=== PATIENT | female | born 1945 | race Caucasian/White ===

== ENCOUNTER → 2017-03-30 11:15 | Outpatient (CLI) | payer MEDICARE, SELFPAY ==
[2017-03-30 14:49] LABS: Anion Gap 10 (5-15); BUN 26 mg/dL (7-18); BUN/Creat Ratio 23.9 RATIO (10-20); Calcium,Total 9.1 mg/dL (8.5-10.1); Chloride 102 mmol/L (98-107); Cholesterol 205 mg/dL (200); Creatinine, Serum 1.09 mg/dL (0.55-1.02); EST Glomerular Filtration Rate 53 mL/min (>60); Est Glom Filt Rate - Afr Amer 64 mL/min (>60); Glucose 96 mg/dL (74-106); High Density Lipoprotein 52 mg/dL; Potassium 3.9 mmol/L (3.5-5.1); Sodium Level 137 mmol/L (136-145); Thyroid Stim Hormone (TSH) 1.81 uIU/mL (0.358-3.74); Triglycerides 108 mg/dL; Very Low Density Lipoprotein 22 mg/dL (5-40)
== END ==
PROVIDERS: Family Provider Family Medicine; PCP Family Medicine; Visit Provider Family Medicine
DX: I10 Essential (primary) hypertension (principal); F32.9 Major depressive disorder, single episode, unspecified
CPT/HCPCS: 36415; 80048; 80061; 84443

== ENCOUNTER → 2018-07-16 | Outpatient (CLI) | payer MEDICARE, SELFPAY ==
--- NOTE | 2018-07-16 10:16 | BI_ITS ---
MAMMOGRAPHY - BILATERAL SCREENING REASON FOR EXAM: Female, 73 years old. Routine annual screening examination. PERTINENT HISTORY: Non-contributory. TECHNIQUE: Digital bilateral breast tony (3D mammographic acquisition) in the CC and MLO projections. 2-D mediolateral oblique (MLO) and craniocaudad (CC) views of both breasts were obtained. CAD: Full Field Digital Mammography with Computer Added Detection was performed. COMPARISON: Comparison is made with prior study dated May 08, 2013 and November 04, 2011. FINDINGS: Breast Composition: The breasts are almost entirely fatty. There now is evidence of a 2.3 cm x 1.3 cm spiculated nodule in the slightly inferior deep retroareolar region of the left breast. A neoplastic process should be ruled out. Correlation with ultrasound is recommended. No other significant abnormalities are identified. BI/SCREEN MAMM (CAD) W/TONY BILAT IMPRESSION: New 2.3 cm x 1.3 cm spiculated nodule in the slightly inferior deep retroareolar region of the left breast as described. Correlation with ultrasound is recommended. This is a highly suspicious nodule. ASSESSMENT CATEGORY: BIRADS Category 5: Highly Suggestive of Malignancy - Appropriate Action Should Be Taken. A letter regarding these results will be sent to the patient by the facility within 30 days. Approximately 10% of breast cancers are not detected by mammography. A normal mammogram should not delay biopsy of a clinically suspicious abnormality. [id number] Electronically Signed: Carlos Childs, at 10:49 EDT , Service support ,
== END | disposition home or self-care (01) ==
PROVIDERS: Family Provider Family Medicine; PCP Family Medicine; Referring Provider Family Medicine; Visit Provider Family Medicine
DX: Z12.31 Encounter for screening mammogram for malignant neoplasm of breast (principal)
CPT/HCPCS: 77063; 77067

== ENCOUNTER → 2018-07-18 | Outpatient (CLI) | payer MEDICARE, SELFPAY ==
--- NOTE | 2018-07-18 14:42 | US_ITS ---
STUDY: ULTRASOUND BREAST - LEFT REASON FOR EXAM: Female, 73 years old. Abnormal screening mammogram. TECHNIQUE: Axial and longitudinal images of the LEFT breast were performed with a high resolution ultrasound transducer. COMPARISON: Comparison is made with prior mammogram dated July 16, 2018. FINDINGS: LEFT Breast: There is a 1.3 cm x 1.3 cm x 2.1 cm ill-defined hypoechoic nodule at the 7:00 position of the breast at 3 cm from nipple. There is evidence of posterior acoustical shadowing. A biopsy is strongly recommended. US/Breast Limited Unilateral IMPRESSION: 1.3 cm x 1.3 cm x 2.1 cm ill-defined hypoechoic nodule at the 7:00 position of the breast at 3 cm from nipple. A biopsy is recommended. ASSESSMENT CATEGORY: BIRADS Category 5: Highly Suggestive of Malignancy - Appropriate Action Should Be Taken. A letter regarding these results will be sent to the patient by the facility within 30 days. Electronically Signed: Carlos Childs, at 8:56 EDT , Service support ,
== END | disposition home or self-care (01) ==
LOC: OPUS 14:40
PROVIDERS: Family Provider Family Medicine; PCP Family Medicine; Referring Provider Family Medicine; Visit Provider Family Medicine
DX: R92.8 Other abnormal and inconclusive findings on diagnostic imaging of breast (principal)
CPT/HCPCS: 76642

== ENCOUNTER → 2018-07-22 | Outpatient (CLI) | payer MEDICARE, SELFPAY ==
--- NOTE | 2018-07-22 | IMM_PTH ---
PATIENT: CARI APPIAH LOC: [facility] U#:[id number] AGE/SX: 73/F ROOM: RE07/22/[address]: Dr. Barry Hernandez MD : 1945 BED: DIS: 07/22/2018 SPEC #: [id number] RECD: 07/25/18 12:01 STATUS: SANDRA [place] #: [id number] SHO: 07/22/18 00:[address]: Barry Hernandez DEPT: IMMUNOHISTOCHEMISTRY RECD BY: Mena Solis ENTERED: 07/25/18 12:02 SP TYPE: IMMUNO OTHR DR: Dr. Magdy Gibbs MD Tissues: Left breast, NOS Procedures: CALPONIN-1 (add) CK5-6 (add) E-CAD (add) HER2 ADRIÁN (add) KI-67 (add) P53 (add) ID (add) P40 (add) ER (initial) PHYSICIAN & INSTITUTION [address] [address] SPECIMEN INFORMATION: Tissue Source: Left breast tissue Clinical Info: Abnormal left breast ultrasound Specimen Number: [id number] CPT code: 51854, 00339 x5, 80166 x3 METHODOLOGY: Deparaffinized sections of prefer/formalin-fixed tissue or PAP/DQ stained slides are incubated with monoclonal/polyclonal antibodies/oligonucleotide probes. Localization is made via biotin free immunoperoxidase method. Appropriate controls are performed and reacted as expected. Results on target cell population are indicated in the following table: RESULTS: ANTIBODY / CLONE RESULT E-Cad (ECH-6) positive CK5-6 (D5 & 1684) negative Ki-67 (30-9) positive, low P53 (DO-7) negative P40 (BC28) negative Calponin-1 (CI233A) negative MORPHOMETRIC ANALYSIS ER (clone 6F11) >95%, strong ID (clone 16/1E2) >95%, strong Her-2Neu (clone CB11) 0-1+ The prognostic test for HER2 is performed on formalin-fixed paraffin embedded tissue. A 3+ (positive) staining pattern is defined as intense, homogeneous, complete, circumferential membranous staining in >10% of contiguous tumor cells. A similar weak (2+) staining pattern is interpreted as equivocal. TORREY follow-up testing is recommended for all equivocal cases. Positivity/negativity for ER/ID is reported if > or < 1% of the tumor cells are immuno- reactive, respectively. The ASCO/CAP criteria is used for scoring. Reference: Journal of Clinical Oncology, 2013; 31:3700-9926 & 2010; 16:1543-6364. Duration of fixation: 53 Hrs; Sample Adequate: Yes. These assays have not been validated on decalcified tissues. Results should be interpreted with caution given the likelihood of false negativity on decalcified specimens. These tests were developed and their performance characteristics determined by [facility]. They may not have been cleared or approved by the U.S. Food and Drug Administration. The FDA has determined that such clearance or approval is not necessary. INTERPRETATION: Left breast, core biopsy: Invasive ductal carcinoma, nuclear grade 1-2. Positive for estrogen receptors (favorable prognostic indicator). Positive for progesterone receptors (favorable prognostic indicator). Negative for overexpression of GBG4wbo. SJ:victoria 07/26/18
--- NOTE | 2018-07-22 | BRBX_PTH ---
PATIENT: CARI APPIAH LOC: [facility] U#:[id number] AGE/SX: 73/F ROOM: RE07/22/[address]: Dr. Barry Hernandez MD : 1945 BED: DIS: 07/22/2018 SPEC #: [id number] RECD: 07/22/18 13:49 STATUS: SANDRA TEJAS #: [id number] SHO: 07/22/18 00:[address]: Barry Hernandez DEPT: SURGICAL PATHOLOGY RECD BY: Chaim Navarro ENTERED: 07/22/18 14:45 SP TYPE: BREAST BX OTHR DR: Dr. Magdy Gibbs MD Tissues: Left breast, NOS Procedures: Surgery Specimen Level IV HEADER OPERATION: Left breast core biopsy PRE-OP DIAGNOSIS: Abnormal left breast ultrasound TISSUE SUBMITTED: Left breast tissue FIXATION TIME: 53 hours MICROSCOPIC DIAGNOSIS Left breast tissue, core biopsy: Invasive ductal carcinoma, nuclear grade 1-2 (1 cm in greatest length). See comment. BENEDICT:victoria 07/25/18 COMMENT Immunohistochemistry ([id number]) supports the above diagnosis. ER/LA/Czk1aim studies are being performed on sections of tumor and the results from this study will be reported separately ([id number]). Case has been reviewed in consultation with Dr. Roberts who concurs with the above diagnosis. IDC:AM MICROSCOPIC DESCRIPTION Slides are reviewed. GROSS DESCRIPTION Received in fixative is one container labeled with the patient's name and designated left breast tissue. The specimen consists of multiple elongated fragments of padilla-yellow fibroadipose tissue that in aggregate measure 1.5 x 0.3 x 0.1 cm. The entire specimen is submitted in one cassette. / BENEDICT:victoria 07/22/18 TC:0 CPT: 75222
[2018-07-22 12:57] VITALS: BMI 41.5
== END | disposition home or self-care (01) ==
PROVIDERS: Family Provider Family Medicine; PCP Family Medicine; Referring Provider Surgery; Visit Provider Surgery
DX: R92.8 Other abnormal and inconclusive findings on diagnostic imaging of breast (principal)
CPT/HCPCS: 88305; 88341; 88342

== ENCOUNTER → 2018-08-16 12:16 | Outpatient (CLI) | payer MEDICARE, SELFPAY ==
[2018-08-10 16:22] VITALS: BMI 41.5
[2018-08-16 13:01] LABS: CREATININE FINGERSTICK 1.8 mg/dL (0.55-1.02)
== END ==
PROVIDERS: Family Provider Family Medicine; PCP Family Medicine; Referring Provider Surgery; Visit Provider Surgery
DX: C50.919 Malignant neoplasm of unspecified site of unspecified female breast (principal)

== ENCOUNTER 2018-08-19 08:13 | Day surgery (SDC) | payer MEDICARE, SELFPAY ==
[2018-07-22 12:57] VITALS: BMI 41.5
--- NOTE | 2018-08-10 06:55 | HP_ITS ---
Intake Vital Signs 08/10/18 Body Mass Index (BMI) 41.5 Intake Visit Reasons: Lt Breast Bx 07/22 Chief Complaint: discuss surgery Application Developer Required: No Is patient in pain?: No Allergies No Known Allergies Allergy (Verified 08/10/18 16:22) Medications bupropion HCl XL 300 mg 24 hr tablet, extended release 300 mg PO QAM 07/22/18 [History Confirmed 08/10/18] fluoxetine 20 mg capsule 20 mg PO DAILY 07/22/18 [History Confirmed 08/10/18] lisinopril 20 mg-hydrochlorothiazide 12.5 mg tablet 1 tab PO DAILY 07/22/18 [History Confirmed 08/10/18] meloxicam 15 mg tablet 15 mg PO DAILY 07/22/18 [History Confirmed 08/10/18] Is last menstrual period known: No Post menopausal: Yes Patient : No PFSH Medical History (Updated 08/10/18 @ 18:49 by Barry Hernandez MD) Abnormal mammogram of left breast (Acute) Obesity (Chronic) Benign essential hypertension (Chronic) Arthritis (Acute) Breast cancer (Acute) Depression (Acute) Surgical History H/O tubal ligation (Acute) H/O: hysterectomy (Acute) S/P laparoscopic cholecystectomy (Acute) Social History (Updated 08/10/18 @ 18:55 by Barry Hernandez MD) Smoking Status: Never smoker alcohol intake: never HPI HPI HPI: CARI APPIAH, is a 73 F who presents to the office today for HPI HPI Surgical H&P: Yes HPI: CARI APPIAH, is a 73 F who presents to the office today for surgical follow-up of a ultrasound-guided needle core biopsy lower inner left breast mass. My previous notes reflect the following. MR#:[id number]:[id number] Name: CARI APPIAH [facility] #:[id number] : 1945 Provider:Barry Hernandez MD Age/Sex: 73/F Location:[facility] Status:Signed Intake Vital Signs 07/22/18 Height 5 ft 5 in 07/22/18 Weight: 250 lb 07/22/18 Body Mass Index (BMI) 41.5 07/22/18 Blood Pressure 125/81 H 07/22/18 Blood Pressure Location Rt brachial 07/22/18 Blood Pressure Position Sitting 07/22/18 Respiratory Rate 18 07/22/18 Pulse Rate 76 Intake Visit Reasons: Birads 5 L Breast US 07/18 Mammo 07/16 Application Developer Required: No Is patient in pain?: No Allergies No Known Allergies Allergy (Unverified 07/22/18 12:57) Medications bupropion HCl XL 300 mg 24 hr tablet, extended release 300 mg PO QAM 07/22/18 [History Confirmed 07/22/18] doxycycline hyclate 100 mg capsule 100 mg PO BID 07/22/18 [History Confirmed 07/22/18] fluoxetine 20 mg capsule 20 mg PO DAILY 07/22/18 [History Confirmed 07/22/18] lisinopril 20 mg-hydrochlorothiazide 12.5 mg tablet 1 tab PO DAILY 07/22/18 [History Confirmed 07/22/18] meloxicam 15 mg tablet 15 mg PO DAILY 07/22/18 [History Confirmed 07/22/18] PFSH Medical History Obesity (Chronic) Benign essential hypertension (Chronic) Arthritis (Acute) Depression (Acute) Surgical History H/O tubal ligation (Acute) H/O: hysterectomy (Acute) S/P laparoscopic cholecystectomy (Acute) Social History Smoking Status: Never smoker alcohol intake: never HPI HPI HPI: CARI APPIAH, is a 73 F who presents to the office today for surgical consultation regarding an abnormal left mammogram. The patient was referred by her primary care physician Dr. Magdy Gibbs and a written copy of my surgical consult recommendations will return to him. 73-year-old female. A0. Not quite sure when marked menarche was approximately age of 13. Her first child was born when she was 19. No history of previous breast biopsies. She has had a previous hysterectomy for benign disease. She believes that she was on estrogen replacement therapy for 2 to 3 years. Family history is negative for breast cancer. The patient detected enlargement of her left breast as compared to her right. No tenderness. No palpable mass. At the [facility] on July 16, 2018 she had bilateral mammography. The breast tissue was noted to be mostly fatty. The images were compared to previous images of May 08, 2013. There is felt to be a new 2.3 x 1.3 cm spiculated nodule slightly inferior deep retroareolar left breast BI-RADS 5. An ultrasound was performed. This demonstrated a 1.3 x 1.3 x 2.1 similar ill- defined hypoechoic nodule 7 o'clock position left breast breast 3 cm. The patient denies any recent illnesses. She states that she did have a heart catheterization perhaps 6 or 7 years ago. She states that that did not require any intervention. HPI HPI HPI: CARI APPIAH, is a 73 F who presents to the office today for ROS General General: No weight change, appetite, fatigue, colon cancer, breast cancer or weakness HEENT HEENT: No difficulty swallowing, eye injury, eye surgery, swollen glands or hoarseness Endo Endocrine: No thyroid disease, diabetes mellitus, thyroid cancer, Hair loss, heat intolerance or cold intolerance Skin Skin: No rash or changing moles Breast Breast: Yes left breast lump, abnormal mammogram and abnormal US; no right breast lump, nipple discharge, breast pain or breast enlargement Musc Musculoskeletal: No back problems, arthritis, rheumatoid arthritis, gout or joint pain Cardio Cardiovascular: Yes high blood pressure; no murmur, pacemaker, heart disease, atrial fibrillation, heart attack, heart stent, palpitations, shortness of breat with exertion or chest pain Psych Psychiatric: Yes depression; no anxiety or hearing voices Resp Respiratory: No shortness of breath, No sleep apnea, No cough, No COPD, No asthma, No emphysema, No wheezing Gastro Gastrointestinal: No abdominal pain, No nausea or vomiting, No diarrhea, No constipation, No blood in stool, No acid reflux, No hemorrhoids, No ulcers, No gallbladder problem, No black,tarry stools Chapin Hematologic: No blood thinners, No blood disorders, No bleeding, No anemia, No blood clots Neuro Neurologic: No system reviewed and no additional complaints, except as docu, No as per HPI, No abnormal walking, No abnormal hearing, No abnormal movements, No abnormal speech, No behavioral changes, No burning sensations, No confusion, No seizure-like activity, No unsteadiness, No dizziness, No localized weakness, No frequent falls, No headache(s), No lack of coordination, No loss of vision, No memory loss, No numbness, No other visual disturbances, No radiating pain, No restless legs, No sensory deficit, No fainting, No tingling, No tremor(s), No weakness, No other Exam Const General: cooperative Nutritional Appearance: obese morbidly obese Orientation: alert, awake, oriented x3 HENMT Head: normal to inspection Eyes General: appearance normal, both eyes and all related structures Neck Neck: normal visual inspection Chest Breast Palpation: No nipple discharge Other: Right breast: No focal mass. No nipple discharge. No axillary or clavicular adenopathy Left breast: Deep slightly retroareolar fibrous nondescript fullness with lower inner left breast skin retraction with elevation. No nipple discharge. No axillary or clavicular adenopathy Resp Effort & Inspection: other (Slightly diminished respiratory excursion secondary to body had but this) Auscultation: clear to auscultation bilaterally Cardio Rate: regular rate Rhythm: regular rhythm Heart Sounds: no murmurs GI Palpation: soft, no hepatosplenomegaly Other: Difficult to palpate internal organs secondary to body habitus. Normal bowel sounds Musc Cervical Spine: normal cervical lordosis Skin Other: Nonpitting minimal lower extremity edema with venous stasis changes Neuro Cognition: normal cognition Extrem General: no calf tenderness bilaterally Psych Affect: normal affect Office Procedures Biopsy Provider Documentation Ultrasound-guided needle core biopsy lower inner left breast Timeout and informed consent was obtained. 73-year-old female was taken to procedure room placed on the table. The left breast was sterilely prepped with Betadine. Ultrasound was performed. This demonstrated a vague irregular suspicious density lower inner left breast 7 o'clock position. Under ultrasound guidance 1% lidocaine mixed 50-50 with 0.5% Marcaine was used as local anesthetic. A total of 8 cc was used. A small stab incision was created. A 14-gauge Monopty needle was advanced to prefire depth. Pre-and post fire films were obtained. The initial 3 attempts at specimen containing was very difficult due to the very dense fibrous nature of this lesion. With the fourth and fifth samplings I felt that I got adequate tissue. The tissue was immediately placed in formalin. A small marking clip was left in position. Pressure was held for hemostasis. Steri-Strip Telfa OpSite dressing applied. She was given activity wound care instructions. Specimen course. Blood loss minimal. Barry Hernandez M.D., F.A.C.S. Alert Dave Yes Biopsy Breast Biopsy: 66022 US Guidance Assessment & Plan Problems 1. Abnormal mammogram of left breast R92.8 Plan I did perform the ultrasound-guided needle core biopsy lower inner left breast for her today. Please refer to the procedure note. In detail I discussed with her my suspicions. I discussed technique, benefit, risk and alternatives of surgical management. The patient has an immediate response that she would not pursue mastectomy. I did discuss with her ultrasound-guided wire localization with wire localized lumpectomy and left axillary nuclear medicine blue dye sentinel lymph node biopsy followed up by radiotherapy. She is aware that this is breast conservation surgery. She has been provided written descriptive information as well. We will can continue to assist in maximizing her care. I have commented upon our local ability with hematology oncology and radiation oncology. I will ask our colleagues to assist in helping review her pathology with her and treatment plans in my absence from the office. We will tentatively have her scheduled for definitive surgery upon my return. I anticipate an additional office appointment just prior to that to cement treatment plans. I very much appreciate the kind opportunity of assisting with her surgical care CC: Dr. Magdy Hernandez M.D., F.A.C.S. Orders Orders: Biopsy Today R92.8 Referrals: Oncology C50.919 Coding Level of Care Code Comprehensive,moderate Diagnoses Abnormal mammogram of left breast R92.8 Additional Codes Biopsy - Breast Biopsy: 54550 US Guidance (01598) 07/22/18 1331<Electronically signed by Barry Hernandez MD> Date Barry Hernandez MD Cosigner Signature:Date (if applicable) CC: Magdy Gibbs MD ~ 1 [facility] [id number] [place], [place] [phone] Page 1of 1The contents of this transmission are privileged, confidential and exempt from disclosureunder applicable law. If you have received this information in error, call . CARI APPIAH MR# [id number]: CARI APPIAH/Sex: 73/[address]:Adilia #: [id number] Unit #: [id number]: LABSPECDOB: 1945Status:REG CLIFacility:WOC Spec# :[id number] Spec Date: 07/22/18Su Dr: David ORTIZ,[place] Type: BRBXOPERATION: Left breast core biopsyPRE-OP DIAGNOSIS: Abnormal left breast ultrasoundTISSUE SUBMITTED: Left breast tissueFIXATION TIME: 53 hours MICROSCOPIC DIAGNOSISLeft breast tissue, core biopsy:Invasive ductal carcinoma, nuclear grade 1-2 (1 cm in greatest length). See comment.BENEDICT:victoria 07/25/18COMMENTImmunohistochemistry ([id number]) supports the above diagnosis.ER/SC/Nmv4asv studies are being performed on sections of tumor and the results from this study will be reported separately ([id number]).Case has been reviewed in consultation with Dr. Roberts who concurs with the above diagnosis.IDC:AMMICROSCOPIC DESCRIPTIONSlides are reviewed.GROSS DESCRIPTIONReceived in fixative is one container labeled with the patient's name and designated left breast tissue. The specimen consists of multiple elongated fragments of padilla-yellow fibroadipose tissue that in aggregate measure 1.5 x 0.3 x 0.1 cm. The entire specimen is submitted in one cassette. / SJ:victoria 07/22/18 TC:0CPT: [address]: Dr. Trae Campuzano MD 07/25/18 1517 1 [facility] OF LABORATORYIMMUNOHISTOCHEMISTRY/ IN SITU HYBRIDIZATION (TORREY) [id number] [facility] [address] Page 1The contents of this transmission are privileged, confidential and exempt from disclosureunder applicable law. If you have received this information in error, call . CARI APPIAH MR# [id number]: CARI APPIAH/Sex: 73/FAttend :Adilia #: [id number] Unit #: [id number]: LABSPECDOB: 1945Status:DEP CLIFacility:WOC Spec# :[id number] Date: 07/22/18[facility] Dr: David ORTIZ,[place] Type: [facility] & [place] [address] SPECIMEN INFORMATION:TissueSource:Left breast tissueClinical Info:Abnormal left breast ultrasoundSpecimen Number:[id number] code:[id number], 23405 x5, 33427 [id number]:Deparaffinized sections of prefer/formalin-fixed tissue or PAP/DQ stained slides are incubated with monoclonal/polyclonal antibodies/oligonucleotide probes. Localization is made via biotin free immunoperoxidase method. Appropriate controls are performed and reacted as expected. Results on target cell population are indicated in the following table:RESULTS:ANTIBODY /CLONE RESULTE-Cad (ECH-6) positiveCK5-6 (D5 & 1684) negativeKi-67 (30-9) positive, lowP53 (DO-7) exbclihhC71 (BC28)negativeCalponin-1 (ZW924S) negativeMORPHOMETRIC ANALYSIS ER (clone 6F11) >95%, strongPR (clone 16/1E2) >95%, strongHer-2Neu (clone CB11) 0-1+ The prognostic test for HER2 is performed on formalin-fixed paraffin embedded tissue. A 3+ (positive) staining pattern is defined as intense, homogeneous, complete, circumferential membranous staining in >10% of contiguous tumor cells. A similar weak (2+) staining pattern is interpreted as equivocal. TORREY follow- up testing is recommended for all equivocal cases. Positivity/negativity for ER/SC is reported if > or < 1% of the tumor cells are immuno-reactive, respectively. The ASCO/CAP criteria is used for scoring. Reference: Journal of Clinical Oncology, 2013; 31:7911-4311 & 2010; 16:4807-1218. Duration of fixation: 53 Hrs; Sample Adequate: Yes.These assays have not been validated on decalcified tissues. Results should be interpreted with caution given the likelihood of false negativity on decalcified specimens. [facility] LABORATORYIMMUNOHISTOCHEMISTRY/ IN SITU HYBRIDIZATION (TORREY) [id number] [place] [phone] Page 2The contents of this transmission are privileged, confidential and exempt from disclosureunder applicable law. If you have received this information in error, call . CARI APPIAH MR# [id number] tests were developed and their performance characteristics determined by [facility]. They may not have been cleared or approved by the U.S. Food and Drug Administration. The FDA has determined that such clearance or approval is not necessary.INTERPRETATION:Left breast, core biopsy:Invasive ductal carcinoma, nuclear grade 1-2.Positive for estrogen receptors (favorable prognostic indicator).Positive for progesterone receptors (favorable prognostic indicator).Negative for overexpression of YNM5wuo.SJ:victoria 07/26/18 Elect ronically Signed by: HAN General General: No weight change, appetite, fatigue, colon cancer, breast cancer or weakness HEENT HEENT: No difficulty swallowing, eye injury, eye surgery, swollen glands or hoarseness Endo Endocrine: No thyroid disease, diabetes mellitus, thyroid cancer, Hair loss, heat intolerance or cold intolerance Skin Skin: No rash or changing moles Breast Breast: Yes left breast lump, abnormal mammogram and abnormal US; no right breast lump, nipple discharge, breast pain or breast enlargement Musc Musculoskeletal: No back problems, arthritis, rheumatoid arthritis, gout or joint pain Cardio Cardiovascular: Yes high blood pressure; no murmur, pacemaker, heart disease, atrial fibrillation, heart attack, heart stent, palpitations, shortness of breat with exertion or chest pain Psych Psychiatric: Yes depression; no anxiety or hearing voices Resp Respiratory: No shortness of breath, No sleep apnea, No cough, No COPD, No asthma, No emphysema, No wheezing Gastro Gastrointestinal: No abdominal pain, No nausea or vomiting, No diarrhea, No constipation, No blood in stool, No acid reflux, No hemorrhoids, No ulcers, No gallbladder problem, No black,tarry stools Chapin Hematologic: No blood thinners, No blood disorders, No bleeding, No anemia, No blood clots Neuro Neurologic: No weakness Exam Chest Breast Palpation: No nipple discharge Cardio Heart Sounds: no murmurs Assessment & Plan Problems 1. Malignant neoplasm of lower-inner quadrant of left breast in female, estrogen receptor positive C50.312; Z17.0 Plan Today was a 20-minute ovkn-hc-sgtm consultative appointment with the patient and family members. Anish ultrasound-guided biopsy site is clean and dry. I discussed the technique, benefit, alternatives of a ultrasound-guided wire localization lower inner left breast with subsequent nuclear tracer and blue dye left axillary sentinel lymph node biopsy with combination of ultrasound-guided wire localization lower inner left breast lumpectomy. I compared and contrasted that with left mastectomy. I believe that she is a good candidate for breast conservation surgery. I recommend that we obtain bilateral breast MRI preoperatively. She is aware of technique, benefit, risks, alternatives. She strongly prefers hers breast conservation technique. She is aware of the potential risk of positive margins. She has had an opting to ask and have questions answered. We will schedule and proceed at her discretion. CC: Dr. Magdy Hernandez M.D., F.A.C.S. Orders Orders: Breast Bilateral W/O and W Today C50.919 Coding Level of Care Code Off vis,est,level 2 Diagnoses Malignant neoplasm of lower-inner quadrant of left breast in female, estrogen receptor positive C50.312; Z17.0 ??Breast location: lower inner quadrant of breast ??Estrogen receptor status: positive ??Patient sex: female ??Laterality: left 08/10/181854 <Electronically signed by Barry mayes MD> Date _ Barry Hernandez MD The MRI was not pursued because the patient has abnormal renal function. After discussion with radiology it was felt that because her breasts are very fibrofatty that the mammographic imaging is sufficient enough itself. We will pursue breast conservation surgery as otherwise anticipated. She has had an opportunity to ask and have questions answered. We will proceed as noted. Barry Hernandez M.D., F.A.C.S.
[2018-08-10 16:22] VITALS: BMI 41.5
--- NOTE | 2018-08-17 15:57 | EKG12_ITS ---
Test Reason : PRE-OP Blood Pressure : / mmHG Vent. Rate : 076 BPM Atrial Rate : 071 BPM P-R Int : 196 ms QRS Dur : 120 ms QT Int : 412 ms P-R-T Axes : 075 -56 069 degrees QTc Int : 463 ms Sinus rhythm with Premature supraventricular complexes Left axis deviation Incomplete left bundle branch block Abnormal ECG Confirmed by IRMA ORTIZ, GLADYS ([id number]), editor house organ ARIANNA CHARLES ([id number]) on 08/22/2018 1:21:01 PM Referred By: Barry Hernandez Confirmed By:GLADYS SOLIS MD
--- NOTE | 2018-08-17 16:20 | RAD_ITS ---
STUDY: X-RAY CHEST REASON FOR EXAM: Female, 73 years old. Preop breast cancer TECHNIQUE: Frontal and lateral views of the chest. COMPARISON: None. FINDINGS: The lungs are clear and expanded. Small calcified granuloma mid left lung. There is no demonstrated pleural abnormality. Normal size heart. Normal mediastinum and nacho. Normal visualized pulmonary arteries. Normal visualized aortic arch and descending thoracic aorta. There are diffuse degenerative changes of the visualized thoracic spine. Normal visualized ribs, clavicles, and shoulders. There is no demonstrated abnormality of the visualized soft tissue structures of the upper abdomen. RAD/Chest PA and Lateral IMPRESSION: No acute chest disease. Electronically Signed: Frederick Anderson MD at 16:47 EDT , Service support ,
[2018-08-17 16:21] LABS: Hematocrit 42.2 % (37-47); Hemoglobin 14.4 g/dl (12.0-15.0); Mean Corp Hgb Conc 34.1 g/gl (32-36); Mean Corpuscular Hgb 29.9 pg (27.0-32.0); Mean Corpuscular Volume 87.6 fL (81-99); Mean Platelet Vol. 9.7 fl (6.2-12.0); Platelet Count 300 K/mm3 (150-450); RBC Distribution Width CV 13.8 % (11.6-14.6); RBC Distribution Width SD 43.8 fl (35.1-43.9); Red Blood Count 4.82 M/mm3 (4.2-5.4); White Blood Count 7.9 K/mm3 (4.4-11.0)
[2018-08-17 16:39] LABS: Scan Indicated on CBC? Y/N NO
[2018-08-17 17:04] LABS: AST(SGOT) 20 U/L (15-37); Alanine Aminotransfer ALT/SGPT 28 U/L (13-56); Albumin, Serum 3.6 g/dL (3.2-5.0); Alkaline Phosphatase 91 U/L (45-117); Anion Gap 10 (5-15); BUN 37 mg/dL (7-18); BUN/Creat Ratio 26.4 RATIO (10-20); Calcium,Total 9.2 mg/dL (8.5-10.1); Chloride 105 mmol/L (98-107); EST Glomerular Filtration Rate 39 mL/min (>60); Est Glom Filt Rate - Afr Amer 47 mL/min (>60); Globulin 3.6 g/dL (2.2-4.2); Glucose 88 mg/dL (74-106); Potassium 4.3 mmol/L (3.5-5.1); Protein, Total 7.2 g/dL (6.4-8.2); Sodium Level 140 mmol/L (136-145)
[2018-08-19] VITALS (7 sets, daily range): BP systolic 120–131; BP diastolic 61–81; PULSE 76–98; RESP 16–18; TEMP 36.2–36.7; O2SAT 92–100; BMI 41.1
--- NOTE | 2018-08-19 | AXNB_PTH ---
PATIENT: CARI APPIAH LOC: [facility] [place] U#:[id number] AGE/SX: 73/F ROOM: RE08/19/[address]: Dr. Barry Hernandez MD : 1945 BED: DIS: 08/19/2018 SPEC #: [id number] RECD: 08/19/18 12:13 STATUS: SANDRA TEJAS #: [id number] SHO: 08/19/18 00:[address]: Barry Hernandez DEPT: SURGICAL PATHOLOGY RECD BY: Mena Solis ENTERED: 08/19/18 13:04 SP TYPE: AX NODE BX OTHR DR: Dr. Magdy Gibbs MD Tissues: A - Axillary lymph node, NOS B - Left breast, NOS Procedures: Frozen Section (charge) Frozen Section Add'l ([facility]) Surgery Specimen Level V HEADER OPERATION: Ultrasound-guided wire localization, lumpectomy with sentinel lymph node PRE-OP DIAGNOSIS: Abnormal mammogram left breast TISSUE SUBMITTED: A - Left sentinel lymph node, frozen section, B - Left breast lumpectomy, short suture - superior, long suture - lateral, single suture - anterior FROZEN SECTION DIAGNOSIS A. Left sentinel lymph nodes, biopsy: Six out of six lymph nodes negative for metastatic carcinoma. SJ: 08/19/18 MICROSCOPIC DIAGNOSIS A. Left sentinel lymph nodes, biopsy: Six out of six lymph nodes negative for metastatic carcinoma. B. Left breast, lumpectomy: Invasive ductal carcinoma. See cancer summary below. SJ: 08/23/18 INVASIVE BREAST CANCER SUMMARY: Specimen - partial breast Procedure - excision. See comment. Lymph node sampling - sentinel lymph nodes Specimen integrity - single intact specimen Specimen size - 7.5 x 8 x 4 cm Specimen laterality - left Tumor site - not specified Tumor size - 2.5 x 1.5 x 1.5 cm Tumor focality - single focus of invasive carcinoma. Macroscopic and Microscopic extent of tumor: Skin - not present Nipple - not applicable Skeletal muscle - no skeletal muscle present. Ductal carcinoma in situ (DCIS) - DCIS is present. Extensive intraductal component (EIC) - negative Estimated size (extent) of DCIS - the DCIS comprise about 5% of the total tumor volume. Number of blocks with DCIS - 5 Number of blocks examined - 10 Architectural patterns - solid, and cribriform Nuclear grade - grade 2 (intermediate) Necrosis - not identified.. Lobular carcinoma in situ (LCIS) - not identified Histologic type of invasive carcinoma - invasive ductal carcinoma (no special type) Histologic Grade (Alma grade): Glandular/tubular differentiation - score 3 Nuclear pleomorphism - score 2 Mitotic count - score 1 Overall grade - 2 (score of 6) Margins - Margins uninvolved by invasive carcinoma. The invasive carcinoma is 0.1 cm away from the closest inferior and lateral margins of the specimen. The ductal carcinoma in situ is 1.4 cm away from the closest inferior margin of the specimen. Treatment effect: Response to presurgical (neoadjuvant) therapy - no known presurgical therapy. Lymph-Vascular invasion - not identified Dermal lymph-vascular invasion - not applicable Lymph nodes: Number of sentinel lymph nodes examined - 6 Total number of lymph nodes examined (sentinel and nonsentinel) - 6 Number of lymph nodes with macrometastases, micrometastases and isolated tumor cells - 0 Method of evaluation of sentinel lymph nodes - H & E, multiple levels and IHC ([id number]). Distant metastasis - not applicable Additional pathologic findings - fibrocystic changes Ancillary studies - previously performed on section of tumor ([id number] / [id number]). ER - positive (>95%, strong) MT - positive (>95%, strong) Her2 tony - negative (0-1+) Microcalcifications - not identified Clinical history - Please make reference to previous specimen ([id number]) left breast tissue, core biopsy with diagnosis of invasive ductal carcinoma. PATHOLOGIC STAGE: pT2 pN0 Mx The above summary is in compliance with [employer] (CAP) Cancer Protocols Checklist and [place] Joint Committee on Cancer (AJCC), Staging Manual, 8th Ed. COMMENT B. No wire is noted in the specimen. Case has been reviewed in consultation with Dr. Roberts who concurs with the above diagnosis. IDC:AM MICROSCOPIC DESCRIPTION Slides are reviewed. GROSS DESCRIPTION A - Received fresh for frozen section diagnosis labeled with the patient's name is a specimen designated left sentinel lymph nodes. The specimen consists of multiple fragments of padilla-yellow adipose tissue containing nodules consistent with lymph nodes. Six lymph nodes are identified measuring 1 to 3 cm in greatest dimension. The lymph nodes are submitted in entirety for frozen diagnosis as follows: 1 & 2 - frozen section, one bisected lymph node, 3 - frozen section, one bisected lymph node, 4 & 5 - frozen section, one bisected lymph node, 6 - frozen section, one bisected lymph node, 7 - two lymph nodes, one lymph node inked black. BENEDICT:victoria 08/22/18 B - Received fresh for intraoperative consultation labeled with the patient's name is a specimen designated left breast lumpectomy. The specimen consists of a piece of fibroadipose tissue measuring 7.5 x 8 x 4 cm. No wire is noted in the specimen. The specimen is oriented as follows: short suture - superior, long suture - lateral, single suture - anterior. The specimen is inked as follows: anterior - yellow, posterior - black, superior - blue, inferior - green, medial - red and lateral - orange. Serial sections reveal a padilla, indurated mass measuring 2.5 x 1.5 x 1.5 cm. This mass is close to the inferior margin of the specimen. This information is conveyed to the surgeon intraoperatively. Sections of the rest of the specimen reveal padilla-yellow adipose cut surfaces mixed with padilla-white fibrous areas. Grommet Worker sections are submitted as follows: 1 - perpendicular medial, lateral and superior margins, 2??perpendicular anterior and posterior margins, 3-6 - tumor with closest inferior margin, 79??international sales representative sections adjacent to the tumor, 10 - international sales representative sections away from the tumor. / BENEDICT:victoria 08/22/18 TC:0 CPT: 82016 x2, 65581, 70180 x6, 44017 ADDENDUM ADDENDUM ADDENDUM ADDENDUM ADDENDUM ADDENDUM ADDENDUM ADDENDUM 09/15/2018 11:39 ADDENDUM 09/15/2018 11:39 ADDENDUM 09/15/2018 11:39 ADDENDUM 09/15/2018 11:39 ADDENDUM 09/15/2018 11:39 An order for Oncotype testing was received from Dr. Machado. This necessitated case review, block and slide selection by pathologist at [facility]. Breast Cancer Recurrence Score = 5 Results of the complete Oncotype testing ([employer] report) are viewable in EMR under: Reports - Pathology - Lab Pathology Report, Scanned.
--- NOTE | 2018-08-19 | IMM_PTH ---
PATIENT: CARI APPIAH [place] [facility] [place][id number] AGE/SX: 73/F ROOM: RE08/19/[address]: Dr. Barry Hernandez MD : 1945 BED: DIS: 08/19/2018 SPEC #: [id number] RECD: 08/23/18 16:28 STATUS: SANDRA REQ #: [id number] SHO: 08/19/18 00:[address]: Barry Hernandez DEPT: IMMUNOHISTOCHEMISTRY RECD BY: Mena Solis ENTERED: 08/23/18 16:29 SP TYPE: IMMUNO OTHR DR: Dr. Magdy Gibbs MD Tissues: A - Axillary lymph node, NOS Procedures: CK7 (add) Pankeratin (initial) Pankeratin (add) PHYSICIAN & INSTITUTION [place] [id number] SPECIMEN INFORMATION: Tissue Source: A - Left sentinel lymph node Clinical Info: Abnormal mammogram left breast Specimen Number: [id number] A1- A7 CPT code: 42012, 64997 x13 METHODOLOGY: Deparaffinized sections of prefer/formalin-fixed tissue or PAP/DQ stained slides are incubated with monoclonal/polyclonal antibodies/oligonucleotide probes. Localization is made via biotin free immunoperoxidase method. Appropriate controls are performed and reacted as expected. Results on target cell population are indicated in the following table: RESULTS: ANTIBODY / CLONE RESULT Block A1 AE1-3 (AE1/AE3/PCK26) negative CK7 (OV-TL12/30) negative Block A2 AE1-3 (AE1/AE3/PCK26) negative CK7 (OV-TL12/30) negative Block A3 AE1-3 (AE1/AE3/PCK26) negative CK7 (OV-TL12/30) negative Block A4 AE1-3 (AE1/AE3/PCK26) negative CK7 (OV-TL12/30) negative Block A5 AE1-3 (AE1/AE3/PCK26) negative CK7 (OV-TL12/30) negative Block A6 AE1-3 (AE1/AE3/PCK26) negative CK7 (OV-TL12/30) negative Block A7 AE1-3 (AE1/AE3/PCK26) negative CK7 (OV-TL12/30) negative These tests were developed and their performance characteristics determined by [facility]. They may not have been cleared or approved by the U.S. Food and Drug Administration. The FDA has determined that such clearance or approval is not necessary. INTERPRETATION: A. Left sentinel lymph node, biopsy: Six out of six lymph nodes, negative for metastatic carcinoma. SJ:victoria 08/24/18
--- NOTE | 2018-08-19 08:00 | NM_ITS ---
PROCEDURE: NUCLEAR MEDICINE Injection Wesley Node - LEFT breast(s). REASON FOR EXAM: Female, 73 years old. Left breast cancer. TECHNIQUE: Wesley node localization using radionuclide methods of the LEFT breast(s) was performed following subcutaneous administration of 1.1 mCi of of sulfur colloid Tc-99m. FINDINGS: 1.1 mCi of technetium labeled sulfur colloid injected in the lateral midportion of the left breast. NM/Lymph Node Injection Only IMPRESSION: Subcutaneous injection of 1.1 mCi of technetium labeled sulfur colloid for sentinel node imaging. Electronically Signed: Carlos Childs, at 9:09 EDT , Service support ,
--- NOTE | 2018-08-19 11:28 | PCM.DC.BS ---
Discharge Diet: No Restrictions Discharge Activity: May Not Drive - for 2-3 days or while taking narcotic pain meds. May shower in (days): 1 Lifting Restrictions: 10 pounds for 1 week. Call your doctor if your incision/area has: Continuous Slow Oozing, Sudden Increased Bleeding Call your doctor if you observe: Fever of 101 or Higher Suture Line Care: Avoid Pulling/Pushing, Avoid Pinching/Bending Remove Dressing in (days):: 1 - Remove bulky dressing tomorrow. May leave any opsite dressing for 3-4 days. Keep dressing in place until your follow-up appointment. Additional Dressing/Incision Instructions:: Remove bulky dressing tomorrow. May leave any opsite dressing for 2-3 days. You may then remove the plastic OpSite dressings. Leave the Steri-Strips in place for 1 additional week. Allergies/Adverse Reactions: Allergies No Known Allergies Allergy (Verified 08/12/18 09:23) Medications to take at Discharge bupropion HCl XL 300 mg 24 hr tablet, extended release 300 mg PO QAM 07/22/18 fluoxetine 20 mg capsule 20 mg PO DAILY 07/22/18 lisinopril 20 mg-hydrochlorothiazide 12.5 mg tablet 1 tab PO DAILY 07/22/18 meloxicam 15 mg tablet 15 mg PO DAILY 07/22/18 Hydrocodone Bitart/Apap 5-325 [Harbinger 5MG-325MG] 1 tablet PO Q6H PRN PRN 2 Days #5 tablet 08/19/18 The following prescriptions were given: Hydrocodone Bitart/Apap 5-325 [Harbinger 5MG-325MG] 1 tablet PO Q6H PRN PRN 2 Days #5 tablet PRN Reason: Pain Transmission Status: Sent to [employer] [facility] Primary Care Physician: Magdy Gibbs MD [Primary Care Provider] - Please Follow Up With: Barry Hernandez MD When: [phone] please call to schedule office appointment in 7 to 10 days
[2018-08-19] MEDS: Isosulfan Blue 1% 5 ML Vial (11:37)
--- NOTE | 2018-08-19 12:30 | BI_ITS ---
SURGICAL BREAST SPECIMEN RADIOGRAPH CLINICAL: Document presence of tissue clip marker in biopsy specimen. FINDINGS: Specimen shows presence of tissue clip marker. Electronically Signed: Carlos Childs, at 13:07 EDT , Service support , BI/Breast Biopsy Specimen
--- NOTE | 2018-08-19 12:42 | OP.PCM_ITS ---
Report of Operation Date of Procedure: 08/19/18 Pre-Operative Diagnosis: Invasive ductal carcinoma lower inner left breast periareolar Post-Operative Diagnosis: Same Surgery/Procedure Performed:: Ultrasound-guided wire localization lower inner left breast with left breast lumpectomy and nuclear tracer and blue dye left axillary sentinel lymph node biopsy Description of Surgical Findings:: Timeout and informed consent was obtained. 73-year-old female was taken the operating placement table underwent general anesthesia. The left arm was carefully wrapped with cell phone placed at right angles of the table. The left breast was prepped with alcohol. A oblique incision was made in the left axilla sharp and blunt dissection was used to wrap the identified blue dyed lymphatic tracking. This dissected down to several enlarged lymph nodes. Circumferential dissection was performed. Hemostasis obtained with hemoclips. Palpation failed to reveal any residual disease. The blue dye tracking was superlative. I then used ultrasound to identify the lesion in the lower inner left breast. Using a Kopan's needle and ultrasound guidance I displaced the wire. I made a curvilinear incision lower inner aspect of the left areola. Retrocardiac dissection was performed down through the subtenons tissue and then circumferential dissection from completely around the lump completely excising it. A long suture was placed lateral short suture superior and a single suture anteriorly. Hemostasis team with interrupted 3-0 Vicryl. 4 hemoclips were placed at the boundary of the lumpectomy site. The wound was then approximated with deep ahn tures of interrupted 3-0 Vicryl and then the skin was approximated running septic or 4-0 Monocryl. The axilla was approximated with interrupted 4-0 Vicryl in a running septic or 4-0 Monocryl. Both sites were anesthetized with 0.5% Marcaine and a total of 30 cc was used. Telfa and OpSite dressings were applied. Sponge and instrument and needle counts were reported to surgically correct. Bulky fluff dressings were placed. Frozen section revealed 6 sentinel lymph nodes none with cancer Imaging suggested the mammogram specimen to be completely excised. She was taken to the recovery area in septic condition without apparent complication Barry Hernandez M.D., F.A.C.S. Specimen includes left after sentinel lymph nodes and lower inner left breast mass. Drains none. Blood loss minimal. Type of Anesthesia:: General Anesthesiologist: Tiffanie Her
[2018-08-19] MEDS: Bupivacaine 0.5% PF 10 ML VIAL (12:45)
== END 2018-08-19 16:05 | disposition home or self-care (01) ==
LOC: SDC 08:14 → AC 08:15
PROVIDERS: Family Provider Family Medicine; PCP Family Medicine; Referring Provider Surgery; Visit Provider Surgery
PROC: (CPT 19301; principal; 2018-08-19 10:15)
DX: C50.312 Malignant neoplasm of lower-inner quadrant of left female breast (principal); I10 Essential (primary) hypertension; F32.9 Major depressive disorder, single episode, unspecified; M19.90 Unspecified osteoarthritis, unspecified site; E66.01 Morbid (severe) obesity due to excess calories; Z68.41 Body mass index [BMI] 40.0-44.9, adult; Z79.899 Other long term (current) drug therapy
CPT/HCPCS: 19301; 38500; 36415; 38792; 71046; 76098; 80053; 85027; 88305; 88307; 88331; 88332; 88341; 88342; 93005; A9541; J7120; J2405; Q9968

== ENCOUNTER → 2018-09-05 | Outpatient (CLI) | payer MEDICARE, SELFPAY ==
[2018-09-01 13:37] VITALS: BMI 42.8
--- NOTE | 2018-09-05 16:41 | RAD_ITS ---
STUDY: X-RAY - RIGHT KNEE REASON FOR EXAM: Female, 73 years old. Right knee pain TECHNIQUE: 4 view(s) of the knee. COMPARISON: None. FINDINGS: Normal visualized distal femur. Normal visualized proximal tibia and fibula. Normal proximal tibiofibular articulation. There is mild degenerative arthrosis of the medial femorotibial compartment. There is moderate degenerative arthrosis of the lateral femorotibial compartment with moderate joint space narrowing. Superior and inferior patellar osteophytes. Normal patellofemoral articulation. The soft tissue structures are unremarkable. RAD/Knee 4 or More Views IMPRESSION: Bicompartmental osteoarthritis as described. Electronically Signed: Oniel Kwong MD at 18:31 EDT Tel , Service support ,
== END | disposition home or self-care (01) ==
LOC: MTRAD 16:40
PROVIDERS: Family Provider Family Medicine; PCP Family Medicine; Referring Provider Family Medicine; Visit Provider Family Medicine
DX: M25.561 Pain in right knee (principal)
CPT/HCPCS: 73564

== ENCOUNTER → 2018-09-06 | Outpatient (CLI) | payer MEDICARE, SELFPAY ==
[2018-09-01 13:37] VITALS: BMI 42.8
--- NOTE | 2018-09-06 14:59 | BD_ITS ---
STUDY: DUAL ENERGY X-RAY ABSORPTIOMETRY / DXA REASON FOR EXAM: Female, 73 years old. The patient is postmenopausal. Loss of height. TECHNIQUE: Bone Mineral Density (BMD) measurements of lumbar spine and bilateral hips were obtained. COMPARISON: None. FINDINGS: Lumbar Spine (L1-L4): g/cm2 (1.422) / T-score (2.1) / Z-score (3.9) Findings are suggestive of normal bone density with a low fracture risk. Left Femur Total: g/cm2 (1.328) / T-score (2.5) / Z-score (4.2) Left Femoral Neck: g/cm2 (1.217) / T-score (1.3) / Z-score (3.1) Right Femur Total: g/cm2 (1.345) / T-score (2.7) / Z-score (4.3) Right Femoral Neck: g/cm2 (1.228) / T-score (1.4) / Z-score (3.2) BD/Dexa Bone Density Study IMPRESSION: The patient is considered normal as outlined below according to World Angel Organization (WHO) criteria with a low fracture risk. Reference Information: The T-score is the number of standard deviations above or below the standard which is normal for young adults at their peak bone mineral density. The World Health Organization (WHO) interprets the T-scores as follows: Above -1 Normal bone density Between -1 and -2.5 Osteopenia Equal to / or below -2.5 Osteoporosis As a practical clinical guideline, osteopenia may be graded as follows: Mild -1 through -1.5 Moderate -1.6 through -2.0 Severe -2.1 through -2.4 The Z-score is the number of standard deviations above or below age-matched controls. A Z-score of less than -1.5 would be considered abnormal. References: 1. NIH Osteoporosis and Related Bone Diseases http://www.osteo.org 2. International Society for Clinical Densitometry http://www.iscd.org 3. National Osteoporosis Foundation http://www.nof.org Electronically Signed: Carlos Childs, at 10:10 EDT , Service support ,
== END | disposition home or self-care (01) ==
LOC: OPBD 14:56
PROVIDERS: Family Provider Family Medicine; PCP Family Medicine; Referring Provider Internal Medicine Hematology & Oncology; Visit Provider Internal Medicine Hematology & Oncology
DX: Z78.0 Asymptomatic menopausal state (principal); C50.912 Malignant neoplasm of unspecified site of left female breast
CPT/HCPCS: 77080

== ENCOUNTER 2018-10-04 08:00 | Day surgery (SDC) | payer MEDICARE, SELFPAY ==
[2018-09-19 13:59] VITALS: BMI 42.7
[2018-09-20 13:48] VITALS: BMI 42.8
[2018-09-26 10:00] VITALS: BMI 42.8
--- NOTE | 2018-10-04 06:09 | PCM.HP.BLA ---
Problem List (1) Screening for intestinal cancer Status: Acute History and Physical Date of Admission: 10/04/18 ntake Intake Visit Reasons: 3 wk FU Lumpectomy/discuss screening cscope Chief Complaint: post lumpectomy / declines colonoscopy Mud Mill Tender Required: No Is patient in pain?: No Allergies No Known Allergies Allergy (Verified 09/20/18 13:32) Medications bupropion HCl XL 300 mg 24 hr tablet, extended release 300 mg PO QAM 07/22/18 [History Confirmed 09/20/18] fluoxetine 20 mg capsule 20 mg PO DAILY 07/22/18 [History Confirmed 09/20/18] lisinopril 20 mg-hydrochlorothiazide 12.5 mg tablet 1 tab PO DAILY 07/22/18 [History Confirmed 09/20/18] meloxicam 15 mg tablet 15 mg PO DAILY 07/22/18 [History Confirmed 09/20/18] Is last menstrual period known: No Post menopausal: Yes Patient : No PFSH Medical History Abnormal mammogram of left breast (Acute) Obesity (Chronic) Benign essential hypertension (Chronic) Arthritis (Acute) Breast cancer (Acute) Depression (Acute) Surgical History H/O tubal ligation (Acute) H/O: hysterectomy (Acute) History of lumpectomy of left breast (Acute ~08/2018) S/P laparoscopic cholecystectomy (Acute) Family History Sister Lung cancer Mother Lung cancer Social History (Updated 09/20/18 @ 13:48 by Barry Hernandez MD) Smoking Status: Never smoker alcohol intake: never HPI HPI HPI: ANA MARÍA JO, is a 73 F who presents to the office today for surgical follow-up regarding her left breast cancer. She also presents to discuss potential for screening colonoscopy. Dr. Brown Henderson reflects her history as follows and the patient is preparing for radiation treatment to her left breast Date of Service: 09/19/18 Referring Provider: Dania Machado MD Diagnosis: Ana María Jo is a 73-year-old female diagnosed with pathologic stage IIA (pT2 pN0 (sn) (i-) Mx) grade 2 invasive ductal carcinoma (ER >95%, LA >95%, Her2 0-1+) of the left breast status post lumpectomy and sentinel lymph node biopsy (08/19/2018) and Oncotype DX recurrence score of 5. History of Present Illness: 07/16/2018: Bilateral screening mammography was performed. This demonstrated a new 2.3 x 1.3 cm spiculated nodule in the slightly inferior deep retroareolar region of the left breast. BI-RADS Category 5 07/18/2018: Left breast ultrasound was performed which demonstrated a 1.3 x 1.3 x 2.1 cm ill-defined hypoechoic nodule at the 7 o'clock position of the left breast at 3 cm from the nipple with evidence of posterior acoustical shadowing. BI-RADS Category 5 recommend biopsy 07/22/2018: Left breast tissue core biopsy was performed and demonstrated grade 1-2 invasive ductal carcinoma (ER >95%, LA >95%, Her2 0-1+) 08/19/2018: Patient underwent lumpectomy and sentinel lymph node biopsy. Pathology demonstrated 2.5 x 1.5 x 1.5 grade 2 invasive ductal carcinoma, margins are negative with invasive carcinoma 1 mm away from the closest inferior and lateral margins, there is associated grade 2 DCIS which has negative margins measuring 1.4 cm, lymph vascular invasion not identified, 6 sentinel lymph nodes were retrieved and none contained metastatic carcinoma. 09/01/2018: Patient was evaluated by medical oncology, Oncotype DX score was low at 5, no chemotherapy planned. HPI HPI HPI: ANA MARÍA JO, is a 73 F who presents to the office today for Exam Const General: cooperative, healthy appearing, comfortable, no acute distress Nutritional Appearance: obese Orientation: alert, awake [facility] Head: normal to inspection Chest Other: Left breast: Very nicely healing curvilinear incision lower inner left breast and left axilla. No palpable mass. No signs of infection. Resp Effort & Inspection: normal respiratory effort Auscultation: clear to auscultation bilaterally Cardio Rate: regular rate Rhythm: regular rhythm GI Palpation: soft, no hepatosplenomegaly Auscultation: normal bowel sounds Extrem General: no calf tenderness bilaterally Psych Affect: normal affect Assessment & Plan Problems 1. Primary cancer of left female breast C50.912 2. Screening for intestinal cancer Z12.10 Plan The patient appears to be performing very well status post her left breast cancer treatment. She has ongoing radiation treatment plan. I anticipate her obtaining bilateral mammograms at 1 year and having surgical follow-up. The patient has never had a colonoscopy. We recommend a screening colonoscopy and I have discussed technique, benefit, risk and alternatives. The patient has concerns about the bowel prep and previously was not willing to consider a colonoscopy. We have discussed with her the wide variety of bowel preps that are available to see if we could encourage her to pursue that investigation particularly in light of her history of breast cancer. She will schedule at her discretion. CC: Dr. Magdy Hernandez M.D., F.A.C.S. Coding Level of Care Code Global Post Op Diagnoses Primary cancer of left female breast C50.912 Screening for intestinal cancer Z12.10 09/20/18 1349 <Electronically signed by Barry Hernandez MD> Date Barry Hernandez MD [facility] Signature: Date (if applicable) CC: Magdy Gibbs MD ~ I have re-examined the patient. There are no clinical changes since date of exam.
[2018-10-04 08:32] VITALS: BP 126/76; PULSE 66; RESP 16; TEMP 36.7; O2SAT 96; BMI 43.1
[2018-10-04] MEDS: Lactated Ringers 1,000 ML 100 ML IV (08:45)
--- NOTE | 2018-10-04 09:15 | COLBX_PTH ---
PATIENT: CARI APPIAH LOC: [place] U#:[id number] AGE/SX: 73/F ROOM: RE10/04/[address]: Dr. Barry Hernandez MD : 1945 BED: DIS: 10/04/2018 SPEC #: [id number] RECD: 10/04/18 11:38 STATUS: SANDRA TEJAS #: [id number] SHO: 10/04/18 09:[address]: Barry Hernandez DEPT: SURGICAL PATHOLOGY RECD BY: Chetan Marrufo ENTERED: 10/04/18 12:31 SP TYPE: COLON BX OTHR DR: Dr. Magdy Gibbs MD Tissues: COLON BIOPSY Procedures: Surgery Specimen Level IV HEADER OPERATION: Colonoscopy (MAC) PRE-OP DIAGNOSIS: Screening TISSUE SUBMITTED: Hepatic flexure polyps MICROSCOPIC DIAGNOSIS Hepatic flexure polyps, biopsy: Fragments of tubular adenoma. SJ:victoria 10/05/18 MICROSCOPIC DESCRIPTION Slides are reviewed. GROSS DESCRIPTION Received in fixative is one container labeled with the patient's name and designated hepatic flexure polyp. The specimen consists of multiple irregular fragments of light padilla soft tissue that in aggregate measure 1 x 0.5 x 0.1 cm. The specimen is totally submitted in one cassette. / SJ:victoria 10/04/18 TC:1 CPT: 54399
[2018-10-04 10:05] VITALS: BP 100/42; BP 126/76; PULSE 59; RESP 14; TEMP 36.2; O2SAT 92
--- NOTE | 2018-10-04 10:05 | OP.ENDO_ITS ---
10/04/2018 Magdy Gibbs MD [address] [place] [address] Re : Colonoscopy procedure for Ana María Sandro Dear Dr. Gibbs This procedure was performed on Thursday, October 04, 2018. My impressions and recommendations are as follows: Impressions : - Preparation of the colon was fair. - Non-thrombosed external hemorrhoids, non-thrombosed internal hemorrhoids and internal hemorrhoids that prolapse with straining, but spontaneously regress to the resting position (Grade II) found on digital rectal exam. - One 5 mm polyp at the hepatic flexure, removed with a cold biopsy forceps. Resected and retrieved. - One 7 mm polyp at the hepatic flexure, removed with a cold snare. Resected and retrieved. - Diverticulosis in the sigmoid colon and in the descending colon. Recommendations : - Discharge patient to home. - Resume previous diet. - Continue present medications. - Repeat colonoscopy in 5 years for surveillance. - Telephone my office for pathology results in 1 week. My findings are described in the full procedure note, which is enclosed. If I can be of further assistance, please feel free to contact me at Doctor phone number(s): Work: . Sincerely, Barry Hernandez MD 10/04/2018 10:04:27 AM This report has been signed electronically.
[2018-10-04 10:10] VITALS: BP 105/41; BP 126/76; PULSE 58; RESP 14; O2SAT 95
[2018-10-04 10:15] VITALS: BP 104/40; BP 126/76; PULSE 57; RESP 16; O2SAT 94
[2018-10-04 10:20] VITALS: BP 126/76; BP 143/68; PULSE 61; RESP 16; TEMP 36.7; O2SAT 96
[2018-10-04 10:51] VITALS: BP 126/76
== END 2018-10-04 10:51 | disposition home or self-care (01) ==
LOC: EN 08:00 → AC 08:01
PROVIDERS: Family Provider Family Medicine; PCP Family Medicine; Referring Provider Family Medicine; Visit Provider Surgery
PROC: 0DJD8ZZ Inspection of Lower Intestinal Tract, Via Natural or Artificial Opening Endoscopic (ICD-10-PCS; CPT 45378; principal; 2018-10-04 09:10)
DX: Z12.11 Encounter for screening for malignant neoplasm of colon (principal); D12.3 Benign neoplasm of transverse colon; K64.1 Second degree hemorrhoids; K57.30 Diverticulosis of large intestine without perforation or abscess without bleeding; K21.9 Gastro-esophageal reflux disease without esophagitis; E66.9 Obesity, unspecified; I10 Essential (primary) hypertension; M19.90 Unspecified osteoarthritis, unspecified site; F32.9 Major depressive disorder, single episode, unspecified; C50.912 Malignant neoplasm of unspecified site of left female breast; Z79.899 Other long term (current) drug therapy
CPT/HCPCS: 45380; 88305; J7120

== ENCOUNTER 2018-11-15 12:21 | Emergency (ER) | payer MEDICARE, SELFPAY ==
[2018-09-19 13:59] VITALS: BMI 42.7
[2018-11-15 12:22] VITALS: BP 143/65; PULSE 76; RESP 18; TEMP 36.6; O2SAT 96; BMI 42.9
--- NOTE | 2018-11-15 12:39 | CT_ITS ---
STUDY: CT ABDOMEN AND PELVIS WITHOUT CONTRAST REASON FOR EXAM: Female, 73 years old. Left flank pain. Nausea and vomiting. RADIATION DOSAGE (If Supplied By Facility): CTDIvol = ( 23.58 ) mGy, DLP = ( 1225.23 ) mGycm TECHNIQUE: Transaxial images were obtained from the dome of the diaphragm to the symphysis pubis without oral contrast, and without intravenous contrast. Sagittal and coronal images were reconstructed. Individualized dose optimization techniques were used for this CT. COMPARISON: None. FINDINGS: Mild increased markings at the lung bases suggestive of scarring. Coronary artery calcification. Normal liver. The patient is status post cholecystectomy. Normal spleen. Normal pancreas. Normal bilateral adrenal glands. Normal right kidney. There is evidence of left perinephric stranding. Mild degree of left hydronephrosis and left hydroureter due to a 2.5 mm calculus at the left ureterovesical junction. 1.5 cm cyst in the midportion of the left kidney. There is also evidence of a 2.2 cm cyst in the posterior upper pole of the left kidney. There is a small hiatal hernia. Normal small intestine. There are multiple colonic diverticula consistent with diverticulosis. The appendix is visualized and appears normal. There is diffuse atherosclerotic calcification of the abdominal aorta, without a demonstrated aneurysm. Normal inferior vena cava. There is borderline retroperitoneal lymphadenopathy with enlarged nodes no greater than 10mm in the short axis diameter. Normal urinary bladder. Normal abdominal wall. There are diffuse degenerative changes of the visualized lumbar spine. CT/Abdomen/Pelvis without Cont IMPRESSION: 2.5 mm calculus at left ureterovesical junction causing mild degree of left hydronephrosis and hydroureter. Left perinephric stranding. Left renal cysts. Electronically Signed: Carlos Childs, at 13:51 EDT , Service support ,
[2018-11-15] MEDS: Ondansetron 4 MG/2 ML Vial IV (13:22)
[2018-11-15] MEDS: Ketorolac 30 MG/ML Syringe 15 MG IV (13:24)
[2018-11-15 13:26] LABS: Absolute Neutrophil Count 8.6 X10^3/uL (2.0-7.7); Basophil# 0.06 X10^3/uL; Basophil% 0.6 % (0-1); Eosinophil# 0.03 X10^3/uL; Eosinophils% 0.3 % (0-5); Hemoglobin 13.7 g/dL (12.0-15.0); Lymphocyte % 11.1 % (19-41); Mean Corp Hgb Conc 33.4 g/dL (32-36); Mean Corpuscular Hgb 30.3 pg (27.0-32.0); Mean Corpuscular Volume 90.7 fL (81-99); Mean Platelet Vol. 9.4 fl (6.2-12.0); Monocyte# 0.84 X10^3/uL; Monocyte% 7.8 % (0-10); NRBC Flagged by Analyzer 0 % (0-5); Neutrophil # 8.62 X10^3/uL (2.7-7.7); Neutrophil % 79.7 % (47-70); Platelet Count 262 K/mm3 (150-450); RBC Distribution Width CV 12.5 % (11.6-14.6); RBC Distribution Width SD 41.6 fl (35.1-43.9); Red Blood Count 4.52 M/mm3 (4.2-5.4); White Blood Count 10.8 K/mm3 (4.4-11.0)
[2018-11-15 13:48] LABS: Anion Gap 7 (5-15); BUN 39 mg/dL (7-18); Calcium,Total 9.6 mg/dL (8.5-10.1); Chloride 106 mmol/L (98-107); Creatinine, Serum 1.86 mg/dL (0.55-1.02); EST Glomerular Filtration Rate 28 mL/min (>60); Est Glom Filt Rate - Afr Amer 34 mL/min (>60); Estimated Creatinine Clearance 23.26 ml/min; Glucose 125 mg/dL (74-106); Sodium Level 140 mmol/L (136-145)
[2018-11-15 14:50] LABS: Bacteria 0 SEEN /hpf (None Seen); Mucous, Urine 0 SEEN /hpf (<or=2+)
[2018-11-15 14:51] LABS: Color, Urine Yellow (Yellow); Glucose, Dipstick Normal (Normal); Ketone-Dipstick Negative (Negative); Leukocyte Esterase-Dipstick 100 /ul (Negative); Nitrite-Dipstick Negative (Negative); Occult Blood-Urine 50 /ul (Negative); Protein-Dipstick Negative (Negative); Specific Gravity, Urine 1.015 (1.002-1.030); Urine Bilirubin Dipstick Negative (Negative); Urine Clarity Sl. Cloudy (Clear); Urine Urobilinogen Normal (Normal)
[2018-11-15 14:58] LABS: Red Blood Cells-Urine 0-5 SEEN /hpf (0-5); Squamous Epithelial Cells - UA 0-5 SEEN /hpf (5-10); White Blood Cells 10-25 SEEN /hpf (0-5)
--- NOTE | 2018-11-15 15:09 | ED.DCSUM_ITS ---
History of Present Illness Chief Complaint: Flank Pain Narrative: Patient presenting for evaluation secondary to flank pain and abdominal pain. Patient reports that she had a sudden onset of flank pain and abdominal pain last night at about 10 PM. She states that it is in her left flank and left abdomen is a continuous type pain and does not really seem to have any sort of exacerbating relieving factors. It has been associated with a couple episodes of nonbloody nonbilious emesis. Patient also endorses that she is been having some dysuria recently. No hematuria. She denies any prior similar episodes in the past. No history of kidney stones. Review of systems otherwise negative. Past Medical History - Allergies and Home Meds Allergies/Adverse Reactions: Allergies No Known Allergies Allergy (Verified 11/15/18 12:24) Primary Care Physician: Magdy Gibbs MD [Primary Care Provider] - Past Medical History: - - Cancer Surgical History: Smoking Status: Never smoker Review of Systems All systems negative except as indicated General: Denies: Fever Gastrointestinal: Reports: Abdominal pain, Nausea, Vomiting Genitourinary: Reports: Dysuria Physical Exam Vital Signs/Narrative: Vital Signs Temp Pulse Resp BP Pulse Ox 11/15/18 12:22 98 F 76 18 143/65 H 96 Inital Vital Signs reviewed: Yes General: Well nourished, Well developed, No Acute Distress Head: Normocephalic, Atraumatic Eyes: Perrl, EOMI ENT: Moist mucous membranes, No rhinorrhea Neck: Supple, Nontender Cardiovascular: Regular rate, Regular rhythm, No murmurs Respiratory: No distress, CTA bilaterally, Chest nontender Abdomen: Soft, Nondistended, Normal bowel sounds, Tender - Left lower quadrant without guarding or rebound Back: Nontender, Normal Inspection Extremities: Nontender, No edema Skin: Normal color, No rash Neurological: Alert, Oriented x3, Cranial nerves II-XII grossly intact, Normal Strength, Normal Sensation Psychological: Normal affect, Normal Mood Diagnostic/Tx/Re-eval - Medical Decision Making Patient presented secondary to flank pain. She was given Toradol for treatment of her discomfort. Lab work and imaging were indicative of mild acute kidney injury with elevation of the patient's creatinine of 1.8. Urinalysis shows evidence of leukocytes but no significant erythrocytes. CT abdomen and pelvis shows a 2-1/2 mm distal ureteral stone on the left consistent with the cause of the patient's pain. She had significant improvement on repeat evaluation. Patient's urine will be cultured, should be given a dose of Rocephin in the emergency department. I did contact on-call urology to arrange close follow-up. Patient was given strict return instructions. She will be sent home with a course of Keflex and Allison for treatment of pain. ED Disposition - Plan for ED Patient: [facility]position: [facility] Unit Diagnosis: Urolithiasis Instructions: KIDNEY STONE w/ Colic Prescriptions: Cephalexin [Keflex] 500 mg PO Q6 #40 cap Prescription Printed Hydrocodone Bitart/Apap 5-325 [Allison 5MG-325MG] 1 tab PO Q6H PRN PRN 3 Days #12 tab PRN Reason: Pain Prescription Printed Referrals: Kevin Hung MD [STAFF PHYSICIAN] - 1 Week if not improving
[2018-11-15] MEDS: Ceftriaxone 1 GM/50 ML BAG IV (15:26)
[2018-11-15 15:27] VITALS: BP 125/61; PULSE 77; RESP 18; O2SAT 94
[2018-11-15 15:28] VITALS: BP 125/61; PULSE 77; RESP 18; O2SAT 95
== END 2018-11-15 16:01 | disposition home or self-care (01) ==
PROVIDERS: Emergency Provider Emergency Medicine; Family Provider Family Medicine; PCP Family Medicine
DX: N20.1 Calculus of ureter (principal); N17.9 Acute kidney failure, unspecified
CPT/HCPCS: 74176; 80048; 81001; 85025; 87086; 87088; 96365; 96375; 99285; J7050; A4216; J2405

== ENCOUNTER → 2018-12-02 | Outpatient (CLI) | payer MEDICARE, SELFPAY ==
[2018-09-19 13:59] VITALS: BMI 42.7
[2018-11-15 12:22] VITALS: BMI 42.9
[2018-12-02 14:47] LABS: Anion Gap 4 (5-15); BUN 41 mg/dL (7-18); BUN/Creat Ratio 28.5 RATIO (10-20); Calcium,Total 9.5 mg/dL (8.5-10.1); Chloride 109 mmol/L (98-107); Cholesterol 193 mg/dL (200); Creatinine, Serum 1.44 mg/dL (0.55-1.02); EST Glomerular Filtration Rate 38 mL/min (>60); Est Glom Filt Rate - Afr Amer 46 mL/min (>60); Glucose 91 mg/dL (74-106); High Density Lipoprotein 63 mg/dL; Potassium 4.2 mmol/L (3.5-5.1); Sodium Level 141 mmol/L (136-145); Triglycerides 105 mg/dL; Very Low Density Lipoprotein 21 mg/dL (5-40)
[2018-12-02 16:04] LABS: Absolute Lymphocyte Count 1.75 X10^3/uL (0.83-4.51); Absolute Neutrophil Count 4.8 X10^3/uL (2.0-7.7); Basophil# 0.06 X10^3/uL; Basophil% 0.8 % (0-1); Eosinophil# 0.19 X10^3/uL; Eosinophils% 2.6 % (0-5); Hematocrit 40.7 % (37-47); Hemoglobin 13.4 g/dL (12.0-15.0); Lymphocyte # 1.75 X10^3/ul (4.0); Lymphocyte % 23.8 % (19-41); Mean Corp Hgb Conc 32.9 g/dL (32-36); Mean Corpuscular Hgb 30.4 pg (27.0-32.0); Mean Corpuscular Volume 92.3 fL (81-99); Monocyte# 0.55 X10^3/uL; Monocyte% 7.5 % (0-10); NRBC Flagged by Analyzer 0 % (0-5); Neutrophil # 4.79 X10^3/uL (2.7-7.7); Platelet Count 325 K/mm3 (150-450); RBC Distribution Width CV 12.7 % (11.6-14.6); RBC Distribution Width SD 43.2 fl (35.1-43.9); Red Blood Count 4.41 M/mm3 (4.2-5.4); White Blood Count 7.4 K/mm3 (4.4-11.0)
[2018-12-07 15:30] LABS: Estrogen, Total, Serum 44 pg/mL (.)
== END | disposition home or self-care (01) ==
LOC: MTLAB 12:02
PROVIDERS: Family Provider Family Medicine; PCP Family Medicine; Referring Provider Family Medicine; Visit Provider Family Medicine
DX: Z00.00 Encounter for general adult medical examination without abnormal findings (principal); C50.919 Malignant neoplasm of unspecified site of unspecified female breast; I10 Essential (primary) hypertension
CPT/HCPCS: 36415; 80048; 80061; 82672; 84144; 85025

== ENCOUNTER → 2019-03-03 09:25 | Outpatient (CLI) | payer MEDICARE, SELFPAY ==
[2018-09-19 13:59] VITALS: BMI 42.7
[2019-01-03 11:42] VITALS: BMI 42.7
--- NOTE | 2019-03-03 09:29 | RAD_ITS ---
STUDY: X-RAY - RIGHT SHOULDER REASON FOR EXAM: Female, 73 years old. right shoulder pain for several days after picking up a heavy bag of cat litter TECHNIQUE: 4 view(s) of the shoulder. COMPARISON: None. FINDINGS: Narrowed glenohumeral articulation. Spurring of the acromioclavicular joint. Normal acromion. Normal humeral head and visualized proximal humerus. The soft tissue structures are unremarkable. Normal visualized pulmonary apex. RAD/Shoulder min 2 Views IMPRESSION: Degenerative changes. No evidence for acute fracture or other significant bony pathology Electronically Signed: Manny Sen MD at 22:58 EST , Service support ,
== END ==
LOC: MTRAD 09:27
PROVIDERS: PCP Family Medicine; Referring Provider Family Medicine; Visit Provider Family Medicine
DX: S49.90XA Unspecified injury of shoulder and upper arm, unspecified arm, initial encounter (principal)
CPT/HCPCS: 73030

== ENCOUNTER → 2019-06-05 | Outpatient (CLI) | payer MEDICARE, SELFPAY ==
[2018-09-19 13:59] VITALS: BMI 42.7
[2019-04-04 12:56] VITALS: BMI 41.1
[2019-06-05 15:00] LABS: Anion Gap 4 (5-15); BUN 41 mg/dL (7-18); Calcium,Total 9.9 mg/dL (8.5-10.1); Chloride 107 mmol/L (98-107); Creatinine, Serum 1.64 mg/dL (0.55-1.02); EST Glomerular Filtration Rate 33 mL/min (>60); Est Glom Filt Rate - Afr Amer 39 mL/min (>60); Glucose 81 mg/dL (74-106); Potassium 4.3 mmol/L (3.5-5.1); Sodium Level 140 mmol/L (136-145)
== END | disposition home or self-care (01) ==
LOC: MTLAB 11:29
PROVIDERS: PCP Family Medicine; Referring Provider Family Medicine; Visit Provider Family Medicine
DX: I10 Essential (primary) hypertension (principal)
CPT/HCPCS: 36415; 80048

== ENCOUNTER → 2019-07-18 | Outpatient (CLI) | payer MEDICARE, SELFPAY ==
[2018-09-19 13:59] VITALS: BMI 42.7
[2019-07-04 13:00] VITALS: BMI 40.8
--- NOTE | 2019-07-18 14:29 | BI_ITS ---
MAMMOGRAPHY - BILATERAL SCREENING REASON FOR EXAM: Female, 74 years old. Routine annual screening examination. PERTINENT HISTORY: Personal history of breast cancer. Prior left lumpectomy. TECHNIQUE: Digital bilateral breast tony (3D mammographic acquisition) in the CC and MLO projections. 2-D mediolateral oblique (MLO) and craniocaudad (CC) views of both breasts were obtained. CAD: Full Field Digital Mammography with Computer Added Detection was performed. COMPARISON: Comparison is made with prior examination dated July 16, 2018 and August 19, 2018. FINDINGS: Breast Composition: The breasts are almost entirely fatty. There are no dominant masses or suspicious calcifications. Since prior study, the patient underwent a lumpectomy with resultant postoperative architectural distortion and scarring in the deep retroareolar region of the left breast. No other significant abnormalities are identified. BI/SCREEN MAMM (CAD) W/TONY BILAT IMPRESSION: Status post left lumpectomy with resultant architectural distortion and scarring at the operative site in the deep retroareolar region of the left breast. Yearly follow-up mammogram recommended. (A) ASSESSMENT CATEGORY: BIRADS Category 2: Benign. A letter regarding these results will be sent to the patient by the facility within 30 days. Approximately 10% of breast cancers are not detected by mammography. A normal mammogram should not delay biopsy of a clinically suspicious abnormality. [id number] Electronically Signed: Carlos Childs, at 8:53 EDT , Service support ,
== END | disposition home or self-care (01) ==
LOC: OPBI 14:29
PROVIDERS: PCP Family Medicine; Referring Provider Internal Medicine Hematology & Oncology; Visit Provider Internal Medicine Hematology & Oncology
DX: Z12.31 Encounter for screening mammogram for malignant neoplasm of breast (principal); C50.919 Malignant neoplasm of unspecified site of unspecified female breast
CPT/HCPCS: 77063; 77067

== ENCOUNTER → 2019-12-07 | Outpatient (CLI) | payer MEDICARE, SELFPAY ==
[2018-09-19 13:59] VITALS: BMI 42.7
[2019-10-30 13:31] VITALS: BMI 41.5
[2019-12-07 12:50] LABS: Vitamin D,25 Hydroxy 17.6 ng/mL
== END | disposition home or self-care (01) ==
LOC: MTLAB 10:42
PROVIDERS: PCP Family Medicine; Referring Provider Family Medicine; Visit Provider Family Medicine
DX: E55.9 Vitamin D deficiency, unspecified (principal)
CPT/HCPCS: 36415; 82306

== ENCOUNTER → 2020-06-03 14:24 | Outpatient (CLI) | payer MEDICARE, SELFPAY ==
[2018-09-19 13:59] VITALS: BMI 42.7
[2020-02-20 13:30] VITALS: BMI 40.8
--- NOTE | 2020-06-03 14:27 | RAD_ITS ---
STUDY: X-RAY - LEFT KNEE REASON FOR EXAM: Female, 75 years old. PAIN TECHNIQUE: 4 view(s) of the knee. COMPARISON: None. FINDINGS: Irregularity with sclerosis through the distal femur and proximal tibia, more severe medially. Otherwise normal visualized distal femur, proximal tibia and fibula. There is arthrosis of the proximal tibiofibular articulation. There is no demonstrated fracture. There is severe degenerative arthrosis of the medial femorotibial compartment with severe joint space narrowing. There is moderate degenerative arthrosis of the lateral femorotibial compartment with moderate joint space narrowing. There is moderate degenerative arthrosis of the patellofemoral articulation. Mild joint effusion. The soft tissue structures are unremarkable. RAD/Knee 4 or More Views IMPRESSION: Degenerative disease as described. Mild joint effusion. Electronically Signed: Jane Osuna MD at 0:33 EDT , Service support ,
--- NOTE | 2020-06-03 14:27 | RAD_ITS ---
STUDY: X-RAY - RIGHT KNEE REASON FOR EXAM: Female, 75 years old. PAIN TECHNIQUE: 4 view(s) of the knee. COMPARISON: None. FINDINGS: Osteophytosis with subchondral sclerosis and small cyst within the distal femur and proximal tibia along the subchondral region consistent with degenerative disease. Otherwise normal visualized distal femur. Normal visualized proximal tibia and fibula. There is arthrosis of the proximal tibiofibular articulation. There is no demonstrated fracture. There is moderate to severe degenerative arthrosis of the medial femorotibial compartment with moderate joint space narrowing. There is moderate to severe degenerative arthrosis of the lateral femorotibial compartment with moderate joint space narrowing. There is moderate to severe degenerative arthrosis of the patellofemoral articulation. Mild joint effusion. The soft tissue structures are unremarkable. RAD/Knee 4 or More Views IMPRESSION: Moderate to severe degenerative disease as described. No acute fracture or subluxation. Mild joint effusion. Electronically Signed: Jane Osuna MD at 0:40 EDT , Service support ,
== END ==
LOC: MTRAD 14:25
PROVIDERS: PCP Family Medicine; Referring Provider Family Medicine; Visit Provider Family Medicine
DX: M25.561 Pain in right knee (principal); M25.562 Pain in left knee
CPT/HCPCS: 73564

== ENCOUNTER → 2020-06-07 09:57 | Outpatient (CLI) | payer MEDICARE, SELFPAY ==
[2018-09-19 13:59] VITALS: BMI 42.7
[2020-02-20 13:30] VITALS: BMI 40.8
[2020-06-07 13:14] LABS: Anion Gap 4 (5-15); BUN 33 mg/dL (7-18); Calcium,Total 9.9 mg/dL (8.5-10.1); Chloride 107 mmol/L (98-107); Cholesterol 226 mg/dL (200); Creatinine, Serum 1.65 mg/dL (0.55-1.02); EST Glomerular Filtration Rate 32 mL/min (>60); Est Glom Filt Rate - Afr Amer 39 mL/min (>60); Glucose 110 mg/dL (74-106); High Density Lipoprotein 62 mg/dL; Potassium 4.3 mmol/L (3.5-5.1); Sodium Level 139 mmol/L (136-145); Triglycerides 131 mg/dL; Very Low Density Lipoprotein 26 mg/dL (5-40)
== END ==
PROVIDERS: PCP Family Medicine; Referring Provider Family Medicine; Visit Provider Family Medicine
DX: I10 Essential (primary) hypertension (principal)
CPT/HCPCS: 36415; 80048; 80061

== ENCOUNTER → 2020-07-19 11:03 | Outpatient (CLI) | payer MEDICARE, SELFPAY ==
[2018-09-19 13:59] VITALS: BMI 42.7
[2020-02-20 13:30] VITALS: BMI 40.8
--- NOTE | 2020-07-19 11:08 | BI_ITS ---
MAMMOGRAPHY - BILATERAL SCREENING REASON FOR EXAM: Female, 75 years old. Routine annual screening examination. PERTINENT HISTORY: Personal history of breast cancer. Prior left lumpectomy. TECHNIQUE: Digital bilateral breast tony (3D mammographic acquisition) in the CC and MLO projections. 2-D mediolateral oblique (MLO) and craniocaudad (CC) views of both breasts were obtained. CAD: Full Field Digital Mammography with Computer Added Detection was performed. COMPARISON: Comparison is made with prior study dated 07/18/2019 and 08/19/2018. FINDINGS: Breast Composition: The breasts are almost entirely fatty. There are no dominant masses or suspicious calcifications. The patient is status post lumpectomy in the mid deep portion of the left breast. Postoperative changes are seen although these are less conspicuous at this time. No other significant abnormalities are identified. There has been no significant change since the prior study. BI/SCRN MAMM (CAD)W/TONY BILAT IMPRESSION: Stable bilateral screening mammogram. Yearly follow-up mammogram recommended. (A) ASSESSMENT CATEGORY: BIRADS Category 2: Benign. A letter regarding these results will be sent to the patient by the facility within 30 days. Approximately 10% of breast cancers are not detected by mammography. A normal mammogram should not delay biopsy of a clinically suspicious abnormality. [id number] Electronically Signed: Carlos Childs MD at 12:18 EDT , Service support ,
== END ==
PROVIDERS: PCP Family Medicine; Referring Provider Internal Medicine Hematology & Oncology; Visit Provider Internal Medicine Hematology & Oncology
DX: Z12.31 Encounter for screening mammogram for malignant neoplasm of breast (principal)
CPT/HCPCS: 77063; 77067

== ENCOUNTER → 2020-12-20 13:56 | Outpatient (CLI) | payer MEDICARE, SELFPAY ==
[2018-09-19 13:59] VITALS: BMI 42.7
[2020-12-20 17:53] LABS: Anion Gap 6 (5-15); BUN 40 mg/dL (7-18); BUN/Creat Ratio 24.8 RATIO (10-20); Calcium,Total 9.6 mg/dL (8.5-10.1); Chloride 108 mmol/L (98-107); Cholesterol 193 mg/dL (200); Creatinine, Serum 1.61 mg/dL (0.55-1.02); EST Glomerular Filtration Rate 33 mL/min (>60); Est Glom Filt Rate - Afr Amer 40 mL/min (>60); Glucose 88 mg/dL (74-106); High Density Lipoprotein 60 mg/dL; Potassium 4.3 mmol/L (3.5-5.1); Sodium Level 139 mmol/L (136-145); Triglycerides 93 mg/dL; Very Low Density Lipoprotein 19 mg/dL (5-40)
== END ==
PROVIDERS: PCP Family Medicine; Referring Provider Family Medicine; Visit Provider Family Medicine
DX: I10 Essential (primary) hypertension (principal)
CPT/HCPCS: 36415; 80048; 80061

== ENCOUNTER 2021-06-02 13:59 | Outpatient (CLI) | payer MEDICARE, SELFPAY ==
[2018-09-19 13:59] VITALS: BMI 42.7
[2021-06-02 18:03] LABS: Anion Gap 10 (5-15); BUN 36 mg/dL (7-18); BUN/Creat Ratio 19.8 RATIO (10-20); Calcium,Total 9.9 mg/dL (8.5-10.1); Chloride 104 mmol/L (98-107); Creatinine, Serum 1.82 mg/dL (0.55-1.02); EST Glomerular Filtration Rate 29 mL/min (>60); Est Glom Filt Rate - Afr Amer 35 mL/min (>60); Glucose 89 mg/dL (74-106); Potassium 4.2 mmol/L (3.5-5.1); Sodium Level 139 mmol/L (136-145)
== END 2021-06-02 23:59 | disposition home or self-care (01) ==
PROVIDERS: PCP Family Medicine; Referring Provider Family Medicine; Visit Provider Family Medicine
DX: I10 Essential (primary) hypertension (principal)
CPT/HCPCS: 36415; 80048

== ENCOUNTER → 2021-07-29 | Outpatient (CLI) | payer MEDICARE, SELFPAY ==
[2018-09-19 13:59] VITALS: BMI 42.7
--- NOTE | 2021-07-29 09:39 | BI_ITS ---
MAMMOGRAPHY - BILATERAL DIAGNOSTIC REASON FOR EXAM: Female, 76 years old. Prior left lumpectomy. PERTINENT HISTORY: Personal history of breast cancer. TECHNIQUE: Digital bilateral breast issac (3D mammographic acquisition) in the CC and MLO projections. 2-D mediolateral oblique (MLO) and craniocaudad (CC) views of both breasts were obtained. CAD: Full Field Digital Mammography with Computer Added Detection was performed. COMPARISON: Comparison is made with prior study dated 07/19/2020 and 07/18/2019. FINDINGS: Breast Composition: The breasts are almost entirely fatty. There are no dominant masses or suspicious calcifications. Once again, the patient is status post lumpectomy in the mid deep portion of the left breast. Postoperative changes are seen. These are unchanged. No other significant abnormalities are identified. There has been no significant change since the prior study. BI/DIAG MAMM W/CAD, BILAT IMPRESSION: Stable bilateral diagnostic mammogram. One year follow-up recommended. (A) ASSESSMENT CATEGORY: BIRADS Category 2: Benign. A letter regarding these results will be sent to the patient by the facility within 30 days. Approximately 10% of breast cancers are not detected by mammography. A normal mammogram should not delay biopsy of a clinically suspicious abnormality. Electronically Signed: Carlos Childs MD at 10:46 EDT ,
== END | disposition home or self-care (01) ==
LOC: OPBI 09:36
PROVIDERS: PCP Family Medicine; Referring Provider Family Medicine; Visit Provider Family Medicine
DX: C50.919 Malignant neoplasm of unspecified site of unspecified female breast (principal); R92.8 Other abnormal and inconclusive findings on diagnostic imaging of breast
CPT/HCPCS: 77062; 77066; G0279

== ENCOUNTER → 2022-01-01 | Outpatient (CLI) | payer MEDICARE, SELFPAY ==
[2018-09-19 13:59] VITALS: BMI 42.7
--- NOTE | 2022-01-01 15:14 | BD_ITS ---
STUDY: DUAL ENERGY X-RAY ABSORPTIOMETRY / DXA REASON FOR EXAM: Female, 76 years old. ON AI RX TECHNIQUE: Bone Mineral Density (BMD) measurements of lumbar spine and bilateral hips were obtained. COMPARISON: Comparison is made with prior study dated 09/06/2018. FINDINGS: Lumbar Spine (L1-L4): g/cm2 (1.141) / T-score (1.5) / Z-score (3.8) Findings are suggestive of normal bone density with a low fracture risk. Left Femur Total: g/cm2 (1.147) / T-score (1.7) / Z-score (3.5) Left Femoral Neck: g/cm2 (0.915) / T-score (0.6) / Z-score (2.7) Right Femur Total: g/cm2 (1.160) / T-score (1.8) / Z-score (3.7) Right Femoral Neck: g/cm2 (0.924) / T-score (0.7) / Z-score (2.8) The T-Scores on the most recent prior examination were: Lumbar Spine (L1-L4): There has been worsening of bone density since the previous examination. Left Femur Total: which represents a worsening of 8.4%. Right Femur Total: which represents a worsening of 8.6%. BD/Dexa Bone Density Study IMPRESSION: The patient is considered normal as outlined below according to World Angel Organization (WHO) criteria with a low fracture risk. There has been worsening of bone density since the previous examination. Reference Information: The T-score is the number of standard deviations above or below the standard which is normal for young adults at their peak bone mineral density. The World Health Organization (WHO) interprets the T-scores as follows: Above -1 Normal bone density Between -1 and -2.5 Osteopenia Equal to / or below -2.5 Osteoporosis As a practical clinical guideline, osteopenia may be graded as follows: Mild -1 through -1.5 Moderate -1.6 through -2.0 Severe -2.1 through -2.4 The Z-score is the number of standard deviations above or below age-matched controls. A Z-score of less than -1.5 would be considered abnormal. References: 1. NIH Osteoporosis and Related Bone Diseases www osteo.org 2. International Society for Clinical Densitometry www iscd.org 3. National Osteoporosis Foundation www nof.org Electronically Signed: Carlos Childs MD at 13:24 EST ,
== END | disposition home or self-care (01) ==
PROVIDERS: PCP Family Medicine; Visit Provider Internal Medicine Hematology & Oncology
DX: Z78.0 Asymptomatic menopausal state (principal)
CPT/HCPCS: 77080

== ENCOUNTER → 2022-06-01 | Outpatient (CLI) | payer MEDICARE, SELFPAY ==
[2018-09-19 13:59] VITALS: BMI 42.7
[2022-06-01 16:13] LABS: Anion Gap 5 (5-15); BUN 40 mg/dL (7-18); BUN/Creat Ratio 21.6 RATIO (10-20); Calcium,Total 9.6 mg/dL (8.5-10.1); Chloride 108 mmol/L (98-107); Cholesterol 220 mg/dL (200); Creatinine, Serum 1.85 mg/dL (0.55-1.02); EST Glomerular Filtration Rate 28 mL/min (>60); Est Glom Filt Rate - Afr Amer 34 mL/min (>60); Glucose 90 mg/dL (74-106); High Density Lipoprotein 63 mg/dL; Potassium 4.4 mmol/L (3.5-5.1); Sodium Level 137 mmol/L (136-145); Triglycerides 143 mg/dL; Very Low Density Lipoprotein 29 mg/dL (5-40)
== END | disposition home or self-care (01) ==
LOC: MFPLAB 13:50
PROVIDERS: PCP Family Medicine; Visit Provider Family Medicine
DX: I10 Essential (primary) hypertension (principal)
CPT/HCPCS: 36415; 80048; 80061

== ENCOUNTER → 2022-07-01 | Outpatient (CLI) | payer MEDICARE, SELFPAY ==
[2018-09-19 13:59] VITALS: BMI 42.7
[2022-07-01 18:17] LABS: Absolute Lymphocyte Count 1.43 X10^3/uL (0.83-4.51); Absolute Neutrophil Count 5.3 X10^3/uL (2.0-7.7); Basophil# 0.05 X10^3/uL; Basophil% 0.7 % (0-1); Eosinophil# 0.16 X10^3/uL; Eosinophils% 2.1 % (0-5); Hematocrit 37.2 % (37-47); Lymphocyte # 1.43 X10^3/ul (0.83-4.51); Lymphocyte % 19.2 % (19-41); Mean Corp Hgb Conc 32.3 g/dL (32-36); Mean Corpuscular Hgb 30.7 pg (27.0-32.0); Mean Corpuscular Volume 95.1 fL (81-99); Monocyte# 0.53 X10^3/uL; Monocyte% 7.1 % (0-10); NRBC Flagged by Analyzer 0 % (0-5); Neutrophil # 5.28 X10^3/uL (2.7-7.7); Neutrophil % 70.8 % (47-70); Platelet Count 289 K/mm3 (150-450); RBC Distribution Width CV 13.1 % (11.6-14.6); RBC Distribution Width SD 45.4 fl (35.1-43.9); Red Blood Count 3.91 M/mm3 (4.2-5.4); White Blood Count 7.5 K/mm3 (4.4-11.0)
[2022-07-01 18:54] LABS: ALB/GLOB Ratio 1.1 RATIO (0.9-2.4); AST(SGOT) 26 U/L (15-37); Alanine Aminotransfer ALT/SGPT 26 U/L (13-56); Albumin, Serum 3.4 g/dL (3.2-5.0); Alkaline Phosphatase 82 U/L (45-117); Anion Gap 8 (5-15); BUN 39 mg/dL (7-18); BUN/Creat Ratio 17.1 RATIO (10-20); Calcium,Total 8.9 mg/dL (8.5-10.1); Chloride 110 mmol/L (98-107); Creatinine, Serum 2.28 mg/dL (0.55-1.02); EST Glomerular Filtration Rate 22 mL/min (>60); Est Glom Filt Rate - Afr Amer 27 mL/min (>60); Globulin 3.1 g/dL (2.2-4.2); Glucose 102 mg/dL (74-106); Potassium 4.3 mmol/L (3.5-5.1); Protein, Total 6.5 g/dL (6.4-8.2); Sodium Level 142 mmol/L (136-145)
== END | disposition home or self-care (01) ==
LOC: MFPLAB 15:06
PROVIDERS: PCP Family Medicine; Visit Provider Family Medicine
DX: R19.7 Diarrhea, unspecified (principal)
CPT/HCPCS: 36415; 80053; 85025

== ENCOUNTER → 2022-07-31 | Outpatient (CLI) | payer MEDICARE, SELFPAY ==
[2018-09-19 13:59] VITALS: BMI 42.7
--- NOTE | 2022-07-31 12:04 | BI_ITS ---
MAMMOGRAPHY - BILATERAL SCREENING REASON FOR EXAM: Female, 77 years old. Routine annual screening examination. PERTINENT HISTORY: Personal history of breast cancer. Prior left lumpectomy and chemotherapy. TECHNIQUE: Digital bilateral breast tony (3D mammographic acquisition) in the CC and MLO projections. 2-D mediolateral oblique (MLO) and craniocaudad (CC) views of both breasts were obtained. CAD: Full Field Digital Mammography with Computer Added Detection was performed. COMPARISON: Comparison is made with prior study dated July 29, 2021 and July 19, 2020. FINDINGS: Breast Composition: The breasts are almost entirely fatty. There are no dominant masses or suspicious calcifications. Once again, the patient is status post lumpectomy in the mid deep portion of the left breast. Stable postoperative changes. Vascular clips are seen in the left axilla. No other significant abnormalities are identified. There has been no significant change since the prior study. BI/SCRN MAMM (CAD)W/TONY BILAT IMPRESSION: Stable bilateral screening mammogram. Yearly follow-up mammogram recommended. (A) ASSESSMENT CATEGORY: BIRADS Category 2: Benign. A letter regarding these results will be sent to the patient by the facility within 30 days. Approximately 10% of breast cancers are not detected by mammography. A normal mammogram should not delay biopsy of a clinically suspicious abnormality. [id number] Electronically Signed: Carlos Childs MD at 13:44 EDT ,
== END | disposition home or self-care (01) ==
LOC: OPBI 12:03
PROVIDERS: PCP Family Medicine; Referring Provider Family Medicine; Visit Provider Family Medicine
DX: Z12.31 Encounter for screening mammogram for malignant neoplasm of breast (principal); Z85.3 Personal history of malignant neoplasm of breast
CPT/HCPCS: 77063; 77067

== ENCOUNTER → 2022-12-04 | Outpatient (CLI) | payer MEDICARE, SELFPAY ==
[2018-09-19 13:59] VITALS: BMI 42.7
--- NOTE | 2022-12-04 16:13 | US_ITS ---
STUDY: RENAL ULTRASOUND - COMPLETE REASON FOR EXAM: Female, 77 years old. CHRONIC KIDNEY DISEASE STAGE 4 TECHNIQUE: Ultrasound evaluation of the kidneys was performed with real-time and static chan-scale imaging. COMPARISON: None. FINDINGS: RIGHT KIDNEY: Normal location of the right kidney, which is normal in size. The right kidney measures 9.7 cm. There is a normal cortex of the right kidney. The renal cortex measures 1.4 cm. 1 cm exophytic cyst in the upper pole the right kidney. Another 1 cm cyst in the midsection of right kidney. There are no right renal calculi. There is no right hydronephrosis. DISTAL RIGHT URETER: There is non-visualization of the distal right ureter. There is no demonstrated right ureterovesical junction calculus. There is a visualized right ureteral jet. LEFT KIDNEY: Normal location of the left kidney, which is normal in size. The left kidney measures 10.4 cm. There is a normal cortex of the left kidney. The renal cortex measures 1.2 cm. 2 cm cyst in the upper pole the left kidney. Another 2 cm cyst in the midsection of left kidney. There are no left renal calculi. There is no left hydronephrosis. DISTAL LEFT URETER: There is non-visualization of the distal left ureter. There is no demonstrated left ureterovesical junction calculus. There is a visualized left ureteral jet. BLADDER: The distended urinary bladder has a volume of 134 ml. The empty urinary bladder has a volume of ml. There is a normal wall thickness of the distended urinary bladder. There is no demonstrated mass within the urinary bladder. There are no demonstrated bladder calculi. US/Kidney and Bladder IMPRESSION: Normal ultrasound of the kidneys and urinary bladder. Small bilateral renal cysts. Electronically Signed: Will Talamantes MD at 23:18 EDT ,
== END | disposition home or self-care (01) ==
LOC: US 16:09
PROVIDERS: PCP Family Medicine; Referring Provider Internal Medicine Nephrology; Visit Provider Internal Medicine Nephrology
DX: N18.4 Chronic kidney disease, stage 4 (severe) (principal)
CPT/HCPCS: 76770

== ENCOUNTER → 2022-12-09 | Outpatient (CLI) | payer MEDICARE, SELFPAY ==
[2018-09-19 13:59] VITALS: BMI 42.7
[2022-12-09 13:57] LABS: Albumin, Serum 3.5 g/dL (3.2-5.0); BUN 38 mg/dL (7-18); BUN/Creat Ratio 18.2 RATIO (10-20); Calcium,Total 9.6 mg/dL (8.5-10.1); Chloride 109 mmol/L (98-107); Creatinine, Serum 2.09 mg/dL (0.55-1.02); EST Glomerular Filtration Rate 24 mL/min (>60); Est Glom Filt Rate - Afr Amer 30 mL/min (>60); Glucose 102 mg/dL (74-106); Phosphorus 3.2 mg/dL (2.5-4.9); Potassium 4.2 mmol/L (3.5-5.1); Sodium Level 139 mmol/L (136-145)
== END | disposition home or self-care (01) ==
LOC: LAB 12:30
PROVIDERS: PCP Family Medicine; Referring Provider Internal Medicine Nephrology; Visit Provider Internal Medicine Nephrology
DX: N18.4 Chronic kidney disease, stage 4 (severe) (principal)
CPT/HCPCS: 36415; 80069

== ENCOUNTER → 2022-12-11 | Outpatient (CLI) | payer MEDICARE, SELFPAY ==
[2018-09-19 13:59] VITALS: BMI 42.7
[2022-12-11 12:34] LABS: Bacteria 0 SEEN /hpf (None Seen); Mucous, Urine 0 SEEN /hpf (<or=2+)
[2022-12-11 13:29] LABS: Color, Urine Yellow (Yellow); Glucose, Dipstick Normal (Normal); Ketone-Dipstick 5 mg/dl (Negative); Leukocyte Esterase-Dipstick 500 /ul (Negative); Nitrite-Dipstick Negative (Negative); Occult Blood-Urine 10 /ul (Negative); Protein-Dipstick 15 mg/dl (Negative); Specific Gravity, Urine 1.025 (1.002-1.030); Urine Bilirubin Dipstick Negative (Negative); Urine Clarity Cloudy (Clear); Urine Urobilinogen Normal (Normal)
[2022-12-11 13:34] LABS: Red Blood Cells-Urine 0-5 SEEN /hpf (0-5); Squamous Epithelial Cells - UA 0-5 SEEN /hpf (5-10); White Blood Cells 10-25 SEEN /hpf (0-5)
== END | disposition home or self-care (01) ==
LOC: LAB 12:25
PROVIDERS: PCP Family Medicine; Referring Provider Internal Medicine Nephrology; Visit Provider Internal Medicine Nephrology
DX: N18.4 Chronic kidney disease, stage 4 (severe) (principal)
CPT/HCPCS: 81001

== ENCOUNTER → 2023-01-04 | Outpatient (CLI) | payer MEDICARE, SELFPAY ==
[2018-09-19 13:59] VITALS: BMI 42.7
[2023-01-04 15:33] LABS: Albumin, Serum 3.6 g/dL (3.2-5.0); BUN 28 mg/dL (7-18); BUN/Creat Ratio 14.5 RATIO (10-20); Calcium,Total 9.3 mg/dL (8.5-10.1); Chloride 108 mmol/L (98-107); Creatinine, Serum 1.93 mg/dL (0.55-1.02); EST Glomerular Filtration Rate 27 mL/min (>60); Est Glom Filt Rate - Afr Amer 32 mL/min (>60); Glucose 98 mg/dL (74-106); Phosphorus 3.5 mg/dL (2.5-4.9); Potassium 4.5 mmol/L (3.5-5.1); Sodium Level 141 mmol/L (136-145)
== END | disposition home or self-care (01) ==
LOC: LAB 15:06
PROVIDERS: PCP Family Medicine; Referring Provider Internal Medicine Nephrology; Visit Provider Internal Medicine Nephrology
DX: N18.4 Chronic kidney disease, stage 4 (severe) (principal)
CPT/HCPCS: 36415; 80069

== ENCOUNTER → 2023-08-04 | Outpatient (CLI) | payer MEDICARE, SELFPAY ==
[2018-09-19 13:59] VITALS: BMI 42.7
--- NOTE | 2023-08-04 10:45 | BI_ITS ---
MAMMOGRAPHY - BILATERAL SCREENING REASON FOR EXAM: Female, 78 years old. Routine annual screening examination. PERTINENT HISTORY: Personal history of breast cancer. Prior left lumpectomy. TECHNIQUE: Digital bilateral breast tony (3D mammographic acquisition) in the CC and MLO projections. 2-D mediolateral oblique (MLO) and craniocaudad (CC) views of both breasts were obtained. CAD: Full Field Digital Mammography with Computer Added Detection was performed. COMPARISON: Comparison is made with prior study dated July 31, 2022 and July 29, 2021. FINDINGS: Breast Composition: The breasts are almost entirely fatty. There are no dominant masses or suspicious calcifications. The patient is status post lumpectomy in the deep central aspect of the left breast. No other significant abnormalities are identified. There has been no significant change since the prior study. BI/SCRN MAMM (CAD)W/TONY BILAT IMPRESSION: Stable bilateral screening mammogram. Yearly follow-up mammogram recommended. (A) ASSESSMENT CATEGORY: BIRADS Category 2: Benign. A letter regarding these results will be sent to the patient by the facility within 30 days. Approximately 10% of breast cancers are not detected by mammography. A normal mammogram should not delay biopsy of a clinically suspicious abnormality. [id number] Electronically Signed: Carlos Childs MD at 12:24 EDT ,
== END | disposition home or self-care (01) ==
LOC: OPBI 10:44
PROVIDERS: PCP Family Medicine; Referring Provider Family Medicine; Visit Provider Family Medicine
DX: Z12.31 Encounter for screening mammogram for malignant neoplasm of breast (principal); Z85.3 Personal history of malignant neoplasm of breast
CPT/HCPCS: 77063; 77067

== ENCOUNTER → 2024-06-15 | Outpatient (CLI) | payer MEDICARE, SELFPAY ==
[2018-09-19 13:59] VITALS: BMI 42.7
[2024-06-15 13:25] LABS: ALB/GLOB Ratio 1.4 RATIO (0.9-2.4); AST(SGOT) 19 U/L (<=31); Alanine Aminotransfer ALT/SGPT 10 U/L (<=34); Albumin, Serum 3.9 g/dL (3.4-4.8); Alkaline Phosphatase 80 U/L (35-104); Anion Gap 11 (5-15); BUN 43 mg/dL (4-19); BUN/Creat Ratio 21.8 RATIO (10-20); Calcium,Total 9.4 mg/dL (7.6-11.0); Carbon Dioxide 21.2 mmol/L (21.0-32.0); Chloride 108 mmol/L (98-108); Cholesterol 217 mg/dL (<=200); Creatinine, Serum 1.97 mg/dL (0.70-1.20); EST Glomerular Filtration Rate 25 (>60); Globulin 2.7 g/dL (2.2-4.2); Glucose 90 mg/dL (70-99); High Density Lipoprotein 61 mg/dL; Low Density Lipoprotein Calc. 135 mg/dL; Potassium 4.6 mmol/L (3.3-5.1); Protein, Total 6.7 g/dL (5.9-8.4); Sodium Level 141 mmol/L (133-145); Total Bilirubin 0.29 mg/dL (0.00-1.30); Triglycerides 104 mg/dL; Very Low Density Lipoprotein 21 mg/dL (5-40); cholesterol:hdl ratio screen 3.55
== END | disposition home or self-care (01) ==
PROVIDERS: PCP Family Medicine; Referring Provider Family Medicine; Visit Provider Family Medicine
DX: I10 Essential (primary) hypertension (principal)
CPT/HCPCS: 36415; 80053; 80061

== ENCOUNTER → 2024-07-07 | Outpatient (CLI) | payer MEDICARE, SELFPAY ==
[2018-09-19 13:59] VITALS: BMI 42.7
--- NOTE | 2024-07-07 15:03 | CT_ITS ---
PROCEDURE: EXTREMITY LOWER WITHOUT CONTRA 07/07/2024 REASON FOR EXAM: LT KNEE OA *JUAN LUIS PROTOCOL* TECHNIQUE: Axial CT images of the left knee obtained without intravenous contrast. Coronal and Sagittal reconstruction series were provided. CONTRAST: None One or more dose reduction techniques were used (e.g., Automated exposure control, adjustment of the mA and/or kV according to patient size, use of iterative reconstruction technique). RADIATION DOSE SUMMARY: DLP: 1530.75 mGycm COMPARISON: None FINDINGS: There is severe tricompartment osteoarthritis of the knee with joint space narrowing, subcortical cyst formation, and marginal osteophytes. There is no acute fracture or dislocation. There is a moderate size visible joint effusion. There is a 0.4 cm corticated osteochondral fragment visible in the lateral joint space. Vascular calcifications are noted. There is a 4.2 x 2.0 cm complex Cervantes's cyst. A 3.8 x 3.5 cm subcutaneous fluid collection is noted in the posterior soft tissues at the hip, level of the lower margin of the trochanter. CT/Extremity Lower without Contra IMPRESSION: There is severe tricompartment osteoarthritis of the knee with joint space narr owing, subcortical cyst formation, and marginal osteophytes. There is a moderate size visible joint effusion. There is a 0.4 cm corticated osteochondral fragment visible in the lateral join t space. There is a 4.2 x 2.0 cm complex Cervantes's cyst. A 3.8 x 3.5 cm subcutaneous fluid collection is noted in the posterior soft tis sues at the hip, level of the lower margin of the trochanter. Reading Location: [facility]
== END | disposition home or self-care (01) ==
LOC: CT 15:02
PROVIDERS: PCP Family Medicine; Referring Provider Specialist; Visit Provider Specialist
DX: M17.12 Unilateral primary osteoarthritis, left knee (principal)
CPT/HCPCS: 73700

== ENCOUNTER → 2024-07-24 | Outpatient (CLI) | payer MEDICARE, SELFPAY ==
[2018-09-19 13:59] VITALS: BMI 42.7
[2024-07-24 17:55] LABS: Absolute Lymphocyte Count 1.49 X10^3/uL (0.83-4.51); Basophil# 0.09 X10^3/uL; Basophil% 1.4 % (0-1); Eosinophil# 0.25 X10^3/uL; Hematocrit 36.6 % (37-47); Lymphocyte # 1.49 X10^3/ul (0.83-4.51); Lymphocyte % 23.7 % (19-41); Mean Corp Hgb Conc 32.8 g/dL (32-36); Mean Corpuscular Hgb 30.8 pg (27.0-32.0); Mean Corpuscular Volume 93.8 fL (81-99); Mean Platelet Vol. 10.5 fl (6.2-12.0); Monocyte# 0.48 X10^3/uL; Monocyte% 7.6 % (0-10); NRBC Flagged by Analyzer 0 % (0-5); Neutrophil # 3.98 X10^3/uL (2.7-7.7); Neutrophil % 63.1 % (47-70); Platelet Count 254 K/mm3 (150-450); RBC Distribution Width CV 12.2 % (11.6-14.6); RBC Distribution Width SD 42.1 fl (35.1-43.9); White Blood Count 6.3 K/mm3 (4.4-11.0)
[2024-07-24 18:40] LABS: ALB/GLOB Ratio 1.6 RATIO (0.9-2.4); AST(SGOT) 20 U/L (<=31); Alanine Aminotransfer ALT/SGPT 9 U/L (<=34); Alkaline Phosphatase 72 U/L (35-104); Anion Gap 12 (5-15); BUN 41 mg/dL (4-19); BUN/Creat Ratio 20.9 RATIO (10-20); Calcium,Total 9.6 mg/dL (7.6-11.0); Carbon Dioxide 20.9 mmol/L (21.0-32.0); Chloride 108 mmol/L (98-108); Cholesterol 198 mg/dL (<=200); Creatinine, Serum 1.96 mg/dL (0.70-1.20); EST Glomerular Filtration Rate 26 (>60); Globulin 2.6 g/dL (2.2-4.2); Glucose 86 mg/dL (70-99); High Density Lipoprotein 63 mg/dL; Low Density Lipoprotein Calc. 118 mg/dL; Potassium 4.5 mmol/L (3.3-5.1); Protein, Total 6.6 g/dL (5.9-8.4); Sodium Level 141 mmol/L (133-145); Total Bilirubin 0.46 mg/dL (0.00-1.30); Triglycerides 86 mg/dL; Very Low Density Lipoprotein 17 mg/dL (5-40); cholesterol:hdl ratio screen 3.16
== END | disposition home or self-care (01) ==
LOC: MFPLAB 15:05
PROVIDERS: PCP Family Medicine; Referring Provider Family Medicine; Visit Provider Family Medicine
DX: Z01.818 Encounter for other preprocedural examination (principal)
CPT/HCPCS: 36415; 80053; 80061; 85025

== ENCOUNTER → 2024-08-10 | Outpatient (CLI) | payer MEDICARE, SELFPAY ==
[2018-09-19 13:59] VITALS: BMI 42.7
--- OUTSIDE RECORDS SUMMARY | 2024-08-10 07:09 | XMS RPT_ITS | CCD ---
Author Organization [facility] Care Team Providers Care Hotel Services Supervisor Name Role Phone Dr. Magdy Gibbs Primary Care Provider Dr. Magdy Gibbs Referring Provider Dr. Dania Machado Attending Provider TAWANA ORTIZ, DR MAGDY Obrien Primary Care Physician Tawana ORTIZ, Dr. Curran Primary Care Provider [phone] Tawana ORTIZ, Dr. Curran Attending Provider [phone] Tawana ORTIZ, Dr. Curran Referring Provider Galo ORTIZ, Dr. Hicks Attending Provider [phone] Galo ORTIZ, Dr. Hicks Referring Provider [phone] Magdy Gibbs Primary Care Unavailable Kurt Gallagher Referring Unavailable Kurt Gallagher Attending Unavailable Tawana, Magdy Primary Care Unavailable Kurt Gallagher Referring Unavailable Kurt Gallagher Attending Unavailable Magdy Gibbs Referring Unavailable Tawana, Magdy Attending Unavailable Magdy Gibbs Primary Care Unavailable Magdy Gibbs Referring Unavailable Magdy Gibbs Attending Unavailable Tawana, Magdy Primary Care Unavailable Medications Current Medications Medication Drug Class(es) Dates Sig (Normalized) Sig (Original) 24 hr buPROPion hydrochloride 300 mg extended release oral tablet (13 sources) Aminoketone Start: 11-12-2022 take 1 tablet by mouth every hour, then take 1 tablet by mouth once daily buPROPion 300 mg/24 hours (XL) oral tablet, extended release Dose : 300 mg = 1 tab(s), Oral, qDay, 0 Refill(s) Start Date: 11/12/22 Status: Ordered Start: 07-22-2018 take 1 tablet by vicente th once daily in the morning Bupropion Hcl (Wellbutrin Xl) 300 mg tablet extended release 24 hr Active 300 mg PO EVERY MORNING July 22, 2018 12:00am FLUoxetine 20 mg oral capsule (13 sources) Serotonin Reuptake Inhibitor Start: 07-22-2018 take 1 capsule by mouth once daily Fluoxetine (Prozac) 20 mg capsule Active 20 mg PO DAILY July 22, 2018 12:00am hydroCHLOROthiazide 25 mg / lisinopril 20 mg oral tablet (13 sources) Thiazide Diuretic, Angiotensin Converting Enzyme Inhibitor Start: 11-12-2022 take 1 tablet by mouth once daily Zestoretic 20 mg-25 mg oral tablet Dose = 1 tab(s), Oral, qDay, 0 Refill(s) Start Date: 11/12/22 Status: Ordered Start: 07-22-2018 Lisinopril-Hyd rochlorothiazide 20-12.5 mg tablet Active 1 {tbl} PO DAILY July 22, 2018 12:00am Start: 07-22-2018 take 1 tablet by vicente th once daily Lisinopril-Hydrochlorothiazide Active 1 TABLET PO DAILY July 21, 2018 11:00pm meloxicam 15 mg oral tablet (13 sources) Nonsteroidal Anti-inflammatory Drug Start: 07-22-2018 take 1 tablet by mouth once daily Meloxicam 15 mg tablet Active 15 mg PO DAILY July 22, 2018 12:00am Vitamin D3 25 mcg (1000 intl units) oral capsule (2 sources) Start: 11-12-2022 Vitamin D3 25 mcg (1000 intl units) oral capsule Dose : 25 mcg = 1 cap(s), Oral, qDay, 0 Refill(s) Start Date: 11/12/22 Status: Ordered Completed/Discontinued Medications Medication Drug Class(es) Dates Sig (Normalized) Sig (Original) acetaminophen 325 mg / HYDROcodone bitartrate 5 mg oral tablet (20 sources) Opioid Agonist Start: 11-15-2018 End: 11-23-2018 Hydrocodone-Acetami nophen 1 TABLET tablet Discontinued 1 {tbl} PO EVERY 6 HOURS NEEDED as needed for Pain 01 17November 15, 2018 November 17, 2018 12:00am November 23, 2018 12:08am Start: 11-15-2018 End: 11-23-2018 take 1 tablet by mouth every six hours as needed Hydrocodone-Acetaminophen Discontinued 1 TABLET PO EVERY 6 HOURS NEEDED 12 3 November 15, 2018 November 22, 2018 11:08pm Start: 08-19-2018 End: 08-21-2018 Hydrocodone-Acetaminophen 1 TABLET tablet Discontinued 1 {tbl} PO EVERY 6 HOURS NEEDED as needed for Pain 5 2 August 19, 2018 August 20, 2018 12:00am August 21, 2018 12:09am Start: 08-19-2018 End: 08-21-2018 take 1 tablet by mouth every six hours as needed Hydrocodone-Acetaminophen Discontinued 1 TABLET PO EVERY 6 HOURS NEEDED 5 2 August 19, 2018 August 20, 2018 11:09pm anastrozole 1 mg oral tablet (20 sources) Aromatase Inhibitor Start: 09-26-2018 End: 03-26-2022 take 1 tablet by mouth once daily Anastrozole 1 mg tablet Discontinued 1 mg PO DAILY 90 90 December 30, 2021 2:43pm March 26, 2022 10:08am doxycycline hyclate 100 mg oral capsule (11 sources) Tetracycline-cla ss Drug Start: 07-22-2018 End: 08-10-2018 take 1 capsule by mouth twice daily Doxycycline Hyclate 100 mg capsule Discontinued 100 mg PO TWICE A DAY July 22, 2018 12:00am August 10, 2018 4:22pm Problems Problem Classification Problem Date Documented Da te Episodic/Chronic Administrative/social admission (20 sources) Patient encounter status; Translations: [Counseling, unspecified] Episodic Calculus of urinary tract (11 sources) Urolithiasis ; Translations: [Urinary calculus, unspecified] 11-16-2018 Episodic Cancer of breast (13 sources) Primary malignant neoplasm of female left breast; Translations: [Malignant neoplasm of unspecified site of left female breast] Chronic Essential hypertension (12 sources) Benign essential hypertension; Translations: [Essential (primary) hypertension] Onset: 06-22-2024 07-22-2018 Chronic Osteoarthritis (1 source) Unilateral primary osteoarthritis, left knee; Translations: [Unilateral primary osteoarthritis, left knee] Onset: 07-13-2024 Chronic Other nutritional; endocrine; and metabolic disorders (11 sources) Obesity; Translations: [Obesity, unspecified] 07-22-2018 Chronic Other screening for suspected conditions (not mental disorders or infectious disease) (2 sources) Mammography abnormal; Translations: [Other abnormal and inconclusive findings on diagnostic imaging of breast] Episodic Results Test Name Value Interpretation Reference Range Facility [facility] 08-02-2024 MR/PAT.[facility] Medical Records Department [address] [place] [address] PAT - Anesthesia 08/02/24 1119 MR#: [id number] Acct: [id number] Name: ANA MARÍA JO Rep #: [id number] : 1945 79 From: Constantin Solorzano MD PCP: Dr. 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 When Was Last Pacemaker Check QUESTION #4 FULL TEXT: You/Your Family Experience fever (hyperthermia) with Anesthesia Last Oral Intake Last Oral intake: Last Oral Intake NPO since Meds taken in AM with sips of water? Meds patient instructed to take am of surgery PONV PONV - spring floor service worker: PONV - spring floor service worker Female Yes 07/24/24 12:54 HX of Motion Sickness No 07/24/24 12:54 HX of N/V After Surgery No 07/24/24 12:54 Non-Smoker Yes 07/24/24 12:54 Duration of Surgery greater No 07/24/24 12:54 than 60 minutes Number of Risk Factors 2 07/24/24 12:54 PONV Score Moderate Risk 07/24/24 12:54 Height Weight Height Weight: Anesthesia: Height Weight Height 5 ft 4 in 01/01/22 15:08 Respiratory Assessment Respiratory Assessment - spring floor service worker: Respiratory Tract Infection Hx - spring floor service worker Hx Respiratory Tract Infection No 07/24/24 12:54 STOP Sleep Apnea STOP Sleep Apnea - spring floor service worker: STOP Sleep Apnea - spring floor service worker Hx Hypertension Yes: CONTROLLED WITH MEDS 07/24/24 12:54 Hx Sleep Apnea No 07/24/24 12:54 CPAP No 10/04/18 10:05 BIPAP Do you snore loudly (louder No 07/24/24 12:54 than talking or can be heard Do you often feel tired/ No 07/24/24 12:54 fatigued/ sleepy during daytime? Has anyone observed you stop No 07/24/24 12:54 breathing during sleep? STOP Results Negative 07/24/24 12:54 QUESTION #5 FULL TEXT : Do you snore loudly (louder than talking or can be heard through closed doors)? 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 Specify any problems Hx of Preganancy in last 3 No 07/24/24 12:54 Months Nurse Filling Out Transfusion [email or web address] 07/24/24 12:54 Questions: Date: 07/24/24 07/24/24 12:54 Time: 13:01 07/24/24 12:54 Patient unable to answer at this time (ie. confused, unrespo /Reproducti on History /Reproducti ve History - spring floor service worker: /Reproducti ve Hx- spring floor service worker Hx Now No 07/24/24 12:54 Gestational Age (in weeks): EDC: Hx Hx Para Hx Section SAB No 07/24/24 12:54 PFSH Medical History (Updated 07/24/24 @ 13:16 by Milton Ureña) Colonoscopy planned History of stress test History of Holter monitoring Wears glasses Wears dentures History of pain when walking Screening for intestinal cancer Breast cancer Arthritis Depression Obesity Benign essential hypertension Home Medications ???Medication ???Instructions ???Recorded ???Last Taken ???Type bupropion HCl 300 mg 24 hr tablet, 300 mg PO QAM 07/22/18 Unknown H istory extended release (Wellbutrin XL) fluoxetine 20 mg capsule (Prozac) 20 mg PO DAILY 07/22/18 Unknown H istory lisinopril 20 1 tab PO DAILY 07/22/18 Unknown Hi story mg-hydrochlorothiazi de 12.5 mg tablet meloxicam 15 mg tablet 15 mg PO DAILY 07/22/18 Unknown Hi story anastrozole 1 mg tablet See Rx Instructions .Route 3 Unknown Rx .COMPLEX #90 tabs Allergy/AdvReac Type Severity Reaction Status Date / Time (more content not included)... Normal [facility] MRSA/SAID NASAL SCREENon MRSA+SAID SCRN Reason for Exam: RIGHT TOTAL KNEE SURGERY MRSA MRSA Negative S. AUREUS S. aureus Negative Normal [facility] Comment on above: Performed By: #### L 500.4050, L500.4100 #### [facility] Laboratory [address] [place], [address] 12 Lead EKGon 08-01-2024 12 Lead EKG [facility] Cardiovascular Services [address] [place] [address] 12 Lead EKG 08/01/24 1343 MR#: [id number] Acct: [id number] Name: ANA MARÍA JO Rep #: [id number] : 1945 79 From: Demarcus Mathur MD Attending Dr: Dr. Kurt Gallagher MD Status: PRE [facility] Ordering Dr: Kurt Gallagher MD Date: 08/01/24 Location: [facility] Sex: F C Admitted: Test Reason : PRE OP Blood Pressure : */* mmHG Vent. Rate : 80 BPM Atrial Rate : 80 BPM P-R Int : 232 ms QRS Dur : 134 ms QT Int : 408 ms P-R-T Axes : 69 -34 142 degrees QTcB Int : 470 ms Sinus rhythm with sinus arrhythmia with 1st degree A-V block Left axis deviation Left bundle branch block Abnormal ECG Confirmed by RODNEY ORTIZ, DEMARCUS ([id number]), art editor VIRI DAVIS ([id number]) on 08/02/2024 7:03:15 AM Referred By: Kurt Gallagher Confirmed By: DEMARCUS MATHUR MD 08/02/24 0703 Date Demarcus Mathur MD CC: Dr. Magdy Gibbs MD; Dr. Kurt Gallagher MD Signed Normal [facility] Albumin, Serumon 08-01-2024 Albumin [Mass/Vol] 3.9 g/dL Normal 3.4-4.8 [facility] Comment on above: Performed By: #### L 500.4050, L500.4100 #### [facility] Laboratory [address] [place], [address] CBC W/Diff, Automatedon 07-16 Absolute Lymph 1.62 X10 3/uL Normal 0.83-4.51 [facility] Comment on above: Performed By: #### L 100.0100, L501.5200, L501.1800, L501.9985, M100.651 #### [facility] Laboratory [address] [place], [address] Absolute Neut 4.1 X10 3/uL Normal 2.0-7.7 [facility] Comment on above: Performed By: #### L 100.0100, L501.5200, L501.1800, L501.9985, M100.651 #### [facility] [address] [place], [address] Basophils/100 WBC (Bld) 0.8 % Normal 0-[address] [facility] Comment on above: Performed By: #### L 100.0100, L501.5200, L501.1800, L501.9985, M100.651 #### [facility] [address] [place], [address] Eosinophils/100 WBC (Bld) 3.0 % Normal 0-5 [facility] Comment on above: Performed By: #### L 100.0100, L501.5200, L501.1800, L501.9985, M100.651 #### [facility] [address] [place], [address] Erythrocyte distribution width (RBC) [Ratio] 12.4 % Normal 11.6-14.6 [facility] Comment on above: Performed By: #### L 100.0100, L501.5200, L501.1800, L501.9985, M100.651 #### [facility] [address] [place], [address] Hematocrit (Bld) [Volume fraction] 34.9 % Low 37-47 [facility] Comment on above: Performed By: #### L 100.0100, L501.5200, L501.1800, L501.9985, M100.651 #### [facility] [address] [place], [address] Hemoglobin (Bld) [Mass/Vol] 11.6 g/dL Low 12.0-15.0 [facility] Comment on above: Performed By: #### L 100.0100, L501.5200, L501.1800, L501.9985, M100.651 #### [facility] [address] [place], [address] IG% 0.200 Normal 0.0-0.9 [facility] Comment on above: Result Comment: IG% - Immature Granulocytes (promyelocytes, myelocytes and metamyelocytes) > 1% indicates that a LEFT SHIFT is Present. Performed By: #### L 100.0100, L501.5200, L501.1800, L501.9985, M100.651 #### [facility] [address] [place], [address] Lymphocytes/100 WBC (Bld) 25.3 % Normal 19-41 [facility] Comment on above: Performed By: #### L 100.0100, L501.5200, L501.1800, L501.9985, M100.651 #### [facility] [address] [place], [address] MCH (RBC) [Entitic mass] 31.1 pg Normal 27.0-32.0 [facility] Comment on above: Performed By: #### L 100.0100, L501.5200, L501.1800, L501.9985, M100.651 #### [facility] [address] [place], [address] MCHC (RBC) [Mass/Vol] 33.2 g/dL Normal 32-36 [facility] Comment on above: Performed By: #### L 100.0100, L501.5200, L501.1800, L501.9985, M100.651 #### [facility] [address] [place], [address] MCV (RBC) [Entitic vol] 93.6 fL Normal 81-99 [facility] Comment on above: Performed By: #### L 100.0100, L501.5200, L501.1800, L501.9985, M100.651 #### [facility] [address] [place], [address] Monocytes/100 WBC (Bld) 6.9 % Normal 0-10 [facility] Comment on above: Performed By: #### L 100.0100, L501.5200, L501.1800, L501.9985, M100.651 #### [facility] [address] [place], [address] Neutrophils/100 WBC (Bld) 63.8 % Normal 47-70 [facility] Comment on above: Performed By: #### L 100.0100, L501.5200, L501.1800, L501.9985, M100.651 #### [facility] [address] [place], [address] Nucleated RBC (Bld) [#/Vol] 0 10*3/uL Normal 0-5 [facility] Comment on above: Performed By: #### L 100.0100, L501.5200, L501.1800, L501.9985, M100.651 #### [facility] [address] [place], [address] Platelet mean volume (Bld) [Entitic vol] 10.3 fL Normal 6.2-12.0 [facility] Comment on above: Performed By: #### L 100.0100, L501.5200, L501.1800, L501.9985, M100.651 #### [facility] [address] [place], [address] Platelets (Bld) [#/Vol] 238 10*3/uL Normal 150-450 [facility] Comment on above: Performed By: #### L 100.0100, L501.5200, L501.1800, L501.9985, M100.651 #### [facility] [address] [place], [address] RBC (Bld) [#/Vol] 3.73 10*6/uL Low 4.2-5.4 [facility] Comment on above: Performed By: #### L 100.0100, L501.5200, L501.1800, L501.9985, M100.651 #### [facility] [address] [place], [address] RDW SD 42.6 fl Normal 35.1-43.9 [facility] Comment on above: Performed By: #### L 100.0100, L501.5200, L501.1800, L501.9985, M100.651 #### [facility] [address] [place], [address] WBC (Bld) [#/Vol] 6.4 10*3/uL Normal 4.4-11.0 [facility] Comment on above: Performed By: #### L 100.0100, L501.5200, L501.1800, L501.9985, M100.651 #### [facility] [address] [place], [address] Hemoglobin A1con 08-01-2024 HbA1c (Bld) [Mass fraction] 5.2 % Normal <=5.6 [facility] Comment on above: Result Comment: Norm al < 5.7 % Prediabetic 5.7 - 6.4 % Diabetic >or= 6.5 % Please note range changes. Performed By: #### L 100.0100, L501.5200, L501.1800, L501.9985, M100.651 #### [facility] [address] [place], [address] Magnesiumon 08-01-2024 Magnesium [Mass/Vol] 1.7 mg/dL Normal 1.5-2.2 [facility] Comment on above: Performed By: #### L 500.4050, L500.4100 #### [facility] [address] [place], [address] Absolute lymphocyte countOrd ered By: Magdy Gibbs on 07-24-2024 Lymphocytes Auto (Unsp spec) [#/Vol] 1.49 10*3/uL 0.83-4.51 [facility] Absolute neutrophil countOrd ered By: Magdy Gibbs on 07-24-2024 Neutrophils (Bld) [#/Vol] 4.0 10*3/uL 2.0-7.7 [facility] Anion gap in Serum or Plasma Ordered By: Magdy Gibbs on 07-24-2024 Anion gap [Moles/Vol] 12 mmol/L 5-15 [facility] Automated lymphocyte count a s percentage of total leukocytesOrdered By: Magdy Gibbs on 07-24-2024 Lymphocytes/100 WBC Auto (Unsp spec) 23.7 % 19-41 [facility] BUN/creatinine ratioOrdered By: Magdy Gibbs on 07-24-2024 Urea nitrogen/Creatinine [Mass ratio] 20.9 mg/mg High 10-20 [facility] Basophil percentageOrdered B y: Magdy Gibbs on 07-24-2024 Basophils/100 WBC (Bld) 1.4 % High 0-[address] [facility] Bilirubin, totalOrdered By: Magdy Gibbs on 07-24-2024 Bilirubin [Mass/Vol] 0.46 mg/dL 0.00-1.30 [facility] CBC W/Diff, Automatedon Absolute Lymph 1.49 X10 3/uL Normal 0.83-4.51 [facility] Comment on above: Performed By: #### L 100.0100, L500.4050, L500.4100 #### [facility] Laboratory [address] [place], [address] Absolute Neut 4.0 X10 3/uL Normal 2.0-7.7 [facility] Comment on above: Performed By: #### L 100.0100, L500.4050, L500.4100 #### [facility] [address] [place], [address] Basophils/100 WBC (Bld) 1.4 % High 0-[address] [facility] Comment on above: Performed By: #### L 100.0100, L500.4050, L500.4100 #### [facility] [address] [place], [address] Eosinophils/100 WBC (Bld) 4.0 % Normal 0-5 [facility] Comment on above: Performed By: #### L 100.0100, L500.4050, L500.4100 #### [facility] [address] [place], [address] Erythrocyte distribution width (RBC) [Ratio] 12.2 % Normal 11.6-14.6 [facility] Comment on above: Performed By: #### L 100.0100, L500.4050, L500.4100 #### [facility] [address] [place], [address] Hematocrit (Bld) [Volume fraction] 36.6 % Low 37-47 [facility] Comment on above: Performed By: #### L 100.0100, L500.4050, L500.4100 #### [facility] [address] [place], [address] Hemoglobin (Bld) [Mass/Vol] 12.0 g/dL Normal 12.0-15.0 [facility] Comment on above: Performed By: #### L 100.0100, L500.4050, L500.4100 #### [facility] [address] [place], [address] IG% 0.200 Normal 0.0-0.9 [facility] Comment on above: Result Comment: IG% - Immature Granulocytes (promyelocytes, myelocytes and metamyelocytes) > 1% indicates that a LEFT SHIFT is Present. Performed By: #### L 100.0100, L500.4050, L500.4100 #### [facility] [address] [place], [address] Lymphocytes/100 WBC (Bld) 23.7 % Normal 19-41 [facility] Comment on above: Performed By: #### L 100.0100, L500.4050, L500.4100 #### [facility] [address] [place], [address] MCH (RBC) [Entitic mass] 30.8 pg Normal 27.0-32.0 [facility] Comment on above: Performed By: #### L 100.0100, L500.4050, L500.4100 #### [facility] [address] [place], [address] MCHC (RBC) [Mass/Vol] 32.8 g/dL Normal 32-36 [facility] Comment on above: Performed By: #### L 100.0100, L500.4050, L500.4100 #### [facility] [address] [place], [address] MCV (RBC) [Entitic vol] 93.8 fL Normal 81-[address] [facility] Comment on above: Performed By: #### L 100.0100, L500.4050, L500.4100 #### [facility] [address] [place], [address] Monocytes/100 WBC (Bld) 7.6 % Normal 0-[address] [facility] Comment on above: Performed By: #### L 100.0100, L500.4050, L500.4100 #### [facility] [address] [place], [address] Neutrophils/100 WBC (Bld) 63.1 % Normal 47-70 [facility] Comment on above: Performed By: #### L 100.0100, L500.4050, L500.4100 #### [facility] [address] [place], [address] Nucleated RBC (Bld) [#/Vol] 0 10*3/uL Normal 0-5 [facility] Comment on above: Performed By: #### L 100.0100, L500.4050, L500.4100 #### [facility] [address] [place], [address] Platelet mean volume (Bld) [Entitic vol] 10.5 fL Normal 6.2-12.0 [facility] Comment on above: Performed By: #### L 100.0100, L500.4050, L500.4100 #### [facility] [address] [place], [address] Platelets (Bld) [#/Vol] 254 10*3/uL Normal 150-450 [facility] Comment on above: Performed By: #### L 100.0100, L500.4050, L500.4100 #### [facility] [address] [place], [address] RBC (Bld) [#/Vol] 3.90 10*6/uL Low 4.2-5.4 [facility] Comment on above: Performed By: #### L 100.0100, L500.4050, L500.4100 #### [facility] [address] [place], [address] RDW SD 42.1 fl Normal 35.1-43.9 [facility] Comment on above: Performed By: #### L 100.0100, L500.4050, L500.4100 #### [facility] [address] [place], [address] WBC (Bld) [#/Vol] 6.3 10*3/uL Normal 4.4-11.0 [facility] Comment on above: Performed By: #### L 100.0100, L500.4050, L500.4100 #### [facility] [address] [place], [address] Calculated very low density lipoprotein (VLDL) cholesterol measurementOrdered By: Magdy Gibbs on 07-24-2024 Calculated very low density lipoprotein (VLDL) cholesterol measurement 17 mg/dL 5-40 [facility] Carbon dioxide, total [Moles /volume] in Central venous bloodOrdered By: Magdy Gibbs on 07-24-2024 CO2 [Moles/Vol] 20.9 mmol/L Low 21.0-32.0 [facility] Chloride assayOrdered By: Antonino Gibbs on 07-24-2024 Chloride [Moles/Vol] 108 mmol/L 98-108 [facility] Comprehensive Metabolic Prof ilon 07-24-2024 Albumin [Mass/Vol] 4.0 g/dL Normal 3.4-4.8 [facility] Comment on above: Performed By: #### L 100.0100, L500.4050, L500.4100 #### [facility] [address] [place], [address] Albumin/Globulin [Mass ratio] 1.6 {ratio} Normal 0.9-2.4 [facility] Comment on above: Performed By: #### L 100.0100, L500.4050, L500.4100 #### [facility] [address] [place], [address] ALK PHOS 72 U/L Normal 35-104 [facility] Comment on above: Performed By: #### L 100.0100, L500.4050, L500.4100 #### [facility] [address] [place], [address] ALT [Catalytic activity/Vol] 9 U/L Normal <=34 [facility] Comment on above: Performed By: #### L 100.0100, L500.4050, L500.4100 #### [facility] [address] [place], [address] AST [Catalytic activity/Vol] 20 U/L Normal <=31 [facility] Comment on above: Performed By: #### L 100.0100, L500.4050, L500.4100 #### [facility] [address] [place], [address] Bilirubin [Mass/Vol] 0.46 mg/dL Normal 0.00-1.30 [facility] Comment on above: Performed By: #### L 100.0100, L500.4050, L500.4100 #### [facility] [address] [place], [address] BUN/CRE 20.9 RATIO High 10-20 [facility] Comment on above: Performed By: #### L 100.0100, L500.4050, L500.4100 #### [facility] [address] [place], [address] Calcium [Mass/Vol] 9.6 mg/dL Normal 7.6-11.0 [facility] Comment on above: Performed By: #### L 100.0100, L500.4050, L500.4100 #### [facility] [address] [place], [address] Chloride [Moles/Vol] 108 mmol/L Normal 98-108 [facility] Comment on above: Performed By: #### L 100.0100, L500.4050, L500.4100 #### [facility] [address] [place], [address] CO2 [Moles/Vol] 20.9 mmol/L Low 21.0-32.0 [facility] Comment on above: Performed By: #### L 100.0100, L500.4050, L500.4100 #### [facility] [address] [place], [address] Creatinine [Mass/Vol] 1.96 mg/dL High 0.70-1.20 [facility] Comment on above: Performed By: #### L 100.0100, L500.4050, L500.4100 #### [facility] [address] [place], [address] GAP 12 Normal 5-15 [facility] Comment on above: Performed By: #### L 100.0100, L500.4050, L500.4100 #### [facility] [address] [place], [address] GFR/1.73 sq M.predicted among non-blacks MDRD (S/P/Bld) [Vol rate/Area] 26 mL/min/{1.73_m2} Low >60 [facility] Comment on above: Result Comment: mL/m in/1.73m2 CKD-EPI Creatinine Equation (2020) Performed By: #### L 100.0100, L500.4050, L500.4100 #### [facility] [address] [place], [address] Globulin (S) [Mass/Vol] 2.6 g/dL Normal 2.2-4.2 [facility] Comment on above: Performed By: #### L 100.0100, L500.4050, L500.4100 #### [facility] [address] [place], [address] Glucose [Mass/Vol] 86 mg/dL Normal 70-99 [facility] Comment on above: Performed By: #### L 100.0100, L500.4050, L500.4100 #### [facility] [address] [place], [address] Potassium [Moles/Vol] 4.5 mmol/L Normal 3.3-5.1 [facility] Comment on above: Performed By: #### L 100.0100, L500.4050, L500.4100 #### [facility] [address] [place], [address] Sodium [Moles/Vol] 141 mmol/L Normal 133-145 [facility] Comment on above: Performed By: #### L 100.0100, L500.4050, L500.4100 #### [facility] [address] [place], [address] T PROT 6.6 g/dL Normal 5.9-8.4 [facility] Comment on above: Performed By: #### L 100.0100, L500.4050, L500.4100 #### [facility] [address] [place], [address] Urea nitrogen [Mass/Vol] 41 mg/dL High 4-19 [facility] Comment on above: Performed By: #### L 100.0100, L500.4050, L500.4100 #### [facility] [address] [place], [address] Eosinophil percentageOrdered By: Magdy Gibbs on 07-24-2024 Eosinophils/100 WBC (Bld) 4.0 % 0-5 [facility] Erythrocyte distribution wid th ratioOrdered By: Magdy Gibbs on 07-24-2024 Erythrocyte distribution width (RBC) [Ratio] 12.2 % 11.6-14.6 [facility] Erythrocyte distribution wid th standard deviationOrdered By: Magdy Gibbs on 07-24-2024 Erythrocyte distribution width (RBC) [Ratio] 42.1 fl 35.1-43.9 [facility] Glomerular filtration rate ( GFR) estimation/1.73 sq m using serum, plasma, or whole bOrdered By: Magdy Gibbs on 07-24-2024 GFR/1.73 sq M.predicted among non-blacks MDRD (S/P/Bld) [Vol rate/Area] 26 mL/min/{1.73_m2} Low >60 [facility] Comment on above: mL/min/1.73m2 CKD-EP I Creatinine Equation (2020) Hematocrit Auto (Bld) [Volum e fraction]Ordered By: Magdy Gibbs on 07-24-2024 Hematocrit (Bld) [Volume fraction] 36.6 % Low 37-47 [facility] Hemoglobin measurementOrdere d By: Magdy Gibbs on 07-24-2024 Hemoglobin (Bld) [Mass/Vol] 12.0 g/dL 12.0-15.0 [facility] Immature granulocytes/100 WB C Auto (Bld)Ordered By: Magdy Gibbs on 07-24-2024 Immature granulocytes/100 WBC (Bld) 0.200 % 0.0-0.9 [facility] Comment on above: IG% - Immature Granu locytes (promyelocytes, myelocytes and metamyelocytes) > 1% indicates that a LEFT SHIFT is Present. LDL calc ser/plasOrdered By: Magdy Gibbs on 07-24-2024 Cholesterol in LDL [Mass/Vol] 118 mg/dL [facility] Comment on above: Nmflpbyiuh=189-682 m g/dL & Higher Szoj=400 mg/dL or greater Laboratory - Chemistry and C hemistry - challengeOrdered By: Magdy Gibbs on 07-24-2024 AST [Catalytic activity/Vol] 20 U/L <32 [facility] Lipid Profileon 07-24-2024 CHOL:HDL 3.16 Normal [facility] Comment on above: Performed By: #### L 100.0100, L500.4050, L500.4100 #### [facility] [address] [place], [address] Cholesterol [Mass/Vol] 198 mg/dL Normal <=200 [facility] Comment on above: Result Comment: Chol esterol level, Desirable <200 mg/dL Borderline high cholesterol 200-239 mg/dL High cholesterol >=240 mg/dL Recommendations of the NCEP Adult Treatment Panel for the following risk-cutoff thresholds for the [place] population. Performed By: #### L 100.0100, L500.4050, L500.4100 #### [facility] [address] [place], [address] Cholesterol in HDL [Mass/Vol] 63 mg/dL Normal [facility] Comment on above: Result Comment: Ameena onal Cholesterol Education Program (NCEP) guidelines: <40 mg/dL: Low HDL-cholesterol (major risk factor for CHD) >= 60 mg/dL: High HDL-cholesterol (negative risk factor for CHD) HDL-cholesterol is affected by a number of factors, e.g. smoking, exercise, hormones, sex and age. Performed By: #### L 100.0100, L500.4050, L500.4100 #### [facility] [address] [place], [address] Cholesterol in LDL [Mass/Vol] 118 mg/dL Normal [facility] Comment on above: Result Comment: Bord onkkly=836-633 mg/dL Higher Pckx=866 mg/dL or greater Performed By: #### L 100.0100, L500.4050, L500.4100 #### [facility] [address] [place], [address] Cholesterol in VLDL [Mass/Vol] 17 mg/dL Normal 5-40 [facility] Comment on above: Performed By: #### L 100.0100, L500.4050, L500.4100 #### [facility] [address] [place], [address] Triglyceride [Mass/Vol] 86 mg/dL Normal [facility] Comment on above: Result Comment: The drugs N-Acetylcysteine and Metamizole may falsely depress this assay. Normal range: <150 mg/dL Borderline High: 150-199 mg/dL High: 200-499 mg/dL Very High: >500 mg/dL Performed By: #### L 100.0100, L500.4050, L500.4100 #### [facility] [address] [facility] [place], [place], [id number] MCV (mean corpuscular volume ) determinationOrdered By: Magdy Gibbs on 07-24-2024 MCV (RBC) [Entitic vol] 93.8 fL 81-99 [facility] Mean corpuscular hemoglobin (MCH) determinationOrdered By: Magdy Gibbs on 07-24-2024 MCH (RBC) [Entitic mass] 30.8 pg 27.0-32.0 [facility] Mean corpuscular hemoglobin concentration (MCHC) determinationOrdered By: Magdy Gibbs on 07-24-2024 MCHC (RBC) [Mass/Vol] 32.8 g/dL 32-36 [facility] Mean platelet volume determi nationOrdered By: Magdy Gibbs on 07-24-2024 Platelet mean volume (Bld) [Entitic vol] 10.5 fL 6.2-12.0 [facility] Monocyte percentageOrdered B y: Magdy Gibbs on 07-24-2024 Monocytes/100 WBC (Bld) 7.6 % 0-10 [facility] Neutrophil percentageOrdered By: Magdy Gibbs on 07-24-2024 Neutrophils/100 WBC (Bld) 63.1 % 47-70 [facility] Nucleated red blood cell per centageOrdered By: Magdy Gibbs on 07-24-2024 Nucleated RBC/100 WBC (Bld) [Ratio] 0 % 0-5 [facility] Platelet countOrdered By: Antonino Gibbs on 07-24-2024 Platelets (Bld) [#/Vol] 254 10*3/uL 150-450 [facility] Potassium measurement (mass/ volume)Ordered By: Magdy Gibbs on 07-24-2024 Potassium (Unsp spec) [Mass/Vol] 4.5 mmol/L 3.3-5.1 [facility] RBC Auto (Bld) [#/Vol]Ordere d By: Magdy Gibbs on 07-24-2024 RBC (Bld) [#/Vol] 3.90 10*6/uL Low 4.2-5.4 [facility] Screening total cholesterol/ high density lipoprotein (HDL) cholesterol ratioOrdered By: Magdy Gibbs on 07-24-2024 Cholesterol.total/Choles terol in HDL [Mass ratio] 3.16 {ratio} [facility] Serum creatinine measurement (mass/volume)Ordered By: Magdy Gibbs on 07-24-2024 Creatinine [Mass/Vol] 1.96 mg/dL High 0.70-1.20 [facility] Serum globulin measurementOr dered By: Magdy Gibbs on 07-24-2024 Globulin (S) [Mass/Vol] 2.6 g/dL 2.2-4.2 [facility] Serum glucose measurement (m ass/volume)Ordered By: Magdy Gibbs on 07-24-2024 Glucose [Mass/Vol] 86 mg/dL 70-99 [facility] Serum or plasma alanine leger otransferase (ALT) measurementOrdered By: Magdy Gibbs on 07-24-2024 ALT [Catalytic activity/Vol] 9 U/L <35 [facility] Serum or plasma albumin jean urement (mass/volume)Ordered By: Magdy Gibbs on 07-24-2024 Albumin [Mass/Vol] 4.0 g/dL 3.4-4.8 [facility] Serum or plasma albumin/glob ulin mass ratioOrdered By: Magdy Gibbs on 07-24-2024 Albumin/Globulin [Mass ratio] 1.6 {ratio} 0.9-2.4 [facility] Serum or plasma alkaline louise sphatase measurementOrdered By: Magdy Gibbs on 07-24-2024 ALP [Catalytic activity/Vol] 72 U/L 35-104 [facility] Serum or plasma calcium jean urement (mass/volume)Ordered By: Magdy Gibbs on 07-24-2024 Calcium [Mass/Vol] 9.6 mg/dL 7.6-11.0 [facility] Serum or plasma cholesterol in HDL measurement (mass/volume)Ordered By: Magdy Gibbs on 07-24-2024 Cholesterol in HDL [Mass/Vol] 63 mg/dL >40 [facility] Comment on above: National Cholesterol Education Program (NCEP) guidelines:<40 mg/dL: Low HDL-cholesterol (major risk factor for CHD)>= 60 mg/dL: High HDL-cholesterol (negative risk factor for CHD)HDL-cholesterol is affected by a number of factors, e.g. smoking, exercise, hormones, sex and age. Serum or plasma cholesterol measurement (mass/volume)Ordered By: Magdy Gibbs on 07-24-2024 Cholesterol [Mass/Vol] 198 mg/dL <201 [facility] Comment on above: Cholesterol level, D esirable <200 mg/dLBorderline high cholesterol 200-239 mg/dLHigh cholesterol >=240 mg/dLRecommendations of the NCEP Adult Treatment Panel for the following risk-cutoff thresholds for the [place] population. Serum or plasma urea nitroge n measurement (mass/volume)Ordered By: Magdy Gibbs on 07-24-2024 Urea nitrogen [Mass/Vol] 41 mg/dL High 4-19 [facility] Sodium levelOrdered By: Magdy Gibbs on 07-24-2024 Sodium [Moles/Vol] 141 mmol/L 133-145 [facility] Total proteinOrdered By: Malena Gibbs on 07-24-2024 Protein [Mass/Vol] 6.6 g/dL 5.9-8.4 [facility] Triglycerides measurementOrd ered By: Magdy Gibbs on 07-24-2024 Triglyceride [Mass/Vol] 86 mg/dL <[address] [facility] Comment on above: The drugs N-Acetylcy steine and Metamizole may falsely depress this assay. Normal range: <150 mg/dLBorderline High: 150-199 mg/dLHigh: 200-499 mg/dLVery High: >500 mg/dL White blood cell (WBC) count Ordered By: Magdy Gibbs on 07-24-2024 WBC (Bld) [#/Vol] 6.3 10*3/uL 4.4-11.0 [facility] Extremity Lower without Cont raon 07-07-2024 Extremity Lower without Contra [facility] Services [address] [place], [place] [address] Extremity Lower without Contra MR#: [id number] Acct: [id number] Name: ANA MARÍA JO Rep #: [id number] : 1945 F [id number] From: Conor Nava MD PCP: Dr. Magdy Gibbs MD Status: REG CLI Study: Extremity Lower without Contra Date of Exam: 0 07/07/24 Exam# [id number] Ordering Dr: Kurt Gallagher MD PROCEDURE: EXTREMITY LOWER WITHOUT CONTRA 07/07/2024 REASON FOR EXAM: LT KNEE OA *JUAN LUIS PROTOCOL* TECHNIQUE: Axial CT images of the left knee obtained without intravenous contrast. Coronal and Sagittal reconstruction series were provided. CONTRAST: None One or more dose reduction techniques were used (e.g., Automated exposure control, adjustment of the mA and/or kV according to patient size, use of iterative reconstruction technique). RADIATION DOSE SUMMARY: DLP: 1530.75 mGycm COMPARISON: None FINDINGS: There is severe tricompartment osteoarthritis of the knee with joint space narrowing, subcortical cyst formation, and marginal osteophytes. There is no acute fracture or dislocation. There is a moderate size visible joint effusion. There is a 0.4 cm corticated osteochondral fragment visible in the lateral joint space. Vascular calcifications are noted. There is a 4.2 x 2.0 cm complex Cervantes's cyst. A 3.8 x 3.5 cm subcutaneous fluid collection is noted in the posterior soft tissues at the hip, level of the lower margin of the trochanter. CT/Extremity Lower without Contra IMPRESSION: There is severe tricompartment osteoarthritis of the knee with joint space narrowing, subcortical cyst formation, and marginal osteophytes. There is a moderate size visible joint effusion. There is a 0.4 cm corticated osteochondral fragment visible in the lateral joint space. There is a 4.2 x 2.0 cm complex Cervantes's cyst. A 3.8 x 3.5 cm subcutaneous fluid collection is noted in the posterior soft tissues at the hip, level of the lower margin of the trochanter. Reading Location: [facility] CC: Dr. Magdy Gibbs MD; Dr. Kurt Gallagher MD [employer]: Signed Normal [facility] Anion gap in Serum or Plasma Ordered By: Magdy Gibbs on 06-15-2024 Anion gap [Moles/Vol] 11 mmol/L 5-15 [facility] BUN/creatinine ratioOrdered By: Magdy Gibbs on 06-15-2024 Urea nitrogen/Creatinine [Mass ratio] 21.8 mg/mg High 10-20 [facility] Bilirubin, totalOrdered By: Magdy Gibbs on 06-15-2024 Bilirubin [Mass/Vol] 0.29 mg/dL 0.00-1.30 [facility] Calculated very low density lipoprotein (VLDL) cholesterol measurementOrdered By: Magdy Gibbs on 06-15-2024 Calculated very low density lipoprotein (VLDL) cholesterol measurement 21 mg/dL 5-40 [facility] Carbon dioxide, total [Moles /volume] in Central venous bloodOrdered By: Magdy Gibbs on 06-15-2024 CO2 [Moles/Vol] 21.2 mmol/L 21.0-32.0 [facility] Chloride assayOrdered By: Antonino Gibbs on 06-15-2024 Chloride [Moles/Vol] 108 mmol/L 98-108 [facility] Comprehensive Metabolic Prof ilon 06-15-2024 Albumin [Mass/Vol] 3.9 g/dL Normal 3.4-4.8 [facility] Comment on above: Performed By: #### L 500.4050, L500.4100 #### [facility] [address] [place], [address] Albumin/Globulin [Mass ratio] 1.4 {ratio} Normal 0.9-2.4 [facility] Comment on above: Performed By: #### L 500.4050, L500.4100 #### [facility] [address] [place], [address] ALK PHOS 80 U/L Normal 35-104 [facility] Comment on above: Performed By: #### L 500.4050, L500.4100 #### [facility] [address] [place], [address] ALT [Catalytic activity/Vol] 10 U/L Normal <=34 [facility] Comment on above: Performed By: #### L 500.4050, L500.4100 #### [facility] [address] [place], [address] AST [Catalytic activity/Vol] 19 U/L Normal <=31 [facility] Comment on above: Performed By: #### L 500.4050, L500.4100 #### [facility] [address] [place], [address] Bilirubin [Mass/Vol] 0.29 mg/dL Normal 0.00-1.30 [facility] Comment on above: Performed By: #### L 500.4050, L500.4100 #### [facility] [address] [place], [address] BUN/CRE 21.8 RATIO High 10-20 [facility] Comment on above: Performed By: #### L 500.4050, L500.4100 #### [facility] [address] [place], [address] Calcium [Mass/Vol] 9.4 mg/dL Normal 7.6-11.0 [facility] Comment on above: Performed By: #### L 500.4050, L500.4100 #### [facility] [address] [place], [address] Chloride [Moles/Vol] 108 mmol/L Normal 98-108 [facility] Comment on above: Performed By: #### L 500.4050, L500.4100 #### [facility] [address] [place], [address] CO2 [Moles/Vol] 21.2 mmol/L Normal 21.0-32.0 [facility] Comment on above: Performed By: #### L 500.4050, L500.4100 #### [facility] [address] [place], [address] Creatinine [Mass/Vol] 1.97 mg/dL High 0.70-1.20 [facility] Comment on above: Performed By: #### L 500.4050, L500.4100 #### [facility] [address] [place], [address] GAP 11 Normal 5-15 [facility] Comment on above: Performed By: #### L 500.4050, L500.4100 #### [facility] [address] [place], [address] GFR/1.73 sq M.predicted among non-blacks MDRD (S/P/Bld) [Vol rate/Area] 25 mL/min/{1.73_m2} Low >60 [facility] Comment on above: Result Comment: mL/m in/1.73m2 CKD-EPI Creatinine Equation (2020) Performed By: #### L 500.4050, L500.4100 #### [facility] [address] [place], [address] Globulin (S) [Mass/Vol] 2.7 g/dL Normal 2.2-4.2 [facility] Comment on above: Performed By: #### L 500.4050, L500.4100 #### [facility] [address] [place], [address] Glucose [Mass/Vol] 90 mg/dL Normal 70-99 [facility] Comment on above: Performed By: #### L 500.4050, L500.4100 #### [facility] [address] [place], [address] Potassium [Moles/Vol] 4.6 mmol/L Normal 3.3-5.1 [facility] Comment on above: Performed By: #### L 500.4050, L500.4100 #### [facility] [address] [place], [address] Sodium [Moles/Vol] 141 mmol/L Normal 133-145 [facility] Comment on above: Performed By: #### L 500.4050, L500.4100 #### [facility] [address] [place], [address] T PROT 6.7 g/dL Normal 5.9-8.4 [facility] Comment on above: Performed By: #### L 500.4050, L500.4100 #### [facility] [address] [place], [address] Urea nitrogen [Mass/Vol] 43 mg/dL High 4-19 [facility] Comment on above: Performed By: #### L 500.4050, L500.4100 #### [facility] [address] [place], [address] Glomerular filtration rate ( GFR) estimation/1.73 sq m using serum, plasma, or whole bOrdered By: Magdy Gibbs on 06-15-2024 GFR/1.73 sq M.predicted among non-blacks MDRD (S/P/Bld) [Vol rate/Area] 25 mL/min/{1.73_m2} Low >60 [facility] Comment on above: mL/min/1.73m2 CKD-EP I Creatinine Equation (2020) LDL calc ser/plasOrdered By: Magdy Gibbs on 06-15-2024 Cholesterol in LDL [Mass/Vol] 135 mg/dL [facility] Comment on above: Rgzznxattg=117-308 m g/dL & Higher Deaw=195 mg/dL or greater Laboratory - Chemistry and C hemistry - challengeOrdered By: Magdy Gibbs on 06-15-2024 AST [Catalytic activity/Vol] 19 U/L <32 [facility] Lipid Profileon 06-15-2024 CHOL:HDL 3.55 Normal [facility] Comment on above: Performed By: #### L 500.4050, L500.4100 #### [facility] Laboratory [address] [place], [address] Cholesterol [Mass/Vol] 217 mg/dL High <=200 [facility] Comment on above: Result Comment: Chol esterol level, Desirable <200 mg/dL Borderline high cholesterol 200-239 mg/dL High cholesterol >=240 mg/dL Recommendations of the NCEP Adult Treatment Panel for the following risk-cutoff thresholds for the [place] population. Performed By: #### L 500.4050, L500.4100 #### [facility] [address] [place], [address] Cholesterol in HDL [Mass/Vol] 61 mg/dL Normal [facility] Comment on above: Result Comment: Ameena onal Cholesterol Education Program (NCEP) guidelines: <40 mg/dL: Low HDL-cholesterol (major risk factor for CHD) >= 60 mg/dL: High HDL-cholesterol (negative risk factor for CHD) HDL-cholesterol is affected by a number of factors, e.g. smoking, exercise, hormones, sex and age. Performed By: #### L 500.4050, L500.4100 #### [facility] [address] [place], [address] Cholesterol in LDL [Mass/Vol] 135 mg/dL Normal [facility] Comment on above: Result Comment: Bord qhmzla=005-415 mg/dL Higher Zibi=023 mg/dL or greater Performed By: #### L 500.4050, L500.4100 #### [facility] [address] [place], [address] Cholesterol in VLDL [Mass/Vol] 21 mg/dL Normal 5-40 [facility] Comment on above: Performed By: #### L 500.4050, L500.4100 #### [facility] [address] [place], [address] Triglyceride [Mass/Vol] 104 mg/dL Normal [facility] Comment on above: Result Comment: The drugs N-Acetylcysteine and Metamizole may falsely depress this assay. Normal range: <150 mg/dL Borderline High: 150-199 mg/dL High: 200-499 mg/dL Very High: >500 mg/dL Performed By: #### L 500.4050, L500.4100 #### [facility] [place], [address] Potassium measurement (mass/ volume)Ordered By: Magdy Gibbs on 06-15-2024 Potassium (Unsp spec) [Mass/Vol] 4.6 mmol/L 3.3-5.1 [facility] Screening total cholesterol/ high density lipoprotein (HDL) cholesterol ratioOrdered By: Magdy Gibbs on 06-15-2024 Cholesterol.total/Choles terol in HDL [Mass ratio] 3.55 {ratio} [facility] Serum creatinine measurement (mass/volume)Ordered By: Magdy Gibbs on 06-15-2024 Creatinine [Mass/Vol] 1.97 mg/dL High 0.70-1.20 [facility] Serum globulin measurementOr dered By: Magdy Gibbs on 06-15-2024 Globulin (S) [Mass/Vol] 2.7 g/dL 2.2-4.2 [facility] Serum glucose measurement (m ass/volume)Ordered By: Magdy Gibbs on 06-15-2024 Glucose [Mass/Vol] 90 mg/dL 70-99 [facility] Serum or plasma alanine leger otransferase (ALT) measurementOrdered By: Magdy Gibbs on 06-15-2024 ALT [Catalytic activity/Vol] 10 U/L <35 [facility] Serum or plasma albumin jean urement (mass/volume)Ordered By: Magdy Gibbs on 06-15-2024 Albumin [Mass/Vol] 3.9 g/dL 3.4-4.8 [facility] Serum or plasma albumin/glob ulin mass ratioOrdered By: Magdy Gibbs on 06-15-2024 Albumin/Globulin [Mass ratio] 1.4 {ratio} 0.9-2.4 [facility] Serum or plasma alkaline louise sphatase measurementOrdered By: Magdy Gibbs on 06-15-2024 ALP [Catalytic activity/Vol] 80 U/L 35-104 [facility] Serum or plasma calcium jean urement (mass/volume)Ordered By: Magdy Gibbs on 06-15-2024 Calcium [Mass/Vol] 9.4 mg/dL 7.6-11.0 [facility] Serum or plasma cholesterol in HDL measurement (mass/volume)Ordered By: Magdy Gibbs on 06-15-2024 Cholesterol in HDL [Mass/Vol] 61 mg/dL >40 [facility] Comment on above: National Cholesterol Education Program (NCEP) guidelines:<40 mg/dL: Low HDL-cholesterol (major risk factor for CHD)>= 60 mg/dL: High HDL-cholesterol (negative risk factor for CHD)HDL-cholesterol is affected by a number of factors, e.g. smoking, exercise, hormones, sex and age. Serum or plasma cholesterol measurement (mass/volume)Ordered By: Magdy Gibbs on 06-15-2024 Cholesterol [Mass/Vol] 217 mg/dL High <201 [facility] Comment on above: Cholesterol level, D esirable <200 mg/dLBorderline high cholesterol 200-239 mg/dLHigh cholesterol >=240 mg/dLRecommendations of the NCEP Adult Treatment Panel for the following risk-cutoff thresholds for the [place] population. Serum or plasma urea nitroge n measurement (mass/volume)Ordered By: Magdy Gibbs on 06-15-2024 Urea nitrogen [Mass/Vol] 43 mg/dL High 4-19 [facility] Sodium levelOrdered By: Magdy Gibbs on 06-15-2024 Sodium [Moles/Vol] 141 mmol/L 133-145 [facility] Total proteinOrdered By: Malena Gibbs on 06-15-2024 Protein [Mass/Vol] 6.7 g/dL 5.9-8.4 [facility] Triglycerides measurementOrd ered By: Magdy Gibbs on 06-15-2024 Triglyceride [Mass/Vol] 104 mg/dL <[address] [facility] Comment on above: The drugs N-Acetylcy steine and Metamizole may falsely depress this assay. Normal range: <150 mg/dLBorderline High: 150-199 mg/dLHigh: 200-499 mg/dLVery High: >500 mg/dL ED NOTEon 05-07-2023 ED NOTE HNO ID: [id number] Author: MARIANA PRABHAKAR RN Service: Emergency Medicine Author Type: Registered Nurse Type: ED Notes Filed: 05/08/2023 12:52 Note Text: Patient Call Back Information How are you doing ? better Did we appropriately manage your pain? Yes Did you understand your discharge instructions? Yes Did you get your prescriptions filled? Yes Were you able to make a follow-up appointment with your physician? Yes Were you comfortable during your stay here? Yes Did a member of the ER nursing team round on you during your visit? Yes You will receive a patient satisfaction survey in the mail in the nest 2 weeks, please take the time to fill out the survey as your input from your ER visit is very important to us. Yes Can we do anything else to help you? No [facility] ED NOTE HNO ID: [id number] Author: RENALDO SKINNER RN Service: ? Author Type: Registered Nurse Type: ED Notes Filed: 05/07/2023 17:54 Note Text: Pt given discharge instructions, pt questions answered and pt denies any further questions at time of discharge. Pt ambulates out of dept with a steady gait. [facility] ED NOTE HNO ID: [id number] Author: RENALDO SKINNER RN Service: ? Author Type: Registered Nurse Type: ED Notes Filed: 05/07/2023 17:55 Note Text: Dr branch at bedside speaking with pt regarding results of testing and chichi of care [facility] ED NOTE HNO ID: [id number] Author: RENALDO SKINNER RN Service: ? Author Type: Registered Nurse Type: ED Notes Filed: 05/07/2023 17:15 Note Text: Xray completed at bedside [facility] ED NOTE HNO ID: [id number] Author: RENALDO SKINNER RN Service: ? Author Type: Registered Nurse Type: ED Notes Filed: 05/07/2023 16:34 Note Text: Dr branch at bedside for exam [facility] ED NOTE HNO ID: [id number] Author: RENALDO SKINNER RN Service: ? Author Type: Registered Nurse Type: ED Notes Filed: 05/07/2023 16:26 Note Text: Pt reports pain started in the left side of her neck, pain started in her shoulder 2-3 days ago. No known injury [facility] ED PROV NOTEon 05-07-2023 ED PROV NOTE HNO ID: [id number] Author: VISHAL BRANCH DO Service: Emergency Medicine Author Type: Physician Type: ED Provider Notes Filed: 05/07/2023 17:50 Note Text: ED Provider Note Patient Name: Ana María Jo : 1945 SERVICE DATE: 05/07/23 History Patient presents with: Shoulder Injury Patient presents for concerns of left shoulder pain. Patient states for the last few weeks she has had some pain within her left neck without particular inciting event. This is gone away but over the past 3 days she has had gradual onset and persistent left shoulder pain. No fall or trauma reported. Seems to get worse with movement and she points to her superior and lateral aspect of the left shoulder. Denies any numbness tingling or weakness distal to the site of pain. Has been taking Tylenol, not NSAIDs and has a history of CKD. Nothing else seems to make it better or worse. Has not had any associated chest pain, shortness of breath, nausea vomiting or other systemic complaints. No past medical history on file. No past surgical history on file. No family history on file. Social History Tobacco Use Smoking status: Not on file Smokeless tobacco: Not on file Substance and Sexual Activity Alcohol use: Not on file Drug use: Not on file Sexual activity: Not on file ALLERGIES No Known Allergies Review of Systems Constitutional: Negative for activity change, fatigue and fever. HENT: Negative for congestion, rhinorrhea and sore throat. Eyes: Negative for photophobia, discharge and visual disturbance. Respiratory: Negative for cough, shortness of breath and wheezing. Cardiovascular: Negative for chest pain, palpitations and leg swelling. Gastrointestinal: Negative for abdominal pain, diarrhea, nausea and vomiting. Endocrine: Negative for cold intolerance, heat intolerance and polydipsia. Genitourinary: Negative for difficulty urinating, dysuria and urgency. Musculoskeletal: Positive for arthralgias. Negative for back pain, myalgias and neck pain. Skin: Negative for pallor, rash and wound. Neurological: Negative for syncope, numbness and headaches. Physical Exam Vitals BP Pulse Temp Temp src Resp SpO2 Weight Height -- -- -- -- -- -- -- -- Physical Exam Vitals and nursing note reviewed. Constitutional: General: She is not in acute distress. Appearance: Normal appearance. She is not ill-appearing or toxic-appearing. HENT: Head: Normocephalic and atraumatic. Nose: Nose normal. Eyes: General: No scleral icterus. Extraocular Movements: Extraocular movements intact. Conjunctiva/sclera: Conjunctivae normal. Cardiovascular: Rate and Rhythm: Normal rate and regular rhythm. Pulses: Normal pulses. Heart sounds: Normal heart sounds. No murmur heard. No gallop. Pulmonary: Effort: Pulmonary effort is normal. No respiratory distress. Breath sounds: Normal breath sounds. No wheezing, rhonchi or rales. Abdominal: General: Abdomen is flat. There is no distension. Musculoskeletal: General: Tenderness present. Cervical back: Normal range of motion and neck supple. No rigidity. Right lower leg: No edema. Left lower leg: No edema. Comments: Range of motion slightly limited at the left shoulder secondary to pain. Patient reporting tenderness to palpation over the proximal left lateral and anterior arm over the proximal bicep without deformity or cutaneous changes including rash in this region. 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 Distal sensation intact. No bony deformity over the left shoulder or of the left clavicle or scapula Lymphadenopathy: Cervical: No cervical adenopathy. Skin: General: Skin is warm and dry. Neurological: General: No focal deficit present. Mental Status: She is alert and oriented to person, place, and time. Mental status is at baseline. Sensory: No sensory deficit. Psychiatric: Mood and Affect: Mood normal. Behavior: Behavior normal. Diagnostic Testing ED Labs Ordered and Reviewed - No data to display Procedures ED Course / Clinical Impression Clinical Impressions as of 05/07/23 1749 Acute pain of left shoulder Muscle strain MDM / Disposition / Plan The differential diagnosis associated with the patient's presentation includes: Musculoskeletal strain. Less likely fracture or dislocation given location and no traumatic injury reported. Considering other arthritic changes but the location also seems more likely muscular as it is not specifically within the joint. Low concern for cervical radiculopathy given the reproducible pain. I performed an independent interpretation of the: Select all that apply: XR: My interpretation is no acute fracture or dislocation Additional history obtained from or confirmed by: Child Imaging obtained no acute findings. Pain control offered but declined by patient. Recommended continued Tylenol use at home. Patient states she is tried lidocain (more content not included)... [facility] XR SHLDR >/=3V AP/DAVID AP/OTH R LTon 05-07-2023 XR SHLDR >/=3V AP/DAVID AP/OTHR LT * * *Final Report* * * DATE OF EXAM: May 07 2023 5:25PM LDX 5252 - XR SHLDR >/=3V AP/DAVID AP/OTHR LT / PROCEDURE REASON: Trauma * * * * Physician Interpretation * * * * LEFT SHOULDER RADIOGRAPHS: CLINICAL HISTORY: Trauma TECHNIQUE: 3 views of the left shoulder were obtained. COMPARISON: No available comparisons RESULT: No acute fracture or dislocation. Glenohumeral joint space is maintained. Acromiohumeral interval is normal. Severe osteoarthritis of the acromioclavicular joint. IMPRESSION: No acute osseous abnormality. 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 Transcribe Date/Time: May 07 2023 5:42P Dictated by : KRISTAL JOHNSON MD This examination was interpreted and the report reviewed and electronically signed by: KRISTAL JOHNSON MD on May 07 2023 5:44PM EST [id number] Normal [facility] Basophil percentageOrdered B y: Chiquis Cortes on 01-04-2023 Basophil percentage 3.5 mg/dL 2.5-4.9 [facility] Chloride [Moles/Vol] 108 mmol[facility]L 98-107 [facility] Gl[facility] [Mass/Vol] 98 [facility]dL 74-[facility] Potassium [Moles/Vol] 4.5 mmol/L 3.5-5.1 [facility] Sodium [Moles/Vol] 141 mmol/L 136-145 [facility] Laboratory - Chemistry and C hemistry - challengeOrdered By: Chiquis Cortes on 01-04-2023 CO2 [Moles/Vol] 27.0 mmol/L 21.0-32.0 [facility] Urea nitrogen/Creatinine [Mass ratio] 14.5 mg/mg - [facility] No Panel InformationOrdered By: Chiquis Cortes on 01-04-2023 Estimated GFR (MDRD) Amer 32 mL/min >60 [facility] Comment on above: GFR Calc Estimated GFR (MDRD) Non-Af Amer 27 mL/min >60 [facility] Comment on above: Non- GFR Calc Serum or plasma albumin jean urement (mass/volume)Ordered By: Chiquis Cortes on 01-04-2023 Albumin [Mass/Vol] 3.6 g/dL 3.2-5.0 [facility] Serum or plasma calcium jean urement (mass/volume)Ordered By: Chiquis Cortes on 01-04-2023 Calcium [Mass/Vol] 9.3 mg/dL 8.5-10.1 [facility] Serum or plasma creatinine m easurement (mass/volume)Ordered By: Chiquis Cortes on 01-04-2023 Creatinine [Mass/Vol] 1.93 mg/dL 0.55-1.02 [facility] Comment on above: The validity of the calculated GFR & GFRAA in patients over 70 years has not been determined. Clinical correlation is essential. Serum or plasma urea nitroge n measurement (mass/volume)Ordered By: Chiquis Cortes on 01-04-2023 Urea nitrogen [Mass/Vol] 28 mg/dL 7-18 [facility] Basophil percentageOrdered B y: Chiquis Cortes on 12-11-2022 Basophil percentage 10-25 SEEN /hpf 0-5 [facility] Bilirubin Test strip Ql (U)O rdered By: Chiquis Cortes on 12-11-2022 Bilirubin Ql (U) Negative Negative [facility] Ketones Test strip Ql (U)Ord ered By: Chiquis Cortes on 12-11-2022 Ketones Ql (U) 5 mg/dl Negative [facility] Mucus LM Ql (Urine sed)Order ed By: Chiquis Cortes on 12-11-2022 Mucus Ql (Urine sed) 0 SEEN /hpf [facility] Nitrite Test strip Ql (U)Ord ered By: Chiquis Cortes on 12-11-2022 Nitrite Ql (U) Negative Negative [facility] Protein Test strip Ql (U)Ord ered By: Chiquis Cortes on 12-11-2022 Protein Ql (U) 15 mg/dl Negative [facility] Squamous epithelial cells de tection in urine sediment by light microscopyOrdered By: Chiquis Cortes on 12-11-2022 Epithelial cells.squamous LM Ql (Urine sed) 0-5 SEEN /hpf 5-10 [facility] Urine blood detectionOrdered By: Chiquis Cortes on 12-11-2022 RBC Ql (U) 10 /ul Negative [facility] RBC Ql (U) 0-5 SEEN /hpf 0-5 [facility] Urine clarityOrdered By: Omega Cortes on 12-11-2022 Clarity (U) Cloudy Clear [facility] Urine color determinationOrd ered By: Chiquis Cortes on 12-11-2022 Color (U) Yellow Yellow [facility] Urine glucose detectionOrder ed By: Chiquis Cortes on 12-11-2022 Glucose Ql (U) Normal mg/dl Normal [facility] Urine leukocyte esterase det ection by dipstickOrdered By: Chiquis Cortes on 12-11-2022 Leukocyte esterase Test strip Ql (U) 500 /ul Negative [facility] Urine pHOrdered By: Chela Cortes on 12-11-2022 pH (U) 5.0 [pH] 5.0 - 8.0 [facility] Urine sediment bacteria coun t by microscopy (number/high power field)Ordered By: Chiquis Cortes on 12-11-2022 Bacteria LM.HPF (Urine sed) [#/Area] 0 /[HPF] None Seen [facility] Urine specific gravity measu rementOrdered By: Chiquis Cortes on 12-11-2022 Specific gravity (U) [Rel density] 1.025 1.002-1.030 [facility] Urobilinogen Auto test strip Ql (U)Ordered By: Chiquis Cortes on 12-11-2022 Urobilinogen Ql (U) Normal mg/dl Normal [facility] Basophil percentageOrdered B y: Chiquis Cortes on 12-09-2022 Basophil percentage 3.2 mg/dL 2.5-4.9 [facility] Chloride [Moles/Vol] 109 mmol/L 98-[address] [facility] [facility] Glucose [Mass/Vol] 102 mg/dL 74-106 [facility] Comment on above: Fasting Glucose resu lt from 100 to 125 mg/dL suggests IMPAIRED HOMEOSTASIS per A.D.A. criteria. Potassium [Moles/Vol] 4.2 mmol/L 3.5-5.1 [facility] Sodium [Moles/Vol] 139 mmol/L 136-145 [facility] Laboratory - Chemistry and C hemistry - challengeOrdered By: Chiquis Cortes on 12-09-2022 CO2 [Moles/Vol] 25.0 mmol/L 21.0-32.0 [facility] Urea nitrogen/Creatinine [Mass ratio] 18.2 mg/mg 12-04 [facility] No Panel InformationOrdered By: Chiquis Cortes on 12-09-2022 Estimated GFR (MDRD) Amer 30 mL/min >60 [facility] Comment on above: GFR Calc Estimated GFR (MDRD) Non-Af Amer 24 mL/min >60 [facility] Comment on above: Non- GFR Calc Serum or plasma albumin jean urement (mass/volume)Ordered By: Chiquis Cortes on 12-09-2022 Albumin [Mass/Vol] 3.5 g/dL 3.2-5.0 [facility] Serum or plasma calcium jean urement (mass/volume)Ordered By: Chiquis Cortes on 12-09-2022 Calcium [Mass/Vol] 9.6 mg/dL 8.5-10.1 [facility] Serum or plasma creatinine m easurement (mass/volume)Ordered By: Chiquis Cortes on 12-09-2022 Creatinine [Mass/Vol] 2.09 mg/dL 0.55-1.02 [facility] Comment on above: The validity of the calculated GFR & GFRAA in patients over 70 years has not been determined. Clinical correlation is essential. Serum or plasma urea nitroge n measurement (mass/volume)Ordered By: Chiquis Cortes on 12-09-2022 Urea nitrogen [Mass/Vol] 38 mg/dL 09-01 [facility] LABORATORYOrdered By: Katiana Proctor on 11-12-2022 ABO/Rh Interp Positive Invalid Interpretation Code AO BB SS Antibody Screen Gel Negative [facility] (11/12/22 1:07 PM) Invalid Interpretation Code AO BB SS LABORATORYOrdered By: Pixelated SYSTEM on 11-12-2022 Albumin BCP dye [Mass/Vol] 3.7 G/dL Invalid Interpretation Code 3.4 - 4.8 G/dL AO ADM SS Basophil, Absolute 0.1 103/mcL Invalid Interpretation Code 0.0 - 0.2 10^3/mcL AO Workflow SS Basophils/100 WBC (Bld) 1.3 % Invalid Interpretation Code 0.0 - 2.5 % AO Workflow SS Calcium [Mass/Vol] 9.1 mg/dL Invalid Interpretation Code 8.4 - 10.2 mg/dL AO ADM SS Chloride [Moles/Vol] 105 mmol/L Invalid Interpretation Code 98 - 107 mmol/L AO ADM SS CO2 [Moles/Vol] 24 mmol/L Invalid Interpretation Code 23 - 31 mmol/L AO ADM SS Creatinine [Mass/Vol] 2.56 mg/dL Invalid Interpretation Code 0.55 - 1.02 mg/dL AO ADM SS Electrolyte Balance 11.0 mEq/L Invalid Interpretation Code 4.0 - 15.0 mEq/L AO ADM SS Eosinophil, Absolute 0.2 103/mcL Invalid Interpretation Code 0.0 - 0.4 10^3/mcL AO Workflow SS Eosinophils/100 WBC (Bld) 2.9 % Invalid Interpretation Code 0.0 - 7.0 % AO Workflow SS Erythrocyte distribution width (RBC) [Ratio] 13.2 % Invalid Interpretation Code 11.5 - 14.5 % AO Workflow SS GFR/1.73 sq M.predicted among blacks MDRD (S/P/Bld) [Vol rate/Area] 22 ml/min/1.73sqm Invalid Interpretation Code AO Chemistry S Comment on above: Interpretive Data: GFR Population mean for , Non- Americans Ages 20-29 = 116 mL/min/1.73 sq.m. Ages 30-39 = 107 mL/min/1.73 sq.m. Ages 40-49 = 99 mL/min/1.73 sq.m. Ages 50-59 = 93 mL/min/1.73 sq.m. Ages 60-69 = 85 mL/min/1.73 sq.m. Ages 70+ = 75 mL/min/1.73 sq.m. Chronic Kidney Disease: Less than 60 mL/min/1.73 square meters End Stage Renal Disease: Less than 15 mL/min/1.73 square meters GFR/1.73 sq M.predicted among non-blacks MDRD (S/P/Bld) [Vol rate/Area] 18 ml/min/1.73sqm Invalid Interpretation Code AO Chemistry S Comment on above: Interpretive Data: GFR Population mean for , Non- Americans Ages 20-29 = 116 mL/min/1.73 sq.m. Ages 30-39 = 107 mL/min/1.73 sq.m. Ages 40-49 = 99 mL/min/1.73 sq.m. Ages 50-59 = 93 mL/min/1.73 sq.m. Ages 60-69 = 85 mL/min/1.73 sq.m. Ages 70+ = 75 mL/min/1.73 sq.m. Chronic Kidney Disease: Less than 60 mL/min/1.73 square meters End Stage Renal Disease: Less than 15 mL/min/1.73 square meters Glucose [Mass/Vol] 113 mg/dL Invalid Interpretation Code 83 - 110 mg/dL AO ADM SS Hematocrit (Bld) [Volume fraction] 36.8 % Invalid Interpretation Code 37.0 - 47.0 % AO Workflow SS Hemoglobin (Bld) [Mass/Vol] 12.2 G/dL Invalid Interpretation Code 12.0 - 16.0 G/dL AO Workflow SS Lymphocyte, Absolute 1.4 103/mcL Invalid Interpretation Code 0.8 - 3.9 10^3/mcL AO Workflow SS Lymphocytes/100 WBC (Bld) 22.6 % Invalid Interpretation Code 10.0 - 50.0 % AO Workflow SS MCH (RBC) [Entitic mass] 29.9 pg Invalid Interpretation Code 27.0 - 31.2 pg AO Workflow SS MCHC 33.2 G/dL Invalid Interpretation Code 33.0 - 37.0 G/dL AO Workflow SS MCV (RBC) [Entitic vol] 90.3 fL Invalid Interpretation Code 80.0 - 94.0 fL AO Workflow SS Monocyte, Absolute 0.4 103/mcL Invalid Interpretation Code 0.2 - 1.0 10^3/mcL AO Workflow SS Monocytes/100 WBC (Bld) 6.5 % Invalid Interpretation Code 1.7 - 13.0 % AO Workflow SS Neutrophil, Absolute 4.2 103/mcL Invalid Interpretation Code 2.9 - 6.2 10^3/mcL AO Workflow SS Neutrophils/100 WBC (Bld) 66.7 % Invalid Interpretation Code 37.0 - 80.0 % AO Workflow SS Platelet mean volume (Bld) [Entitic vol] 7.9 fL Invalid Interpretation Code 7.4 - 10.4 fL AO Workflow SS Platelets (Bld) [#/Vol] 287 103/mcL Invalid Interpretation Code 130 - 400 10^3/mcL AO Workflow SS Potassium [Moles/Vol] 4.9 mmol/L Invalid Interpretation Code 3.5 - 5.1 mmol/L AO ADM SS RBC (Bld) [#/Vol] 4.08 106/mcL Invalid Interpretation Code 4.20 - 5.40 10^6/mcL AO Workflow SS Sodium [Moles/Vol] 140 mmol/L Invalid Interpretation Code 136 - 145 mmol/L AO ADM SS Urea nitrogen [Mass/Vol] 55 mg/dL Invalid Interpretation Code 7 - 18 mg/dL AO ADM SS Urea nitrogen/Creatinine [Mass ratio] 21 ratio Invalid Interpretation Code 7 - 27 ratio AO ADM SS WBC (Bld) [#/Vol] 6.4 103/mcL Invalid Interpretation Code 4.6 - 10.8 10^3/mcL AO Workflow SS LABORATORYOrdered By: Alcon Marrufo on 11-12-2022 MRSA DNA ERICK+probe Ql (Unsp spec) Not Detected 1 (11/12/22 1:07 PM) Invalid Interpretation Code Not Detected AH Auto Viro/Sero SS Comment on above: Result Comment: Note s 12161 MRSA PCR Int MRSA DNA not detected by Real-Time Polymerase Chain Reaction (PCR). A negative result may be due to intermittent colonization. Colonization may vary depending on patient treatment, patient status, or exposure to high-risk environments.As with all PCR based in vitro diagnostic tests, extremely low levels of target below the limit of detection of the assay may be detected, but results may not be reproducible. Invalid Interpretation Code AH Auto Viro/Sero SS Absolute lymphocyte countOrd ered By: Dr. Gibbs on 07-01-2022 Lymphocytes Auto (Unsp spec) [#/Vol] 1.43 10*3/uL 0.83-4.51 [facility] Basophil percentageOrdered B y: Dr. Gibbs on 07-01-2022 Basophils/100 WBC (Bld) 0.7 % 0-[address] [facility] Bilirubin [Mass/Vol] 0.60 mg/dL 0.20-1.00 [facility] Comment on above: For patients on eltr ombopag therapy, use of Dimension Ider TBIL is not recommended. Chloride [Moles/Vol] 110 mmol/L 98-107 [facility] Eosinophils/100 WBC (Bld) 2.1 % 0-5 [facility] Glucose [Mass/Vol] 102 mg/dL 74-106 [facility] Comment on above: Fasting Glucose resu lt from 100 to 125 mg/dL suggests IMPAIRED HOMEOSTASIS per A.D.A. criteria. Neutrophils (Bld) [#/Vol] 5.3 10*3/uL 2.0-7.7 [facility] Neutrophils/100 WBC (Bld) 70.8 % 47-70 [facility] Potassium [Moles/Vol] 4.3 mmol/L 3.5-5.1 [facility] Protein [Mass/Vol] 6.5 g/dL 6.4-8.2 [facility] Sodium [Moles/Vol] 142 mmol/L 136-145 [facility] WBC (Bld) [#/Vol] 7.5 10*3/uL 4.4-11.0 [facility] Blood erythrocytes count (nu mber/volume)Ordered By: Dr. Gibbs on 07-01-2022 RBC (Bld) [#/Vol] 3.91 10*6/uL 4.2-5.4 [facility] Blood hemoglobin measurement (mass/volume)Ordered By: Dr. Gibbs on 07-01-2022 Hemoglobin (Bld) [Mass/Vol] 12.0 g/dL 12.0-15.0 [facility] Blood lymphocytes/100 leukoc ytesOrdered By: Dr. Gibbs on 07-01-2022 Lymphocytes/100 WBC (Bld) 19.2 % 19-41 [facility] Blood monocytes/100 leukocyt esOrdered By: Dr. Gibbs on 07-01-2022 Monocytes/100 WBC (Bld) 7.1 % 0-[address] [facility] Blood platelet mean volumeOr dered By: Dr. Gibbs on 07-01-2022 Platelet mean volume (Bld) [Entitic vol] 10.0 fL 6.2-12.0 [facility] Determination of erythrocyte mean corpuscular volume (MCV)Ordered By: Dr. Gibbs on 07-01-2022 MCV (RBC) [Entitic vol] 95.1 fL 81-[address] [facility] Hematocrit Auto (Bld) [Volum e fraction]Ordered By: Dr. Gibbs on 07-01-2022 Hematocrit (Bld) [Volume fraction] 37.2 % 37-47 [facility] Laboratory - Chemistry and C hemistry - challengeOrdered By: Dr. Gibbs on 07-01-2022 ALP [Catalytic activity/Vol] 82 U/L 45-117 [facility] ALT [Catalytic activity/Vol] 26 U/L 13-56 [facility] CO2 [Moles/Vol] 24.0 mmol/L 21.0-32.0 [facility] Globulin (S) [Mass/Vol] 3.1 g/dL 2.2-4.[address] [facility] Urea nitrogen/Creatinine [Mass ratio] 17.1 mg/mg 10-20 [facility] Laboratory - Hematology and Cell countsOrdered By: Dr. Gibbs on 07-01-2022 Erythrocyte distribution width (RBC) [Entitic vol] 45.4 fL 35.1-43.9 [facility] Erythrocyte distribution width (RBC) [Ratio] 13.1 % 11.6-14.6 [facility] Immature granulocytes/100 WBC (Bld) 0.100 % 0.0-0.9 [facility] Comment on above: IG% - Immature Granu locytes (promyelocytes, myelocytes and metamyelocytes) > 1% indicates that a LEFT SHIFT is Present. MCH (RBC) [Entitic mass] 30.7 pg 27.0-32.0 [facility] Nucleated RBC/100 WBC (Bld) [Ratio] 0 % 0-5 [facility] MCHC Auto (RBC) [Mass/Vol]Or dered By: Dr. Gibbs on 07-01-2022 MCHC (RBC) [Mass/Vol] 32.3 g/dL 32-36 [facility] No Panel InformationOrdered By: Dr. Gibbs on 07-01-2022 Estimated GFR (MDRD) Amer 27 mL/min >60 [facility] Comment on above: GFR Calc Estimated GFR (MDRD) Non-Af Amer 22 mL/min >60 [facility] Comment on above: Non- GFR Calc Platelets bldOrdered By: Dr. Gibbs on 07-01-2022 Platelets (Bld) [#/Vol] 289 10*3/uL 150-450 [facility] Serum or plasma albumin jean urement (mass/volume)Ordered By: Dr. Gibbs on 07-01-2022 Albumin [Mass/Vol] 3.4 g/dL 3.2-5.0 [facility] Serum or plasma albumin/glob ulin mass ratioOrdered By: Dr. Gibbs on 07-01-2022 Albumin/Globulin [Mass ratio] 1.1 {ratio} 0.9-2.4 [facility] Serum or plasma calcium jean urement (mass/volume)Ordered By: Dr. Gibbs on 07-01-2022 Calcium [Mass/Vol] 8.9 mg/dL 8.5-10.1 [facility] Serum or plasma creatinine m easurement (mass/volume)Ordered By: Dr. Gibbs on 07-01-2022 Creatinine [Mass/Vol] 2.28 mg/dL 0.55-1.02 [facility] Comment on above: The validity of the calculated GFR & GFRAA in patients over 70 years has not been determined. Clinical correlation is essential. Serum or plasma urea nitroge n measurement (mass/volume)Ordered By: Dr. Gibbs on 07-01-2022 Urea nitrogen [Mass/Vol] 39 mg/dL 7-18 [facility] Thin prep Papanicolaou smear with manual screeningOrdered By: Dr. Gibbs on 07-01-2022 Thin prep Papanicolaou smear with manual screening 26 U/L 15-37 [facility] Thin prep Papanicolaou smear with manual screening 8 5-15 [facility] Basophil percentageOrdered B y: Dr. Gibbs on 06-01-2022 Chloride [Moles/Vol] 108 mmol/L 98-107 [facility] Cholesterol [Mass/Vol] 220 mg/dL <200 [facility] Comment on above: <200 mg/dL Desirable 200-240 mg/dL Borderline >240 mg/dL High Risk Glucose [Mass/Vol] 90 mg/dL 74-106 [facility] Potassium [Moles/Vol] 4.4 mmol/L 3.5-5.1 [facility] Sodium [Moles/Vol] 137 mmol/L 136-145 [facility] Triglyceride [Mass/Vol] 143 mg/dL <[address] [facility] Comment on above: The drugs N-Acetylcy steine and Metamizole may falsely depress this assay.Serum Triglycerides Reference Interval Normal <150 mg/dL Borderline high 150 - 199 mg/dL High 200 - 499 mg/dL Very High > or = 500 mg/dL Laboratory - Chemistry and C hemistry - challengeOrdered By: Dr. Gibbs on 06-01-2022 CO2 [Moles/Vol] 24.0 mmol/L 21.0-32.0 [facility] Urea nitrogen/Creatinine [Mass ratio] 21.6 mg/mg 10-20 [facility] No Panel InformationOrdered By: Dr. Gibbs on 06-01-2022 Estimated GFR (MDRD) Amer 34 mL/min >60 [facility] Comment on above: GFR Calc Estimated GFR (MDRD) Non-Af Amer 28 mL/min >60 [facility] Comment on above: Non- GFR Calc Serum or plasma calcium jean urement (mass/volume)Ordered By: Dr. Gibbs on 06-01-2022 Calcium [Mass/Vol] 9.6 mg/dL 8.5-10.1 [facility] Serum or plasma cholesterol in HDL measurement (mass/volume)Ordered By: Dr. Gibbs on 06-01-2022 Cholesterol in HDL [Mass/Vol] 63 mg/dL >40 [facility] Comment on above: The drugs N-Acetylcy steine and Metamizole may falsely depress this assay. Reference Range HDL <40 mg/dL Low HDL Cholesterol HDL >or= 60 mg/dL High HDL Cholesterol Serum or plasma cholesterol in VLDL measurement (mass/volume)Ordered By: Dr. Gibbs on 06-01-2022 Cholesterol in VLDL [Mass/Vol] 29 mg/dL 5-40 [facility] Serum or plasma creatinine m easurement (mass/volume)Ordered By: Dr. Gibbs on 06-01-2022 Creatinine [Mass/Vol] 1.85 mg/dL 0.55-1.02 [facility] Comment on above: The validity of the calculated GFR & GFRAA in patients over 70 years has not been determined. Clinical correlation is essential. Serum or plasma low density lipoprotein (LDL) cholesterol measurement (mass/volume)Ordered By: Dr. Gibbs on 06-01-2022 Cholesterol in LDL [Mass/Vol] 128 mg/dL 0-130 [facility] Serum or plasma urea nitroge n measurement (mass/volume)Ordered By: Dr. Gibbs on 06-01-2022 Urea nitrogen [Mass/Vol] 40 mg/dL 7-18 [facility] Thin prep Papanicolaou smear with manual screeningOrdered By: Dr. Gibbs on 06-01-2022 Thin prep Papanicolaou smear with manual screening 5 5-15 [facility] Absolute lymphocyte counton 12-25-2021 Lymphocytes Auto (Unsp spec) [#/Vol] 1.45 10*3/uL 0.83-4.51 [facility] Work Phone: Basophil percentageon 2021 Basophils/100 WBC (Bld) 0.7 % 0-[address] [facility] Work Phone: Bilirubin [Mass/Vol] 0.50 mg/dL 0.20-1.00 [facility] Work Phone: Comment on above: For patients on eltr ombopag therapy, use of Dimension Ider TBIL is not recommended. Chloride [Moles/Vol] 107 mmol/L 98-107 [facility] Work Phone: Cholesterol [Mass/Vol] 237 mg/dL <200 [facility] Work Phone: Comment on above: <200 mg/dL Desirable 200-240 mg/dL Borderline >240 mg/dL High Risk Eosinophils/100 WBC (Bld) 1.8 % 0-5 [facility] Work Phone: Glucose [Mass/Vol] 104 mg/dL 74-106 [facility] Work Phone: Comment on above: Fasting Glucose resu lt from 100 to 125 mg/dL suggests IMPAIRED HOMEOSTASIS per A.D.A. criteria. Neutrophils (Bld) [#/Vol] 4.6 10*3/uL 2.0-7.7 [facility] Work Phone: Neutrophils/100 WBC (Bld) 68.4 % 47-70 [facility] Work Phone: [phone] Potassium [Moles/Vol] 4.4 mmol/L 3.5-5.1 [facility] Work Phone: [phone] Protein [Mass/Vol] 7.3 g/dL 6.4-8.2 [facility] Work Phone: [phone] Sodium [Moles/Vol] 140 mmol/L 136-145 [facility] Work Phone: [phone] Triglyceride [Mass/Vol] 85 mg/dL <[address] [facility] Work Phone: [phone] Comment on above: The drugs N-Acetylcy steine and Metamizole may falsely depress this assay.Serum Triglycerides Reference Interval Normal <150 mg/dL Borderline high 150 - 199 mg/dL High 200 - 499 mg/dL Very High > or = 500 mg/dL WBC (Bld) [#/Vol] 6.7 10*3/uL 4.4-11.0 [facility] Work Phone: Blood erythrocytes count (nu mber/volume)on 12-25-2021 RBC (Bld) [#/Vol] 3.97 10*6/uL 4.2-5.4 [facility] Work Phone: Blood hemoglobin measurement (mass/volume)on 12-25-2021 Hemoglobin (Bld) [Mass/Vol] 12.8 g/dL 12.0-15.0 [facility] Work Phone: Blood lymphocytes/100 leukoc yteson 12-25-2021 Lymphocytes/100 WBC (Bld) 21.7 % 19-41 [facility] Work Phone: Blood monocytes/100 leukocyt eson 12-25-2021 Monocytes/100 WBC (Bld) 7.3 % 0-[address] [facility] Work Phone: Blood platelet mean volumeon 12-25-2021 Platelet mean volume (Bld) [Entitic vol] 9.1 fL 6.2-12.0 [facility] Work Phone: [phone] Determination of erythrocyte mean corpuscular volume (MCV)on 12-25-2021 MCV (RBC) [Entitic vol] 91.9 fL 81-[address] [facility] Work Phone: [phone] Hematocrit Auto (Bld) [Volum e fraction]on 12-25-2021 Hematocrit (Bld) [Volume fraction] 36.5 % 37-47 [facility] Work Phone: [phone] Laboratory - Chemistry and C hemistry - challengeon 12-25-2021 ALP [Catalytic activity/Vol] 83 U/L 45-117 [facility] Work Phone: [phone] ALT [Catalytic activity/Vol] 31 U/L 13-56 [facility] Work Phone: [phone] CO2 [Moles/Vol] 22.0 mmol/L 21.0-32.0 [facility] Work Phone: [phone] Globulin (S) [Mass/Vol] 3.6 g/dL 2.2-4.[address] [facility] Work Phone: [phone] Urea nitrogen/Creatinine [Mass ratio] 18.4 mg/mg 10-20 [facility] Work Phone: [phone] Laboratory - Hematology and Cell countson 12-25-2021 Erythrocyte distribution width (RBC) [Entitic vol] 41.9 fL 35.1-43.9 [facility] Work Phone: [phone] Erythrocyte distribution width (RBC) [Ratio] 12.5 % 11.6-14.6 [facility] Work Phone: [phone] Immature granulocytes/100 WBC (Bld) 0.100 % 0.0-0.9 [facility] Work Phone: [phone] Comment on above: IG% - Immature Granu locytes (promyelocytes, myelocytes and metamyelocytes) > 1% indicates that a LEFT SHIFT is Present. MCH (RBC) [Entitic mass] 32.2 pg 27.0-32.0 [facility] Work Phone: Nucleated RBC/100 WBC (Bld) [Ratio] 0 % 0-5 [facility] Work Phone: MCHC Auto (RBC) [Mass/Vol]on 12-25-2021 MCHC (RBC) [Mass/Vol] 35.1 g/dL 32-36 [facility] Work Phone: No Panel Informationon 12-25 Estimated Creatinine Clearance Calc 19.49 ml/min [facility] Work Phone: Estimated GFR (MDRD) Amer 29 mL/min >60 [facility] Work Phone: Comment on above: GFR Calc Estimated GFR (MDRD) Non-Af Amer 24 mL/min >60 [facility] Work Phone: Comment on above: Non- GFR Calc Platelets bldon 12-25-2021 Platelets (Bld) [#/Vol] 244 10*3/uL 150-450 [facility] Work Phone: [phone] Serum or plasma albumin jean urement (mass/volume)on 12-25-2021 Albumin [Mass/Vol] 3.7 g/dL 3.2-5.0 [facility] Work Phone: Serum or plasma albumin/glob ulin mass ratioon 12-25-2021 Albumin/Globulin [Mass ratio] 1.0 {ratio} 0.9-2.4 [facility] Work Phone: [phone] Serum or plasma calcium jean urement (mass/volume)on 12-25-2021 Calcium [Mass/Vol] 9.7 mg/dL 8.5-10.1 [facility] Work Phone: [phone] Serum or plasma cholesterol in HDL measurement (mass/volume)on 12-25-2021 Cholesterol in HDL [Mass/Vol] 69 mg/dL >40 [facility] Work Phone: Comment on above: The drugs N-Acetylcy steine and Metamizole may falsely depress this assay. Reference Range HDL <40 mg/dL Low HDL Cholesterol HDL >or= 60 mg/dL High HDL Cholesterol Serum or plasma cholesterol in VLDL measurement (mass/volume)on 12-25-2021 Cholesterol in VLDL [Mass/Vol] 17 mg/dL 5-40 [facility] Work Phone: Serum or plasma creatinine m easurement (mass/volume)on 12-25-2021 Creatinine [Mass/Vol] 2.12 mg/dL 0.55-1.02 [facility] Work Phone: Comment on above: The validity of the calculated GFR & GFRAA in patients over 70 years has not been determined. Clinical correlation is essential. Serum or plasma low density lipoprotein (LDL) cholesterol measurement (mass/volume)on 12-25-2021 Cholesterol in LDL [Mass/Vol] 151 mg/dL 0-130 [facility] Work Phone: Serum or plasma urea nitroge n measurement (mass/volume)on 12-25-2021 Urea nitrogen [Mass/Vol] 39 mg/dL 7-18 [facility] Work Phone: Thin prep Papanicolaou smear with manual screeningon 12-25-2021 Thin prep Papanicolaou smear with manual screening 22 U/L 15-37 [facility] Work Phone: [phone] Thin prep Papanicolaou smear with manual screening 11 5-15 [facility] Work Phone: Basophil percentageon 2021 Chloride [Moles/Vol] 104 mmol/L 98-107 [facility] Work Phone: Glucose [Mass/Vol] 89 mg/dL 74-106 [facility] Work Phone: [phone] Potassium [Moles/Vol] 4.2 mmol/L 3.5-5.1 [facility] Work Phone: [phone] Sodium [Moles/Vol] 139 mmol/L 136-145 [facility] Work Phone: Laboratory - Chemistry and C hemistry - challengeon 06-02-2021 CO2 [Moles/Vol] 25.0 mmol/L 21.0-32.0 [facility] Work Phone: [phone] Urea nitrogen/Creatinine [Mass ratio] 19.8 mg/mg 10-20 [facility] Work Phone: No Panel Informationon 06-02 Estimated GFR (MDRD) Amer 35 mL/min >60 [facility] Work Phone: Comment on above: GFR Calc Estimated GFR (MDRD) Non-Af Amer 29 mL/min >60 [facility] Work Phone: Comment on above: Non- GFR Calc Serum or plasma calcium jean urement (mass/volume)on 06-02-2021 Calcium [Mass/Vol] 9.9 mg/dL 8.5-10.1 [facility] Work Phone: Serum or plasma creatinine m easurement (mass/volume)on 06-02-2021 Creatinine [Mass/Vol] 1.82 mg/dL 0.55-1.02 [facility] Work Phone: Comment on above: The validity of the calculated GFR & GFRAA in patients over 70 years has not been determined. Clinical correlation is essential. Serum or plasma urea nitroge n measurement (mass/volume)on 06-02-2021 Urea nitrogen [Mass/Vol] 36 mg/dL - [facility] Work Phone: Thin prep Papanicolaou smear with manual screeningon 06-02-2021 Thin prep Papanicolaou smear with manual screening 10 5-15 [facility] Work Phone: Vital Signs Date Time Vital Sign Value Performing Clinician Faci lity 11-12-2022 12:30-0400 Body height 165.[address] KURT GALLAGHER MD [facility] 11-12-2022 12:30-0400 Body weight 109.[address] KURT GALLAGHER MD [facility] 01-01-2022 15:08-0500 Body height 162.[address] Magdy Gibbs Work Phone: [facility] Work Phone: 12-25-2021 13:34-0500 Body mass index (BMI) [Ratio] 38.1 kg/m2 Dr. Magdy Gibbs Work Phone: [facility] Work Phone: 12-25-2021 13:34-0500 Body temperature 98 [degF] Dr. Magdy Gibbs Work Phone: [facility] Work Phone: 12-25-2021 13:34-0500 Body weight 100.[address] Magdy Gibbs Work Phone: [facility] Work Phone: 12-25-2021 13:34-0500 Diastolic blood pressure 80 mm[Hg] Dr. Magdy Gibbs Work Phone: [facility] Work Phone: 12-25-2021 13:34-0500 Heart rate 64 /min Dr. Magdy Gibbs Work Phone: [facility] Work Phone: 12-25-2021 13:34-0500 Respiratory rate 16 /min Dr. Magdy Gibbs Work Phone: [facility] Work Phone: 12-25-2021 13:34-0500 SaO2% (BldA) [Mass fraction] 95 % Dr. Magdy Gibbs Work Phone: [facility] Work Phone: 12-25-2021 13:34-0500 Systolic blood pressure 145 mm[Hg] Dr. Magdy Gibbs Work Phone: [facility] Work Phone: 05-21-2020 13:36-0400 Body temperature 97.5 [degF] Dr. Magdy Gibbs Work Phone: [facility] Work Phone: 05-21-2020 13:36-0400 Body weight 109.[address] Magdy Gibbs Work Phone: [facility] Work Phone: 05-21-2020 13:36-0400 Diastolic blood pressure 75 mm[Hg] Dr. Magdy Gibbs Work Phone: [facility] Work Phone: 05-21-2020 13:36-0400 Heart rate 70 /min Dr. Magdy Gibbs Work Phone: [facility] Work Phone: 05-21-2020 13:36-0400 Respiratory rate 14 /min Dr. Magdy Gibbs Work Phone: [facility] Work Phone: 05-21-2020 13:36-0400 SaO2% (BldA) [Mass fraction] 95 % Dr. Magdy Gibbs Work Phone: [facility] Work Phone: 05-21-2020 13:36-0400 Systolic blood pressure 128 mm[Hg] Dr. Magdy Gibbs Work Phone: [facility] Work Phone: 02-20-2020 13:30-0500 Body mass index (BMI) [Ratio] 40.8 kg/m2 Dr. Magdy Gibbs Work Phone: [facility] Work Phone: Encounters Encounter Date Encounter Type Care Provider Facility Start: 08-01-2024 Encounter for other preprocedural examination Kurt Gallagher [facility] Start: 07-27-2024 Encounter for other preprocedural examination Magdy Gibbs [facility] Start: 07-24-2024 End: 07-24-[address] Magdy Gibbs MD Work Phone: [facility] Work Phone: Start: 07-24-2024 End: 07-24-[address] Magdy Gibbs MD -Laboratory [facility] Start: 07-24-2024 End: 07-24-2024 ambulatory Magdy Gibbs Facility:[facility] Start: 07-07-2024 End: 07-07-[address] Magdy Gibbs MD Work Phone: [facility] Work Phone: Start: 07-07-2024 End: 07-07-[address] Kurt Gallagher MD -[facility] Work Phone: Start: 07-07-2024 End: 07-07-2024 ambulatory Magdy Gibbs Facility:[facility] Start: 06-15-2024 End: 06-15-[address] Magdy Gibbs MD Work Phone: [facility] Work Phone: Start: 06-15-2024 End: 06-15-[address] Magdy Gibbs MD -Laboratory, [facility] Start: 06-15-2024 End: 06-15-2024 ambulatory Magdy Gibbs Facility:[facility] Start: 05-07-2023 Emergency department patient visit Facility:[facility] Start: 01-04-2023 End: 01-04-2023 ambulatory [facility] Work Phone: Start: 01-04-2023 End: 01-04-2023 Patient encounter procedure [facility]-Laboratory Work Phone: Start: 12-11-2022 End: 12-11-2022 ambulatory [facility] Work Phone: Start: 12-11-2022 End: 12-11-2022 Patient encounter procedure [facility]Laboratory Work Phone: Start: 12-09-2022 End: 12-09-2022 Patient encounter procedure [facility]Labor[facility] Work Phone: Start: 12-04-2022 End: 12-04-2022 ambulatory [facility] Work Phone: Start: 12-04-2022 End: 12-04-2022 Patient encounter procedure [facility]-Ultrasound, [facility] Work Phone: Start: 11-12-2022 End: 11-12-[address] KURT GALLAGHER MD [facility] [facility] Start: 11-12-2022 End: 11-12-[address] KURT GALLAGHER MD [facility] Start: 07-31-2022 End: 07-31-2022 ambulatory [facility] Work Phone: Start: 07-31-2022 End: 07-31-2022 Patient encounter procedure [facility] Breast Imaging Start: 07-01-2022 End: 07-01-2022 Patient encounter procedure [facility] Start: 06-01-2022 End: 06-01-2022 ambulatory [facility] Work Phone: Start: 06-01-2022 End: 06-01-2022 Patient encounter procedure [facility] Start: 01-01-2022 End: 01-01-[address] Magdy Gibbs Work Phone: [facility] Work Phone: Start: 01-01-2022 End: 01-01-[address] Magdy Gibbs Work Phone: [facility] Bone Densitometry Start: 12-25-[address] Magdy Gibbs Work Phone: [facility] Start: 12-25-2021 End: 12-25-[address] Magdy Gibbs Work Phone: [facility] Start: 07-29-2021 End: 07-29-2021 Patient encounter procedure [facility] Breast Imaging Start: 06-02-2021 End: 06-02-2021 Patient encounter procedure [facility] Date Procedure Procedure Detail Performing Clinician Start: 07-07-2024 MRI of lower extremity Dr. Magdy Gibbs MD Work Phone: Start: 12-04-2022 US urinary tract Start: 07-31-2022 Screening mammography Start: 01-01-2022 Dual energy X-ray absorptiometry Dr. Magdy Gibbs Work Phone: Start: 07-29-2021 [address] mamm[address] Chole[address] DR KURT SANFORD MD Colonoscopy DR KURT Obrien MD Excision of mass DR KURT GUTIERREZ MD Comment on above: LEFT Hysterectomy DR KURT Obrien MD Ligation of fallopian tube D Camille GALLAGHER MD Plan of Treatment Date Care Activity Detail Author Start: 08-21-2024 ambulatory Ambulatory Facility:[facility] Start: 12-25-2021 Patient referral [facility] Work Phone: Start: 09-19-2018 [facility] Work Phone: Patient referral [facility] Work Phone: Payers Date Payer Category Payer Private Health Insurance [id number] 2024 Self-pay [id number] 2013 Medicare [id number] 2002 Unknown [id number] Unknown [id number] Unknown [id number] Unknown [id number] Unknown [id number] Social History Date Type Detail Facility Start: 02-20-2020 End: 02-20-2020 Tobacco smoking status NHIS Unknown if ever smoked [facility] Start: 05-21-[address] [facility] Start: 1945 Sex Assigned At Female [facility] Start: 11-12-2022 End: 07-24-2024 Tobacco smoking status Never smoked tobacco (finding) [facility] Medical Equipment Procedure Code Equipment Code Equipment Origin al Text Equipment Identifier Dates SUTURE,LIGA CLIP MED LT200 FDA Start: 08-19-2018 SUTURE,LIGA CLIP SM LT-100 FDA Start: 08-19-2018 SUTURE,LIGA CLIP SM LT-100 FDA Start: 08-19-2018 SUTURE,LIGA CLIP SM LT-100 FDA Start: 08-19-2018 SUTURE,LIGA CLIP MED LT200 FDA Start: 08-19-2018 SUTURE,LIGA CLIP SM LT-100 FDA Start: 08-19-2018 SUTURE,LIGA CLIP SM LT-100 FDA Start: 08-19-2018 SUTURE,LIGA CLIP SM LT-100 FDA Start: 08-19-2018 SUTURE,LIGA CLIP MED LT200 FDA Start: 08-19-2018 SUTURE,LIGA CLIP SM LT-100 FDA Start: 08-19-2018 SUTURE,LIGA CLIP SM LT-100 FDA Start: 08-19-2018 SUTURE,LIGA CLIP SM LT-100 FDA Start: 08-19-2018 SUTURE,LIGA CLIP MED LT200 FDA Start: 08-19-2018 SUTURE,LIGA CLIP SM LT-100 FDA Start: 08-19-2018 SUTURE,LIGA CLIP SM LT-100 FDA Start: 08-19-2018 SUTURE,LIGA CLIP SM LT-100 FDA Start: 08-19-2018 SUTURE,LIGA CLIP MED LT200 FDA Start: 08-19-2018 SUTURE,LIGA CLIP SM LT-100 FDA Start: 08-19-2018 SUTURE,LIGA CLIP SM LT-100 FDA Start: 08-19-2018 SUTURE,LIGA CLIP SM LT-100 FDA Start: 08-19-2018 SUTURE,LIGA CLIP MED LT200 FDA Start: 08-19-2018 SUTURE,LIGA CLIP SM LT-100 FDA Start: 08-19-2018 SUTURE,LIGA CLIP SM LT-100 FDA Start: 08-19-2018 SUTURE,LIGA CLIP SM LT-100 FDA Start: 08-19-2018 SUTURE,LIGA CLIP MED LT200 FDA Start: 08-19-2018 SUTURE,LIGA CLIP SM LT-100 FDA Start: 08-19-2018 SUTURE,LIGA CLIP SM LT-100 FDA Start: 08-19-2018 SUTURE,LIGA CLIP SM LT-100 FDA Start: 08-19-2018 SUTURE,LIGA CLIP MED LT200 FDA Start: 08-19-2018 SUTURE,LIGA CLIP SM LT-100 FDA Start: 08-19-2018 SUTURE,LIGA CLIP SM LT-100 FDA Start: 08-19-2018 SUTURE,LIGA CLIP SM LT-100 FDA Start: 08-19-2018 SUTURE,LIGA CLIP MED LT200 FDA Start: 08-19-2018 SUTURE,LIGA CLIP SM LT-100 FDA Start: 08-19-2018 SUTURE,LIGA CLIP SM LT-100 FDA Start: 08-19-2018 SUTURE,LIGA CLIP SM LT-100 FDA Start: 08-19-2018 SUTURE,LIGA CLIP MED LT200 FDA Start: 08-19-2018 SUTURE,LIGA CLIP SM LT-100 FDA Start: 08-19-2018 SUTURE,LIGA CLIP SM LT-100 FDA Start: 08-19-2018 SUTURE,LIGA CLIP SM LT-100 FDA Start: 08-19-2018 SUTURE,LIGA CLIP MED LT200 FDA Start: 08-19-2018 SUTURE,LIGA CLIP SM LT-100 FDA Start: 08-19-2018 SUTURE,LIGA CLIP SM LT-100 FDA Start: 08-19-2018 SUTURE,LIGA CLIP SM LT-100 FDA Start: 08-19-2018 Functional Status Date Assessment Result Facility 11-12-2022 Functional Status Sensory Deficits None A [facility] Radiology Diagnostic study note 07-11-2024 Note Date & Type Note Facility 07-11-2024 Radiology Diagnostic study note [facility] Imaging Services [address] [place] [address] Extremity Lower without Contra MR#: [id number] Acct: [id number] Name: ANA MARÍA JO Rep #: [id number] : 1945 F 79 From: Didier Nava MD PCP: Dr. Magdy Gibbs MD Status: REG C NIRMAL Study:Extremity Lower without Contra Date of Exam: 07/07/24 Exam# [id number] Ordering Dr: Lilliam Gallagher MD PROCEDURE: EXTREMITY LOWER WITHOUT CONTRA 07/07/2024 REASON FOR EXAM: LT KNEE OA *JUAN LUIS PROTOCOL* TECHNIQUE: Axial CT images of the left knee obtained without intravenous contrast. Coronal and Sagittal reconstruction series were provided. CONTRAST: None One or more dose reduction techniques were used (e.g., Automated exposure control, adjustment of the mA and/or kV according to patient size, use of iterative reconstruction technique). RADIATION DOSE SUMMARY: DLP: 1530.75 mGycm COMPARISON: None FINDINGS: There is severe tricompartment osteoarthritis of the knee with joint space narrowing, subcortical cyst formation, and marginal osteophytes. There is no acute fracture or dislocation. There is a moderate size visible joint effusion. There is a 0.4 cm corticated osteochondral fragment visible in the lateral joint space. Vascular calcifications are noted. There is a 4.2 x 2.0 cm complex Cervantes's cyst. A 3.8 x 3.5 cm subcutaneous fluid collection is noted in the posterior soft tissues at the hip, level of the lower margin of the trochanter. CT/Extremity Lower without Contra IMPRESSION: There is severe tricompartment osteoarthritis of the knee with joint space narrowing, subcortical cyst formation, and marginal osteophytes. There is a moderate size visible joint effusion. There is a 0.4 cm corticated osteochondral fragment visible in the lateral jointspace. There is a 4.2 x 2.0 cm complex Cervantes's cyst. A 3.8 x 3.5 cm subcutaneous fluid collection is noted in the posterior soft tissues at the hip, level of the lower margin of the trochanter. Reading Location: [facility] CC: Dr. Magdy Gibbs MD; Dr. Kurt Gallagher MD ~ [employer] Worker: Signed [facility] Clinical Note 11-12-2022 Note Date & Type Note Facility 11-12-2022 Note ORIGINAL EXAMINATION: CT OF THE RIGHT KNEE WITHOUT CONTRAST 11/12/2022 2:01 pm TECHNIQUE: CT of the right knee was performed without the administration of intravenous contrast. Multiplanar reformatted images are provided for review. Automated exposure control, iterative reconstruction, and/or weight based adjustment of the mA/kV was utilized to reduce the radiation dose to as low as reasonably achievable. COMPARISON: None. HISTORY ORDERING SYSTEM PROVIDED HISTORY: Reason for Exam: VALGUS DEFORMITY. FINDINGS: No acute fracture or dislocation. Patchy mild osseous demineralization. No visible aggressive osseous lesions. Severe medial and lateral femorotibial compartment joint space narrowing is noted with subchondral cysts, subchondral sclerosis, and marginal osteophyte formation. There is mild patellofemoral compartment joint space narrowing with marginal osteophytes. Tricompartmental chondrocalcinosis. There is a small volume knee joint effusion. Small volume Cervantes's cyst.. Tendons and ligaments are poorly evaluated on this examination. Moderate gluteus minimus and medial gastrocnemius atrophy. Severe quadriceps atrophy, greatest medially. Mild atherosclerosis. Provided images of the hip and hemipelvis exhibit no acute osseous abnormalities or aggressive osseous lesions. The included intrapelvic contents exhibit no acute abnormalities. Mild colonic diverticulosis without evidence of acute diverticulitis. Provided images of the ankle exhibit no acute osseous abnormalities or aggressive osseous lesions. IMPRESSION: 1. No acute osseous abnormality or aggressive osseous lesion. 2. Fairly advanced tricompartmental degenerative change with chondrocalcinosis. Small volume effusion and small volume Cervantes's cyst. Interpreted by: Maxx Malave DO Preliminary Report By: Maxx Malave DO Electronically signed By Maxx Malave DO Dictated Date: 11/12/2022 2:36:09 PM Prelim Date: 11/12/2022 2:44:10 PM Sign Date: 11/12/2022 2:44:10 PM Ordering Provider: KURT GALLAGHER [facility] Evaluation + Plan note Note Date & Type Note Facility Evaluation + Plan note Future Appointments [facility] Evaluation note Note Date & Type Note Facility Evaluation note No assessment information availa [facility] Work Phone: Evaluation note Note Date & Type Note Facility Evaluation note Diagnosis Onset Date 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 Encounter for education reso [facility] Work Phone: Hospital course Narrative Note Date & Type Note Facility Hospital course Narrative No data available for this section [facility] Hospital Discharge instructions Note Date & Type Note Facility Hospital Discharge instructions No data available for this section [facility] Progress note Note Date & Type Note Facility Progress note No data available for this section [facility] Reason for referral (narrative) Note Date & Type Note Facility Reason for referral (narrative) No reason for referral information available [facility] Work Phone: Family History No Family History Records Found Relationship Condition Age at Onset Recorded Date/T chapis sister Malignant neoplasm of lung Unknown mother Malignant neoplasm of lung Unknown Advance Directives No Advanced Directives Records Found Advance Directive Response Recorded Date/ Time Living Will No November 15 12:47pm Power of Printer Machine No November 15 12:47pm Advance Directive Response Recorded Date/ Time Living Will No November 15 11:47am Power of Printer Machine No November 15 11:47am Chief Complaint and Reason for Visit Chief Complaint ABN MAMM Chief Complaint LOST TO F/U - LABS ONC/HEM Asymptomatic menopausal state Reason for Visit Primary cancer of le ft female breast Primary cancer of left female breast Encounter for education Chief Complaint SCREENING Chief Complaint CKD 3B RENAL & URINE 12/07/22 Chief Complaint CKD 3B RENAL & URINE 12/07/22 RENAL TO BE DONE 12/28/22 Chief Complaint Admit Date LT KNEE OA *JUAN LUIS PROTOCOL* July 07 3:00pm Summary Purpose Additional Source Comments Goals (unrecognized section and content) Goals may be documented in a n alternate sectionGoals may be documented in an alternate sectionGoals may be documented in an alternate sectionGoals may be documented in an alternate sectionGoals may be documented in an alternate section No data available for this section No data available for this sectionGoals may be documented in an alternate sectionGoals may be documented in an alternate sectionGoals may be documented in an alternate sectionGoals may be documented in an alternate sectionGoals may be documented in an alternate sectionGoals may be documented in an alternate section Care Teams (unrecognized sec tion and content) Team Status: Active Member Role Status Dates Dr. Magdy Gibbs MD Family Provider Active Dr. Magdy Gibbs MD Primary Care Provider Active Team Status: Inactive Member Role Status Dates Dr. Magdy Gibbs MD Primary Care Provider, Attending Provider Active Team Status: Inactive Member Role Status Dates Dr. Magdy Gibbs MD Primary Care Provi chapin, Attending Provider, Referring Provider Active Team Status: Inactive Member Role Status Dates Dr. Magdy Gibbs MD Primary Care Provider Active Dr. Chiquis Cortes DO Attending Provider, Referring P rovider Active Team Status: Active Member Role Status Dates Dr. Magdy Gibbs MD Primary Care Provider Active Dr. Chiquis Cortes DO Attending Provider, Referring P rovider Active Team Status: Inactive Member Role Status Dates Dr. Magdy Gibbs MD Primary Care Provider Active Start: June 15, 2024 End: June 15, 2024 Dr. Magdy Gibbs MD Attending Provider Active Start: June 15, 2024 End: June 15, 2024 Dr. Magdy Gibbs MD Referring Provider Active Start: June 15, 2024 End: June 15, 2024 Team Status: Active Member Role Status Dates Dr. Magdy Gibbs MD Primary Care Provider Active Team Status: Inactive Member Role Status Dates Dr. Magdy Gibbs MD Primary Care Provider Active Start: July 07, 2024 End: July 07, 2024 Dr. Kurt Gallagher MD Attending Provider Active Start: July 07, 2024 End: July 07, 2024 Dr. Kurt Gallagher MD Referring Provider Active Start: July 07, 2024 End: July 07, 2024 Team Status: Inactive Member Role Status Dates Dr. Magdy Gibbs MD Primary Care Provider Active Start: July 24, 2024 End: July 24, 2024 Dr. Magdy Gibbs MD Attending Provider Active Start: July 24, 2024 End: July 24, 2024 Dr. Magdy Gibbs MD Referring Provider Active Start: July 24, 2024 End: July 24, 2024 INFORMATION SOURCE (unrecogn ized section and content) DATE CREATED AUTHOR 05/09/2023 [facility] DATE CREATED AUTHOR AUTHOR'S ORGANIZ ATION 08/04/2024 [facility] FOR RECORDS PERTAINING TO PATIENTS WHO ARE OR HAVE BEEN ENROLLED IN A CHEMICAL DEPENDENCY/SUBSTANCEABUSE PROGRAM, SOME INFORMATION MAY BE OMITTED. This clinical summary was aggregated from multiple sources. Caution should be exercised in using it in the provision of clinical care. This summary normalizes information from multiple sources, and as a consequence, information in this document may materially change the coding, format and clinical context of patient data. In addition, data may be omitted in some cases. CLINICAL DECISIONS SHOULD BE BASED ON THE PRIMARY CLINICAL RECORDS. [facility] [employer] [facility]. provides no warranty or guarantee of the accuracy or completeness of information in this document.
--- NOTE | 2024-08-10 13:50 | STRESSREP_ITS ---
Stress Test Report Date: 08/10/2024 Procedure: Pharmacologic stress nuclear imaging study Indications: Chest pain Consent: Per the patient Procedure: The patient underwent pharmacologic (Regadenoson 0.4mg ) evaluation with a peak heart rate of 87 beats per minute (61%predicted maximal heart rate) and a peak blood pressure of 130/60 mmHg. The baseline ECG demonstrated sinus rhythm with left bundle branch block. The peak pharmacologic ECG was nondiagnostic secondary to baseline left bundle branch block. Frequent PACs noted. There was no complaint of chest discomfort during pharmacologic infusion or recovery. The patient was injected with 12.4 millicuries of technetium 99m Cardiolite and subsequently rest SPECT Cardiolite nuclear imaging was obtained in the horizontal long, vertical long, and short axis views. The patient underwent pharmacologic (Regadenoson) evaluation. The patient was injected with 36.1 millicuries of technetium 99m Cardiolite and subsequently stress SPECT Cardiolite nuclear imaging was obtained in the horizontal long, vertical long, and short axis views. A gated Cardiolite study at peak stress was obtained. The examination was stopped secondary to completion of protocol. Rest and stress SPECT Cardiolite nuclear imaging status post realignment, normalization, and attenuation correction demonstrate mild fixed apical defect which likely suggests physiological thinning. The gated studies revealed dilated left ventricle. The reported LVEF is 40%. Impression: 1. Pharmacologic (Regadenoson) evaluation 2. Peak pharmacologic ECG with no diagnostic changes. 3. Frequent PACs noted. 5. No ischemia or infarcts noted. 6. The gated Cardiolite study reports an LVEF of 40%. This note was generated with [employer] software. It may contain incorrect words, spelling, and punctuation that were not noted in checking the note before signing.
== END | disposition home or self-care (01) ==
LOC: CVS 07:04
PROVIDERS: PCP Family Medicine
DX: R07.9 Chest pain, unspecified (principal)
CPT/HCPCS: 78452; 93017; A9500; A4216; J2785

== ENCOUNTER → 2024-08-15 | Outpatient (CLI) | payer MEDICARE, SELFPAY ==
[2018-09-19 13:59] VITALS: BMI 42.7
--- NOTE | 2024-08-15 11:28 | RAD_ITS ---
PROCEDURE: CHEST PA AND LATERAL 08/15/2024 REASON FOR EXAM: CHEST PAIN TECHNIQUE: CHEST PA AND LATERAL COMPARISON: 08/17/2018 FINDINGS: Mild pulmonary vascular congestion. No focal consolidation. No pleural effusion or pneumothorax. Moderate cardiomegaly. Aortic arch calcified No acute fractures. RAD/Chest PA and Lateral IMPRESSION: Mild pulmonary vascular congestion. No focal consolidation. Moderate cardiomega ly. Reading Location: [id number]
== END | disposition home or self-care (01) ==
LOC: MTRAD 11:27
PROVIDERS: PCP Family Medicine
DX: R07.9 Chest pain, unspecified (principal)
CPT/HCPCS: 71046

== ENCOUNTER → 2024-09-20 | Outpatient (CLI) | payer MEDICARE, SELFPAY ==
[2018-09-19 13:59] VITALS: BMI 42.7
[2024-09-20 18:25] LABS: Anion Gap 14 (5-15); BUN 27 mg/dL (4-19); BUN/Creat Ratio 15.7 RATIO (10-20); Calcium,Total 9.8 mg/dL (7.6-11.0); Carbon Dioxide 21.3 mmol/L (21.0-32.0); Chloride 106 mmol/L (98-108); Glucose 82 mg/dL (70-99); Potassium 4.4 mmol/L (3.3-5.1)
== END | disposition home or self-care (01) ==
LOC: MFPLAB 11:35
PROVIDERS: PCP Family Medicine; Referring Provider Family Medicine; Visit Provider Family Medicine
DX: N18.9 Chronic kidney disease, unspecified (principal)
CPT/HCPCS: 36415; 80048

== ENCOUNTER 2024-10-02 06:52 | Observation (INO) | payer MEDICARE, SELFPAY ==
[2018-09-19 13:59] VITALS: BMI 42.7
--- NOTE | 2024-08-01 13:37 | EKG12_ITS ---
Test Reason : PRE OP Blood Pressure : */* mmHG Vent. Rate : 80 BPM Atrial Rate : 80 BPM P-R Int : 232 ms QRS Dur : 134 ms QT Int : 408 ms P-R-T Axes : 69 -34 142 degrees QTcB Int : 470 ms Sinus rhythm with sinus arrhythmia with 1st degree A-V block Left axis deviation Left bundle branch block Abnormal ECG Confirmed by RODNEY ORTIZ, NAY ([id number]), social media editor VIRI DAVIS ([id number]) on 08/02/2024 7:03:15 AM Referred By: Kurt Rosenthal Confirmed By: NAY STEVENS MD
[2024-08-01 14:55] LABS: Hematocrit 34.9 % (37-47); Hemoglobin 11.6 g/dL (12.0-15.0); Immature Granulocytes Count 0.010 X10^3/uL (0.0-0.0); Mean Corp Hgb Conc 33.2 g/dL (32-36); Mean Corpuscular Volume 93.6 fL (81-99); Mean Platelet Vol. 10.3 fl (6.2-12.0); NRBC Flagged by Analyzer 0 % (0-5); Platelet Count 238 K/mm3 (150-450); RBC Distribution Width CV 12.4 % (11.6-14.6); RBC Distribution Width SD 42.6 fl (35.1-43.9); Red Blood Count 3.73 M/mm3 (4.2-5.4); White Blood Count 6.4 K/mm3 (4.4-11.0)
[2024-08-01 16:51] LABS: Albumin, Serum 3.9 g/dL (3.4-4.8); Magnesium 1.7 mg/dL (1.5-2.2)
--- NOTE | 2024-08-02 11:19 | PAT.ANE_ITS ---
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 When Was Last Pacemaker Check QUESTION #4 FULL TEXT: You/Your Family Experience fever (hyperthermia) with Anesthesia Last Oral Intake Last Oral intake: Last Oral Intake NPO since Meds taken in AM with sips of water? Meds patient instructed to take am of surgery PONV PONV - director business: PONV - director business Female Yes 07/24/24 12:54 HX of Motion Sickness No 07/24/24 12:54 HX of N/V After Surgery No 07/24/24 12:54 Non-Smoker Yes 07/24/24 12:54 Duration of Surgery greater No 07/24/24 12:54 than 60 minutes Number of Risk Factors 2 07/24/24 12:54 PONV Score Moderate Risk 07/24/24 12:54 Height & Weight Height & Weight: Anesthesia: Height & Weight Height 5 ft 4 in 01/01/22 15:08 Respiratory Assessment Respiratory Assessment - director business: Respiratory Tract Infection Hx - director business Hx Respiratory Tract Infection No 07/24/24 12:54 STOP Sleep Apnea STOP Sleep Apnea - director business: STOP Sleep Apnea - director business Hx Hypertension Yes: CONTROLLED WITH MEDS 07/24/24 12:54 Hx Sleep Apnea No 07/24/24 12:54 CPAP No 10/04/18 10:05 BIPAP Do you snore loudly (louder No 07/24/24 12:54 than talking or can be heard Do you often feel tired/ No 07/24/24 12:54 fatigued/ sleepy during daytime? Has anyone observed you stop No 07/24/24 12:54 breathing during sleep? STOP Results Negative 07/24/24 12:54 QUESTION #5 FULL TEXT : Do you snore loudly (louder than talking or can be heard through closed doors)? 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 Specify any problems Hx of Preganancy in last 3 No 07/24/24 12:54 Months Nurse Filling Out Transfusion [email or web address] 07/24/24 12:54 & Questions: Date: 07/24/24 07/24/24 12:54 Time: 13:01 07/24/24 12:54 Patient unable to answer at this time (ie. confused, unrespo /Reproduction History /Reproductive History - director business: /Reproductive Hx- director business Hx Now No 07/24/24 12:54 Gestational Age (in weeks): EDC: Hx Hx Para Hx Section SAB No 07/24/24 12:54 PFSH Medical History (Updated 07/24/24 @ 13:16 by Milton Ureña) Colonoscopy planned History of stress test History of Holter monitoring Wears glasses Wears dentures History of pain when walking Screening for intestinal cancer Breast cancer Arthritis Depression Obesity Benign essential hypertension Home Medications ?Medication ?Instructions ?Recorded ?Last Taken ?Type bupropion HCl 300 mg 24 hr tablet, 300 mg PO QAM 07/22 Unknown History extended release (Wellbutrin XL) fluoxetine 20 mg capsule (Prozac) 20 mg PO DAILY 07/22 Unknown History lisinopril 20 1 tab PO DAILY 07/22/18 Unkn own History mg-hydrochlorothiazide 12.5 mg tablet meloxicam 15 mg tablet 15 mg PO DAILY 07/22/18 Unkn own History anastrozole 1 mg tablet See Rx Instructions .Route 0 03/26/22 Unknown Rx .COMPLEX #90 tabs Allergy/AdvReac Type Severity Reaction Status Date / Time No Known Allergies Allergy Verified 07/24/24 12:52 Family History Sister Lung cancer Mother Lung cancer Surgical History History of lumpectomy of left breast (~08/2018) H/O tubal ligation S/P laparoscopic cholecystectomy H/O: hysterectomy Social History Smoking Status: Never smoker alcohol intake: never Audit: Pertinent Findings Pertinent Findings EKG Perinent findings: August 01, 2024. Sinus rhythm with sinus arrhythmia with first-degree AV block. Left axis deviation. Left bundle branch block. Left bundle branch block is seen as far back as August 2018. Recommendation Anesthesia Recommendation Anesthesia recommendation: OPTIMIZED for anesthesia
--- NOTE | 2024-09-24 22:11 | HP.PCM_ITS ---
History and Physical History and Physical? Patient Name: Ana María Jo : 1945From:? NEAL STEIN PA-C? DATE OF PRE-OPERATIVE EXAM: 09/22/2024 DATE OF SURGERY:? 10/02/2024 SCHEDULED PROCEDURE:? Robotic-assisted left total knee arthroplasty HISTORY OF PRESENT ILLNESS: Preoperative history and physical exam was performed on September 22, 2024.? This is a 79-year-old female who has been having ongoing pain with her knee.? Patient has had bone on bone osteoarthritis in both knees.? She has been getting progressive worsening symptoms with the left knee worse than the right.? Her pain can reach 9/10 with activities.? Her pain as being constant and aching.? She has increased pain going up and down stairs and walking.? She has had a recent fall with abrasion over the knee which is healed.? Patient's walking ability has been significantly limited to where she can only walk the length of the room without significant pain.? She has very difficult time putting weight on one leg to put on close.? She has difficulty shopping.? She has fallen secondary to her pain in the knees.? She has tried rest, elevation, and corticosteroid injections without relief.? She has tried previous lubrication injections without relief.? She has been through physical therapy without relief.? Due to patient's kidney disease she cannot use nonsteroidal anti-inflammatories.? She has tried Tylenol without relief.? Patient denies past history of surgery on the left knee.? After failing conservative measures and discussing all treatment options with Dr. Kurt Rosenthal, patient would like to proceed with a robotic assisted left total knee arthroplasty.? Patient does have previous history of breast cancer in 2019.? Increased urinary frequency, and anemia.? Patient is following our anemia protocol.? She has had clearance from the primary care provider Dr. Gibbs as well as transporter radiology Dr. Chiquis Cortes.? Patient denies recent chest pain, shortness of breath, fevers chills or recent infections.? Patient denies past history of DVT or pulmonary embolism. REVIEW OF SYSTEMS: Review Of Systems: Constitutional: Denies anorexia, anxiety, change in appetite, fever, difficulty sleeping, weight change. Cardiovasular: Denies chest pain, heart murmur, irregular heartbeat and peripheral vascular disease. Respiratory: Denies asthma, cough, pneumonia, sleep apnea, shortness of breath, tuberculosis and wheezing. Gastrointestinal: Denies constipation, diarrhea, heartburn, nausea, rectal itching, bloody stools and vomiting. Genitourinary: Denies incontinence. Musculoskeletal: Reports gait disturbance, leg swelling, pain, trouble walking and weakness. Skin: Reports tattoo, but denies Raynaud's and history of shingles. Neurological: Denies ambulatory dysfunction, dizziness, numbness/tingling and tremor. Psychiatric: Reports anxiety and depression, but denies insomnia, mental illness and stress. Hematologic/Lymphatic: Reports anemia, but denies bleeding/bruising tendency and past transfusion. Reviewed and updated. PAST MEDICAL HISTORY: Advance Care Plan: No Advance Directives Effective Date: 09/29/2018 Past Medical History: Medical Problems: Arthritis, High Blood Pressure Cancer - (2019) LT breast? anxiety, depression Acute kidney disease - stage 4 per daughter Urinary frequency, anemia Accidents: Other - (08/12/2024) fell injured left knee, left side of ribs, left arm, left wrist, and left hand - fell on cement on driveway? Surgical Hx: Gallbladder - (1987) [facility] Hysterectomy Tubal Ligation - (1971) [facility] Lumpectomy - (08/2018) left breast? Anesthesia Complications: None Assistive Devices: Glasses, Dentures Reviewed and updated. SOCIAL HISTORY: Social History: Marital: .Occupation: Retired.Work Status: Retired.Hand Dominance: Right-Handed. Personal Habits:? Cigarette Use: Never.Smokeless Tobacco: Never Used Smokeless Tobacco.E-Cigarette Use: Never used.Alcohol: Occasionally.Drug Use: Denies Use.Enjoy Exercising: Never Exercises. Reviewed and updated. VITALS: Ht: 64 Wt: 190lb Wt k.184 BMI: 32.6 BP: 118/68 Pulse: 56 Resp: 20 T: 97.9 T: 36.6C Pain Level: 8/10 O2SatR: 98 ALLERGIES: No Known Drug Allergy? MEDICATIONS: Folic Acid 1 mg 1 by mouth every day, Wellbutrin XL 300 mg 1 by mouth every day, Fluoxetine HCL 40 mg daily, Loratadine 10 mg take 1 tablet by mouth daily, Tylenol Extra Strength 500 mg as needed, Oxybutynin Chloride 5 mg 1 po bid, Aspirin 81 81 mg 1 po qdaily, Lisinopril 20 mg 1 by mouth every day PRE-OP EXAM:? General appearance:NORMAL? ? ? Other: Eyes: Conjunctivae and lids: NORMAL? Pupils: ERR Ears, Nose, Mouth, and Throat: NORMAL? Other: Inspection of lips, teeth and gums: NORMAL? ?Other: Neck: Examination of neck: no masses noted. Respiratory: Assessment of respiratory effort: NORMAL? ?Other: ?Auscultation of lungs: clear to auscultation no wheezes, rhonchi or rales. Cardiovascular:? Auscultation of heart: regular rate and rhythm, no murmurs, gallops or rubs. PHYSICAL EXAMINATION: On exam patient ambulates with walker with limping gait.? She has no signs of erythema or infection.? Resolved abrasion left knee.? She has tenderness to palpation along the medial joint line.? She has varus alignment which is correctable on exam.? Range of motion: Lacks 8 full extension to 118 flexion.? Stable to anterior/posterior drawer exam. IMAGING STUDIES: X-rays of the left knee reveal varus alignment with severe medial joint space narrowing, subchondral sclerosis, osteophyte formation consistent with severe stage IV [id number] erosive tricompartmental osteoarthritis.? There is lateral subluxation of the tibia.? Right knee also reveals stage IV [id number] medial compartment erosive osteoarthritis with varus alignment. IMPRESSION: 1.? Severe left knee osteoarthritis with varus deformity 2.? Severe right knee osteoarthritis 3.? Hypertension 4.? Chronic kidney disease 5.? Anxiety/depression 6.? Increased urinary frequency 7.? Anemia 8.? History of breast cancer 9.? Obesity with BMI 32.6 PLAN: Dr. Kurt Rosenthal did discuss and review with the patient all treatment options including surgical versus nonsurgical options.? I will continue plan established by Dr. Kurt Rosenthal.? Patient does wish to proceed with the above-stated procedure.? Potential risks, benefits, and complications of the procedure were discussed in detail including but not limited to , infection, nerve and blood vessel damage, persistent pain, numbness, tingling, paresthesias, blood clot, pulmonary embolism, and requirement for possible further surgery.? The patient expressed full understanding and has no further questions for the doctor.? Patient does agree to proceed with the above-stated procedure and has signed the surgery consent form. POST-OP MEDICATION PLAN: Pain Medications: Postoperative pain regimen will be initiated by Dr. Kurt Rosenthal in the hospital.? Patient is unable to use nonsteroidal anti- inflammatories due to her chronic kidney disease.? She has following our anemia protocol with ferrous sulfate and folic acid.? Patient will bring her walker to the hospital.? She has obtained all clearances. DVT Prophylaxis Plan:? Aspirin 81 mg twice daily for 4 weeks postoperatively.? Denies past history of DVT or pulmonary embolism.? Patient will continue with ROSA gille for 2 weeks postoperatively. This dictation was created using voice recognition software. Phonetic and/or grammatical errors may exist. ___? I have re-examined the patient.? There are no clinical changes since date of exam. ___? See progress notes for changes. ___? Dictated on admission Date: ? ? ?Time: Signature:
[2024-10-02] VITALS (17 sets, daily range): BP systolic 84–153; BP diastolic 39–99; PULSE 54–76; RESP 16–18; TEMP 36.2–36.7; O2SAT 96–100; BMI 32.2
--- OUTSIDE RECORDS SUMMARY | 2024-10-02 05:16 | XMS RPT_ITS | CCD ---
Author Organization [facility] Care Team Providers Care Manager Heavy Equipment Name Role Phone Dr. Magdy Gibbs Primary Care Provider Dr. Magdy Gibbs Referring Provider Dr. Dania Machado Attending Provider TAWANA ORTIZ, DR MAGDY Obrien Primary Care Physician Tawana ORTIZ, Dr. Curran Primary Care Provider Tawana ORTIZ, Dr. Curran Attending Provider Tawana ORTIZ, Dr. Curran Referring Provider Galo ORTIZ, Dr. Hicks Attending Provider Galo ORTIZ, Dr. Hicks Referring Provider Kareen ORTIZ, Dr. Tracy Attending Provider Shankel SNOWBOARDING INSTRUCTOR-C, Terrie Attending Provider Shankel SNOWBOARDING INSTRUCTOR-C, Terrie Referring Provider Shankel SNOWBOARDING INSTRUCTOR-C, Terrie Other Provider Andre ORTIZ, Dr. Foster Attending Provider Magdy Gibbs Attending Unavailable Magdy Gibbs Referring Unavailable Magdy Gibbs Primary Care Unavailable Grady SNOWBOARDING INSTRUCTOR, Terrie Referring Unavailable Magdy Gibbs Primary Care Unavailable Grady SNOWBOARDING INSTRUCTOR, Terrie Attending Unavailable Kurt Gallagher Referring Unavailable Demarcus Mathur Attending Unavailable Magdy Gibbs Primary Care Unavailable Magdy Gibbs Primary Care Unavailable Kristin Powell Attending Unavailable Shankel SNOWBOARDING INSTRUCTOR, Terrie Consulting Unavailable Shankel SNOWBOARDING INSTRUCTOR, Terrie Referring Unavailable Magdy Gibbs Primary Care Unavailable Magdy Gibbs Attending Unavailable Magdy Gibbs Referring Unavailable Kurt Gallagher Referring Unavailable Tawana, Magdy Primary Care Unavailable Kurt Gallagher Attending Unavailable Kurt Gallagher Attending Unavailable Kurt Gallagher Referring Unavailable Tawana, Magdy Primary Care Unavailable Tawana, Magdy Primary Care Unavailable Grady SNOWBOARDING INSTRUCTOR, Terrie Attending Unavailable Grady SNOWBOARDING INSTRUCTOR, Terrie Referring Unavailable Magdy Gibbs Attending Unavailable Tawana, Magdy Referring Unavailable Gibbs, Magdy Primary Care Unavailable Medications Current Medications Medication Drug Class(es) Dates Sig (Normalized) Sig (Original) 24 hr buPROPion hydrochloride 300 mg extended release oral tablet (16 sources) Aminoketone Start: 11-12-2022 take 1 tablet [...] 2018 12:00am FLUoxetine 20 mg oral capsule (16 sources) Serotonin Reuptake Inhibitor Start: 07-22-2018 take 1 capsule by mouth once daily Fluoxetine (Prozac) 20 mg capsule Active 20 mg PO DAILY July 22, 2018 12:00am hydroCHLOROthiazide 25 mg / lisinopril 20 mg oral tablet (16 sources) Thiazide Diuretic, Angiotensin Converting Enzyme Inhibitor [...] TABLET PO DAILY July 21, 2018 11:00pm Vitamin D3 25 mcg (1000 intl units) [...] 6 HOURS NEEDED as needed for Pain 12 3 0 November 15, 2018 November 17, 2018 12:00am November 23, 2018 12:08am Urolithiasis Urinary calculus, unspecified Start: 11-15-2018 End: 11-23-2018 take 1 tablet by mouth every six hours as needed Hydrocodone-Acetaminophen Discontinued 1 TABLET PO EVERY 6 HOURS NEEDED 12 3 November 15, 2018 November 22, 2018 11:08pm Start: 08-19-2018 End: 08-21-2018 Hydrocodone-Acetaminophen 1 TABLET tablet Discontinued 1 {tbl} PO EVERY 6 HOURS NEEDED as needed for Pain 5 2 0 August 19, 2018 August 20, 2018 12:00am August 21, 2018 12:09am Postoperative pain Other acute postprocedural pain Start: 08-19-2018 End: 08-21-2018 take 1 tablet by mouth every six hours as needed Hydrocodone-Acetaminophen Discontinued 1 TABLET PO EVERY 6 HOURS NEEDED 5 2 August 19, 2018 August 20, 2018 11:09pm anastrozole 1 mg oral tablet (20 sources) Aromatase Inhibitor Start: 09-26-2018 End: 03-26-2022 take 1 tablet by mouth once daily Anastrozole 1 mg tablet Discontinued 1 mg PO DAILY 90 90 1 December 30, 2021 2:43pm March 26, 2022 10:08am 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 Malignant neoplasm of unspecified site of left female breast Estrogen receptor positive status [ER+] doxycycline hyclate 100 mg oral capsule (14 sources) Tetracycline-class Drug Start: 07-22-2018 End: 08-10-2018 take 1 capsule by mouth twice daily Doxycycline Hyclate 100 mg capsule Discontinued 100 mg PO TWICE A DAY July 22, 2018 12:00am August 10, 2018 4:22pm meloxicam 15 mg oral tablet (16 sources) Nonsteroidal Anti-inflammatory Drug Start: 07-22-2018 End: 09-18-2024 take 1 tablet by mouth once daily Meloxicam 15 mg tablet Discontinued 15 mg PO DAILY July 22, 2018 12:00am September 18, 2024 10:04am Problems Problem Classification Problem Date Documented Da te Episodic/Chronic Administrative/social admission (20 sources) Patient encounter status; Translations: [Counseling, unspecified] Episodic Calculus of urinary tract (14 sources) Urolithiasis ; Translations: [Urinary calculus, unspecified] 11-16-2018 Episodic Cancer of breast (16 sources) Primary malignant neoplasm of female left breast; Translations: [Malignant neoplasm of unspecified site of left female breast] Chronic Chronic kidney disease (1 source) Chronic kidney disease, unspecified; Translations: [Chronic kidney disease, unspecified] Onset: 09-29-2024 Chronic Essential hypertension (15 sources) Benign essential hypertension; Translations: [Essential (primary) hypertension] Onset: 06-22-2024 07-22-2018 Chronic Nonspecific chest pain (2 sources) Chest pain, unspecified; Translations: [Chest pain, unspecified] Onset: 09-03-2024 Episodic Osteoarthritis (1 source) Unilateral primary osteoarthritis, left knee; Translations: [Unilateral primary osteoarthritis, left knee] Onset: 07-13-2024 Chronic Other nutritional; endocrine; and metabolic disorders (14 sources) Obesity; Translations: [Obesity, unspecified] 07-22-2018 Chronic Other screening for suspected conditions (not mental disorders or infectious disease) (2 sources) Mammography abnormal; Translations: [Other abnormal and inconclusive findings on diagnostic imaging of breast] Episodic Results Test Name Value Interpretation Reference Range Facility Anion gap in Serum or Plasma Ordered By: Magdy Gibbs on 09-20-2024 Anion gap [Moles/Vol] 14 mmol/L 06-29 [facility] BUN/creatinine ratioOrdered By: Magdy Gibbs on 09-20-2024 Urea nitrogen/Creatinine [Mass ratio] 15.7 mg/mg 12-04 [facility] Basic Metabolic Profile (BMP )on 09-20-2024 BUN/CRE 15.7 RATIO Normal 12-04 [facility] Comment on above: Performed By: #### L 500.2500 ####[facility] [address] [place], [address] Calcium [Mass/Vol] 9.8 mg/dL Normal 7.6-11.0 [facility] Comment on above: Performed By: #### L 500.2500 ####[facility] [address] [place], [address] Chloride [Moles/Vol] 106 mmol/L Normal 98-108 [facility] Comment on above: Performed By: #### L 500.2500 ####[facility] [address] [place], [address] CO2 [Moles/Vol] 21.3 mmol/L Normal 21.0-32.0 [facility] Comment on above: Performed By: #### L 500.2500 ####[facility] [address] [place], [address] Creatinine [Mass/Vol] 1.69 mg/dL High 0.70-1.20 [facility] Comment on above: Performed By: #### L 500.2500 ####[facility] [address] [place], [address] GAP 14 Normal 5-15 [facility] Comment on above: Performed By: #### L 500.2500 ####[facility] [address] [place], [address] GFR/1.73 sq M.predicted among non-blacks MDRD (S/P/Bld) [Vol rate/Area] 31 mL/min/{1.73_m2} Low >60 [facility] Comment on above: Result Comment: mL/m in/1.73m2 CKD-EPI Creatinine Equation (2020) Performed By: #### L 500.2500 ####[facility] [address] [place], [address] Glucose [Mass/Vol] 82 mg/dL Normal 70-99 [facility] Comment on above: Performed By: #### L 500.2500 ####[facility] [address] [place], [address] Potassium [Moles/Vol] 4.4 mmol/L Normal 3.3-5.1 [facility] Comment on above: Performed By: #### L 500.2500 ####[facility] [address] [place], [address] Sodium [Moles/Vol] 142 mmol/L Normal 133-145 [facility] Comment on above: Performed By: #### L 500.2500 ####[facility] [address] [place], [address] Urea nitrogen [Mass/Vol] 27 mg/dL High 4-19 [facility] Comment on above: Performed By: #### L 500.2500 ####[facility] [address] [place], [address] Carbon dioxide, total [Moles /volume] in Central venous bloodOrdered By: Magdy Gibbs on 09-20-2024 CO2 [Moles/Vol] 21.3 mmol/L 21.0-32.0 [facility] Chloride assayOrdered By: Antonino Gibbs on 09-20-2024 Chloride [Moles/Vol] 106 mmol/L 98-108 [facility] Glomerular filtration rate ( GFR) estimation/1.73 sq m using serum, plasma, or whole bOrdered By: Magdy Gibbs on 09-20-2024 GFR/1.73 sq M.predicted among non-blacks MDRD (S/P/Bld) [Vol rate/Area] 31 mL/min/{1.73_m2} Low >60 [facility] Comment on above: mL/min/1.73m2 CKD-EP I Creatinine Equation (2020) Potassium measurement (mass/ volume)Ordered By: Magdy Gibbs on 09-20-2024 Potassium (Unsp spec) [Mass/Vol] 4.4 mmol/L 3.3-5.1 [facility] Serum creatinine measurement (mass/volume)Ordered By: Magdy Gibbs on 09-20-2024 Creatinine [Mass/Vol] 1.69 mg/dL High 0.70-1.20 [facility] Serum glucose measurement (m ass/volume)Ordered By: Magdy Gibbs on 09-20-2024 Glucose [Mass/Vol] 82 mg/dL 70-99 [facility] Serum or plasma calcium jean urement (mass/volume)Ordered By: Magdy Gibbs on 09-20-2024 Calcium [Mass/Vol] 9.8 mg/dL 7.6-11.0 [facility] Serum or plasma urea nitroge n measurement (mass/volume)Ordered By: Magdy Gibbs on 09-20-2024 Urea nitrogen [Mass/Vol] 27 mg/dL High 4-19 [facility] Sodium levelOrdered By: Magdy Gibbs on 09-20-2024 Sodium [Moles/Vol] 142 mmol/L 133-145 [facility] Chest PA and Lateralon 08-15 Chest PA and Lateral [facility] Imaging Services [address] [place] [address] [id number] Chest PA and Lateral MR#: [id number] Acct: [id number] Name: ANA MARÍA JO Rep #: [id number] : 1945 F 79 From: Mey Woodard PCP: Dr. Magdy Gibbs MD Status: [facility] CLI Study: Chest PA and Lateral Date of Exam: 08/15/24 Exam# [id number] Ordering Dr: Terrie Rasmussen NP SNOWBOARDING INSTRUCTOR -C PROCEDURE: CHEST PA AND LATERAL 08/15/2024 REASON FOR EXAM: CHEST PAIN TECHNIQUE: CHEST PA AND LATERAL COMPARISON: 08/17/2018 FINDINGS: Mild pulmonary vascular congestion. No focal consolidation. No pleural effusion or pneumothorax. Moderate cardiomegaly. Aortic arch calcified No acute fractures. RAD/Chest PA and Lateral IMPRESSION: Mild pulmonary vascular congestion. No focal consolidation. Moderate cardiomegaly. Reading Location: [id number] CC: Terrie LINDO SNOWBOARDING INSTRUCTOR-C Grady; Dr. Magdy Gibbs MD Decorative Engraver Apprentice: Signed Normal [facility] Cardiovascular stress test r eportOrdered By: Kristin Powell on 08-10-2024 Study report [facility] Cardiovascular Services [address] [place] [address] MR#: [id number] Acct: [id number] Name: ANA MARÍA JO Rep #: [id number] : 1945 79 From: Kristin Powell MD Primary Care: Dr. Magdy Gibbs MD Status : REG CLI Referring Dr: Terrie Rasmussen NP SNOWBOARDING INSTRUCTOR-C Sex: F C Stress Test Report Date: 08/10/2024 Procedure: Pharmacologic stress nuclear imaging study Indications: Chest pain Consent: Per the patient Procedure: The patient underwent pharmacologic (Regadenoson 0.4mg ) evaluation with a peak heart rate of 87 beats per minute (61%predicted maximal heart rate) and a peak blood pressure of 130/60 mmHg. The baseline ECG demonstrated sinus rhythm with left bundle branch block. The peak pharmacologic ECG was nondiagnostic secondary to baseline left bundle branch block. Frequent PACs noted. There was no complaint of chest discomfort during pharmacologic infusion or recovery. The patient was injected with 12.4 millicuries of technetium 99m Cardiolite and subsequently rest SPECT Cardiolite nuclear imaging was obtained in the horizontal long, vertical long, and short axis views. The patient underwent pharmacologic (Regadenoson) evaluation. The patient was injected with 36.1 millicuries of technetium 99m Cardiolite and subsequently stress SPECT Cardiolite nuclear imaging was obtained in the horizontal long, vertical long, and short axis views. A gated Cardiolite study at peak stress was obtained. The examination was stopped secondary to completion of protocol. Rest and stress SPECT Cardiolite nuclear imaging status post realignment, normalization, and attenuation correction demonstrate mild fixed apical defect which likely suggests physiological thinning. The gated studies revealed dilated left ventricle. The reported LVEF is 40%. Impression: 1. Pharmacologic (Regadenoson) evaluation 2. Peak pharmacologic ECG with no diagnostic changes. 3. Frequent PACs noted. 5. No ischemia or infarcts noted. 6. The gated Cardiolite study reports an LVEF of 40%. This note was generated with StrongViewation software. It may contain incorrectwords, spelling, and punctuation that were not noted in checking the note beforesigning. 08/10/24 1352 Date _ Kristin Powell MD CC: Terrie Rasmussen; Dr. Magdy Gibbs MD ~ Date Dictated: 08/10/24 135 Date Transcribed: 08/10/241349 Decorative Engraver Apprentice: FLACA Sepulveda [facility] Work Phone: Stress Reporton 08-10-2024 Stress Report [facility] Cardiovascular Services [address] [place] [address] MR#: [id number] Acct: [id number] Name: ANA MARÍA JO Rep #: [id number] : 1945 79 From: Kristin Powell MD Primary Care: Dr. Magdy Gibbs MD Status: REG CLI Referring Dr: Terrie Rasmussen NP Sex: F C Stress Test Report Date: 08/10/2024 Procedure: Pharmacologic stress nuclear imaging study Indications: Chest pain Consent: Per the patient Procedure: The patient underwent pharmacologic (Regadenoson 0.4mg ) evaluation with a peak heart rate of 87 beats per minute (61%predicted maximal heart rate) and a peak blood pressure of 130/60 mmHg. The baseline ECG demonstrated sinus rhythm with left bundle branch block. The peak pharmacologic ECG was nondiagnostic secondary to baseline left bundle branch block. Frequent PACs noted. There was no complaint of chest discomfort during pharmacologic infusion or recovery. The patient was injected with 12.4 millicuries of technetium 99m Cardiolite and subsequently rest SPECT Cardiolite nuclear imaging was obtained in the horizontal long, vertical long, and short axis views. The patient underwent pharmacologic (Regadenoson) evaluation. The patient was injected with 36.1 millicuries of technetium 99m Cardiolite and subsequently stress SPECT Cardiolite nuclear imaging was obtained in the horizontal long, vertical long, and short axis views. A gated Cardiolite study at peak stress was obtained. The examination was stopped secondary to completion of protocol. Rest and stress SPECT Cardiolite nuclear imaging status post realignment, normalization, and attenuation correction demonstrate mild fixed apical defect which likely suggests physiological thinning. The gated studies revealed dilated left ventricle. The reported LVEF is 40%. Impression: 1. Pharmacologic (Regadenoson) evaluation 2. Peak pharmacologic ECG with no diagnostic changes. 3. Frequent PACs noted. 5. No ischemia or infarcts noted. 6. The gated Cardiolite study reports an LVEF of 40%. This note was generated with ClickMagic dictation software. It may contain incorrect words, spelling, and punctuation that were not noted in checking the note before signing. 08/10/24 1352 Date Kristin Powell MD CC: Terrie Rasmussen; Dr. Magdy Gibbs MD Date Dictated: 08/10/24 135 Date Transcribed: 08/10/241349 Decorative Engraver Apprentice: AR Signed [facility] MR/PAT.DAVIDSONon 08-02-2024 MR/PAT.[facility] Medical Records Department [address] [place] [address] PAT - Anesthesia 08/02/24 1119 MR#: [id number] Acct: [id number] Name: ANA MARÍA JO Rep #: [id number] : 1945 79 From: Constantin Solorzano MD PCP: Dr. Magdy Gibbs MD Status:PRE [facility] Y Race: C Location: [facility] Pre-Assessment Diagnosis/Proposed Procedure Planned Operative Procedure(s): ROBOTIC ASSISTED LEFT TOTAL ARTHROPLASTY Anesthesia History Anesthesia History - senior producer: Anesthesia History - senior producer Hx Hospitalization No 07/24/24 12:54 Any Problems [...] take am of surgery PONV PONV - senior producer: PONV - senior producer Female Yes 07/24/24 12:54 HX of Motion [...] 01/01/22 15:08 Respiratory Assessment Respiratory Assessment - senior producer: Respiratory Tract Infection Hx - senior producer Hx Respiratory Tract Infection No 07/24/24 12:54 STOP Sleep Apnea STOP Sleep Apnea - senior producer: STOP Sleep Apnea - senior producer Hx Hypertension Yes: CONTROLLED WITH MEDS 07/24/24 [...] Tobacco Use History Tobacco Use History - senior producer: Tobacco Use History - senior producer Tobacco Use Smoking Status Never smoker 07/24/24 12:54 Hx Tobacco Use No 07/24/24 12:54 Years Smoking Packs Smoked per Day Smoking Cessation Date was within the last 15 years Hx Smoking Cessation Date Hx Smoking Cessation Counseling Hematologic Medial History Hematologic Hx - senior producer: 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 Normal [facility] MRSA/SAID NASAL SCREENon MRSA+SAID SCRN Reason for Exam: RIGHT TOTAL KNEE SURGERY MRSA MRSA Negative S. AUREUS S. aureus Negative Normal [facility] Comment on above: Performed By: #### L 100.0100, L501.5200, L501.1800, L501.9985, M100.651 #### [facility] Laboratory [address] [place], [place], [id number] 12 Lead EKGon 08-01-2024 12 Lead EKG [facility] Cardiovascular Services [address] [place] [address] 12 Lead EKG 08/01/24 1343 MR#: [id number] Acct: [id number] Name: ANA MARÍA JO Rep #: [id number] : 1945 79 From: Demarcus Mathur MD Attending Dr: Dr. Kurt Gallagher MD Status: PRE HIC Ordering Dr: Kurt Gallagher MD Date: 08/01/24 Location: [facility] Sex: F C Admitted: Test Reason : [...] bundle branch block Abnormal ECG Confirmed by DEMARCUS MATHUR MD ([id number]), manuscript editor VIRI DAVIS ([id number]) on 08/02/2024 7:03:15 AM Referred By: Kurt Gallagher Confirmed By: DEMARCUS MATHUR MD 08/02/24 07 Date Demarcus Mathur MD CC: Dr. Magdy Gibbs MD; Dr. Kurt Gallagher MD Signed Normal [facility] Albumin, Serumon 08-01-2024 Albumin [Mass/Vol] 3.9 g/dL Normal 3.4-4.8 [facility] Comment on above: Performed By: #### L 100.0100, L501.5200, L501.1800, L501.9985, M100.651 #### [facility] Laboratory [address] [place], [address] CBC W/Diff, Automatedon 07-16 Absolute Lymph 1.62 X10 3/uL Normal 0.83-4.51 [facility] Comment on above: Performed By: #### L 100.0100, L501.5200, L501.1800, L501.9985, M100.651 #### [facility] Laboratory [address] [place], [address] Absolute Neut 4.1 X10 3/uL Normal 2.0-7.7 [facility] Comment on above: Performed By: #### L 100.0100, L501.5200, L501.1800, L501.9985, M100.651 #### [facility] Laboratory [address] [place], [address] Basophils/100 WBC (Bld) 0.8 % Normal 0-[address] [facility] Comment on above: Performed By: #### L 100.0100, L501.5200, L501.1800, L501.9985, M100.651 #### [facility] Laboratory [address] [place], [address] Eosinophils/100 WBC (Bld) 3.0 % Normal 0-5 [facility] Comment on above: Performed By: #### L 100.0100, L501.5200, L501.1800, L501.9985, M100.651 #### [facility] Laboratory [address] [place], [address] Erythrocyte distribution width (RBC) [Ratio] 12.4 % Normal 11.6-14.6 [facility] Comment on above: Performed By: #### L 100.0100, L501.5200, L501.1800, L501.9985, M100.651 #### [facility] Laboratory [address] [place], [address] Hematocrit (Bld) [Volume fraction] 34.9 % Low 37-47 [facility] Comment on above: Performed By: #### L 100.0100, L501.5200, L501.1800, L501.9985, M100.651 #### [facility] [address] [place], [address] Hemoglobin (Bld) [Mass/Vol] 11.6 g/dL Low 12.0-15.0 [facility] Comment on above: Performed By: #### L 100.0100, L501.5200, L501.1800, L501.9985, M100.651 #### [facility] Laboratory [address] [place], [address] IG% 0.200 Normal 0.0-0.9 [facility] Comment on above: Result Comment: IG% - Immature Granulocytes (promyelocytes, myelocytes and metamyelocytes) > 1% indicates that a LEFT SHIFT is Present. Performed By: #### L 100.0100, L501.5200, L501.1800, L501.9985, M100.651 #### [facility] Laboratory [address] [place], [address] Lymphocytes/100 WBC (Bld) 25.3 % Normal 19-41 [facility] Comment on above: Performed By: #### L 100.0100, L501.5200, L501.1800, L501.9985, M100.651 #### [facility] Laboratory [address] [place], [address] MCH (RBC) [Entitic mass] 31.1 pg Normal 27.0-32.0 [facility] Comment on above: Performed By: #### L 100.0100, L501.5200, L501.1800, L501.9985, M100.651 #### [facility] Laboratory [address] [place], [address] MCHC (RBC) [Mass/Vol] 33.2 g/dL Normal 32-36 [facility] Comment on above: Performed By: #### L 100.0100, L501.5200, L501.1800, L501.9985, M100.651 #### [facility] Laboratory [address] [place], [address] MCV (RBC) [Entitic vol] 93.6 fL Normal 81-[address] [facility] Comment on above: Performed By: #### L 100.0100, L501.5200, L501.1800, L501.9985, M100.651 #### [facility] Laboratory [address] [place], [address] Monocytes/100 WBC (Bld) 6.9 % Normal 0-[address] [facility] Comment on above: Performed By: #### L 100.0100, L501.5200, L501.1800, L501.9985, M100.651 #### [facility] Laboratory [address] [place], [address] Neutrophils/100 WBC (Bld) 63.8 % Normal 47-70 [facility] Comment on above: Performed By: #### L 100.0100, L501.5200, L501.1800, L501.9985, M100.651 #### [facility] Laboratory [address] [place], [address] Nucleated RBC (Bld) [#/Vol] 0 10*3/uL Normal 0-5 [facility] Comment on above: Performed By: #### L 100.0100, L501.5200, L501.1800, L501.9985, M100.651 #### [facility] Laboratory [address] [place], [address] Platelet mean volume (Bld) [Entitic vol] 10.3 fL Normal 6.2-12.0 [facility] Comment on above: Performed By: #### L 100.0100, L501.5200, L501.1800, L501.9985, M100.651 #### [facility] Laboratory [address] [place], [address] Platelets (Bld) [#/Vol] 238 10*3/uL Normal 150-450 [facility] Comment on above: Performed By: #### L 100.0100, L501.5200, L501.1800, L501.9985, M100.651 #### [facility] [address] [place], [address] RBC (Bld) [#/Vol] 3.73 10*6/uL Low 4.2-5.4 [facility] Comment on above: Performed By: #### L 100.0100, L501.5200, L501.1800, L501.9985, M100.651 #### [facility] [address] [place], [address] RDW SD 42.6 fl Normal 35.1-43.9 [facility] Comment on above: Performed By: #### L 100.0100, L501.5200, L501.1800, L501.9985, M100.651 #### [facility] [address] [place], [address] WBC (Bld) [#/Vol] 6.4 10*3/uL Normal 4.4-11.0 [facility] Comment on above: Performed By: #### L 100.0100, L501.5200, L501.1800, L501.9985, M100.651 #### [facility] [address] [place], [address] Hemoglobin A1con 08-01-2024 HbA1c (Bld) [Mass fraction] 5.2 % Normal <=5.6 [facility] Comment on above: Result Comment: Norm al < 5.7 % Prediabetic 5.7 - 6.4 % Diabetic >or= 6.5 % Please note range changes. Performed By: #### L 100.0100, L501.5200, L501.1800, L501.9985, M100.651 #### [facility] [address] [place], [address] Magnesiumon 08-01-2024 Magnesium [Mass/Vol] 1.7 mg/dL Normal 1.5-2.2 [facility] Comment on above: Performed By: #### L 100.0100, L501.5200, L501.1800, L501.9985, M100.651 #### [facility] [address] [place], [address] Absolute lymphocyte countOrd ered By: Magdy Gibbs on 07-24-2024 Lymphocytes Auto (Unsp spec) [#/Vol] 1.49 10*3/uL 0.83-4.51 [facility] Absolute neutrophil countOrd ered By: Magdy Gibbs on 07-24-2024 Neutrophils (Bld) [#/Vol] 4.0 10*3/uL 2.0-7.7 [facility] Anion gap in Serum or Plasma Ordered By: Magdy Gibbs on 07-24-2024 Anion gap [Moles/Vol] 12 mmol/L 5-15 [facility] Automated lymphocyte count a s percentage of total leukocytesOrdered By: Magdy Gibbs on 07-24-2024 Lymphocytes/100 WBC Auto (Unsp spec) 23.7 % 19-41 [facility] BUN/creatinine ratioOrdered By: Magdy Gibbs on 07-24-2024 Urea nitrogen/Creatinine [Mass ratio] 20.9 mg/mg High 10-20 [facility] Basophil percentageOrdered B y: Magdy Gibbs on 07-24-2024 Basophils/100 WBC (Bld) 1.4 % High 0-[address] [facility] Bilirubin, totalOrdered By: Magdy Gibbs on 07-24-2024 Bilirubin [Mass/Vol] 0.46 mg/dL 0.00-1.30 [facility] CBC W/Diff, Automatedon 06-0 Absolute Lymph 1.49 X10 3/uL Normal 0.83-4.51 [facility] Comment on above: Performed By: #### L 100.0100, L500.4050, L500.4100 ####[facility] [address] [place], [address] Absolute Neut 4.0 X10 3/uL Normal 2.0-7.7 [facility] Comment on above: Performed By: #### L 100.0100, L500.4050, L500.4100 ####[facility] [address] [place], [address] Basophils/100 WBC (Bld) 1.4 % High 0-[address] [facility] Comment on above: Performed By: #### L 100.0100, L500.4050, L500.4100 ####[facility] [address] [place], [address] Eosinophils/100 WBC (Bld) 4.0 % Normal 0-5 [facility] Comment on above: Performed By: #### L 100.0100, L500.4050, L500.4100 ####[facility] [address] [place], [address] Erythrocyte distribution width (RBC) [Ratio] 12.2 % Normal 11.6-14.6 [facility] Comment on above: Performed By: #### L 100.0100, L500.4050, L500.4100 ####[facility] [address] [place], [address] Hematocrit (Bld) [Volume fraction] 36.6 % Low 37-47 [facility] Comment on above: Performed By: #### L 100.0100, L500.4050, L500.4100 ####[facility] [address] [place], [address] Hemoglobin (Bld) [Mass/Vol] 12.0 g/dL Normal 12.0-15.0 [facility] Comment on above: Performed By: #### L 100.0100, L500.4050, L500.4100 ####[facility] [address] [place], [address] IG% 0.200 Normal 0.0-0.9 [facility] Comment on above: Result Comment: IG% - Immature Granulocytes (promyelocytes, myelocytes and metamyelocytes) > 1% indicates that a LEFT SHIFT is Present. Performed By: #### L 100.0100, L500.4050, L500.4100 ####[facility] [address] [place], [address] Lymphocytes/100 WBC (Bld) 23.7 % Normal 19-41 [facility] Comment on above: Performed By: #### L 100.0100, L500.4050, L500.4100 ####[facility] [address] [place], [address] MCH (RBC) [Entitic mass] 30.8 pg Normal 27.0-32.0 [facility] Comment on above: Performed By: #### L 100.0100, L500.4050, L500.4100 ####[facility] [address] [place], [address] MCHC (RBC) [Mass/Vol] 32.8 g/dL Normal 32-36 [facility] Comment on above: Performed By: #### L 100.0100, L500.4050, L500.4100 ####[facility] [address] [place], [address] MCV (RBC) [Entitic vol] 93.8 fL Normal 81-99 [facility] Comment on above: Performed By: #### L 100.0100, L500.4050, L500.4100 ####[facility] [address] [place], [address] Monocytes/100 WBC (Bld) 7.6 % Normal 0-[address] [facility] Comment on above: Performed By: #### L 100.0100, L500.4050, L500.4100 ####[facility] [address] [place], [address] Neutrophils/100 WBC (Bld) 63.1 % Normal 47-70 [facility] Comment on above: Performed By: #### L 100.0100, L500.4050, L500.4100 ####[facility] [address] [place], [address] Nucleated RBC (Bld) [#/Vol] 0 10*3/uL Normal 0-5 [facility] Comment on above: Performed By: #### L 100.0100, L500.4050, L500.4100 ####[facility] [address] [place], [address] Platelet mean volume (Bld) [Entitic vol] 10.5 fL Normal 6.2-12.0 [facility] Comment on above: Performed By: #### L 100.0100, L500.4050, L500.4100 ####[facility] [address] [place], [address] Platelets (Bld) [#/Vol] 254 10*3/uL Normal 150-450 [facility] Comment on above: Performed By: #### L 100.0100, L500.4050, L500.4100 ####[facility] [address] [place], [address] RBC (Bld) [#/Vol] 3.90 10*6/uL Low 4.2-5.4 [facility] Comment on above: Performed By: #### L 100.0100, L500.4050, L500.4100 ####[facility] [address] [place], [address] RDW SD 42.1 fl Normal 35.1-43.9 [facility] Comment on above: Performed By: #### L 100.0100, L500.4050, L500.4100 ####[facility] [address] [place], [address] WBC (Bld) [#/Vol] 6.3 10*3/uL Normal 4.4-11.0 [facility] Comment on above: Performed By: #### L 100.0100, L500.4050, L500.4100 ####[facility] [address] [place], [address] Calculated very low density lipoprotein (VLDL) cholesterol measurementOrdered By: Magdy Gibbs on 07-24-2024 Calculated very low density lipoprotein (VLDL) cholesterol measurement 17 mg/dL 5-40 [facility] Carbon dioxide, total [Moles /volume] in Central venous bloodOrdered By: Magdy Gibbs on 07-24-2024 CO2 [Moles/Vol] 20.9 mmol/L Low 21.0-32.0 [facility] Chloride assayOrdered By: Antonino Gibbs on 07-24-2024 Chloride [Moles/Vol] 108 mmol/L 98-108 [facility] Comprehensive Metabolic Prof ilon 07-24-2024 Albumin [Mass/Vol] 4.0 g/dL Normal 3.4-4.8 [facility] Comment on above: Performed By: #### L 100.0100, L500.4050, L500.4100 ####[facility] [address] [place], [address] Albumin/Globulin [Mass ratio] 1.6 {ratio} Normal 0.9-2.4 [facility] Comment on above: Performed By: #### L 100.0100, L500.4050, L500.4100 ####[facility] [address] [place], [address] ALK PHOS 72 U/L Normal 35-104 [facility] Comment on above: Performed By: #### L 100.0100, L500.4050, L500.4100 ####[facility] [address] [place], [address] ALT [Catalytic activity/Vol] 9 U/L Normal <=34 [facility] Comment on above: Performed By: #### L 100.0100, L500.4050, L500.4100 ####[facility] [address] [place], [address] AST [Catalytic activity/Vol] 20 U/L Normal <=31 [facility] Comment on above: Performed By: #### L 100.0100, L500.4050, L500.4100 ####[facility] [address] [place], [address] Bilirubin [Mass/Vol] 0.46 mg/dL Normal 0.00-1.30 [facility] Comment on above: Performed By: #### L 100.0100, L500.4050, L500.4100 ####[facility] [address] [place], [address] BUN/CRE 20.9 RATIO High 10-20 [facility] Comment on above: Performed By: #### L 100.0100, L500.4050, L500.4100 ####[facility] [address] [place], [address] Calcium [Mass/Vol] 9.6 mg/dL Normal 7.6-11.0 [facility] Comment on above: Performed By: #### L 100.0100, L500.4050, L500.4100 ####[facility] [address] [place], [address] Chloride [Moles/Vol] 108 mmol/L Normal 98-108 [facility] Comment on above: Performed By: #### L 100.0100, L500.4050, L500.4100 ####[facility] [address] [place], [address] CO2 [Moles/Vol] 20.9 mmol/L Low 21.0-32.0 [facility] Comment on above: Performed By: #### L 100.0100, L500.4050, L500.4100 ####[facility] [address] [place], [address] Creatinine [Mass/Vol] 1.96 mg/dL High 0.70-1.20 [facility] Comment on above: Performed By: #### L 100.0100, L500.4050, L500.4100 ####[facility] [address] [place], [address] GAP 12 Normal 5-15 [facility] Comment on above: Performed By: #### L 100.0100, L500.4050, L500.4100 ####[facility] [address] [place], [address] GFR/1.73 sq M.predicted among non-blacks MDRD (S/P/Bld) [Vol rate/Area] 26 mL/min/{1.73_m2} Low >60 [facility] Comment on above: Result Comment: mL/m in/1.73m2 CKD-EPI Creatinine Equation (2020) Performed By: #### L 100.0100, L500.4050, L500.4100 ####[facility] [address] [place], [address] Globulin (S) [Mass/Vol] 2.6 g/dL Normal 2.2-4.2 [facility] Comment on above: Performed By: #### L 100.0100, L500.4050, L500.4100 ####[facility] [address] [place], [address] Glucose [Mass/Vol] 86 mg/dL Normal 70-99 [facility] Comment on above: Performed By: #### L 100.0100, L500.4050, L500.4100 ####[facility] [address] [place], [address] Potassium [Moles/Vol] 4.5 mmol/L Normal 3.3-5.1 [facility] Comment on above: Performed By: #### L 100.0100, L500.4050, L500.4100 ####[facility] [address] [place], [address] Sodium [Moles/Vol] 141 mmol/L Normal 133-145 [facility] Comment on above: Performed By: #### L 100.0100, L500.4050, L500.4100 ####[facility] [address] [place], [address] T PROT 6.6 g/dL Normal 5.9-8.4 [facility] Comment on above: Performed By: #### L 100.0100, L500.4050, L500.4100 ####[facility] [address] [place], [address] Urea nitrogen [Mass/Vol] 41 mg/dL High 4-19 [facility] Comment on above: Performed By: #### L 100.0100, L500.4050, L500.4100 ####[facility] [address] [place], [address] Eosinophil percentageOrdered By: Magdy Gibbs on 07-24-2024 Eosinophils/100 WBC (Bld) 4.0 % 0-5 [facility] Erythrocyte distribution wid th ratioOrdered By: Magdy Gibbs on 07-24-2024 Erythrocyte distribution width (RBC) [Ratio] 12.2 % 11.6-14.6 [facility] Erythrocyte distribution wid th standard deviationOrdered By: Magdy Gibbs on 07-24-2024 Erythrocyte distribution width (RBC) [Ratio] 42.1 fl 35.1-43.9 [facility] Glomerular filtration rate ( GFR) estimation/1.73 sq m using serum, plasma, or whole bOrdered By: Magdy Gibbs on 07-24-2024 GFR/1.73 sq M.predicted among non-blacks MDRD (S/P/Bld) [Vol rate/Area] 26 mL/min/{1.73_m2} Low >60 [facility] Comment on above: mL/min/1.73m2 CKD-EP I Creatinine Equation (2020) Hematocrit Auto (Bld) [Volum e fraction]Ordered By: Magdy Gibbs on 07-24-2024 Hematocrit (Bld) [Volume fraction] 36.6 % Low 37-47 [facility] Hemoglobin measurementOrdere d By: Magdy Gibbs on 07-24-2024 Hemoglobin (Bld) [Mass/Vol] 12.0 g/dL 12.0-15.0 [facility] Immature granulocytes/100 WB C Auto (Bld)Ordered By: Magdy Gibbs on 07-24-2024 Immature granulocytes/100 WBC (Bld) 0.200 % 0.0-0.9 [facility] Comment on above: IG% - Immature Granu locytes (promyelocytes, myelocytes and metamyelocytes) > 1% indicates that a LEFT SHIFT is Present. LDL calc ser/plasOrdered By: Magdy Gibbs on 07-24-2024 Cholesterol in LDL [Mass/Vol] 118 mg/dL [facility] Comment on above: Tnrfabufbz=720-485 m g/dL & Higher Hlld=552 mg/dL or greater Laboratory - Chemistry and C hemistry - challengeOrdered By: Magdy Gibbs on 07-24-2024 AST [Catalytic activity/Vol] 20 U/L <32 [facility] Lipid Profileon 07-24-2024 CHOL:HDL 3.16 Normal [facility] Comment on above: Performed By: #### L 100.0100, L500.4050, L500.4100 ####[facility] [address] [place], [address] Cholesterol [Mass/Vol] 198 mg/dL Normal <=200 [facility] Comment on above: Result Comment: Chol esterol level, Desirable <200 mg/dL Borderline high cholesterol 200-239 mg/dL High cholesterol >=240 mg/dL Recommendations of the NCEP Adult Treatment Panel for the following risk-cutoff thresholds for the [place] population. Performed By: #### L 100.0100, L500.4050, L500.4100 ####[facility] [address] [place], [address] Cholesterol in HDL [Mass/Vol] 63 mg/dL Normal [facility] Comment on above: Result Comment: Ameena onal Cholesterol Education Program (NCEP) guidelines: <40 mg/dL: Low HDL-cholesterol (major risk factor for CHD) >= 60 mg/dL: High HDL-cholesterol (negative risk factor for CHD) HDL-cholesterol is affected by a number of factors, e.g. smoking, exercise, hormones, sex and age. Performed By: #### L 100.0100, L500.4050, L500.4100 ####[facility] [address] [place], [address] Cholesterol in LDL [Mass/Vol] 118 mg/dL Normal [facility] Comment on above: Result Comment: Bord yvjemz=739-962 mg/dL Higher Xusb=193 mg/dL or greater Performed By: #### L 100.0100, L500.4050, L500.4100 ####[facility] [address] [place], [address] Cholesterol in VLDL [Mass/Vol] 17 mg/dL Normal 5-40 [facility] Comment on above: Performed By: #### L 100.0100, L500.4050, L500.4100 ####[facility] [address] [place], [address] Triglyceride [Mass/Vol] 86 mg/dL Normal [facility] Comment on above: Result Comment: The drugs N-Acetylcysteine and Metamizole may falsely depress this assay. Normal range: <150 mg/dL Borderline High: 150-199 mg/dL High: 200-499 mg/dL Very High: >500 mg/dL Performed By: #### L 100.0100, L500.4050, L500.4100 ####[facility] [address] [place], [address] MCV (mean corpuscular volume ) determinationOrdered By: Magdy Gibbs on 07-24-2024 MCV (RBC) [Entitic vol] 93.8 fL 81-[address] [facility] Mean corpuscular hemoglobin (MCH) determinationOrdered By: Magdy Gibbs on 07-24-2024 MCH (RBC) [Entitic mass] 30.8 pg 27.0-32.0 [facility] Mean corpuscular hemoglobin concentration (MCHC) determinationOrdered By: Magdy Gibbs on 07-24-2024 MCHC (RBC) [Mass/Vol] 32.8 g/dL 32-36 [facility] Mean platelet volume determi nationOrdered By: Magdy Gibbs on 07-24-2024 Platelet mean volume (Bld) [Entitic vol] 10.5 fL 6.2-12.0 [facility] Monocyte percentageOrdered B y: Magdy Gibbs on 07-24-2024 Monocytes/100 WBC (Bld) 7.6 % 0-[address] [facility] Neutrophil percentageOrdered By: Magdy Gibbs on 07-24-2024 Neutrophils/100 WBC (Bld) 63.1 % 47-70 [facility] Nucleated red blood cell per centageOrdered By: Magdy Gibbs on 07-24-2024 Nucleated RBC/100 WBC (Bld) [Ratio] 0 % 0-5 [facility] Platelet countOrdered By: Antonino Gibbs on 07-24-2024 Platelets (Bld) [#/Vol] 254 10*3/uL 150-450 [facility] Potassium measurement (mass/ volume)Ordered By: Magdy Gibbs on 07-24-2024 Potassium (Unsp spec) [Mass/Vol] 4.5 mmol/L 3.3-5.1 [facility] RBC Auto (Bld) [#/Vol]Ordere d By: Magdy Gibbs on 07-24-2024 RBC (Bld) [#/Vol] 3.90 10*6/uL Low 4.2-5.4 [facility] Screening total cholesterol/ high density lipoprotein (HDL) cholesterol ratioOrdered By: Magdy Gibbs on 07-24-2024 Cholesterol.total/Choles terol in HDL [Mass ratio] 3.16 {ratio} [facility] Serum creatinine measurement (mass/volume)Ordered By: Magdy Gibbs on 07-24-2024 Creatinine [Mass/Vol] 1.96 mg/dL High 0.70-1.20 [facility] Serum globulin measurementOr dered By: Magdy Gibbs on 07-24-2024 Globulin (S) [Mass/Vol] 2.6 g/dL 2.2-4.[address] [facility] Serum glucose measurement (m ass/volume)Ordered By: Magdy Gibbs on 07-24-2024 Glucose [Mass/Vol] 86 mg/dL 70-99 [facility] Serum or plasma alanine leger otransferase (ALT) measurementOrdered By: Magdy Gibbs on 07-24-2024 ALT [Catalytic activity/Vol] 9 U/L <35 [facility] Serum or plasma albumin jean urement (mass/volume)Ordered By: Magdy Gibbs on 07-24-2024 Albumin [Mass/Vol] 4.0 g/dL 3.4-4.8 [facility] Serum or plasma albumin/glob ulin mass ratioOrdered By: Magdy Gibbs on 07-24-2024 Albumin/Globulin [Mass ratio] 1.6 {ratio} 0.9-2.4 [facility] Serum or plasma alkaline louise sphatase measurementOrdered By: Magdy Gibbs on 07-24-2024 ALP [Catalytic activity/Vol] 72 U/L 35-104 [facility] Serum or plasma calcium jean urement (mass/volume)Ordered By: Magdy Gibbs on 07-24-2024 Calcium [Mass/Vol] 9.6 mg/dL 7.6-11.0 [facility] Serum or plasma cholesterol in HDL measurement (mass/volume)Ordered By: Magdy Gibbs on 07-24-2024 Cholesterol in HDL [Mass/Vol] 63 mg/dL >40 [facility] Comment on above: National Cholesterol Education Program (NCEP) guidelines:<40 mg/dL: Low HDL-cholesterol (major risk factor for CHD)>= 60 mg/dL: High HDL-cholesterol (negative risk factor for CHD)HDL-cholesterol is affected by a number of factors, e.g. smoking, exercise, hormones, sex and age. Serum or plasma cholesterol measurement (mass/volume)Ordered By: Magdy Gibbs on 07-24-2024 Cholesterol [Mass/Vol] 198 mg/dL <201 [facility] Comment on above: Cholesterol level, D esirable <200 mg/dLBorderline high cholesterol 200-239 mg/dLHigh cholesterol >=240 mg/dLRecommendations of the NCEP Adult Treatment Panel for the following risk-cutoff thresholds for the [place] population. Serum or plasma urea nitroge n measurement (mass/volume)Ordered By: Magdy Gibbs on 07-24-2024 Urea nitrogen [Mass/Vol] 41 mg/dL High 4-19 [facility] Sodium levelOrdered By: Magdy Gibbs on 07-24-2024 Sodium [Moles/Vol] 141 mmol/L 133-145 [facility] Total proteinOrdered By: Malena Gibbs on 07-24-2024 Protein [Mass/Vol] 6.6 g/dL 5.9-8.4 [facility] Triglycerides measurementOrd ered By: Magdy Gibbs on 07-24-2024 Triglyceride [Mass/Vol] 86 mg/dL <[address] [facility] Comment on above: The drugs N-Acetylcy steine and Metamizole may falsely depress this assay. Normal range: <150 mg/dLBorderline High: 150-199 mg/dLHigh: 200-499 mg/dLVery High: >500 mg/dL White blood cell (WBC) count Ordered By: Magdy Gibbs on 07-24-2024 WBC (Bld) [#/Vol] 6.3 10*3/uL 4.4-11.0 [facility] Extremity Lower without Cont raon 07-07-2024 Extremity Lower without Contra [facility] [address], [place] [id number] Extremity Lower without Contra MR#: [id number] Acct: [id number] Name: ANA MARÍA JO Rep #: [id number] : 1945 F [id number] From: Conor Nava MD PCP: Dr. Magdy Gibbs MD Status: REG CLI Study: Extremity Lower without Contra Date of Exam: 0 07/07/24 Exam# [id number] Ordering Dr: Kurt Gallagher MD PROCEDURE: EXTREMITY [...] Magdy Gibbs MD; Dr. 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: Signed Normal [facility] Anion gap in Serum or Plasma Ordered By: Magdy Gibbs on 06-15-2024 Anion gap [Moles/Vol] 11 mmol/L 5-15 [facility] BUN/creatinine ratioOrdered By: Magdy Gibbs on 06-15-2024 Urea nitrogen/Creatinine [Mass ratio] 21.8 mg/mg High 10-20 [facility] Bilirubin, totalOrdered By: Magdy Gibbs on 06-15-2024 Bilirubin [Mass/Vol] 0.29 mg/dL 0.00-1.30 [facility] Calculated very low density lipoprotein (VLDL) cholesterol measurementOrdered By: Magdy Gibbs on 06-15-2024 Calculated very low density lipoprotein (VLDL) cholesterol measurement 21 mg/dL 5-40 [facility] Carbon dioxide, total [Moles /volume] in Central venous bloodOrdered By: Magdy Gibbs on 06-15-2024 CO2 [Moles/Vol] 21.2 mmol/L 21.0-32.0 [facility] Chloride assayOrdered By: Antonino Gibbs on 06-15-2024 Chloride [Moles/Vol] 108 mmol/L 98-108 [facility] Comprehensive Metabolic Prof ilon 06-15-2024 Albumin [Mass/Vol] 3.9 g/dL Normal 3.4-4.8 [facility] Comment on above: Performed By: #### L 500.4050, L500.4100 ####[facility] [address] [place], [address] Albumin/Globulin [Mass ratio] 1.4 {ratio} Normal 0.9-2.4 [facility] Comment on above: Performed By: #### L 500.4050, L500.4100 ####[facility] [address] [place], [address] ALK PHOS 80 U/L Normal 35-104 [facility] Comment on above: Performed By: #### L 500.4050, L500.4100 ####[facility] [address] [place], [address] ALT [Catalytic activity/Vol] 10 U/L Normal <=34 [facility] Comment on above: Performed By: #### L 500.4050, L500.4100 ####[facility] [address] [place], [address] AST [Catalytic activity/Vol] 19 U/L Normal <=31 [facility] Comment on above: Performed By: #### L 500.4050, L500.4100 ####[facility] [address] [place], [address] Bilirubin [Mass/Vol] 0.29 mg/dL Normal 0.00-1.30 [facility] Comment on above: Performed By: #### L 500.4050, L500.4100 ####[facility] [address] [place], [address] BUN/CRE 21.8 RATIO High 10-20 [facility] Comment on above: Performed By: #### L 500.4050, L500.4100 ####[facility] [address] [place], [address] Calcium [Mass/Vol] 9.4 mg/dL Normal 7.6-11.0 [facility] Comment on above: Performed By: #### L 500.4050, L500.4100 ####[facility] [address] [place], [address] Chloride [Moles/Vol] 108 mmol/L Normal 98-108 [facility] Comment on above: Performed By: #### L 500.4050, L500.4100 ####[facility] [address] [place], [address] CO2 [Moles/Vol] 21.2 mmol/L Normal 21.0-32.0 [facility] Comment on above: Performed By: #### L 500.4050, L500.4100 ####[facility] [address] [place], [address] Creatinine [Mass/Vol] 1.97 mg/dL High 0.70-1.20 [facility] Comment on above: Performed By: #### L 500.4050, L500.4100 ####[facility] [address] [place], [address] GAP 11 Normal 5-15 [facility] Comment on above: Performed By: #### L 500.4050, L500.4100 ####[facility] [address] [place], [address] GFR/1.73 sq M.predicted among non-blacks MDRD (S/P/Bld) [Vol rate/Area] 25 mL/min/{1.73_m2} Low >60 [facility] Comment on above: Result Comment: mL/m in/1.73m2 CKD-EPI Creatinine Equation (2020) Performed By: #### L 500.4050, L500.4100 ####[facility] [address] [place], [address] Globulin (S) [Mass/Vol] 2.7 g/dL Normal 2.2-4.2 [facility] Comment on above: Performed By: #### L 500.4050, L500.4100 ####[facility] [address] [place], [address] Glucose [Mass/Vol] 90 mg/dL Normal 70-99 [facility] Comment on above: Performed By: #### L 500.4050, L500.4100 ####[facility] [address] [place], [address] Potassium [Moles/Vol] 4.6 mmol/L Normal 3.3-5.1 [facility] Comment on above: Performed By: #### L 500.4050, L500.4100 ####[facility] [address] [place], [address] Sodium [Moles/Vol] 141 mmol/L Normal 133-145 [facility] Comment on above: Performed By: #### L 500.4050, L500.4100 ####[facility] [address] [place], [address] T PROT 6.7 g/dL Normal 5.9-8.4 [facility] Comment on above: Performed By: #### L 500.4050, L500.4100 ####[facility] [address] [place], [address] Urea nitrogen [Mass/Vol] 43 mg/dL High 4-19 [facility] Comment on above: Performed By: #### L 500.4050, L500.4100 ####[facility] [address] [place], [address] Glomerular filtration rate ( GFR) estimation/1.73 sq m using serum, plasma, or whole bOrdered By: Magdy Gibbs on 06-15-2024 GFR/1.73 sq M.predicted among non-blacks MDRD (S/P/Bld) [Vol rate/Area] 25 mL/min/{1.73_m2} Low >60 [facility] Comment on above: mL/min/1.73m2 CKD-EP I Creatinine Equation (2020) LDL calc ser/plasOrdered By: Magdy Gibbs on 06-15-2024 Cholesterol in LDL [Mass/Vol] 135 mg/dL [facility] Comment on above: Gbimjkpyxc=642-514 m g/dL & Higher Ethk=044 mg/dL or greater Laboratory - Chemistry and C hemistry - challengeOrdered By: Magdy Gibbs on 06-15-2024 AST [Catalytic activity/Vol] 19 U/L <32 [facility] Lipid Profileon 06-15-2024 CHOL:HDL 3.55 Normal [facility] Comment on above: Performed By: #### L 500.4050, L500.4100 ####[facility] [address] [place], [address] Cholesterol [Mass/Vol] 217 mg/dL High <=200 [facility] Comment on above: Result Comment: Chol esterol level, Desirable <200 mg/dL Borderline high cholesterol 200-239 mg/dL High cholesterol >=240 mg/dL Recommendations of the NCEP Adult Treatment Panel for the following risk-cutoff thresholds for the [place] population. Performed By: #### L 500.4050, L500.4100 ####[facility] [address] [place], [address] Cholesterol in HDL [Mass/Vol] 61 mg/dL Normal [facility] Comment on above: Result Comment: Ameena onal Cholesterol Education Program (NCEP) guidelines: <40 mg/dL: Low HDL-cholesterol (major risk factor for CHD) >= 60 mg/dL: High HDL-cholesterol (negative risk factor for CHD) HDL-cholesterol is affected by a number of factors, e.g. smoking, exercise, hormones, sex and age. Performed By: #### L 500.4050, L500.4100 ####[facility] [address] [place], [address] Cholesterol in LDL [Mass/Vol] 135 mg/dL Normal [facility] Comment on above: Result Comment: Bord gceoak=324-168 mg/dL Higher Gvzc=695 mg/dL or greater Performed By: #### L 500.4050, L500.4100 ####[facility] [address] [place], [address] Cholesterol in VLDL [Mass/Vol] 21 mg/dL Normal 5-40 [facility] Comment on above: Performed By: #### L 500.4050, L500.4100 ####[facility] [address] [place], [address] Triglyceride [Mass/Vol] 104 mg/dL Normal [facility] Comment on above: Result Comment: The drugs N-Acetylcysteine and Metamizole may falsely depress this assay. Normal range: <150 mg/dL Borderline High: 150-199 mg/dL High: 200-499 mg/dL Very High: >500 mg/dL Performed By: #### L 500.4050, L500.4100 ####[facility] [address] [place], [address] Potassium measurement (mass/ volume)Ordered By: Magdy Gibbs on 06-15-2024 Potassium (Unsp spec) [Mass/Vol] 4.6 mmol/L 3.3-5.1 [facility] Screening total cholesterol/ high density lipoprotein (HDL) cholesterol ratioOrdered By: Magdy Gbibs on 06-15-2024 Cholesterol.total/Choles terol in HDL [Mass ratio] 3.55 {ratio} [facility] Serum creatinine measurement (mass/volume)Ordered By: Magdy Gibbs on 06-15-2024 Creatinine [Mass/Vol] 1.97 mg/dL High 0.70-1.20 [facility] Serum globulin measurementOr dered By: aMgdy Gibbs on 06-15-2024 Globulin (S) [Mass/Vol] 2.7 g/dL 2.2-4.[address] [facility] Serum glucose measurement (m ass/volume)Ordered By: Magdy Gibbs on 06-15-2024 Glucose [Mass/Vol] 90 mg/dL 70-99 [facility] Serum or plasma alanine leger otransferase (ALT) measurementOrdered By: Magdy Gibbs on 06-15-2024 ALT [Catalytic activity/Vol] 10 U/L <35 [facility] Serum or plasma albumin jean urement (mass/volume)Ordered By: Magdy Gibbs on 06-15-2024 Albumin [Mass/Vol] 3.9 g/dL 3.4-4.8 [facility] Serum or plasma albumin/glob ulin mass ratioOrdered By: Magdy Gibbs on 06-15-2024 Albumin/Globulin [Mass ratio] 1.4 {ratio} 0.9-2.4 [facility] Serum or plasma alkaline louise sphatase measurementOrdered By: Magdy Gibbs on 06-15-2024 ALP [Catalytic activity/Vol] 80 U/L 35-104 [facility] Serum or plasma calcium jean urement (mass/volume)Ordered By: Magdy Gibbs on 06-15-2024 Calcium [Mass/Vol] 9.4 mg/dL 7.6-11.0 [facility] Serum or plasma cholesterol in HDL measurement (mass/volume)Ordered By: Magdy Gibbs on 06-15-2024 Cholesterol in HDL [Mass/Vol] 61 mg/dL >40 [facility] Comment on above: National Cholesterol Education Program (NCEP) guidelines:<40 mg/dL: Low HDL-cholesterol (major risk factor for CHD)>= 60 mg/dL: High HDL-cholesterol (negative risk factor for CHD)HDL-cholesterol is affected by a number of factors, e.g. smoking, exercise, hormones, sex and age. Serum or plasma cholesterol measurement (mass/volume)Ordered By: Magdy Gibbs on 06-15-2024 Cholesterol [Mass/Vol] 217 mg/dL High <201 [facility] Comment on above: Cholesterol level, D esirable <200 mg/dLBorderline high cholesterol 200-239 mg/dLHigh cholesterol >=240 mg/dLRecommendations of the NCEP Adult Treatment Panel for the following risk-cutoff thresholds for the [place] population. Serum or plasma urea nitroge n measurement (mass/volume)Ordered By: Magdy Gibbs on 06-15-2024 Urea nitrogen [Mass/Vol] 43 mg/dL High 4-19 [facility] Sodium levelOrdered By: Magdy Gibbs on 06-15-2024 Sodium [Moles/Vol] 141 mmol/L 133-145 [facility] Total proteinOrdered By: Malena Gibbs on 06-15-2024 Protein [Mass/Vol] 6.7 g/dL 5.9-8.4 [facility] Triglycerides measurementOrd ered By: Magdy Gibbs on 06-15-2024 Triglyceride [Mass/Vol] 104 mg/dL <[address] [facility] Comment on above: The drugs N-Acetylcy steine and Metamizole may falsely depress this assay. Normal range: <150 mg/dLBorderline High: 150-199 mg/dLHigh: 200-499 mg/dLVery High: >500 mg/dL ED NOTEon 05-07-2023 ED NOTE HNO ID: [id number] Author: MARIANA PRABHAKAR RN Service: Emergency Medicine [...] do anything else to help you? No Normal [facility] ED NOTE HNO ID: [id number] Author: RENALDO SKINNER RN Service: ? Author Type: Registered Nurse Type: ED Notes Filed: 05/07/2023 17:54 Note Text: Pt given discharge instructions, pt questions answered and pt denies any further questions at time of discharge. Pt ambulates out of dept with a steady gait. Normal [facility] ED NOTE HNO ID: [id number] Author: RENALDO SKINNER RN Service: ? Author Type: Registered Nurse Type: ED Notes Filed: 05/07/2023 17:55 Note Text: Dr branch at bedside speaking with pt regarding results of testing and chichi of care Normal [facility] ED NOTE HNO ID: [id number] Author: RENALDO SKINNER RN Service: ? Author Type: Registered Nurse Type: ED Notes Filed: 05/07/2023 17:15 Note Text: Xray completed at bedside Normal [facility] ED NOTE HNO ID: [id number] Author: RENALDO SKINNER RN Service: ? Author Type: Registered Nurse Type: ED Notes Filed: 05/07/2023 16:34 Note Text: Dr branch at bedside for exam Normal [facility] ED NOTE HNO ID: [id number] Author: RENALDO SKINNER RN Service: ? Author Type: Registered Nurse Type: ED Notes Filed: 05/07/2023 16:26 Note Text: Pt reports pain started in the left side of her neck, pain started in her shoulder 2-3 days ago. No known injury Normal [facility] ED PROV NOTEon 05-07-2023 ED PROV NOTE HNO ID: [id number] Author: VISHAL BRANCH DO Service: Emergency Medicine [...] cutaneous changes including rash in this region. Fashion Coordinator strength 5 out of 5 bilateral and [...] tried lidocain (more content not included)... Normal [facility] XR SHLDR >/=3V AP/DAVID AP/OTH R LTon [...] acromioclavicular joint. IMPRESSION: No acute osseous abnormality. 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 Engraver Apprentice: RA Transcribe Date/Time: May 07 2023 5:42P Dictated by : KRISTAL JOHNSON MD This examination was interpreted and the report reviewed and electronically signed by: KRISTAL JOHNSON MD on May 07 2023 5:44PM EST [id number] Normal [facility] Basophil percentageOrdered B y: Chiquis Cortes on 01-04-2023 Basophil percentage 3.5 mg/dL 2.5-4.9 [facility] Chloride [Moles/Vol] 108 mmol/L 98-107 [facility] Glucose [Mass/Vol] 98 mg/dL 74-106 [facility] Potassium [Moles/Vol] 4.5 mmol/L 3.5-5.1 [facility] Sodium [Moles/Vol] 141 mmol/L 136-145 [facility] Laboratory - Chemistry and C hemistry - challengeOrdered By: Chiquis Cortes on 01-04-2023 CO2 [Moles/Vol] 27.0 mmol/L 21.0-32.0 [facility] Urea nitrogen/Creatinine [Mass ratio] 14.5 mg/mg - [facility] No Panel InformationOrdered By: Chiquis Cortes on 01-04-2023 Estimated GFR (MDRD) Amer 32 mL/min >60 [facility] Comment on above: GFR Calc Estimated GFR (MDRD) Non-Af Amer 27 mL/min >60 [facility] Comment on above: Non- GFR Calc Serum or plasma albumin jean urement (mass/volume)Ordered By: Chiquis Cortes on 01-04-2023 Albumin [Mass/Vol] 3.6 g/dL 3.2-5.0 [facility] Serum or plasma calcium jean urement (mass/volume)Ordered By: Chiquis Cortes on 01-04-2023 Calcium [Mass/Vol] 9.3 mg/dL 8.5-10.1 [facility] Serum or plasma creatinine m easurement (mass/volume)Ordered By: Chiquis Cortes on 01-04-2023 Creatinine [Mass/Vol] 1.93 mg/dL 0.55-1.02 [facility] Comment on above: The validity of the calculated GFR & GFRAA in patients over 70 years has not been determined. Clinical correlation is essential. Serum or plasma urea nitroge n measurement (mass/volume)Ordered By: Chiquis Cortes on 01-04-2023 Urea nitrogen [Mass/Vol] 28 mg/dL 7-18 [facility] Basophil percentageOrdered B y: Chiquis Cortes on 12-11-2022 Basophil percentage 10-25 SEEN /hpf 0-5 [facility] Bilirubin Test strip Ql (U)O rdered By: Chiquis Cortes on 12-11-2022 Bilirubin Ql (U) Negative Negative [facility] Ketones Test strip Ql (U)Ord ered By: Chiquis Cortes on 12-11-2022 Ketones Ql (U) 5 mg/dl Negative [facility] Mucus LM Ql (Urine sed)Order ed By: Chiquis Cortes on 12-11-2022 Mucus Ql (Urine sed) 0 SEEN /hpf [facility] Nitrite Test strip Ql (U)Ord ered By: Chiquis Cortes on 12-11-2022 Nitrite Ql (U) Negative Negative [facility] Protein Test strip Ql (U)Ord ered By: Chiquis Cortes on 12-11-2022 Protein Ql (U) 15 mg/dl Negative [facility] Squamous epithelial cells de tection in urine sediment by light microscopyOrdered By: Chiquis Cortes on 12-11-2022 Epithelial cells.squamous LM Ql (Urine sed) 0-5 SEEN /hpf 5-10 [facility] Urine blood detectionOrdered By: Chiquis Cortes on 12-11-2022 RBC Ql (U) 10 /ul Negative [facility] RBC Ql (U) 0-5 SEEN /hpf 0-5 [facility] Urine clarityOrdered By: Omeag Cortes on 12-11-2022 Clarity (U) Cloudy Clear [facility] Urine color determinationOrd ered By: Chiquis Cortes on 12-11-2022 Color (U) Yellow Yellow [facility] Urine glucose detectionOrder ed By: Chiquis Cortes on 12-11-2022 Glucose Ql (U) Normal mg/dl Normal [facility] Urine leukocyte esterase det ection by dipstickOrdered By: Chiquis Cortes on 12-11-2022 Leukocyte esterase Test strip Ql (U) 500 /ul Negative [facility] Urine pHOrdered By: Chela Cortes on 12-11-2022 pH (U) 5.0 [pH] 5.0 - 8.0 [facility] Urine sediment bacteria coun t by microscopy (number/high power field)Ordered By: Chiquis Cortes on 12-11-2022 Bacteria LM.HPF (Urine sed) [#/Area] 0 /[HPF] None Seen [facility] Urine specific gravity measu rementOrdered By: Chiquis Cortes on 12-11-2022 Specific gravity (U) [Rel density] 1.025 1.002-1.030 [facility] Urobilinogen Auto test strip Ql (U)Ordered By: Chiquis Cortes on 12-11-2022 Urobilinogen Ql (U) Normal mg/dl Normal [facility] Basophil percentageOrdered B y: Chiquis Cortes on 12-09-2022 Basophil percentage 3.2 mg/dL 2.5-4.9 [facility] Chloride [Moles/Vol] 109 mmol/L 98-107 [facility] Glucose [Mass/Vol] 102 mg/dL 74-106 [facility] Comment on above: Fasting Glucose resu lt from 100 to 125 mg/dL suggests IMPAIRED HOMEOSTASIS per A.D.A. criteria. Potassium [Moles/Vol] 4.2 mmol/L 3.5-5.1 [facility] Sodium [Moles/Vol] 139 mmol/L 136-145 [facility] Laboratory - Chemistry and C hemistry - challengeOrdered By: Chiquis Cortes on 12-09-2022 CO2 [Moles/Vol] 25.0 mmol/L 21.0-32.0 [facility] Urea nitrogen/Creatinine [Mass ratio] 18.2 mg/mg 10- [facility] No Panel InformationOrdered By: Chiquis Cortes on 12-09-2022 Estimated GFR (MDRD) Amer 30 mL/min >60 [facility] Comment on above: GFR Calc Estimated GFR (MDRD) Non-Af Amer 24 mL/min >60 [facility] Comment on above: Non- GFR Calc Serum or plasma albumin jean urement (mass/volume)Ordered By: Chiquis Cortes on 12-09-2022 Albumin [Mass/Vol] 3.5 g/dL 3.2-5.0 [facility] Serum or plasma calcium jean urement (mass/volume)Ordered By: Chiquis Cortes on 12-09-2022 Calcium [Mass/Vol] 9.6 mg/dL 8.5-10.1 [facility] Serum or plasma creatinine m easurement (mass/volume)Ordered By: Chiquis Cortes on 12-09-2022 Creatinine [Mass/Vol] 2.09 mg/dL 0.55-1.02 [facility] Comment on above: The validity of the calculated GFR & GFRAA in patients over 70 years has not been determined. Clinical correlation is essential. Serum or plasma urea nitroge n measurement (mass/volume)Ordered By: Chiquis Cortes on 12-09-2022 Urea nitrogen [Mass/Vol] 38 mg/dL 09-01 [facility] LABORATORYOrdered By: Katiana Proctor on 11-12-2022 ABO/Rh Interp Positive Invalid Interpretation Code AO BB SS Antibody Screen Gel Negative [facility]SC (11/12/22 1:07 PM) Invalid Interpretation Code AO BB SS LABORATORYOrdered By: SYSTEM SYSTEM on 11-12-2022 Albumin BCP dye [Mass/Vol] [...] 1:07 PM) Invalid Interpretation Code Not Detected Auto Viro/Sero SS Comment on above: Result Comment: [place] [id number] MRSA PCR Int MRSA DNA not detected [...] may not be reproducible. Invalid Interpretation Code Auto Viro/Sero SS Absolute lymphocyte countOrd ered By: Dr. Gibbs on 07-01-2022 Lymphocytes Auto (Unsp spec) [#/Vol] 1.43 10*3/uL 0.83-4.51 [facility] Basophil percentageOrdered B y: Dr. Gibbs on 07-01-2022 Basophils/100 WBC (Bld) 0.7 % 0-[address] [facility] Bilirubin [Mass/Vol] 0.60 mg/dL 0.20-1.00 [facility] Comment on above: For patients on eltr ombopag therapy, use of Dimension [place] TBIL is not recommended. Chloride [Moles/Vol] 110 mmol/L 98-107 [facility] Eosinophils/100 WBC (Bld) 2.1 % 0-5 [facility] Glucose [Mass/Vol] 102 mg/dL 74-106 [facility] Comment on above: Fasting Glucose resu lt from 100 to 125 mg/dL suggests IMPAIRED HOMEOSTASIS per A.D.A. criteria. Neutrophils (Bld) [#/Vol] 5.3 10*3/uL 2.0-7.7 [facility] Neutrophils/100 WBC (Bld) 70.8 % 47-70 [facility] Potassium [Moles/Vol] 4.3 mmol/L 3.5-5.1 [facility] Protein [Mass/Vol] 6.5 g/dL 6.4-8.2 [facility] Sodium [Moles/Vol] 142 mmol/L 136-145 [facility] WBC (Bld) [#/Vol] 7.5 10*3/uL 4.4-11.0 [facility] Blood erythrocytes count (nu mber/volume)Ordered By: Dr. Gibbs on 07-01-2022 RBC (Bld) [#/Vol] 3.91 10*6/uL 4.2-5.4 [facility] Blood hemoglobin measurement (mass/volume)Ordered By: Dr. Gibbs on 07-01-2022 Hemoglobin (Bld) [Mass/Vol] 12.0 g/dL 12.0-15.0 [facility] Blood lymphocytes/100 leukoc ytesOrdered By: Dr. Gibbs on 07-01-2022 Lymphocytes/100 WBC (Bld) 19.2 % 19-41 [facility] Blood monocytes/100 leukocyt esOrdered By: Dr. Gibbs on 07-01-2022 Monocytes/100 WBC (Bld) 7.1 % 0-[address] [facility] Blood platelet mean volumeOr dered By: Dr. Gibbs on 07-01-2022 Platelet mean volume (Bld) [Entitic vol] 10.0 fL 6.2-12.0 [facility] Determination of erythrocyte mean corpuscular volume (MCV)Ordered By: Dr. Gibbs on 07-01-2022 MCV (RBC) [Entitic vol] 95.1 fL 81-[address] [facility] Hematocrit Auto (Bld) [Volum e fraction]Ordered By: Dr. Gibbs on 07-01-2022 Hematocrit (Bld) [Volume fraction] 37.2 % 37-47 [facility] Laboratory - Chemistry and C hemistry - challengeOrdered By: Dr. Gibbs on 07-01-2022 ALP [Catalytic activity/Vol] 82 U/L 45-117 [facility] ALT [Catalytic activity/Vol] 26 U/L 13-56 [facility] CO2 [Moles/Vol] 24.0 mmol/L 21.0-32.0 [facility] Globulin (S) [Mass/Vol] 3.1 g/dL 2.2-4.[address] [facility] Urea nitrogen/Creatinine [Mass ratio] 17.1 mg/mg 10-20 [facility] Laboratory - Hematology and Cell countsOrdered By: Dr. Gibbs on 07-01-2022 Erythrocyte distribution width (RBC) [Entitic vol] 45.4 fL 35.1-43.9 [facility] Erythrocyte distribution width (RBC) [Ratio] 13.1 % 11.6-14.6 [facility] Immature granulocytes/100 WBC (Bld) 0.100 % 0.0-0.9 [facility] Comment on above: IG% - Immature Granu locytes (promyelocytes, myelocytes and metamyelocytes) > 1% indicates that a LEFT SHIFT is Present. MCH (RBC) [Entitic mass] 30.7 pg 27.0-32.0 [facility] Nucleated RBC/100 WBC (Bld) [Ratio] 0 % 0-5 [facility] MCHC Auto (RBC) [Mass/Vol]Or dered By: Dr. Gibbs on 07-01-2022 MCHC (RBC) [Mass/Vol] 32.3 g/dL 32-36 [facility] No Panel InformationOrdered By: Dr. Gibbs on 07-01-2022 Estimated GFR (MDRD) Amer 27 mL/min >60 [facility] Comment on above: GFR Calc Estimated GFR (MDRD) Non-Af Amer 22 mL/min >60 [facility] Comment on above: Non- GFR Calc Platelets bldOrdered By: Dr. Gibbs on 07-01-2022 Platelets (Bld) [#/Vol] 289 10*3/uL 150-450 [facility] Serum or plasma albumin jean urement (mass/volume)Ordered By: Dr. Gibbs on 07-01-2022 Albumin [Mass/Vol] 3.4 g/dL 3.2-5.0 [facility] Serum or plasma albumin/glob ulin mass ratioOrdered By: Dr. Gibbs on 07-01-2022 Albumin/Globulin [Mass ratio] 1.1 {ratio} 0.9-2.4 [facility] Serum or plasma calcium jean urement (mass/volume)Ordered By: Dr. Gibbs on 07-01-2022 Calcium [Mass/Vol] 8.9 mg/dL 8.5-10.1 [facility] Serum or plasma creatinine m easurement (mass/volume)Ordered By: Dr. Gibbs on 07-01-2022 Creatinine [Mass/Vol] 2.28 mg/dL 0.55-1.02 [facility] Comment on above: The validity of the calculated GFR & GFRAA in patients over 70 years has not been determined. Clinical correlation is essential. Serum or plasma urea nitroge n measurement (mass/volume)Ordered By: Dr. Gibbs on 07-01-2022 Urea nitrogen [Mass/Vol] 39 mg/dL 7-18 [facility] Thin prep Papanicolaou smear with manual screeningOrdered By: Dr. Gibbs on 07-01-2022 Thin prep Papanicolaou smear with manual screening 26 U/L 15-37 [facility] Thin prep Papanicolaou smear with manual screening 8 5-15 [facility] Basophil percentageOrdered B y: Dr. Gibbs on 06-01-2022 Chloride [Moles/Vol] 108 mmol/L 98-107 [facility] Cholesterol [Mass/Vol] 220 mg/dL <200 [facility] Comment on above: <200 mg/dL Desirable 200-240 mg/dL Borderline >240 mg/dL High Risk Glucose [Mass/Vol] 90 mg/dL 74-106 [facility] Potassium [Moles/Vol] 4.4 mmol/L 3.5-5.1 [facility] Sodium [Moles/Vol] 137 mmol/L 136-145 [facility] Triglyceride [Mass/Vol] 143 mg/dL <[address] [facility] Comment on above: The drugs N-Acetylcy steine and Metamizole may falsely depress this assay.Serum Triglycerides Reference Interval Normal <150 mg/dL Borderline high 150 - 199 mg/dL High 200 - 499 mg/dL Very High > or = 500 mg/dL Laboratory - Chemistry and C hemistry - challengeOrdered By: Dr. Gibbs on 06-01-2022 CO2 [Moles/Vol] 24.0 mmol/L 21.0-32.0 [facility] Urea nitrogen/Creatinine [Mass ratio] 21.6 mg/mg 10-20 [facility] No Panel InformationOrdered By: Dr. Gibbs on 06-01-2022 Estimated GFR (MDRD) Amer 34 mL/min >60 [facility] Comment on above: GFR Calc Estimated GFR (MDRD) Non-Af Amer 28 mL/min >60 [facility] Comment on above: Non- GFR Calc Serum or plasma calcium jean urement (mass/volume)Ordered By: Dr. Gibbs on 06-01-2022 Calcium [Mass/Vol] 9.6 mg/dL 8.5-10.1 [facility] Serum or plasma cholesterol in HDL measurement (mass/volume)Ordered By: Dr. Gibbs on 06-01-2022 Cholesterol in HDL [Mass/Vol] 63 mg/dL >40 [facility] Comment on above: The drugs N-Acetylcy steine and Metamizole may falsely depress this assay. Reference Range HDL <40 mg/dL Low HDL Cholesterol HDL >or= 60 mg/dL High HDL Cholesterol Serum or plasma cholesterol in VLDL measurement (mass/volume)Ordered By: Dr. Gibbs on 06-01-2022 Cholesterol in VLDL [Mass/Vol] 29 mg/dL 5-40 [facility] Serum or plasma creatinine m easurement (mass/volume)Ordered By: Dr. Gibbs on 06-01-2022 Creatinine [Mass/Vol] 1.85 mg/dL 0.55-1.02 [facility] Comment on above: The validity of the calculated GFR & GFRAA in patients over 70 years has not been determined. Clinical correlation is essential. Serum or plasma low density lipoprotein (LDL) cholesterol measurement (mass/volume)Ordered By: Dr. Gibbs on 06-01-2022 Cholesterol in LDL [Mass/Vol] 128 mg/dL 0-130 [facility] Serum or plasma urea nitroge n measurement (mass/volume)Ordered By: Dr. Gibbs on 06-01-2022 Urea nitrogen [Mass/Vol] 40 mg/dL 7-18 [facility] Thin prep Papanicolaou smear with manual screeningOrdered By: Dr. Gibbs on 06-01-2022 Thin prep Papanicolaou smear with manual screening 5 5-15 [facility] Absolute lymphocyte counton 12-25-2021 Lymphocytes Auto (Unsp spec) [#/Vol] 1.45 10*3/uL 0.83-4.51 [facility] Work Phone: Basophil percentageon 2021 Basophils/100 WBC (Bld) 0.7 % 0-[address] [facility] Work Phone: Bilirubin [Mass/Vol] 0.50 mg/dL 0.20-1.00 [facility] Work Phone: Comment on above: For patients on eltr ombopag therapy, use of Dimension [place] TBIL is not recommended. Chloride [Moles/Vol] 107 mmol/L 98-107 [facility] Work Phone: Cholesterol [Mass/Vol] 237 mg/dL <200 [facility] Work Phone: Comment on above: <200 mg/dL Desirable 200-240 mg/dL Borderline >240 mg/dL High Risk Eosinophils/100 WBC (Bld) 1.8 % 0-5 [facility] Work Phone: Glucose [Mass/Vol] 104 mg/dL 74-106 [facility] Work Phone: Comment on above: Fasting Glucose resu lt from 100 to 125 mg/dL suggests IMPAIRED HOMEOSTASIS per A.D.A. criteria. Neutrophils (Bld) [#/Vol] 4.6 10*3/uL 2.0-7.7 [facility] Work Phone: Neutrophils/100 WBC (Bld) 68.4 % 47-70 [facility] Work Phone: Potassium [Moles/Vol] 4.4 mmol/L 3.5-5.1 [facility] Work Phone: Protein [Mass/Vol] 7.3 g/dL 6.4-8.2 [facility] Work Phone: Sodium [Moles/Vol] 140 mmol/L 136-145 [facility] Work Phone: Triglyceride [Mass/Vol] 85 mg/dL <[address] [facility] Work Phone: Comment on above: The drugs N-Acetylcy steine and Metamizole may falsely depress this assay.Serum Triglycerides Reference Interval Normal <150 mg/dL Borderline high 150 - 199 mg/dL High 200 - 499 mg/dL Very High > or = 500 mg/dL WBC (Bld) [#/Vol] 6.7 10*3/uL 4.4-11.0 [facility] Work Phone: Blood erythrocytes count (nu mber/volume)on 12-25-2021 RBC (Bld) [#/Vol] 3.97 10*6/uL 4.2-5.4 [facility] Work Phone: [phone] Blood hemoglobin measurement (mass/volume)on 12-25-2021 Hemoglobin (Bld) [Mass/Vol] 12.8 g/dL 12.0-15.0 [facility] Work Phone: [phone] Blood lymphocytes/100 leukoc yteson 12-25-2021 Lymphocytes/100 WBC (Bld) 21.7 % 19-41 [facility] Work Phone: [phone] Blood monocytes/100 leukocyt eson 12-25-2021 Monocytes/100 WBC (Bld) 7.3 % 0-[address] [facility] Work Phone: [phone] Blood platelet mean volumeon 12-25-2021 Platelet mean volume (Bld) [Entitic vol] 9.1 fL 6.2-12.0 [facility] Work Phone: [phone] Determination of erythrocyte mean corpuscular volume (MCV)on 12-25-2021 MCV (RBC) [Entitic vol] 91.9 fL 81-[address] [facility] Work Phone: [phone] Hematocrit Auto (Bld) [Volum e fraction]on 12-25-2021 Hematocrit (Bld) [Volume fraction] 36.5 % 37-47 [facility] Work Phone: [phone] Laboratory - Chemistry and C hemistry - challengeon 12-25-2021 ALP [Catalytic activity/Vol] 83 U/L 45-117 [facility] Work Phone: ALT [Catalytic activity/Vol] 31 U/L 13-56 [facility] Work Phone: [phone] CO2 [Moles/Vol] 22.0 mmol/L 21.0-32.0 [facility] Work Phone: Globulin (S) [Mass/Vol] 3.6 g/dL 2.2-4.[address] [facility] Work Phone: Urea nitrogen/Creatinine [Mass ratio] 18.4 mg/mg 10-20 [facility] Work Phone: [phone] Laboratory - Hematology and Cell countson 12-25-2021 Erythrocyte distribution width (RBC) [Entitic vol] 41.9 fL 35.1-43.9 [facility] Work Phone: [phone] Erythrocyte distribution width (RBC) [Ratio] 12.5 % 11.6-14.6 [facility] Work Phone: [phone] Immature granulocytes/100 WBC (Bld) 0.100 % 0.0-0.9 [facility] Work Phone: [phone] Comment on above: IG% - Immature Granu locytes (promyelocytes, myelocytes and metamyelocytes) > 1% indicates that a LEFT SHIFT is Present. MCH (RBC) [Entitic mass] 32.2 pg 27.0-32.0 [facility] Work Phone: [phone] Nucleated RBC/100 WBC (Bld) [Ratio] 0 % 0-5 [facility] Work Phone: [phone] MCHC Auto (RBC) [Mass/Vol]on 12-25-2021 MCHC (RBC) [Mass/Vol] 35.1 g/dL 32-36 [facility] Work Phone: [phone] Panel Informationon 12-25 Estimated Creatinine Clearance Calc 19.49 ml/min [facility] Work Phone: [phone] Estimated GFR (MDRD) Amer 29 mL/min >60 [facility] Work Phone: [phone] Comment on above: GFR Calc Estimated GFR (MDRD) Non-Af Amer 24 mL/min >60 [facility] Work Phone: [phone] Comment on above: Non- GFR Calc Platelets bldon 12-25-2021 Platelets (Bld) [#/Vol] 244 10*3/uL 150-450 [facility] Work Phone: [phone] Serum or plasma albumin jean urement (mass/volume)on 12-25-2021 Albumin [Mass/Vol] 3.7 g/dL 3.2-5.0 [facility] Work Phone: Serum or plasma albumin/glob ulin mass ratioon 12-25-2021 Albumin/Globulin [Mass ratio] 1.0 {ratio} 0.9-2.4 [facility] Work Phone: Serum or plasma calcium jean urement (mass/volume)on 12-25-2021 Calcium [Mass/Vol] 9.7 mg/dL 8.5-10.1 [facility] Work Phone: Serum or plasma cholesterol in HDL measurement (mass/volume)on 12-25-2021 Cholesterol in HDL [Mass/Vol] 69 mg/dL >40 [facility] Work Phone: Comment on above: The drugs N-Acetylcy steine and Metamizole may falsely depress this assay. Reference Range HDL <40 mg/dL Low HDL Cholesterol HDL >or= 60 mg/dL High HDL Cholesterol Serum or plasma cholesterol in VLDL measurement (mass/volume)on 12-25-2021 Cholesterol in VLDL [Mass/Vol] 17 mg/dL 5-40 [facility] Work Phone: [phone] Serum or plasma creatinine m easurement (mass/volume)on 12-25-2021 Creatinine [Mass/Vol] 2.12 mg/dL 0.55-1.02 [facility] Work Phone: Comment on above: The validity of the calculated GFR & GFRAA in patients over 70 years has not been determined. Clinical correlation is essential. Serum or plasma low density lipoprotein (LDL) cholesterol measurement (mass/volume)on 12-25-2021 Cholesterol in LDL [Mass/Vol] 151 mg/dL 0-130 [facility] Work Phone: Serum or plasma urea nitroge n measurement (mass/volume)on 12-25-2021 Urea nitrogen [Mass/Vol] 39 mg/dL 7-18 [facility] Work Phone: [phone] Thin prep Papanicolaou smear with manual screeningon 12-25-2021 Thin prep Papanicolaou smear with manual screening 22 U/L 15-37 [facility] Work Phone: Thin prep Papanicolaou smear with manual screening 11 5-15 [facility] Work Phone: Basophil percentageon 2021 Chloride [Moles/Vol] 104 mmol/L 98-107 [facility] Work Phone: Glucose [Mass/Vol] 89 mg/dL 74-106 [facility] Work Phone: Potassium [Moles/Vol] 4.2 mmol/L 3.5-5.1 [facility] Work Phone: Sodium [Moles/Vol] 139 mmol/L 136-145 [facility] Work Phone: Laboratory - Chemistry and C hemistry - challengeon 06-02-2021 CO2 [Moles/Vol] 25.0 mmol/L 21.0-32.0 [facility] Work Phone: Urea nitrogen/Creatinine [Mass ratio] 19.8 mg/mg 10-20 [facility] Work Phone: No Panel Informationon 06-02 Estimated GFR (MDRD) Amer 35 mL/min >60 [facility] Work Phone: Comment on above: GFR Calc Estimated GFR (MDRD) Non-Af Amer 29 mL/min >60 [facility] Work Phone: Comment on above: Non- GFR Calc Serum or plasma calcium jean urement (mass/volume)on 06-02-2021 Calcium [Mass/Vol] 9.9 mg/dL 8.5-10.1 [facility] Work Phone: Serum or plasma creatinine m easurement (mass/volume)on 06-02-2021 Creatinine [Mass/Vol] 1.82 mg/dL 0.55-1.02 [facility] Work Phone: Comment on above: The validity of the calculated GFR & GFRAA in patients over 70 years has not been determined. Clinical correlation is essential. Serum or plasma urea nitroge n measurement (mass/volume)on 06-02-2021 Urea nitrogen [Mass/Vol] 36 mg/dL 09-01 [facility] Work Phone: Thin prep Papanicolaou smear with manual screening06-02-2021 Thin prep Papanicolaou smear with manual screening 06-29 [facility] Work Phone: Vital Signs Date Time Vital Sign Value Performing Clinician Faci lity 11-12-2022 12:30-0400 Body height 165.[address] KURT GALLAGHER MD [facility] 11-12-2022 12:30-0400 Body weight 109.[address] KURT GALLAGHER MD [facility] 01-01-2022 15:08-0500 Body height 162.[address] Magdy Gibbs Work Phone: [facility] Work Phone: 12-25-2021 13:34-0500 Body mass index (BMI) [Ratio] 38.1 kg/m2 Dr. Magdy Gibbs Work Phone: [facility] Work Phone: 12-25-2021 13:34-0500 Body temperature 98 [degF] Dr. Magdy Gibbs Work Phone: [facility] Work Phone: 12-25-2021 13:34-0500 Body weight 100.[address] Magdy Gibbs Work Phone: [facility] Work Phone: 12-25-2021 13:34-0500 Diastolic blood pressure 80 mm[Hg] Dr. Magdy Gibbs Work Phone: [facility] Work Phone: 12-25-2021 13:34-0500 Heart rate 64 /min Dr. Magdy Gibbs Work Phone: [facility] Work Phone: 12-25-2021 13:34-0500 Respiratory rate 16 /min Dr. Magdy Gibbs Work Phone: [facility] Work Phone: 12-25-2021 13:34-0500 SaO2% (BldA) [Mass fraction] 95 % Dr. Magdy Gibbs Work Phone: [facility] Work Phone: 12-25-2021 13:34-0500 Systolic blood pressure 145 mm[Hg] Dr. Magdy Gibbs Work Phone: [facility] Work Phone: 05-21-2020 13:36-0400 Body temperature 97.5 [degF] Dr. Magdy Gibbs Work Phone: [facility] Work Phone: 05-21-2020 13:36-0400 Body weight 109.[address] Magdy Gibbs Work Phone: [facility] Work Phone: 05-21-2020 13:36-0400 Diastolic blood pressure 75 mm[Hg] Dr. Magdy Gibbs Work Phone: [facility] Work Phone: 05-21-2020 13:36-0400 Heart rate 70 /min Dr. Magdy Gibbs Work Phone: [facility] Work Phone: 05-21-2020 13:36-0400 Respiratory rate 14 /min Dr. Magdy Gibbs Work Phone: [facility] Work Phone: 05-21-2020 13:36-0400 SaO2% (BldA) [Mass fraction] 95 % Dr. Magdy Gibbs Work Phone: [facility] Work Phone: 05-21-2020 13:36-0400 Systolic blood pressure 128 mm[Hg] Dr. Magdy Gibbs Work Phone: [facility] Work Phone: 02-20-2020 13:30-0500 Body mass index (BMI) [Ratio] 40.8 kg/m2 Dr. Magdy Gibbs Work Phone: [facility] Work Phone: Encounters Encounter Date Encounter Type Care Provider Facility Start: 10-02-2024 ambulatory Kurt Gallagher Facility: [facility] Start: 09-29-2024 Encounter for other preprocedural examination uKrt Galo [facility] Start: 09-20-2024 End: 09-20-[address] Magdy Gibbs MD Work Phone: -Laboratory [facility] Start: 09-20-2024 End: 09-20-[address] Magdy Gibbs MD -[facility] Start: 09-20-2024 End: 09-20-2024 ambulatory Magdy Gibbs Facility:[facility] Start: 08-15-2024 End: 08-15-[address] Magdy Gibbs MD Work Phone: -[facility] Start: 08-15-2024 End: 08-15-2024 Patient encounter procedure Terrie Rasmussen NP-C -[facility] Work Phone: Start: 08-15-2024 End: 08-15-2024 ambulatory Magdy Gibbs Facility:[facility] Start: 08-10-2024 ambulatory Magdy Gibbs Facility:[facility] Start: 08-10-2024 Non-patient / Non-visit [facility]. Kristin rajput [facility] Start: 08-10-2024 End: 08-10-[address] Magdy Gibbs MD Work Phone: -Cardiovascular Services Start: 08-10-2024 End: 08-10-2024 Patient encounter procedure Terrie Rasmussen [employer]-C -Cardiovascular Services Work Phone: Start: 08-10-2024 End: 08-10-2024 ambulatory Terrie Rasmussen NP Facility:[facility] Start: 08-01-2024 End: 08-01-2024 ambulatory Kurt Gallagher Facility:[facility] Start: 08-01-2024 End: 08-01-2024 Non-patient / Non-visit Dr. Demarcus Mathur MD -[facility] Work Phone: Start: 07-27-2024 Encounter for other preprocedural examination Magdy Gibbs [facility] Start: 07-24-2024 End: 07-24-[address] Magdy Gibbs MD Work Phone: [facility] Work Phone: Start: 07-24-2024 End: 07-24-[address] Magdy Gibbs MD -Laboratory [facility] Start: 07-24-2024 End: 07-24-2024 ambulatory Magdy Gibbs Facility:[facility] Start: 07-07-2024 End: 07-07-[address] Magdy Gibbs MD Work Phone: [facility] Work Phone: Start: 07-07-2024 End: 07-07-[address] Kurt Gallagher MD -Cat Scan [facility] Work Phone: Start: 07-07-2024 End: 07-07-2024 ambulatory Kurt Gallagher Facility:[facility] Start: 06-15-2024 End: 06-15-[address] Magdy Gibbs MD Work Phone: [facility] Work Phone: Start: 06-15-2024 End: 06-15-[address] Magdy Gibbs MD -Laboratory, [facility] Start: 06-15-2024 End: 06-15-2024 ambulatory Magdy Gibbs Facility:[facility] Start: 05-07-2023 Emergency department patient visit Facility:[facility] Start: 01-04-2023 End: 01-04-2023 ambulatory [facility] Work Phone: Start: 01-04-2023 End: 01-04-2023 Patient encounter procedure [facility]-Laboratory Work Phone: Start: 12-11-2022 End: 12-11-2022 ambulatory [facility] Work Phone: Start: 12-11-2022 End: 12-11-2022 Patient encounter procedure [facility]-Laboratory Work Phone: Start: 12-09-2022 End: 12-09-2022 Patient encounter procedure [facility]-Laboratory Work Phone: Start: 12-04-2022 End: 12-04-2022 ambulatory [facility] Work Phone: Start: 12-04-2022 End: 12-04-2022 Patient encounter procedure [facility]-Ultrasound, [facility] Work Phone: Start: 11-12-2022 End: 11-12-[address] KURT GALLAGHER MD [facility] Start: 11-12-2022 End: 11-12-[address] KURT GALLAGHER MD [facility] Start: 07-31-2022 End: 07-31-2022 ambulatory [facility] Work Phone: Start: 07-31-2022 End: 07-31-2022 Patient encounter procedure [facility]-Outpatient Breast Imaging Start: 07-01-2022 End: 07-01-2022 Patient encounter procedure [facility] Start: 06-01-2022 End: 06-01-2022 ambulatory [facility] Work Phone: Start: 06-01-2022 End: 06-01-2022 Patient encounter procedure [facility] Start: 01-01-2022 End: 01-01-[address] Magdy Gibbs Work Phone: [facility] Work Phone: Start: 01-01-2022 End: 01-01-[address] Magdy Gibbs Work Phone: [facility]-Outpatient Bone Densitometry Start: 12-25-[address] Magdy Gibbs Work Phone: [facility] Oncology Start: 12-25-2021 End: 12-25-[address] Magdy Gibbs Work Phone: [facility] Start: 07-29-2021 End: 07-29-2021 Patient encounter procedure [facility]-Outpatient Breast Imaging Start: 06-02-2021 End: 06-02-2021 Patient encounter procedure [facility]-Laboratory, [place] Procedures Date Procedure Procedure Detail Performing Clinician Start: 08-15-2024 X-ray of chest, PA a nd lateral views Dr. Magdy Gibbs MD Work Phone: Start: 08-10-2024 Cardiovascular stres s test using pharmacologic stress agent Dr. Magdy Gibbs MD Work Phone: Start: 07-07-2024 MRI of lower extremity Dr. [...] Obrien MD Ligation of fallopian tube D R KURT GALLAGHER MD Plan of Treatment Date Care Activity Detail Author Start: 08-15-2024 X-ray of chest, PA a nd lateral views Chest PA and Lateral [facility] Start: 08-15-2024 XR Chest PA and Lateral [facility] Start: 12-25-2021 Patient referral [facility] Work Phone: Start: 09-19-2018 [facility] Work Phone: Patient referral [facility] Work Phone: Payers Date Payer Category Payer Private Health Insurance [id number] 2024 Self-pay [id number] 2013 Medicare [id number] 2002 Unknown [id number] Unknown [id number] 2.16.8 [id number] Unknown [id number] 2.16.8 [id number] Unknown [id number] 2.16.8 [id number] Unknown [id number] 2.16.8 [id number] Unknown [id number] 2.16.8 [id number] Unknown [id number] 2.16.8 [id number] Unknown [id number] 2.16.8 [id number] Unknown [id number] 2.16.8 [id number] Unknown [id number] 2.16.8 [id number] Social History Date Type Detail Facility Start: 02-20-2020 End: 02-20-2020 Tobacco smoking status NHIS Unknown if ever smoked [facility] Start: 05-21-2020 Non-smoker [facility] Start: 1945 Sex Assigned At Female [facility] Start: 11-12-2022 End: 09-18-2024 Tobacco smoking status Never smoked tobacco (finding) [facility] Medical Equipment Procedure Code Equipment [...] 11-12-2022 Functional Status Sensory Deficits None A [facility] Clinical Notes 11-12-2022 to 09-24-2024 Note Date & Type Note Facility 09-24-2024 [facility] Medical Records Department [address] [place] [address] History Physical Exam 09/24/24 2211 MR#: [id number] Acct: [id number] Name: ANA MARÍA JO Rep #: [id number] : 1945 79 From: Prashant VAZ PA-C PCP: Dr. Magdy Gibbs MD Status:PRE [facility] Location: [facility] History and Physical History and Physical??? Patient Name: Ana María Jo : 1945From:??? PRASHANT STEIN PA-C??? DATE OF PRE-OPERATIVE EXAM: 09/22/2024 DATE OF SURGERY:??? 10/02/2024 SCHEDULED PROCEDURE:??? Robotic-assisted left total knee arthroplasty HISTORY OF PRESENT ILLNESS: Preoperative history and physical exam was performed on September 22, 2024.??? This is a 79-year-old female who has been having ongoing pain with her knee.??? 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 She has been getting progressive worsening symptoms with the left knee worse than the right.??? Her pain can reach 9/10 with activities.??? Her pain as being constant and aching.??? She has increased pain going up and down stairs and walking.??? She has had a recent fall with abrasion over the knee which is healed.??? Patient's walking ability has been significantly limited to where she can only walk the length of the room without significant pain.??? She has very difficult time putting weight on one leg to put on close.??? She has difficulty shopping.??? She has fallen secondary to her pain in the knees.??? She has tried rest, elevation, and corticosteroid injections without relief.??? She has tried previous lubrication injections without relief.??? She has been through physical therapy without relief.??? Due to patient's kidney disease she cannot use nonsteroidal anti- inflammatories.??? She has tried Tylenol without relief.??? Patient denies past history of surgery on the left knee.??? After failing conservative measures and discussing all treatment options with Dr. Kurt Gallagher, patient would like to proceed with a robotic assisted left total knee arthroplasty.??? Patient does have previous history of breast cancer in 2019.??? Increased urinary frequency, and anemia.??? Patient is following our anemia protocol.??? She has had clearance from the primary care provider Dr. Gibbs as well as water project engineer Dr. Chiquis Cortes.??? Patient denies recent chest pain, shortness of breath, fevers chills or recent infections.??? Patient denies past history of DVT or pulmonary embolism. REVIEW OF SYSTEMS: Review Of Systems: Constitutional: Denies anorexia, anxiety, change in appetite, fever, difficulty sleeping, weight change. Cardiovasular: Denies chest pain, heart murmur, irregular heartbeat and peripheral vascular disease. Respiratory: Denies asthma, cough, pneumonia, sleep apnea, shortness of breath, tuberculosis and wheezing. Gastrointestinal: Denies constipation, diarrhea, heartburn, nausea, rectal itching, bloody stools and vomiting. Genitourinary: Denies incontinence. Musculoskeletal: Reports gait disturbance, leg swelling, pain, trouble walking and weakness. Skin: Reports tattoo, but denies Raynaud's and history of shingles. Neurological: Denies ambulatory dysfunction, dizziness, numbness/tingling and tremor. Psychiatric: Reports anxiety and depression, but denies insomnia, mental illness and stress. Hematologic/Lymphatic: Reports anemia, but denies bleeding/bruising tendency and past transfusion. Reviewed and updated. PAST MEDICAL HISTORY: Advance Care Plan: No Advance Directives Effective Date: 09/29/2018 Past Medical History: Medical Problems: Arthritis, High Blood Pressure Cancer - (2019) LT breast??? anxiety, depression Acute kidney disease - stage 4 per daughter Urinary frequency, anemia Accidents: Other - (08/12/2024) fell injured left knee, left side of ribs, left arm, left wrist, and left hand - fell on cement on driveway??? Surgical Hx: Gallbladder - (1987) [facility] Hysterectomy Tubal Ligation - (1971) [facility] Lumpectomy - (08/2018) left breast??? Anesthesia Complications: None Assistive Devices: Glasses, Dentures Reviewed and updated. SOCIAL HISTORY: Social History: Marital: .Occupation: Retired.Work Status: Retired.Hand Dominance: Right-Handed. Personal Habits:??? Cigarette Use: Never.Smokeless Tobacco: Never Used Smokeless Tobacco.E-Cigarette Use: Never used.Alcohol: Occasionally.Drug Use: Denies Use.Enjoy Exercising: Never Exercises. Reviewed and updated. VITALS: Ht: 64 Wt: 190lb Wt k.184 BMI: 32.6 BP: 118/68 Pulse: 56 Resp: 20 T: 97.9 T: 36.6C Pain Level: 8/10 O2SatR: 98 ALLERGIES: No Known Drug Allergy??? MEDICATIONS: Folic Acid 1 mg 1 by mouth every day, Wellbutrin XL 300 mg 1 by mouth every day, Fluoxetine HCL 40 mg daily, Loratadine 10 mg take 1 tablet by mouth daily, Tylenol Extra Strength 500 mg as needed, Oxybutynin Chloride 5 mg 1 po bid, Aspirin 81 81 mg 1 po qdai (more content not included)... [facility] 08-15-2024 Radiology Diagnostic study note [facility] Imaging Services [address], [place] [address] Chest PA and Lateral MR#: [id number] Acct: [id number] Name: ANA MARÍA JO Rep #: [id number] : 1945 F 79 From: Bonnie Wiley MD PCP: Dr. Magdy Gibbs MD Status: MUSA KINNEY Study:Chest PA and Lateral Date of Exam: 08/15/24 Exam# [id number] Ordering Dr: Terrie Rasmussen NP, NP-John PROCEDURE: CHEST PA AND LATERAL 08/15/2024 REASON FOR EXAM: CHEST PAIN TECHNIQUE: CHEST PA AND LATERAL COMPARISON: 08/17/2018 FINDINGS: Mild pulmonary vascular congestion. No focal consolidation. No pleural effusion or pneumothorax. Moderate cardiomegaly. Aortic arch calcified No acute fractures. RAD/Chest PA and Lateral IMPRESSION: Mild pulmonary vascular congestion. No focal consolidation. Moderate cardiomegaly. Reading Location: [id number] CC: Terrie LINDO SNOWBOARDING INSTRUCTOR-C Grady; Dr. Magdy Gibbs MD ~ Decorative Engraver Apprentice: Signed [facility] 07-11-2024 Radiology Diagnostic study note [facility] Imaging Services [address] [place] [address] Extremity Lower without Contra MR#: [id number] Acct: [id number] Name: ANA MARÍA JO Rep #: [id number] : 1945 F 79 From: Didier Nava MD PCP: Dr. Magdy Gibbs MD Status: REG C LI Study:Extremity Lower without Contra Date of Exam: 07/07/24 Exam# [id number] Ordering Dr: Lilliam Gallagher MD PROCEDURE: EXTREMITY [...] Gibbs MD; Dr. 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 Family History No Family History Records Found Relationship Condition Age at Onset Recorded Date/T chapis sister Malignant neoplasm of lung Unknown mother Malignant neoplasm of lung Unknown Advance Directives No Advanced Directives Records Found Advance Directive Response Recorded Date/ Time Living Will No November 15 12:47pm Power of Model Maker Plaster No November 15 12:47pm Advance Directive Response Recorded Date/ Time Living Will No November 15 11:47am Power of Model Maker Plaster No November 15 11:47am Chief Complaint and [...] OA *JUAN LUIS PROTOCOL* July 07 3:00pm Chief Complaint Admit Date LT KNEE OA *JUAN LUIS PROTOCOL* July 07 3:00pm PREOP August 01, 2024 1:43 pm CP August 10, 2024 7:02 am CP August 10, 2024 1:50 pm CHEST PAIN August 15, 2024 11:26 am Summary Purpose Additional Source Comments Goals (unrecognized [...] 2024 End: June 15, 2024 Dr. Magdy iGbbs MD Referring Provider Active Start: June 15, [...] July 24, 2024 End: July 24, 2024 Team Status: Active Member Role/Relationship Status Dates Dr. Magdy Gibbs MD Primary Care Provider Active Team Status: Inactive Member Role/Relationship Status Dates Dr. Magdy Gibbs MD Primary Care Provider Active Start: June 15, 2024 End: June 15, 2024 Dr. Magdy Gibbs MD Attending Provider Active Start: June 15, 2024 End: June 15, 2024 Dr. Magdy Gibbs MD Referring Provider Active Start: June 15, 2024 End: June 15, 2024 Team Status: Inactive Member Role/Relationship Status Dates Dr. Magdy Gibbs MD Primary Care Provider Active Start: July 07, 2024 End: July 07, 2024 Dr. Kurt Gallagher MD Attending Provider Active Start: July 07, 2024 End: July 07, 2024 Dr. Kurt Gallagher MD Referring Provider Active Start: July 07, 2024 End: July 07, 2024 Team Status: Inactive Member Role/Relationship Status Dates Dr. Magdy Gibbs MD Primary Care Provider Active Start: July 24, 2024 End: July 24, 2024 Dr. Magdy Gibbs MD Attending Provider Active Start: July 24, 2024 End: July 24, 2024 Dr. Magdy Gibbs MD Referring Provider Active Start: July 24, 2024 End: July 24, 2024 Team Status: Active Member Role/Relationship Status Dates Dr. Magdy Gibbs MD Primary Care Provider Active Start: August 01, 2024 End: August 01, 2024 Dr. Demarcus Mathur MD Attending Provider Active S tart: August 01, 2024 End: August 01, 2024 Dr. Kurt Gallagher MD Referring Provider Active Start: August 01, 2024 End: August 01, 2024 Team Status: Inactive Member Role/Relationship Status Dates Dr. Magdy Gibbs MD Primary Care Provider Active Start: August 10, 2024 End: August 10, 2024 Terrie Rasmussen SNOWBOARDING INSTRUCTOR, SNOWBOARDING INSTRUCTOR-C Attending Provider Active Start: August 10, 2024 End: August 10, 2024 Terrie Rasmussen SNOWBOARDING INSTRUCTOR, SNOWBOARDING INSTRUCTOR-C Referring Provider Active Start: August 10, 2024 End: August 10, 2024 Team Status: Active Member Role/Relationship Status Dates Dr. Magdy Gibbs MD Primary Care Provider Active Start: August 10, 2024 Terrie Rasmussen SNOWBOARDING INSTRUCTOR, SNOWBOARDING INSTRUCTOR-C Referring Provider Active Start: August 10, 2024 Terriejessica Rasmussen SNOWBOARDING INSTRUCTOR, SNOWBOARDING INSTRUCTOR-C Other Provider Active St art: August 10, 2024 Dr. Kristin Powell MD Attending Provider Active Start: August 10, 2024 Team Status: Active Member Role/Relationship Status Dates Dr. Magdy Gibbs MD Primary Care Provider Active Start: August 15, 2024 Terriejessica Rasmussen SNOWBOARDING INSTRUCTOR, SNOWBOARDING INSTRUCTOR-C Attending Provider Active Start: August 15, 2024 Terriejessica Rasmussen SNOWBOARDING INSTRUCTOR, SNOWBOARDING INSTRUCTOR-C Referring Provider Active Start: August 15, 2024 Team Status: Inactive Member Role/Relationship Status Dates Dr. Magdy Gibbs MD Primary Care Provider Active Start: August 15, 2024 End: August 15, 2024 Terrie Rasmussen SNOWBOARDING INSTRUCTOR, SNOWBOARDING INSTRUCTOR-C Attending Provider Active Start: August 15, 2024 End: August 15, 2024 Terrie Rasmussen SNOWBOARDING INSTRUCTOR, SNOWBOARDING INSTRUCTOR-C Referring Provider Active Start: August 15, 2024 End: August 15, 2024 Team Status: Inactive Member Role/Relationship Status Dates Dr. Magdy Gibbs MD Primary Care Provider Active Start: September 20, 2024 End: September 20, 2024 Dr. Magdy Gibbs MD Attending Provider Active Start: September 20, 2024 End: September 20, 2024 Dr. Magdy Gibbs MD Referring Provider Active Start: September 20, 2024 End: September 20, 2024 INFORMATION SOURCE (unrecogn ized section and content) DATE CREATED AUTHOR 05/09/2023 [facility] DATE CREATED AUTHOR AUTHOR'S ORGANIZ ATION 09/30/2024 [facility] FOR RECORDS PERTAINING TO PATIENTS WHO ARE [...] BE BASED ON THE PRIMARY CLINICAL RECORDS. [employer] provides no warranty or guarantee of the accuracy or completeness of information in this document.
[2024-10-02] MEDS: Lactated Ringers 1,000 ML 15 ML IV (06:18)
[2024-10-02] MEDS: Magnesium 2 GM for ERAS IV (06:21)
--- NOTE | 2024-10-02 06:48 | PRE.ANES_ITS ---
ASA Classification* ASA Classification ASA Classification: 3 Assessment & Plan Anesthesia* Anesthesia Assessment Anesthesia Assessment: Discussed sedation and/or anesthesia options, risks, benefits, and alternatives with patient/parents/legal guardian/POA. Questions invited. The patient/parents/legal guardian/POA seems to understand and agrees to proceed with anesthesia plan. Reviewed the physical assessment, medical history, allergy history and patient home medications list prior to surgery/procedure/anesthetic and documented any changes. Performed airway and anesthesia risk assessments. Anesthesia Type Anesthesia Type: Spinal and Block (Patient is consented for adductor canal block.) History Source History Obtained from:: Patient and Chart Anesthesia Focused Assessment* Temperature: 97.1 F Pulse Rate: 57 Blood Pressure: 124/49 Respiratory Rate: 16 Pulse Ox: 97 Oxygen Delivery Method: Room Air Airway Assessment Mouth opens: >3 cm Mallampati Score: III Teeth Condition: Dentures (Patient has full upper dentures.) and Missing (Patient is missing several teeth on the bottom. The rest are tight.) Neck Range of motion (ROM): Limited ROM (Somewhat Decreased) Labs Anesthesia Preop lab: CBC WBC 6.4 K/mm3 (4.4-11.0) 08/01/24 13:58 08/01/24 RBC 3.73 M/mm3 (4.2-5.4) L 08/01/24 13:58 08/01/24 Hgb 11.6 g/dL (12.0-15.0) L 08/01/24 13:58 5 Hct 34.9 % (37-47) L 08/01/24 13:58 08/01/24 Plt Count 238 K/mm3 (150-450) 08/01/24 13:58 08/01/24 CHEMISTRY Potassium 4.4 mmol/L (3.3-5.1) 09/20/24 11:39 09/20/24 Sodium 142 mmol/L (133-145) 09/20/24 11:39 09/20/24 Magnesium 1.7 mg/dL (1.5-2.2) 08/01/24 13:58 08/01/24 Phosphorus 3.5 mg/dL (2.5-4.9) 01/04/23 15:08 01/04/23 BUN 27 mg/dL (4-19) H 09/20/24 11:39 09/20/24 Creatinine 1.69 mg/dL (0.70-1.20) H 09/20/24 11:39 Glucose 82 mg/dL (70-99) 09/20/24 11:39 09/20/24 TSH 1.81 uIU/mL (0.358-3.74) 03/30/17 11:20 COAG PT 13.4 SECONDS (11.9-14.4) 11/04/12 07:43 3 Pre-Assessment Diagnosis/Proposed Procedure Planned Operative Procedure(s): ROBOTIC ASSISTED LEFT TOTAL ARTHROPLASTY Anesthesia History Anesthesia History - portable track crew chief: Anesthesia History - portable track crew chief Hx Hospitalization No 09/18/24 10:05 Any Problems With Anesthesia No 09/18/24 10:05 Cholinesterase deficiency No 09/18/24 10:05 You/Your Family Experience No 09/18/24 10:05 fever (hyperthermia) with Relationship Recent Exposure to Contagious No 10/02/24 06:03 Disease Does patient have nerve No 09/18/24 10:05 stimulator Patient instructed to have device shut off --Does patient have Pacemaker No 10/02/24 06:07 or ICD? When Was Last Pacemaker Check QUESTION #4 FULL TEXT: You/Your Family Experience fever (hyperthermia) with Anesthesia Last Oral Intake Last Oral intake: Last Oral Intake NPO since 03:30 10/02/24 06:07 Meds taken in AM with sips of Yes 10/02/24 06:07 water? Meds patient instructed to take am of surgery Any additional information?: Yes NPO since: 03:30 (Patient took her meds with water at 3:30 AM.) Meds taken in AM with sips of water?: Yes PONV PONV - portable track crew chief: PONV - portable track crew chief Female Yes 09/18/24 10:05 HX of Motion Sickness No 09/18/24 10:05 HX of N/V After Surgery No 09/18/24 10:05 Non-Smoker Yes 09/18/24 10:05 Duration of Surgery greater No 09/18/24 10:05 than 60 minutes Number of Risk Factors 2 09/18/24 10:05 PONV Score Moderate Risk 09/18/24 10:05 Height & Weight Height & Weight: Anesthesia: Height & Weight Height 5 ft 4 in 10/02/24 06:07 Weight: 85.185 kg 10/02/24 06:07 Body Mass Index (BMI) 32.2 10/02/24 06:07 Respiratory Assessment Respiratory Assessment - portable track crew chief: Respiratory Tract Infection Hx - portable track crew chief Hx Respiratory Tract Infection No 09/18/24 10:05 STOP Sleep Apnea STOP Sleep Apnea - portable track crew chief: STOP Sleep Apnea - portable track crew chief Hx Hypertension Yes: CONTROLLED WITH MEDS 09/18/24 10:05 Hx Sleep Apnea No 09/18/24 10:05 CPAP No 09/18/24 10:05 BIPAP Do you snore loudly (louder No 09/18/24 10:05 than talking or can be heard Do you often feel tired/ No 09/18/24 10:05 fatigued/ sleepy during daytime? Has anyone observed you stop No 09/18/24 10:05 breathing during sleep? STOP Results Negative 09/18/24 10:05 QUESTION #5 FULL TEXT : Do you snore loudly (louder than talking or can be heard through closed doors)? Tobacco Use History Tobacco Use History - portable track crew chief: Tobacco Use History - portable track crew chief Tobacco Use Smoking Status Never smoker 09/18/24 10:05 Hx Tobacco Use No 09/18/24 10:05 Years Smoking Packs Smoked per Day Smoking Cessation Date was within the last 15 years Hx Smoking Cessation Date Hx Smoking Cessation Counseling Hematologic Medial History Hematologic Hx - portable track crew chief: Hematologic Medical Hx - nitriles lab technician Hx of Blood Transfusion No 09/18/24 10:05 Hx of Transfusion in last 3 No 09/18/24 10:05 Months Date of Last Transfusion (if within last 3 months) Ever experience any problems No 09/18/24 10:05 with transfusion(s)? Specify any problems Hx of Preganancy in last 3 No 09/18/24 10:05 Months Nurse Filling Out Transfusion [email or web address] 09/18/24 10:05 & Questions: Date: 09/18/24 09/18/24 10:05 Time: 10:05 09/18/24 10:05 Patient unable to answer at this time (ie. confused, unrespo /Reproduction History /Reproductive History - portable track crew chief: /Reproductive Hx- portable track crew chief Hx Now No 09/18/24 10:05 Gestational Age (in weeks): EDC: Hx Hx Para Hx Section SAB No 09/18/24 10:05 Active Medications Active Medications: Current Medications Generic Name Dose Route Start Last Admin Trade Name Radha PRN Reason Stop Dose Admin Acetaminophen 1,000 mg 10/02/24 09:00 10/02/24 06:19 Acetaminophen 500 Mg Tablet PO 10/02/24 09:01 1,000 mg PREOP ONE Administration Sodium Chloride 78.9 ml/ 0 ml 10/02/24 09:00 Ropivacaine 200 mg/ IV 10/02/24 09:01 Epinephrine HCl 0.6 mg/ INTRAOP ONE Morphine Sulfate 5 mg Gabapentin 600 mg 10/02/24 09:00 10/02/24 06:19 Gabapentin 600 Mg Tablet PO 10/02/24 09:01 600 mg PREOP ONE Administration Cefazolin Sodium 2 gm/ Sodium 110 mls @ 150 mls/hr 10/02/24 09:00 10/02/24 06:36 Chloride IV 10/02/24 09:43 Not Given INTRAOP ONE Tranexamic Acid 1,000 mg/ 110 mls @ 660 mls/hr 10/02/24 09:00 10/02/24 06:36 Sodium Chloride IV 10/02/24 09:09 Not Given INTRAOP ONE Tranexamic Acid 1,000 mg/ 110 mls @ 660 mls/hr 10/02/24 10:00 10/02/24 06:36 Sodium Chloride IV 10/02/24 10:09 Not Given INTRAOP ONE Lactated Ringer's 1,000 mls @ 999 mls/hr 10/02/24 10:00 IV 10/02/24 11:00 .Q1H1M TYRONE Lactated Ringer's 1,000 mls @ 125 mls/hr 10/02/24 11:00 IV 10/02/24 18:59 .Q8H TYRONE Magnesium Sulfate 2 gm/ 104 mls @ 208 mls/hr 10/02/24 09:00 10/02/24 06:21 Dextrose IV 10/02/24 09:29 208 mls/hr PREOP ONE Administration Lactated Ringer's 1,000 mls @ 15 mls/hr 10/02/24 05:45 10/02/24 06:18 IV 15 mls/hr .Q48H TYRONE Administration Insulin Human Lispro 1 - 6 unit 10/02/24 09:00 Insulin Lispro 100 Unit/Ml Insuln.Pen SC 10/02/24 15:00 Q4H PRN PRN BG>/= 180, SEE PROTOCOL Protocol PFSH Medical History Colonoscopy planned History of stress test History of Holter monitoring Wears glasses Wears dentures History of pain when walking Screening for intestinal cancer Breast cancer Arthritis Depression Obesity Benign essential hypertension Home Medications ?Medication ?Instructions ?Recorded ?Last Taken ?Type bupropion HCl 300 mg 24 hr tablet, 300 mg PO QAM 07/2210/02/24 03:15 History extended release (Wellbutrin XL) fluoxetine 20 mg capsule (Prozac) 20 mg PO DAILY 07/2210/02/24 03:15 History anastrozole 1 mg tablet See Rx Instructions .Route 0 03/26/22 10/01/24 08:00 Rx .COMPLEX #90 tabs cholecalciferol (vitamin D3) 25 25 mcg PO DAILY 10/02/24 03:15 History mcg (1,000 unit) capsule (Vitamin D3) folic acid 1 mg tablet 1 mg PO DAILY 10/02/2410/02 03:15 History lisinopril 20 mg tablet 20 mg PO DAILY 10/02/2409/15 08:00 History Allergy/AdvReac Type Severity Reaction Status Date / Time No Known Allergies Allergy Verified 10/02/24 06:00 Family History Sister Lung cancer Mother Lung cancer Surgical History History of lumpectomy of left breast (~08/2018) H/O tubal ligation S/P laparoscopic cholecystectomy H/O: hysterectomy Social History Smoking Status: Never smoker alcohol intake: never Review of Systems (Anesthesia) ROS Narrative System reviewed and no additional complaints, except as documented.
[2024-10-02] MEDS: Midazolam 2 MG/2 ML Syringe 1 MG IV (07:25)
[2024-10-02] MEDS: Cefazolin 1 GM/5 ML Vial 2 GM IV (07:25)
[2024-10-02] MEDS: Lidocaine 1% (5 ml sdv) 5 ML Vial 8 ML IV (07:43)
[2024-10-02] MEDS: TRANEXAMIC ACID 1,000 MG/10 ML ML 2000 MG IV (08:42)
[2024-10-02] MEDS: Joint Pain Solution (NO KETOROLAC) IV (08:44)
--- NOTE | 2024-10-02 08:47 | PCM.OPRPT ---
Operative Report (Standard) Operative Information Date of Procedure: 10/02/24 Pre-Operative Diagnosis: Left knee primary osteoarthritis Post-Operative Diagnosis: Left knee primary osteoarthritis Surgery/Procedure Performed: Left knee minimally invasive robotic assisted total arthroplasty office analyst: Yes Hoisting Machine Operator: Sara Gatica Tasks completed by physical laboratory assistant: Other (See body of operative report) Additional assistant family teacher?: No Type of Anesthesia: Spinal RN Documented Start/Stop Times: Operation Date: 10/02/24 07:30 Case Time Into Pre-Op 10/02/24 05:35 Anesthesia Start 10/02/24 07:26 Into Room 10/02/24 07:26 Out of Pre-Op 10/02/24 07:26 Procedure Start 10/02/24 07:56 Procedure End 10/02/24 09:49 Anesthesia End 10/02/24 09:55 Out of Room 10/02/24 09:55 Into Recovery 10/02/24 09:57 Procedure Start Time: 07:56 Procedure Stop Time: 09:49 Select all DRAINS/GRAFTS/IMPLANTS that apply: Prosthetic device Prosthetic device details: See body of operative report Special Medications: 2 g Ancef, 1 g TXA at incision, 1 g TXA closure, 10 mg Decadron, joint cocktail (5 mg Duramorph, 30 mL of 0.5% Ropivicaine, 1000 units of epinephrine, 30 mg of Toradol) Estimated Blood Loss: 100 mL Fluids Replaced: 800 mm crystalloid Specimen collected: Yes Description of specimen(s) removed: Bony cuts Description of surgery: Implants used: 1. Zan size 3 triathlon cruciate retaining distal femoral press-fit component 2. Zan size 4 press-fit tritanium tibial baseplate 3. Zan X3 11 mm CS polyethylene 4. Zan X3 35 mm asymmetric patella Brief history operative indications: 79-year-old female with history of left knee osteoarthritis with radiographic findings with loss of joint space, osteophyte formation and subchondral sclerosis. Failed conservative measures as mentioned in the H&P. Discussion of total knee arthroplasty as well as risk and benefits were discussed the patient including but not limited to blood loss, DVTs, PEs, neurovascular damage, general risk of anesthesia including loss of life, and stiffness or instability were discussed with patient. Patient demonstrated understanding and was able to sign informed consent. Procedure: On the date of procedure patient's left lower extremity was marked in the preoperative area. The patient was then taken back to the operating room where the patient was placed on the table in the supine position. All bony prominences were identified a well-padded. Anesthesia assumed control of the C-spine and airway and remained controlled throughout the remainder of the procedure. A tourniquet was placed on the left upper thigh and the leg was prepped in a sterile fashion. The surgeon then scrubbed at this time .Upon reentering the room left lower extremity was draped in a standard orthopedic fashion. A timeout was then called and everyone agreed upon the side, the site, the procedure to be performed, patient's identity and antibiotics given. Esmarch bandage was used to exsanguinate the extremity and the tourniquet was placed up to 250 mmHg with the knee in flexion. A midline skin incision was made and sharp dissection was taken down through skin subcutaneous tissue and fat. The standard medial parapatellar incision was made and the patella was subluxed laterally. An Appropriate deep MCL release was done and the fat pad was resected. Our attention was then directed to the patella. The patella was everted and a flat resection was made. The knee was then flexed up in 2 femoral pins were placed inside the incision and 2 tibial pins were placed outside the incision in the medial tibia bicortically. Once this was completed the 2 checkpoints in the femur and tibia were placed. Knee was then flexed up and the bony landmarks were registered. Once this was completed knee was taken through range of motion and manually stressed allowing us to a plan for an appropriate tibial cut. The robotic arm was brought into the field sterilely and checkpoint and saw were registered. Based on the patient's deformity the tibial cut was made in 2 degrees of varus. At this time the tensioner was then placed in the joint and ligament tension was checked at 90 degrees and full extension. Based on the patient's ligamentous tension appropriate adjustments were made to the operative plan and ligament releases were done. Once we were happy with our operative plan with balanced flexion and extension gaps our attention was directed to the femur. The robot was brought into the field sterilely and registered. Posterior condylar cuts, anterior chamfer cuts and anterior cuts were appropriately made for a size 3 femur. When these were completed the saws were switched out in the distal femoral and posterior chamfer cuts were made. Protecting the soft tissue throughout this time. A size 4 tibial base plate was selected. the knee was flexed to 90 degrees and the soft tissues and posterior osteophytes were removed from the joint. 40 cc of the periarticular injection was injected into the posterior medial corner of the joint. The appropriate trials were then placed on the femur and tibia. A trial polyethylene was trialed to ensure proper balancing and stability of the knee. The appropriate tibial internal rotation was then marked with a bovie. Our attention was then directed to the patella. The lug holes were drilled and the patella trial was placed. Patellar tracking was checked and deemed appropriate. Once we were happy lug holes were drilled for the femur and trial components were removed. The tibia was subluxed and pinned into place and the keel was punched and drilled appropriately. Final components were verified and opened. The wound was copiously irrigated with normal saline. When the cement was ready the components were impacted into place starting with the tibia then the femur, finally the patella was compressed into place. The trial poly component was placed and the knee was placed in full extension. Once the the implants were secured, the tracking, alignment and balance were verified and a size 11 mm CS polyethylene component was placed. Once the final components were placed a 3-minute dilute Betadine lavage was performed followed by an Irrisept lavage was performed and the wound was copiously irrigated with normal saline solution and the periarticular injection was given. The wound was closed in a layer yi fashion using #1 vicryl interrupted sutures for the arthrotomy, 2-0 interrupted Vicryl suture for the subcuticular layer and latoya for final skin closure. A sterile compressive dressing was then placed. The patient was then awakened from anesthesia, [facility] and transferred to the PACU for recovery. Post op plan DVT ppx: ASA 81mg BID, thigh high compression stockings Follow up: in office in 2 weeks for wound check PT: to start POD #0 at hospital, outpatient PT should be arranged. My physician assistant family teacher was a vital part of this case, they was important because there was not another skilled set of hands available to their training and aptitude needed for safe and appropriate completion of this case. They were important in appropriate retraction during the case, and protection of soft tissues during bony cuts. In particular the experience and skill of this assistant family teacher made for safe retraction and exposure during implantation of medical implants without damage to vital soft tissues or structures. His intimate knowledge of the case and my steps aided in safe and expedient completion of the procedure as well as appropriate position of the leg during the case. He was also vital in assisting with closure under my direct supervision. Due to the complexity of this case robotic arm was used to assist in the surgery to improve accuracy and clinical outcomes. Surgical Findings: Stage IV osteoarthritis. Stable knee with good patella tracking Complications Complications: No Admit VTE Documentation VTE Present on Admission: No VTE Mechan Device Prophylaxis: SCD's and Thigh High ROSA Hose VTE Pharm Prophylaxis ordered?: Yes
--- NOTE | 2024-10-02 10:40 | RAD_ITS ---
PROCEDURE: KNEE 1 OR 2 VIEWS 10/02/2024 REASON FOR EXAM: TKA, left. TECHNIQUE: Two-view postoperative left knee COMPARISON: Preoperative left knee of 06/03/2020. RAD/Knee 1 or 2 Views IMPRESSION: The patient's postoperative left total knee arthroplasty, with overlying skin s taples seen. No complication is identified. Satisfactory alignment is seen. No fracture site is evident. Reading Location: [facility]
--- NOTE | 2024-10-02 10:56 | PCM.POST.ANE ---
Anesthesia: Postop Eval I Current Vital Signs Temperature: 98 F Pulse Rate: 75 Blood Pressure: 131/64 Respiratory Rate: 16 Pulse Ox: 99 Assessment Airway patent: Yes Spontaneous unlabored respirations: Yes nausea: No Vomiting: No Anesthesia Complication: No Fluid Hydration Crystalloid volume administer (ml): 1,500 Total IV fluid infused: 1,500 Progress Note Anesthesia document: Postop Eval 1 completed: Yes
[2024-10-02] MEDS: LR 1,000 ML - BOLUS POSTOP 999 ML IV (11:32)
[2024-10-02] MEDS: Senna/Docusate Sodium 1 Tablet 2 TABLET PO ×2 (12:26→22:58)
[2024-10-02] MEDS: LR 1,000 ML - 125 ML/HR (POST BOLUS) POST OP IV (12:26)
--- NOTE | 2024-10-02 13:44 | PCM.PROGNOTE ---
Subjective Subjective Patient is a 79 y/o female with a PMH as outlined who was admitted to the service of orthopedic surgery on 10/02/2024 for left total knee arthroplasty. Hospitalist service was consulted for medical management. Patient was noted to be hypotensive in the PACU with blood pressure going to as low as 84/55. She was hydrated with IV fluids. At time of my review she denied any chest pain, shortness of breath, dizziness or lightheadedness, palpitations, nausea or vomiting or any other symptoms. She does have high blood pressure and says she took her oral lisinopril this morning. She was a bit drowsy and hard of hearing though she was responsive to voice. Review of systems otherwise negative. Her blood pressure had come up to 121/59 at time of review after she was given a bolus of NS 1L in the ED. Objective Data Objective Data Vital Signs: Vital Signs Temp Pulse Resp BP Pulse Ox O2 Del Method O2 Flow Rate 97.6 F L 62 16 121/59 H 100 Nasal Cannula 4 10/02/24 13:42 10/02/24 13:42 10/02/24 13:42 10/02/24 13:42 10/02/24 13:42 10/02/24 13:42 10/02/24 13:42 FiO2 28 10/02/24 10:15 Oxygen Flow Rate (L/min) 4 Oxygen Delivery Method Nasal Cannula Weight: 187 lb 12.8 oz Body Mass Index (BMI) 32.2 Intake & Output: Intake and Output for Last 24 Hours 09/30/24 10/01/24 10/02/24 23:59 23:59 23:59 Intake Total 3036.4 / 3036.4 Output Total 200 / 200 Balance 2836.4 / 2836.4 Lab / Micro Data 08/01/24 13:58 Labs: Laboratory Results - last 24 hr 10/02/24 05:59: POC Glucose 92 Micro: Microbiology 08/01/24 13:58 Nasal Secretion Nasal Screen MRSA/MSSA - Final Radiography Diagnostic Testing: Radiology Impression Knee X-Ray 10/02/24 10:40 IMPRESSION: The patient's postoperative left total knee arthroplasty, with overlying skin latoya seen. No complication is identified. Satisfactory alignment is seen. No fracture site is evident. Reading Location: [place] [address] Physical Exam Const Constitutional Narrative: is responsive and able to respond and answer questions. Orientation / Consciousness: lethargic HEENT normocephalic, head/scalp atraumatic, moist oral mucous membranes and oropharynx normal Eyes PERRL and EOMs intact bilaterally Neck supple and no JVD Lymph Lymphatic: no lymphedema noted Resp normal respiratory effort, normal air movement and clear to auscultation bilaterally Cardio regular rate, regular rhythm, S1 normal heart sound, S2 normal heart sound and no murmurs GI normal to inspection, nondistended, normoactive bowel sounds, soft to palpation and non-tender Extremity normal capillary refill, no clubbing, cyanosis or edema and no calf tenderness Extremity Narrative: left knee wrapped in dressing. Skin General Skin Exam: no breakdown Neuro CN's II-XII intact bilaterally Motor Exam: general weakness Psych Psych Narrative: lethargic, flat affect Mood & Affect: flat affect Assessment & Plan Assessment/Plan (1) Hypotension: PLAN: Plan #Post op hypotension Patient is s/p left total knee replacement. She is hypertensive and took her lisinopril this morning. After surgery blood pressure dropped to as low as 84/45. She had been at around 130/64 prior to surgery. This is likely due to the effects of the blood pressure medication compounded by anesthesia effect. She did respond to IV fluids and blood pressure, up to 121/59 at time of my review. Continue hydration with IV fluid normal saline at 125 cc/h for 2 bags. Hold lisinopril. PT OT on board. Monitor blood pressure. For precautions. #Left knee osteoarthritis s/p left knee minimally invasive robotic assisted total arthroplasty She had the surgery done on 10/02/2024. Today's postop day 0. Management as per primary service orthopedics. # Hypertension: BP meds STARLA lisinopril on hold due to hypotension. IV hydralazine as needed #History of breast cancer: On anastrozole. #Depression and anxiety: On bupropion and fluoxetine DVT prophylaxis: As per primary service orthopedics. Charges/Coding Visit Charges Inpatient E&M: 34023 Subs Hosp L2
--- NOTE | 2024-10-02 13:47 | POSTOPAN2_ITS ---
Anesthesia Postop Eval I Sum Postop Eval Completion status Anesthesia document: Postop Eval 1 completed: Yes Anesthesia Postop Eval I Summary Anesthesia Postop Eval I Summary: Anesthesia Postop Eval I: Assessment Summary Airway patent Yes 10/02/24 10:56 LAYER OFF.[email or web address] Spontaneous unlabored Yes 10/02/24 10:56 LAYER OFF.[email or web address] respirations Mental status nausea No 10/02/24 10:56 LAYER OFF.TNES Vomiting No 10/02/24 10:56 LAYER OFF.TNES Anesthesia Postop Eval I: Fluid Summary Crystalloid volume administer 1,500 10/02/24 10:56 LAYER OFF.TNES (ml) Colloids volume administered ( ml) Blood Product volume administered (ml) Total IV fluid infused 1,500 10/02/24 10:56 LAYER OFF.TNES Anesthesia Postop Eval I: Summary Notes Anesthesia Complication No 10/02/24 10:56 LAYER OFF.TNES Anesthesia Complication Comment: Post-operative progress note Anesthesia: Postop Eval II Evaluation Mental status: Awake and Calm Pain Level: 1 nausea: No Vomiting: No Complications Anesthesia Complication: No
--- NOTE | 2024-10-02 13:47 | PCM.POSTANE2 ---
Anesthesia Postop Eval I Sum Postop Eval Completion status Anesthesia document: Postop Eval 1 completed: Yes Anesthesia Postop Eval I Summary Anesthesia Postop Eval I Summary: Anesthesia Postop Eval I: Assessment Summary Airway patent Yes 10/02/24 10:56 COOPERATIVE EXTENSION AGENT.[email or web address] Spontaneous unlabored Yes 10/02/24 10:56 COOPERATIVE EXTENSION AGENT.TNES respirations Mental status nausea No 10/02/24 10:56 COOPERATIVE EXTENSION AGENT.TNES Vomiting No 10/02/24 10:56 COOPERATIVE EXTENSION AGENT.TNES Anesthesia Postop Eval I: Fluid Summary Crystalloid volume administer 1,500 10/02/24 10:56 COOPERATIVE EXTENSION AGENT.TNES (ml) Colloids volume administered ( ml) Blood Product volume administered (ml) Total IV fluid infused 1,500 10/02/24 10:56 COOPERATIVE EXTENSION AGENT.TNES Anesthesia Postop Eval I: Summary Notes Anesthesia Complication No 10/02/24 10:56 COOPERATIVE EXTENSION AGENT.TNES Anesthesia Complication Comment: Post-operative progress note Anesthesia: Postop Eval II Evaluation Mental status: Awake and Calm Pain Level: 1 nausea: No Vomiting: No Complications Anesthesia Complication: No
[2024-10-02] MEDS: Cefazolin 1 GM/50 ML BAG IV (15:59)
[2024-10-02] MEDS: Ensure Surgery 237 ML LIQUID PO (17:11)
[2024-10-03] MEDS: Cefazolin 1 GM/50 ML BAG IV (00:01)
[2024-10-03 00:04] VITALS: BP 140/69; PULSE 66; RESP 16; TEMP 36.6; O2SAT 96
[2024-10-03] MEDS: 0.9% Saline Lock 10 ML Syringe IV (00:04)
[2024-10-03 04:16] VITALS: BP 142/78; PULSE 72; RESP 16; TEMP 36.8; O2SAT 96
[2024-10-03 07:03] LABS: Hematocrit 31.0 % (37-47); Hemoglobin 10.3 g/dL (12.0-15.0); Mean Corp Hgb Conc 33.2 g/dL (32-36); Mean Corpuscular Volume 92.8 fL (81-99); Mean Platelet Vol. 9.8 fl (6.2-12.0); Platelet Count 203 K/mm3 (150-450); RBC Distribution Width CV 12.9 % (11.6-14.6); RBC Distribution Width SD 43.8 fl (35.1-43.9); Red Blood Count 3.34 M/mm3 (4.2-5.4); White Blood Count 7.4 K/mm3 (4.4-11.0)
[2024-10-03 07:36] LABS: Anion Gap 10 (5-15); BUN 32 mg/dL (4-19); BUN/Creat Ratio 18.2 RATIO (10-20); Calcium,Total 9.2 mg/dL (7.6-11.0); Carbon Dioxide 22.9 mmol/L (21.0-32.0); Chloride 105 mmol/L (98-108); Estimated Creatinine Clearance 27.69 ml/min (50-250); Glucose 109 mg/dL (70-99); Potassium 4.4 mmol/L (3.3-5.1)
[2024-10-03 08:00] VITALS: BP 142/61; PULSE 52; RESP 16; TEMP 36.7; O2SAT 95
[2024-10-03] MEDS: Senna/Docusate Sodium 1 Tablet 2 TABLET PO (08:16)
--- NOTE | 2024-10-03 11:46 | CASEMGMT ---
KYARA GARCIA Assessment and RICHARDS Form Met with patient to review RICHARDS form. RICHARDS form and its content were verbally explained and patient?s questions were answered to the best of my ability. Patient voiced understanding and signed RICHARDS form. Patient provided a copy of signed RICHARDS form and original placed in patient?s chart. Patient had no further questions or concerns. Face to Face with patient for initial transition planning/care coordination assessment. KYARA GARCIA introduced self and role at [facility], pt voices understanding. Pt is A&Ox4 and is resting comfortably in bed and is calm. Care providers, pharmacy, and demographics verified. Admitting dx: TKR ALEXXSue Strata: 2 PCP: Magdy Gibbs Specialists: Galo (Ortho) Preferred Pharmacy: [facility] Insurance: [employer] Prescription Benefit: Yes LNOK: Bianca (Daughter), Deanna (Daughter), Ronnie (Friend) Living Arrangements: Pt lives with her friend, Ronnie, in a trailer with 4 steps to enter with handrails ADLs/IADLs: Pt states that she is indep at baseline. Pt states that Ronnie is able to help the pt at home. See PT notes. Transportation: Self, daughters. Denies concerns DME: WC, Rollator, FWW, Cane, shower chair, grab bars HHC/SNF: Denies hx of Pt?s goal: Home Plan: Home with OP therapy. Pt states that she is already established with OP PT in [place] on Wednesday. Pt states that her daughters will be able to drive her. Pt states that she feels safe returning home with her friend and daughters at the time of DC. Pt states that she feels safe with this plan and denies any further questions or concerns. Report given to ANGELO SPARROW CM. Harris Zuniga RN, CM
--- NOTE | 2024-10-03 11:54 | PN_ITS ---
Subjective Subjective Patient seen and examined with her nurse by her bedside. She felt much better and had no active complaints. Her BP is much better. Review of systems is otherwise negative. Objective Data Objective Data Vital Signs: Vital Signs Temp Pulse Resp BP Pulse Ox O2 Del Method O2 Flow Rate 98.2 F 72 16 142/78 H 96 Room Air 2 10/03/24 04:16 10/03/24 04:16 10/03/24 04:16 10/03/24 04:16 10/03/24 04:16 10/03/24 04:16 10/02/24 15:53 FiO2 28 10/02/24 10:15 Oxygen Flow Rate (L/min) 2 Oxygen Delivery Method Room Air Weight: 187 lb 12.8 oz Body Mass Index (BMI) 32.2 Intake & Output: Intake and Output for Last 24 Hours 10/01/24 10/02/24 10/03/24 23:59 23:59 23:59 Intake Total 4536.4 / 4536.4 50 / 50 Output Total 200 / 200 Balance 4336.4 / 4336.4 50 / 50 Lab / Micro Data 10/03/24 06:26 10/03/24 06:26 Labs: Laboratory Results - last 24 hr 10/03/24 06:26: WBC 7.4, RBC 3.34 L, Hgb 10.3 L, Hct 31.0 L, MCV 92.8, MCH 30.8, MCHC 33.2, RDW Std Deviation 43.8, RDW Coeff of Catracho 12.9, Plt Count 203, MPV 9.8, Sodium 138, Potassium 4.4, Chloride 105, Carbon Dioxide 22.9, Anion Gap 10, BUN 32 H, Creatinine 1.74 H, Estim Creat Clear Calc 27.69 L, Est GFR (MDRD) Non- Af 29 L, BUN/Creatinine Ratio 18.2, Glucose 109 H, Calcium 9.2 Micro: Microbiology 08/01/24 13:58 Nasal Secretion Nasal Screen MRSA/MSSA - Final Physical Exam Const Constitutional Narrative: is responsive and able to respond and answer questions. Orientation / Consciousness: lethargic HEENT normocephalic, head/scalp atraumatic, moist oral mucous membranes and oropharynx normal Eyes PERRL and EOMs intact bilaterally Neck supple and no JVD Lymph Lymphatic: no lymphedema noted Resp normal respiratory effort, normal air movement and clear to auscultation bilaterally Cardio regular rate, regular rhythm, S1 normal heart sound, S2 normal heart sound and no murmurs GI normal to inspection, nondistended, normoactive bowel sounds, soft to palpation and non-tender Extremity normal capillary refill, no clubbing, cyanosis or edema and no calf tenderness Extremity Narrative: left knee wrapped in dressing. Skin General Skin Exam: no breakdown Neuro CN's II-XII intact bilaterally Motor Exam: general weakness Psych thought process normal, cooperative and affect normal Mood & Affect: flat affect Assessment & Plan Assessment/Plan (1) Hypotension: PLAN: Plan #Post op hypotension * Patient is s/p left total knee replacement. She is hypertensive and took her lisinopril on the morning of surgery After surgery blood pressure dropped to as low as 84/45. She had been at around 130/64 prior to surgery. * This is likely due to the effects of the blood pressure medication compounded by anesthesia effect. She did respond to IV fluids. * BP now up to 142/61 this morning. * Will resume home dose of lisinopril 20mg daily. * PT OT on board. Monitor blood pressure. Fall precautions. #Left knee osteoarthritis s/p left knee minimally invasive robotic assisted total arthroplasty * She had the surgery done on 10/02/2024. Today's postop day 0. * Management as per primary service orthopedics. # Hypertension: Lisinopril resumed. IV hydralazine as needed #History of breast cancer: On anastrozole. #Depression and anxiety: On bupropion and fluoxetine DVT prophylaxis: As per primary service orthopedics. Charges/Coding Visit Charges Inpatient E&M: 71675 Subs Hosp L2
[2024-10-03 13:22] VITALS: BP 121/54; PULSE 62; RESP 16; TEMP 36.6; O2SAT 96
--- NOTE | 2024-10-03 17:13 | PN.ORTHO_ITS ---
Subjective Subjective Patient appears comfortable in bedside chair upon examination. Patient states that her pain is controlled. Patient states that she feels very comfortable with going home. Patient states that she has help at home and also has family coming to help in visit. Patient denies any nausea or vomiting. Patient denies any new numbness or tingling. Patient denies any fevers, chills, signs of infection. Patient denies any shortness of breath, chest pain, calf pain. Patient denies any adverse events overnight. Objective Data Objective Data Vital Signs: Vital Signs Temp Pulse Resp BP Pulse Ox O2 Del Method O2 Flow Rate 97.9 F 62 16 121/54 H 96 Room Air 2 10/03/24 13:22 10/03/24 13:22 10/03/24 13:22 10/03/24 13:22 10/03/24 13:22 10/03/24 13:22 10/02/24 15:53 FiO2 28 10/02/24 10:15 Oxygen Flow Rate (L/min) 2 Oxygen Delivery Method Room Air Weight: 85.185 kg Body Mass Index (BMI) 32.2 Intake & Output: Intake and Output for Last 24 Hours 10/01/24 10/02/24 10/03/24 23:59 23:59 23:59 Intake Total 4536.4 / 4536.4 50 / 50 Output Total 200 / 200 Balance 4336.4 / 4336.4 50 / 50 Lab / Micro Data 10/03/24 06:26 10/03/24 06:26 Labs: Laboratory Results - last 24 hr 10/03/24 06:26: WBC 7.4, RBC 3.34 L, Hgb 10.3 L, Hct 31.0 L, MCV 92.8, MCH 30.8, MCHC 33.2, RDW Std Deviation 43.8, RDW Coeff of Catracho 12.9, Plt Count 203, MPV 9.8, Sodium 138, Potassium 4.4, Chloride 105, Carbon Dioxide 22.9, Anion Gap 10, BUN 32 H, Creatinine 1.74 H, Estim Creat Clear Calc 27.69 L, Est GFR (MDRD) Non- Af 29 L, BUN/Creatinine Ratio 18.2, Glucose 109 H, Calcium 9.2 Micro: Microbiology 08/01/24 13:58 Nasal Secretion Nasal Screen MRSA/MSSA - Final Physical Exam Narrative Vital stable and afebrile ROSA hose in place bilaterally SCDs in place bilaterally Dressing is clean, dry, intact. Sensation intact to light touch. Neurovascularly intact overall. Dorsiflexion and plantarflexion are performed actively without pain or restriction. Negative Homans bilaterally. Const alert, oriented x3 and no apparent distress Assessment & Plan Assessment/Plan (1) Status post total left knee replacement: PLAN: Status post left knee robotic assisted total arthroplasty postop day 1. 1. DVT prophylaxis: Patient will be on aspirin 81 mg twice daily for 4 weeks postoperatively. Patient will be on ROSA hose for 2 weeks postoperatively. Patient was educated she can take her ROSA hose off for showering and at bedtime. 2. Pain medications: Patient will be on Tylenol 1000 mg every 8 hours, as well as oxycodone as needed for pain control. Patient is not to take anti- inflammatory medications due to chronic kidney disease. 3. Constipation: Patient was educated to take senna as instructed until her first bowel movement to decrease risk of impaction following surgery. Patient was instructed if if she has not had a bowel movement in 3 days to contact our office for reevaluation. 4. Patient did have postoperative hypotension which has since resolved. 5. H&H: 10.3/31.0. Patient is already following anemia protocol and taking ferrous sulfate and folic acid. Will have patient continue as well as get labs in 7 to 10 days and follow-up with primary care provider for chronic anemia. 6. Physical therapy: Patient is weightbearing as tolerated with walker. Patient does have outpatient physical therapy established. 7. Incentive spirometry: Patient was encouraged to use the incentive spirometer every hour that she is awake for the first week to exercise along decrease risk of postoperative lung infection. 8. Dressings: Patient was educated that she can get dressing wet on postoperative day 1. Patient was educated she can remove dressing on postoperative day 5. 9. Patient is to follow-up per postoperative instructions. 10. Medicine is involved at this point. Appreciate recommendations from medicine team. 12. Disposition: We will plan for discharge today as long as pain maintains adequately controlled, patient works with and is cleared by physical therapy, and is okay per medicine doctors recommendations. Patient does have outpatient physical therapy established. Patient states that she does have help at home. Patient states that she also has a family who is coming to help. Patient states that she feels very comfortable with going home. Patient states that she does have aspirin at home, Tylenol at home, ferrous sulfate and folic acid, senna. Patient states that she does not need Zofran at this time. Patient was deemed medically stable by medicine team. Medications will be sent to patient's pharmacy of choice. Patient will have an outpatient lab form to receive labs in 7 to 10 days. Patient does have a follow-up visit with our office in 2 weeks. Patient was encouraged to call with any questions, concerns, new problems.
--- NOTE | 2024-10-03 17:19 | DCINST_ITS ---
Discharge Instructions DC O2, CPAP, BIPAP needs Home O2 Discharge instructions: No Dressing / Incision Discharge Activity: Use Walker (Weightbearing as tolerated with walker.) Weight Bearing Status: Weight bearing as tolerated (With walker.) Keep extremity elevated above heart level: Left Leg (Postoperative left total knee arthroplasty.) Dressing / Incision Call your doctor if your incision/area has: Continuous Slow Oozing, Sudden Increased Bleeding, Increased Pain/ Swelling, Increased Redness, Foul Smelling Discharge and Swelling at the incision site Call your doctor if you observe: Fever of 101 or Higher, Coldness, Increased Pain, Numbness or Tingling, Change in Color, Inability to urinate, Inability to have a bowel movement, Shortness of breath, Dizziness, Fainting spells, Swelling in the ankles, Chest pain, Prolonged hiccupping, Increased palpitations (irregular heartbeat), Calf discomfort and Uncontrolled pain Remove Dressing in: 5 days (Patient was educated she can remove dressing on postoperative day 5. Patient was educated she can leave incision open to air as long as clean, dry, intact. Use gentle soap and water and shower.) Cleanse incision/area with: Soap & Water Additional Dressing/Incision Instructions:: No soaking or submerging until 6 weeks postoperatively. No lotions, salves, oil for 6 weeks postoperatively. Patient will continue following anemia protocol taking ferrous sulfate and folic acid. Patient will have outpatient lab form to follow-up with primary care provider in 7 to 10 days for reevaluation of CBC and to manage chronic anemia. OARRS report was reviewed today. Follow Up Care Test Results: Test results from this visit will be discussed in further detail at your follow- up appointment, if applicable. Discharge Plan Admission Admit Date/Time: 10/02/24 06:52 Attending Provider: Kurt Rosenthal Primary Care Provider: Magdy Gibbs Consulting Providers: June Dolan Discharge Orders/Prescriptions Prescriptions: New acetaminophen 500 mg Tablet 1,000 mg PO Q8H Qty: 0 0RF Rx Instructions: Take Tylenol 1000 mg every 8 hours postoperatively. famotidine 20 mg Tablet 20 mg PO DAILY 30 Days Qty: 30 0RF aspirin 81 mg Tablet,Chewable 81 mg PO BID Qty: 0 0RF Rx Instructions: Take 81 mg aspirin twice daily for 4 weeks postoperatively. sennosides-docusate sodium [Stimulant Laxative Plus] 8.6-50 mg Tablet 2 tab PO BID 3 Days Qty: 12 0RF oxycodone 5 mg Tablet 5 - 10 mg PO Q4H PRN PRN (Reason: As needed for pain.) 7 Days Qty: 42 0RF Continued fluoxetine [Prozac] 20 mg capsule 20 mg PO DAILY bupropion HCl [Wellbutrin XL] 300 mg tablet extended release 24 hr 300 mg PO QAM cholecalciferol (vitamin D3) [Vitamin D3] 25 mcg (1,000 unit) capsule 25 mcg PO DAILY folic acid 1 mg tablet 1 mg PO DAILY lisinopril 20 mg tablet 20 mg PO DAILY anastrozole 1 mg tablet See Rx Instructions .ROUTE .COMPLEX Qty: 90 1RF Dose Instruction: TAKE 1 TABLET BY MOUTH DAILY FOR 90 DAYS Rx Instructions: TAKE 1 TABLET BY MOUTH DAILY FOR 90 DAYS Other Ambulatory Orders: 12 Lead EKG (Routine) Timeframe: 20240727 Location: None Selected Ordered By: Dr. Kurt Rosenthal CBC W/Diff, Automated (Routine) Timeframe: 1 Week Facility: [facility] - Location: Laboratory Ordered By: Sara Gatica Referrals / Follow Up: Magdy Gibbs MD [Primary Care Provider] - Disposition Disposition (needs filled in before D/C Order can be placed): Home, Self Care
[2024-10-03 17:59] VITALS: BP 136/70; PULSE 102; RESP 16; TEMP 36.4; O2SAT 97
== END 2024-10-03 18:00 | disposition home or self-care (01) ==
LOC: SDC 10:11 → MS3 10:11
PROVIDERS: Admitting Provider Specialist; PCP Family Medicine; Referring Provider Specialist; Visit Provider Specialist
PROC: 0SRD0JZ Replacement of Left Knee Joint with Synthetic Substitute, Open Approach (ICD-10-PCS; CPT 27447; principal; 2024-10-02 07:00)
DX: M17.0 Bilateral primary osteoarthritis of knee (principal); N18.4 Chronic kidney disease, stage 4 (severe); R35.0 Frequency of micturition; F41.9 Anxiety disorder, unspecified; D64.9 Anemia, unspecified; I95.81 Postprocedural hypotension; I12.9 Hypertensive chronic kidney disease with stage 1 through stage 4 chronic kidney disease, or unspecified chronic kidney disease; Z79.899 Other long term (current) drug therapy; Y83.8 Other surgical procedures as the cause of abnormal reaction of the patient, or of later complication, without mention of misadventure at the time of the procedure; F32.A Depression, unspecified; Z79.82 Long term (current) use of aspirin; E66.9 Obesity, unspecified; Z68.32 Body mass index [BMI] 32.0-32.9, adult; M21.162 Varus deformity, not elsewhere classified, left knee
CPT/HCPCS: 27447; S2900; 01402; 36415; 73560; 80048; 82040; 82962; 83036; 83735; 85025; 85027; 87081; 93005; 94668; 96361; 96365; 96366; 97116; 97162; 97166; 97530; 97535; 99221; C1776; A4216; G0378; J2405

== ENCOUNTER → 2024-10-31 | Outpatient (CLI) | payer MEDICARE, SELFPAY ==
[2018-09-19 13:59] VITALS: BMI 42.7
[2024-10-31 15:28] LABS: Hematocrit 32.6 % (37-47); Hemoglobin 10.6 g/dL (12.0-15.0); Immature Granulocytes Count 0.020 X10^3/uL (0.0-0.0); Mean Corp Hgb Conc 32.5 g/dL (32-36); Mean Corpuscular Volume 93.9 fL (81-99); Mean Platelet Vol. 10.3 fl (6.2-12.0); NRBC Flagged by Analyzer 0 % (0-5); Platelet Count 234 K/mm3 (150-450); RBC Distribution Width CV 13.5 % (11.6-14.6); RBC Distribution Width SD 46.2 fl (35.1-43.9); Red Blood Count 3.47 M/mm3 (4.2-5.4); White Blood Count 6.2 K/mm3 (4.4-11.0)
[2024-10-31 15:52] LABS: Anion Gap 12 (5-15); BUN 24 mg/dL (4-19); BUN/Creat Ratio 13.5 RATIO (10-20); Calcium,Total 9.5 mg/dL (7.6-11.0); Carbon Dioxide 23.6 mmol/L (21.0-32.0); Chloride 107 mmol/L (98-108); Glucose 99 mg/dL (70-99); Potassium 4.2 mmol/L (3.3-5.1)
== END | disposition home or self-care (01) ==
LOC: MFPLAB 13:43
PROVIDERS: PCP Family Medicine; Visit Provider Family Medicine
DX: D64.9 Anemia, unspecified (principal); N18.9 Chronic kidney disease, unspecified
CPT/HCPCS: 36415; 80048; 85025

== ENCOUNTER → 2024-11-30 | Outpatient (CLI) | payer MEDICARE, SELFPAY ==
[2018-09-19 13:59] VITALS: BMI 42.7
--- NOTE | 2024-11-30 12:03 | CT_ITS ---
PROCEDURE: EXTREMITY LOWER WITHOUT CONTRA 11/30/2024 REASON FOR EXAM: PAIN TECHNIQUE: Procedure Code: CTELWO Modality: CT Procedure: EXTREMITY LOWER WITHOUT CONTRA Coronal and Sagittal reconstruction series were provided of the right knee. CONTRAST: None One or more dose reduction techniques were used (e.g., Automated exposure control, adjustment of the mA and/or kV according to patient size, use of iterative reconstruction technique). RADIATION DOSE SUMMARY: DLP: 1272 mGycm COMPARISON: None FINDINGS: There is severe tricompartment osteoarthritis, with joint space narrowing, subcortical cyst formation, and marginal osteophytes. No acute fracture or dislocation is identified. There are no suspicious lytic or blastic lesions. There are multiple osteochondral fragments in the lateral joint space with the largest measuring 0.6 cm. There is a large joint effusion. There is a 4.2 x 1.5 cm Cervantes's cyst. Vascular calcifications are noted. CT/Extremity Lower without Contra IMPRESSION: There is severe tricompartment osteoarthritis, with joint space narrowing, subc ortical cyst formation, and marginal osteophytes. Reading Location: [facility]
--- NOTE | 2024-11-30 12:03 | CT_ITS ---
PROCEDURE: EXTREMITY LOWER WITHOUT CONTRA 11/30/2024 REASON FOR EXAM: PAIN TECHNIQUE: Procedure Code: CTELWO Modality: CT Procedure: EXTREMITY LOWER WITHOUT CONTRA Coronal and Sagittal reconstruction series were provided of the right knee. CONTRAST: None One or more dose reduction techniques were used (e.g., Automated exposure control, adjustment of the mA and/or kV according to patient size, use of iterative reconstruction technique). RADIATION DOSE SUMMARY: DLP: 1272 mGycm COMPARISON: None FINDINGS: There is severe tricompartment osteoarthritis, with joint space narrowing, subcortical cyst formation, and marginal osteophytes. No acute fracture or dislocation is identified. There are no suspicious lytic or blastic lesions. There are multiple osteochondral fragments in the lateral joint space with the largest measuring 0.6 cm. There is a large joint effusion. There is a 4.2 x 1.5 cm Cervantes's cyst. Vascular calcifications are noted. CT/Extremity Lower without Contra IMPRESSION: There is severe tricompartment osteoarthritis, with joint space narrowing, subc ortical cyst formation, and marginal osteophytes. Reading Location: [facility]
== END | disposition home or self-care (01) ==
LOC: CT 11:59
PROVIDERS: PCP Family Medicine; Referring Provider Specialist; Visit Provider Specialist
DX: M21.061 Valgus deformity, not elsewhere classified, right knee (principal); M25.561 Pain in right knee
CPT/HCPCS: 36415; 73700; 80048; 82040; 83735; 85610; 87081

== ENCOUNTER 2024-12-25 07:04 | Observation (INO) | payer MEDICARE, SELFPAY ==
[2018-09-19 13:59] VITALS: BMI 42.7
--- NOTE | 2024-11-28 18:10 | PAT.ANE_ITS ---
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 When Was Last Pacemaker Check QUESTION #4 FULL TEXT: You/Your Family Experience fever (hyperthermia) with Anesthesia Last Oral Intake Last Oral intake: Last Oral Intake NPO since Meds taken in AM with sips of water? Meds patient instructed to take am of surgery PONV PONV - linux server engineer: PONV - linux server engineer Female Yes 11/28/24 11:26 HX of Motion Sickness No 11/28/24 11:26 HX of N/V After Surgery No 11/28/24 11:26 Non-Smoker Yes 11/28/24 11:26 Duration of Surgery greater Yes 11/28/24 11:26 than 60 minutes Number of Risk Factors 3 11/28/24 11:26 PONV Score Moderate Risk 11/28/24 11:26 Height & Weight Height & Weight: Anesthesia: Height & Weight Height 5 ft 4 in 10/02/24 12:04 Respiratory Assessment Respiratory Assessment - linux server engineer: Respiratory Tract Infection Hx - linux server engineer Hx Respiratory Tract Infection No 11/28/24 11:26 STOP Sleep Apnea STOP Sleep Apnea - linux server engineer: STOP Sleep Apnea - linux server engineer Hx Hypertension Yes: CONTROLLED WITH MEDS 11/28/24 11:26 Hx Sleep Apnea No 11/28/24 11:26 CPAP No 11/28/24 11:26 BIPAP Do you snore loudly (louder No 11/28/24 11:26 than talking or can be heard Do you often feel tired/ No 11/28/24 11:26 fatigued/ sleepy during daytime? Has anyone observed you stop No 11/28/24 11:26 breathing during sleep? STOP Results Negative 11/28/24 11:26 QUESTION #5 FULL TEXT : Do you snore loudly (louder than talking or can be heard through closed doors)? 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 Specify any problems Hx of Preganancy in last 3 No 11/28/24 11:26 Months Nurse Filling Out Transfusion [id number] 11/28/24 11:26 & Questions: Date: 11/28/24 11/28/24 11:26 Time: 11:28 11/28/24 11:26 Patient unable to answer at this time (ie. confused, unrespo /Reproduction History /Reproductive History - linux server engineer: /Reproductive Hx- linux server engineer Hx Now Gestational Age (in weeks): EDC: Hx Hx Para Hx Section SAB No 11/28/24 11:26 PFSH Medical History Anxiety Alcohol use Gastric reflux Non-smoker Colonoscopy planned History of stress test History of Holter monitoring Wears glasses Wears dentures History of pain when walking Screening for intestinal cancer Breast cancer Arthritis Depression Obesity Benign essential hypertension Home Medications Medication Instructions Recorded Last Taken Type bupropion HCl 300 mg 24 hr tablet, 300 mg PO QAM 07/2210/02/24 03:15 History extended release (Wellbutrin XL) fluoxetine 20 mg capsule (Prozac) 20 mg PO BID 9 10/02/24 03:15 History lisinopril 20 mg tablet 20 mg PO DAILY 10/02/2409/15 08:00 History aspirin 81 mg chewable tablet 81 mg PO DAILY 11/28/24 Unknown History calcium 600 mg (as 1 tab PO DAILY 11/28/24 Unkn own History carbonate)-vitamin D3 5 mcg (200 unit) tablet (Calcium 600 + D(3)) docusate sodium 100 mg capsule 100 mg PO DAILY 5 Unknown History (Col-Rite) famotidine 20 mg tablet 20 mg PO DAILY PRN acid refl ux 11/28/24 Unknown History ferrous sulfate 325 mg (65 mg 325 mg PO QODAY 11/28/24 Unknown History iron) tablet (Feosol) loratadine 10 mg tablet (Allergy 10 mg PO DAILY Unknown History Relief (loratadine)) oxybutynin chloride 5 mg tablet 5 mg PO BID 11/28/24 U nknown History Allergy/AdvReac Type Severity Reaction Status Date / Time No Known Allergies Allergy Verified 11/28/24 11:20 Family History Sister Lung cancer Mother Lung cancer Surgical History (Updated 11/28/24 @ 11:32 by Milton Ureña) History of total left knee replacement History of lumpectomy of left breast (~08/2018) H/O tubal ligation S/P laparoscopic cholecystectomy H/O: hysterectomy Social History Smoking Status: Never smoker alcohol intake: never Audit: Pertinent Findings Pertinent Findings EKG Perinent findings: 08/01/2024. Sinus rhythm with sinus arrhythmia with first-degree AV block. LAD. LBBB. Stress test pertinent findings: 08/10/2024. EF of 40%. No ischemia or infarct noted. Recommendation Anesthesia Recommendation Anesthesia recommendation: OPTIMIZED for anesthesia
[2024-11-30 12:19] LABS: Hematocrit 35.0 % (37-47); Hemoglobin 11.8 g/dL (12.0-15.0); Immature Granulocytes Count 0.020 X10^3/uL (0.0-0.0); Mean Corp Hgb Conc 33.7 g/dL (32-36); Mean Corpuscular Volume 91.9 fL (81-99); Mean Platelet Vol. 9.8 fl (6.2-12.0); NRBC Flagged by Analyzer 0 % (0-5); Platelet Count 256 K/mm3 (150-450); RBC Distribution Width CV 13.3 % (11.6-14.6); RBC Distribution Width SD 44.8 fl (35.1-43.9); Red Blood Count 3.81 M/mm3 (4.2-5.4); White Blood Count 6.7 K/mm3 (4.4-11.0)
[2024-11-30 12:28] LABS: Prothrombin Time (Protime)PT. 13.7 SECONDS (11.7-14.9)
[2024-11-30 12:36] LABS: Partial Thromboplast Time 27.2 Seconds (24.1-36.2)
[2024-11-30 13:44] LABS: Anion Gap 11 (5-15); BUN 30 mg/dL (4-19); BUN/Creat Ratio 15.8 RATIO (10-20); Calcium,Total 9.5 mg/dL (7.6-11.0); Carbon Dioxide 24.5 mmol/L (21.0-32.0); Chloride 106 mmol/L (98-108); Glucose 97 mg/dL (70-99); Potassium 4.2 mmol/L (3.3-5.1)
[2024-11-30 13:46] LABS: Albumin, Serum 4.1 g/dL (3.4-4.8); Magnesium 1.8 mg/dL (1.5-2.2)
--- NOTE | 2024-12-24 16:53 | HP.PCM_ITS ---
History and Physical History and Physical Patient Name: Ana María MooneyB: 1945 From: DATE OF PRE-OPERATIVE EXAM: 12/15/2024 DATE OF SURGERY: 12/25/2024 SCHEDULED PROCEDURE: Robotic assisted right total knee arthroplasty HISTORY OF PRESENT ILLNESS: Patient is a 79-year-old female presenting for preoperative visit for right total knee arthroplasty. Patient states she has had right knee pain for 3 years. Patient states that her pain is constant. Patient states that stairs, driving, sitting, walking or any movements make her pain worse. Patient states that sitting, resting, elevating the leg helps alleviate her pain. Patient states that she is no longer able to shop without difficulty due to her knee. Patient states that she has tried rest, ice, heat, elevation, corticosteroid injection, compression, physical therapy, home exercises, oral medications without help. Patient states she has not tried chiropractor or gel injections. Patient has tried Tylenol as her oral medication. Patient denies any previous surgeries on the affected joint. Patient does have to walk with a cane and a walker. REVIEW OF SYSTEMS: Review Of Systems: Constitutional: Denies anorexia, anxiety, change in appetite, fever, difficulty sleeping, weight change. Cardiovasular: Denies chest pain, heart murmur, irregular heartbeat and peripheral vascular disease. Respiratory: Denies asthma, cough, pneumonia, sleep apnea, shortness of breath, tuberculosis and wheezing. Gastrointestinal: Denies constipation, diarrhea, heartburn, nausea, rectal itchi ng, bloody stools and vomiting. Genitourinary: . (F Genital Sx) Denies incontinence. Musculoskeletal: Reports gait disturbance, leg swelling, pain, trouble walking and weakness. Skin: Reports tattoo, but denies Raynaud's and history of shingles. Neurological: Denies ambulatory dysfunction, dizziness, numbness/tingling and tremor. Psychiatric: Reports anxiety and depression, but denies insomnia, mental illness and stress. Hematologic/Lymphatic: Reports anemia, but denies bleeding/bruising tendency and past transfusion. Reviewed, no changes. PAST MEDICAL HISTORY: Advance Care Plan: No Advance Directives Effective Date: 09/29/2018 Past Medical History: Medical Problems: Arthritis, High Blood Pressure Cancer - (2019) LT breast anxiety, depression Acute kidney disease - stage 4 per daughter Urinary frequency, anemia Accidents: Other - (08/12/2024) fell injured left knee, left side of ribs, left arm, left wrist, and left hand - fell on cement on driveway Surgical Hx: Gallbladder - (1987) [facility] Hysterectomy Tubal Ligation - (1971) [facility] Lumpectomy - (08/2018) left breast Knee Replacement LT - (10/02/2024) SAW @ [facility] Anesthesia Complications: None Assistive Devices: Glasses, Dentures Reviewed, no changes. SOCIAL HISTORY: Social History: Marital: .Occupation: Retired.Work Status: Retired.Hand Dominance: Right- Handed. Personal Habits: Cigarette Use: Never.Smokeless Tobacco: Never Used Smokeless Tobacco.E-Cigarette Use: Never used.Alcohol: Occasionally.Drug Use: Denies Use.Enjoy Exercising: Never Exercises. Reviewed, no changes. VITALS: Ht: 64" Wt: 180lb Wt k.648 BMI: 30.9 BP: 142/64 Pulse: 64 Resp: 15 T: 97.5 T: 36.4C Pain Level: 4/10 O2SatR: 94 ALLERGIES: No Known Drug Allergy MEDICATIONS: Folic Acid 1 mg 1 by mouth every day, Wellbutrin XL 300 mg 1 by mouth every day, Fluoxetine HCL 40 mg daily, Loratadine 10 mg take 1 tablet by mouth daily, Tylenol Extra Strength 500 mg as needed, Oxybutynin Chloride 5 mg 1 po bid, Aspirin 81 81 mg 1 po qdaily, Lisinopril 20 mg 1 by mouth every day PRE-OP EXAM: General appearance:NORMAL Other: Eyes: Conjunctivae and lids: NORMAL Pupils: ERR Ears, Nose, Mouth, and Throat: NORMAL Other: Inspection of lips, teeth and gums: NORMAL Other: Neck: Examination of neck: no masses noted. Respiratory: Assessment of respiratory effort: NORMAL Other: Auscultation of lungs: clear to auscultation no wheezes, rhonchi or rales. Cardiovascular: Auscultation of heart: regular rate and rhythm, no murmurs, gallops or rubs. Exam of carotid arteries: NORMAL Other: Gastrointestinal: Exam of abdomen: soft, nontender, nondistended bowel sounds present. Lymphatic: Palpation of nodes in neck: NORMAL Other: Palpation of nodes in Axillae: NORMAL Other: Neurological: see below Psychiatric: Orientation to time, place and person: NORMAL Other: Mood and affect: NORMAL Other: PHYSICAL EXAMINATION: - Right Knee: - Effusion: Moderate effusion. - Tenderness: Tenderness over the medial line. - Alignment: Varus alignment. - Medial Collateral Ligament: 1 mm medial collateral laxity. - Lateral Collateral Ligament: 2 mm lateral laxity. - Range of Motion: Flexion 0 to 121 degrees. IMAGING STUDIES: 4 views of the right knee with sunrise, lateral, and bilateral standing AP and tunnel views reviewed reveal valgus alignment and lateral joint space narrowing, subchondral sclerosis and osteophyte formation consistent with severe stage IV [id number] erosive tricompartmental osteoarthritis. Lateral subluxation of the tibia IMPRESSION: Hypertension History of breast cancer Anxiety Depression Stage IV kidney disease Anemia Urinary frequency Primary osteoarthritis right knee Valgus deformity right knee Effusion right knee Obesity PLAN: The surgeon did discuss and review all treatment options with the patient including surgical versus nonsurgical. At this time the patient does wish to proceed with the above-stated procedure. Potential risks benefits and complications of the procedure were discussed and reviewed with the patient including but not limited to , infection, nerve and blood vessel damage, persistent pain, numbness, tingling, paresthesias, blood clot, pulmonary embolism, in the requirement for possible further surgery. Patient expressed full understanding. Has no further questions for the doctor. Does agree to proceed with the above-stated procedure, and has signed the appropriate surgery consent form. DVT prophylaxis: Patient will be on aspirin 81 mg twice daily for 4 weeks pos toperatively. Patient will be wearing ROSA hose for 2 weeks postoperatively. Pain medications: Patient will be on Tylenol 1000 mg every 8 hours, oxycodone as needed for pain control. Due to patient's chronic kidney disease we will avoid anti-inflammatory medications in this patient. Patient will be on famotidine for 30 days postoperatively. Patient was educated in the use of senna for postoperative constipation. ___ I have re-examined the patient. There are no clinical changes since date of exam. ___ See progress notes for changes. ___ Dictated on admission Date: Time: Signature:
[2024-12-25] VITALS (13 sets, daily range): BP systolic 98–140; BP diastolic 56–88; PULSE 60–103; RESP 12–18; TEMP 36.2–36.7; O2SAT 93–100; BMI 31.4
[2024-12-25] MEDS: Magnesium 2 GM for ERAS IV (08:36)
[2024-12-25] MEDS: LR 1,000 ML - BOLUS PREOP 999 ML IV (08:36)
--- NOTE | 2024-12-25 08:59 | PCM.PRE.AN2 ---
ASA Classification* ASA Classification ASA Classification: 3 (GERD, anemia, HTN. Patient states she was extremely confused in days after surgery -- AVOID VERSED. ) Assessment & Plan Anesthesia* Anesthesia Assessment Anesthesia Assessment: Discussed sedation and/or anesthesia options, risks, benefits, and alternatives with patient/parents/legal guardian/POA. Questions invited. The patient/parents/legal guardian/POA seems to understand and agrees to proceed with anesthesia plan. Reviewed the physical assessment, medical history, allergy history and patient home medications list prior to surgery/procedure/anesthetic and documented any changes. Performed airway and anesthesia risk assessments. Anesthesia Type Anesthesia Type: Spinal and Block (Adductor canal block. Informed consent obtained. Benefits/risks/alternatives explained. Opportunity for questions invited. ) History Source History Obtained from:: Patient and Chart Anesthesia Focused Assessment* Temperature: 98 F Pulse Rate: 60 Blood Pressure: 127/69 Respiratory Rate: 16 Pulse Ox: 99 Oxygen Delivery Method: Room Air Airway Assessment Mouth opens: >3 cm Mallampati Score: III Teeth Condition: Dentures Neck Range of motion (ROM): Full ROM Labs Anesthesia Preop lab: CBC WBC, (4.4-11.0) 6.7 K/mm3 11/30/24, 11:48 RBC, (4.2-5.4) 3.81 M/mm3 L 11/30/24, 11:48 Hgb, (12.0-15.0) 11.8 g/dL L 11/30/24, 11:48 Hct, (37-47) 35.0 % L 11/30/24, 11:48 Plt Count, (150-450) 256 K/mm3 11/30/24, 11:48 CHEMISTRY Potassium, (3.3-5.1) 4.2 mmol/L 11/30/24, 11:48 Sodium, (133-145) 142 mmol/L 11/30/24, 11:48 Magnesium, (1.5-2.2) 1.8 mg/dL 11/30/24, 11:48 Phosphorus, (2.5-4.9) 3.5 mg/dL 01/04/23, 15:08 BUN, (4-19) 30 mg/dL H 11/30/24, 11:48 Creatinine, (0.70-1.20) 1.87 mg/dL H 11/30/24, 11:48 Glucose, (70-99) 97 mg/dL 11/30/24, 11:48 POC Glucose, (74-106) 92 mg/dL 10/02/24, 05:59 TSH, (0.358-3.74) 1.81 uIU/mL 03/30/17, 11:20 COAG PT, (11.7-14.9) 13.7 SECONDS 11/30/24, 11:48 Pre-Assessment Diagnosis/Proposed Procedure Planned Operative Procedure(s): ROBOTIC ASSISTED RIGHT TOTAL KNEE ARTHROPLASTY Anesthesia History Anesthesia History - immigration case manager: Anesthesia History - immigration case manager Hx Hospitalization No 11/28/24 11:26 Any Problems With Anesthesia No 11/28/24 11:26 Cholinesterase deficiency No 11/28/24 11:26 You/Your Family Experience No 11/28/24 11:26 fever (hyperthermia) with Relationship Recent Exposure to Contagious No 12/25/24 08:38 Disease Does patient have nerve No 11/28/24 11:26 stimulator Patient instructed to have device shut off --Does patient have Pacemaker No 12/25/24 08:38 or ICD? When Was Last Pacemaker Check QUESTION #4 FULL TEXT: You/Your Family Experience fever (hyperthermia) with Anesthesia Last Oral Intake Last Oral intake: Last Oral Intake NPO since 07:00 12/25/24 08:38 Meds taken in AM with sips of Yes 12/25/24 08:38 water? Meds patient instructed to see med list 12/25/24 08:38 take am of surgery PONV PONV - immigration case manager: PONV - immigration case manager Female Yes 11/28/24 11:26 HX of Motion Sickness No 11/28/24 11:26 HX of N/V After Surgery No 11/28/24 11:26 Non-Smoker Yes 11/28/24 11:26 Duration of Surgery greater Yes 11/28/24 11:26 than 60 minutes Number of Risk Factors 3 11/28/24 11:26 PONV Score Moderate Risk 11/28/24 11:26 Height & Weight Height & Weight: Anesthesia: Height & Weight Height 5 ft 4 in 12/25/24 08:38 Weight: 83.1 kg 12/25/24 08:38 Body Mass Index (BMI) 31.4 12/25/24 08:38 Respiratory Assessment Respiratory Assessment - immigration case manager: Respiratory Tract Infection Hx - immigration case manager Hx Respiratory Tract Infection No 11/28/24 11:26 STOP Sleep Apnea STOP Sleep Apnea - immigration case manager: STOP Sleep Apnea - immigration case manager Hx Hypertension Yes: CONTROLLED WITH MEDS 11/28/24 11:26 Hx Sleep Apnea No 11/28/24 11:26 CPAP No 11/28/24 11:26 BIPAP Do you snore loudly (louder No 11/28/24 11:26 than talking or can be heard Do you often feel tired/ No 11/28/24 11:26 fatigued/ sleepy during daytime? Has anyone observed you stop No 11/28/24 11:26 breathing during sleep? STOP Results Negative 11/28/24 11:26 QUESTION #5 FULL TEXT : Do you snore loudly (louder than talking or can be heard through closed doors)? Tobacco Use History Tobacco Use History - immigration case manager: Tobacco Use History - immigration case manager Tobacco Use Smoking Status Never smoker 11/28/24 11:26 Hx Tobacco Use No 11/28/24 11:26 Years Smoking Packs Smoked per Day Smoking Cessation Date was within the last 15 years Hx Smoking Cessation Date Hx Smoking Cessation Counseling Hematologic Medial History Hematologic Hx - immigration case manager: Hematologic Medical Hx - gauger chief delivery Hx of Blood Transfusion No 11/28/24 11:26 Hx of Transfusion in last 3 No 11/28/24 11:26 Months Date of Last Transfusion (if within last 3 months) Ever experience any problems No 11/28/24 11:26 with transfusion(s)? Specify any problems Hx of Preganancy in last 3 No 11/28/24 11:26 Months Nurse Filling Out Transfusion [email or web address] 11/28/24 11:26 & Questions: Date: 11/28/24 11/28/24 11:26 Time: 11:28 11/28/24 11:26 Patient unable to answer at this time (ie. confused, unrespo /Reproduction History /Reproductive History - immigration case manager: /Reproductive Hx- immigration case manager Hx Now Gestational Age (in weeks): EDC: Hx Hx Para Hx Section SAB No 11/28/24 11:26 Does the father of the baby or his family experience fever w Father of the baby Malignant Hypertension history comment Active Medications Active Medications: Current Medications Generic Name Dose Route Start Last Admin Trade Name Radha PRN Reason Stop Dose Admin Acetaminophen 1,000 mg 12/25/24 10:30 12/25/24 08:37 Acetaminophen 500 Mg Tablet PO 12/25/24 10:31 1,000 mg PREOP ONE Administration Acetaminophen 1,000 mg 12/25/24 07:15 Acetaminophen 500 Mg Tablet PO Q8H TYRONE Aspirin 81 mg 12/25/24 10:00 Aspirin 81 Mg Tab.Chew PO BID TYRONE Sodium Chloride 78.9 ml/ 0 ml 12/25/24 10:30 Ropivacaine 200 mg/ IV 12/25/24 10:31 Epinephrine HCl 0.6 mg/ INTRAOP ONE Morphine Sulfate 5 mg Dexamethasone Sodium Phosphate 10 mg 12/25/24 10:30 Dexamethasone 10 Mg/Ml Vial IV 12/25/24 10:31 INTRAOP ONE Enteral Nutritional Formula 237 ml 12/25/24 08:00 Ensure Surgery 237 Ml Liquid PO TIDCM [facility] Famotidine 20 mg 12/25/24 10:00 Famotidine 20 Mg Tablet PO DAILY [facility] Gabapentin 600 mg 12/25/24 10:30 12/25/24 08:37 Gabapentin 600 Mg Tablet PO 12/25/24 10:31 600 mg PREOP ONE Administration Lactated Ringer's 1,000 mls @ 999 mls/hr 12/25/24 10:30 12/25/24 08:36 IV 12/25/24 11:30 999 mls/hr .Q1H1M TYRONE Administration Cefazolin Sodium 2 gm/ Sodium 110 mls @ 150 mls/hr 12/25/24 10:30 Chloride IV 12/25/24 11:13 INTRAOP ONE Tranexamic Acid 1,000 mg/ 110 mls @ 660 mls/hr 12/25/24 10:30 Sodium Chloride IV 12/25/24 10:39 INTRAOP ONE Tranexamic Acid 1,000 mg/ 110 mls @ 660 mls/hr 12/25/24 10:30 Sodium Chloride IV 12/25/24 10:39 INTRAOP ONE Lactated Ringer's 1,000 mls @ 999 mls/hr 12/25/24 10:30 IV 12/25/24 11:30 .Q1H1M TYRONE Lactated Ringer's 1,000 mls @ 125 mls/hr 12/25/24 10:30 IV 12/25/24 18:29 .Q8H [facility] Magnesium Sulfate 2 gm/ 104 mls @ 208 mls/hr 12/25/24 10:30 12/25/24 08:36 Dextrose IV 12/25/24 10:59 208 mls/hr PREOP ONE Administration Cefazolin Sodium 1 gm in 50 mls @ 100 mls/hr 12/25/24 07:05 IV 12/25/24 15:34 Q8H [facility] Insulin Human Lispro 1 - 6 unit 12/25/24 10:30 Insulin Lispro 100 Unit/Ml Insuln.Pen SC 12/25/24 18:00 Q4H PRN PRN BG>/= 180, SEE PROTOCOL Protocol Morphine Sulfate 2 - 4 mg 12/25/24 07:04 Morphine 2 Mg/Ml Syringe IV Q2H PRN PRN Pain Score 4-10 Ondansetron HCl 4 mg 12/25/24 07:04 Ondansetron 4 Mg/2 Ml Vial IV Q6H PRN PRN NAUSEA/VOMITING Oxycodone HCl 5 - 10 mg 12/25/24 07:04 Oxycodone 5 Mg Tablet PO Q4H PRN PRN Pain Score 4-10 Promethazine HCl 12.5 mg 12/25/24 07:04 Promethazine 25 Mg Tablet PO Q6H PRN PRN NAUSEA/VOMITING Promethazine HCl 12.5 mg 12/25/24 07:04 Promethazine 25 Mg/Ml Syringe IM Q6H PRN PRN NAUSEA/VOMITING Senna/Docusate Sodium 2 tablet 12/25/24 10:00 Senna/Docusate Sodium 1 Tablet PO BID [facility] Medical History Anxiety Alcohol use Gastric reflux Non-smoker Colonoscopy planned History of stress test History of Holter monitoring Wears glasses Wears dentures History of pain when walking Screening for intestinal cancer Breast cancer Arthritis Depression Obesity Benign essential hypertension Home Medications Medication Instructions Recorded Last Taken Type bupropion HCl 300 mg 24 hr tablet, 300 mg PO QAM 07/22/18 12/25/24 07:00 History extended release (Wellbutrin XL) fluoxetine 20 mg capsule (Prozac) 20 mg PO BID 07/22/18 12/25/24 07:00 History lisinopril 20 mg tablet 20 mg PO DAILY 10/02/24 12/24/24 History aspirin 81 mg chewable tablet 81 mg PO DAILY 11/28/24 12/24/24 History calcium 600 mg (as 1 tab PO DAILY 11/28/24 12/24/24 History carbonate)-vitamin D3 5 mcg (200 unit) tablet (Calcium 600 + D(3)) docusate sodium 100 mg capsule 100 mg PO DAILY 11/28/24 12/24/24 History (Col-Rite) famotidine 20 mg tablet 20 mg PO DAILY PRN acid reflux 11/28/24 Unknown History ferrous sulfate 325 mg (65 mg 325 mg PO QODAY 11/28/24 12/24/24 History iron) tablet (Feosol) loratadine 10 mg tablet (Allergy 10 mg PO DAILY 11/28/24 12/24/24 History Relief (loratadine)) oxybutynin chloride 5 mg tablet 5 mg PO BID 11/28/24 12/24/24 History Allergy/AdvReac Type Severity Reaction Status Date / Time No Known Allergies Allergy Verified 12/25/24 08:25 Family History Sister Lung cancer Mother Lung cancer Surgical History (Updated 11/28/24 @ 11:32 by Milton Ureña) History of total left knee replacement History of lumpectomy of left breast (~08/2018) H/O tubal ligation S/P laparoscopic cholecystectomy H/O: hysterectomy Social History Smoking Status: Never smoker alcohol intake: never Review of Systems (Anesthesia) ROS Narrative System reviewed and no additional complaints, except as documented. Physical Exam Const alert, oriented x3 and average body habitus Resp normal respiratory effort, normal air movement and clear to auscultation bilaterally Cardio regular rate, regular rhythm and no murmurs
[2024-12-25] MEDS: Lactated Ringers 1,000 ML 1000 ML IV (09:48)
[2024-12-25] MEDS: Cefazolin 1 GM/5 ML Vial 2 GM IV (09:58)
[2024-12-25] MEDS: TRANEXAMIC ACID 1,000 MG/10 ML ML 2000 MG IV (10:49)
[2024-12-25] MEDS: Joint Pain Solution (NO KETOROLAC) IV (11:10)
--- NOTE | 2024-12-25 11:30 | PCM.OPRPT ---
Operative Report (Standard) Operative Information Date of Procedure: 12/25/24 Pre-Operative Diagnosis: Right knee primary osteoarthritis Post-Operative Diagnosis: Right knee primary osteoarthritis Surgery/Procedure Performed: Right knee minimally invasive robotic assisted total arthroplasty cutter and paster press clippings: Yes [employer] Consultant: Sara Gatica Tasks completed by assistant in nursing: Other (See body of operative report) Additional assistant office manager?: Yes Additional Silk Screen Etcher #2: Stair,Ruiz Tasks completed by assistant office manager #2: Opening and Retracting Additional assistant office manager?: No Type of Anesthesia: Spinal RN Documented Start/Stop Times: Operation Date: 12/25/24 10:00 Case Time Into Pre-Op 12/25/24 07:54 Anesthesia Start 12/25/24 09:48 Into Room 12/25/24 09:48 Procedure Start 12/25/24 10:13 Procedure End 12/25/24 11:40 Anesthesia End 12/25/24 11:44 Out of Room 12/25/24 11:44 Into Recovery 12/25/24 11:45 Out of Recovery 12/25/24 12:40 Procedure Start Time: 10:13 Procedure Stop Time: 11:40 Select all DRAINS/GRAFTS/IMPLANTS that apply: Prosthetic device Prosthetic device details: See body of operative report Special Medications: 2 g Ancef, 1 g TXA at incision, 1 g TXA closure, 10 mg Decadron, joint cocktail (5 mg Duramorph, 30 mL of 0.5% Ropivicaine, 1000 units of epinephrine, 30 mg of Toradol) Estimated Blood Loss: 200 mL Fluids Replaced: 1000 L crystalloid Specimen collected: Yes Description of specimen(s) removed: Bony cuts Description of surgery: Implants used: 1. Cookson size 3 triathlon cruciate retaining distal femoral press-fit component 2. Zan size 4 press-fit tritanium tibial baseplate 3. Zan X3 11 mm CS polyethylene Brief history operative indications: 79-year-old f with history of right knee osteoarthritis with radiographic findings with loss of joint space, osteophyte formation and subchondral sclerosis. Failed conservative measures as mentioned in the H&P. Discussion of total knee arthroplasty as well as risk and benefits were discussed the patient including but not limited to blood loss, DVTs, PEs, neurovascular damage, general risk of anesthesia including loss of life, and stiffness or instability were discussed with patient. Patient demonstrated understanding and was able to sign informed consent. Procedure: On the date of procedure patient's right lower extremity was marked in the preoperative area. The patient was then taken back to the operating room where the patient was placed on the table in the supine position. All bony prominences were identified a well-padded. Anesthesia assumed control of the C-spine and airway and remained controlled throughout the remainder of the procedure. A tourniquet was placed on the right upper thigh and the leg was prepped in a sterile fashion. The surgeon then scrubbed at this time .Upon reentering the room right lower extremity was draped in a standard orthopedic fashion. A timeout was then called and everyone agreed upon the side, the site, the procedure to be performed, patient's identity and antibiotics given. Esmarch bandage was used to exsanguinate the extremity and the tourniquet was placed up to 250 mmHg with the knee in flexion. A midline skin incision was made and sharp dissection was taken down through skin subcutaneous tissue and fat. The standard medial parapatellar incision was made and the patella was subluxed laterally. An Appropriate deep MCL release was done and the fat pad was resected. Our attention was then directed to the patella. The patella was everted and and found to have appropriate cartilage for retention The knee was then flexed up in 2 femoral pins were placed inside the incision and 2 tibial pins were placed outside the incision in the medial tibia bicortically. Once this was completed the 2 checkpoints in the femur and tibia were placed. Knee was then flexed up and the bony landmarks were registered. Once this was completed knee was taken through range of motion and manually stressed allowing us to a plan for an appropriate tibial cut. The robotic arm was brought into the field sterilely and checkpoint and saw were registered. Based on the patient's deformity the tibial cut was made neutral to the tibial axis. At this time the tensioner was then placed in the joint and ligament tension was checked at 90 degrees and full extension. Based on the patient's ligamentous tension appropriate adjustments were made to the operative plan and ligament releases were done. Once we were happy with our operative plan with balanced flexion and extension gaps our attention was directed to the femur. The robot was brought into the field sterilely and registered. Posterior condylar cuts, anterior chamfer cuts and anterior cuts were appropriately made for a size 3 femur. When these were completed the saws were switched out in the distal femoral and posterior chamfer cuts were made. Protecting the soft tissue throughout this time. A size 4 tibial base plate was selected. the knee was flexed to 90 degrees and the soft tissues and posterior osteophytes were removed from the joint. 40 cc of the periarticular injection was injected into the posterior medial corner of the joint. The appropriate trials were then placed on the femur and tibia. A trial polyethylene was trialed to ensure proper balancing and stability of the knee. The appropriate tibial internal rotation was then marked with a bovie. Our attention was then directed to the patella. Patellar tracking was checked and deemed appropriate. Once we were happy lug holes were drilled for the femur and trial components were removed. The tibia was subluxed and pinned into place and the keel was punched and drilled appropriately. Final components were verified and opened. The wound was copiously irrigated with normal saline. When the cement was ready the components were impacted into place starting with the tibia then cementing the femur. The trial poly component was placed and the knee was placed in full extension. Once the the implants were secured, the tracking, alignment and balance were verified and a size 11 mm CS polyethylene component was placed. Once the final components were placed a 3-minute dilute Betadine lavage was performed followed by an Irrisept lavage was performed and the wound was copiously irrigated with normal saline solution and the periarticular injection was given. The wound was closed in a layer yi fashion using #1 vicryl interrupted sutures for the arthrotomy, 2-0 interrupted Vicryl suture for the subcuticular layer and latoya for final skin closure. A sterile compressive dressing was then placed. The patient was then awakened from anesthesia, transferred to the [facility] and transferred to the PACU for recovery. Post op plan DVT ppx: ASA 81mg BID, thigh high compression stockings Follow up: in office in 2 weeks for wound check PT: to start POD #0 at hospital, outpatient PT should be arranged. My physician assistant office manager was a vital part of this case, they was important because there was not another skilled set of hands available to their training and aptitude needed for safe and appropriate completion of this case. They were important in appropriate retraction during the case, and protection of soft tissues during bony cuts. In particular the experience and skill of this assistant office manager made for safe retraction and exposure during implantation of medical implants without damage to vital soft tissues or structures. His intimate knowledge of the case and my steps aided in safe and expedient completion of the procedure as well as appropriate position of the leg during the case. He was also vital in assisting with closure under my direct supervision. Due to the complexity of this case robotic arm was used to assist in the surgery to improve accuracy and clinical outcomes. Surgical Findings: Stage IV osteoarthritis. Stable knee with good patella tracking Complications Complications: No Admit VTE Documentation VTE Present on Admission: No VTE Mechan Device Prophylaxis: SCD's and Thigh High ROSA Hose VTE Pharm Prophylaxis ordered?: Yes
--- NOTE | 2024-12-25 12:00 | RAD_ITS ---
PROCEDURE: KNEE 1 OR 2 VIEWS 12/25/2024 REASON FOR EXAM: TKA TECHNIQUE: Procedure Code: RADK Modality: DX Procedure: KNEE 1 OR 2 VIEWS Laterality: Right knee COMPARISON: June 03, 2020. FINDINGS: The patient is status post total knee replacement. There is good alignment. Postoperative soft tissue changes. RAD/Knee 1 or 2 Views IMPRESSION: Status post total knee replacement. There is good alignment. Postoperative soft tissue changes. Reading Location: [place] [id number]
[2024-12-25] MEDS: LR 1,000 ML - BOLUS POSTOP 999 ML IV (12:01)
--- NOTE | 2024-12-25 12:02 | PCM.POST.ANE ---
Anesthesia: Postop Eval I Current Vital Signs Temperature: 97.1 F Pulse Rate: 70 Blood Pressure: 140/59 Respiratory Rate: 12 Pulse Ox: 100 Oxygen Delivery Method: Nasal Cannula Oxygen Flow Rate (L/min): 2 Assessment Airway patent: Yes Spontaneous unlabored respirations: Yes Mental status: Awake and Calm nausea: No Vomiting: No Anesthesia Complication: No Fluid Hydration Crystalloid volume administer (ml): 1,000 Total IV fluid infused: 1,000 Progress Note Anesthesia document: Postop Eval 1 completed: Yes
[2024-12-25] MEDS: LR 1,000 ML - 125 ML/HR (POST BOLUS) POST OP IV (13:23)
[2024-12-25] MEDS: Senna/Docusate Sodium 1 Tablet 2 TABLET PO ×2 (13:33→21:44)
--- NOTE | 2024-12-25 13:45 | POSTOPAN2_ITS ---
Anesthesia Postop Eval I Sum Postop Eval Completion status Anesthesia document: Postop Eval 1 completed: Yes Anesthesia Postop Eval I Summary Anesthesia Postop Eval I Summary: Anesthesia Postop Eval I: Assessment Summary Airway patent Yes 12/25/24 12:03 POLICE ACADEMY INSTRUCTOR.[email or web address] Spontaneous unlabored Yes 12/25/24 12:03 POLICE ACADEMY INSTRUCTOR.SHOF respirations Mental status Awake,Calm 12/25/24 12:03 POLICE ACADEMY INSTRUCTOR.SHOF nausea No 12/25/24 12:03 POLICE ACADEMY INSTRUCTOR.SHOF Vomiting No 12/25/24 12:03 POLICE ACADEMY INSTRUCTOR.SHOF Anesthesia Postop Eval I: Fluid Summary Crystalloid volume administer 1,000 12/25/24 12:03 POLICE ACADEMY INSTRUCTOR.SHOF (ml) Colloids volume administered ( ml) Blood Product volume administered (ml) Total IV fluid infused 1,000 12/25/24 12:03 POLICE ACADEMY INSTRUCTOR.SHOF Anesthesia Postop Eval I: Summary Notes Anesthesia Complication No 12/25/24 12:03 POLICE ACADEMY INSTRUCTOR.SHOF Anesthesia Complication Comment: Post-operative progress note Anesthesia: Postop Eval II Evaluation Mental status: Awake Pain Level: 0 nausea: No Vomiting: No Complications Anesthesia Complication: No
--- NOTE | 2024-12-25 13:45 | PCM.POSTANE2 ---
Anesthesia Postop Eval I Sum Postop Eval Completion status Anesthesia document: Postop Eval 1 completed: Yes Anesthesia Postop Eval I Summary Anesthesia Postop Eval I Summary: Anesthesia Postop Eval I: Assessment Summary Airway patent Yes 12/25/24 12:03 PRINCIPAL PLANNER.SHOF Spontaneous unlabored Yes 12/25/24 12:03 PRINCIPAL PLANNER.SHOF respirations Mental status Awake,Calm 12/25/24 12:03 PRINCIPAL PLANNER.SHOF nausea No 12/25/24 12:03 PRINCIPAL PLANNER.SHOF Vomiting No 12/25/24 12:03 PRINCIPAL PLANNER.SHOF Anesthesia Postop Eval I: Fluid Summary Crystalloid volume administer 1,000 12/25/24 12:03 PRINCIPAL PLANNER.SHOF (ml) Colloids volume administered ( ml) Blood Product volume administered (ml) Total IV fluid infused 1,000 12/25/24 12:03 PRINCIPAL PLANNER.SHOF Anesthesia Postop Eval I: Summary Notes Anesthesia Complication No 12/25/24 12:03 PRINCIPAL PLANNER.SHOF Anesthesia Complication Comment: Post-operative progress note Anesthesia: Postop Eval II Evaluation Mental status: Awake Pain Level: 0 nausea: No Vomiting: No Complications Anesthesia Complication: No
--- NOTE | 2024-12-25 14:43 | PN.HOSP_ITS ---
Subjective Subjective 79-year-old female presenting to the hospital for an elective total knee replacement for osteoarthritis. No recent changes to her medications. She does have CKD with a creatinine baseline of around 1.7 Objective Data Objective Data Vital Signs: Vital Signs Temp Pulse Resp BP Pulse Ox O2 Del Method O2 Flow Rate 97.4 F L 64 18 134/69 H 93 Nasal Cannula 3 12/25/24 13:01 12/25/24 13:01 12/25/24 13:01 12/25/24 13:01 12/25/24 14:30 12/25/24 14:30 12/25/24 14:30 Oxygen Flow Rate (L/min) 3 Oxygen Delivery Method Nasal Cannula Weight: 183 lb 3.266 oz Body Mass Index (BMI) 31.4 Intake & Output: Intake and Output for Last 24 Hours 12/24/24 12/25/24 12/26/24 03:59 03:59 03:59 Intake Total 2104 / 2104 Output Total 400 / 400 Balance 1704 / 1704 Lab / Micro Data 11/30/24 11:48 11/30/24 11:48 Labs: Laboratory Results - last 24 hr 12/25/24 08:24: POC Glucose 89 Micro: Microbiology 11/30/24 11:48 Swab (Method) Nasal Screen MRSA/MSSA - Final Radiography Diagnostic Testing: Radiology Impression Knee X-Ray 12/25/24 12:00 IMPRESSION: Status post total knee replacement. There is good alignment. Postoperative soft tissue changes. Reading Location: [place] [address] Physical Exam Narrative General: Resting comfortably, Cooperative, No apparent distress HEENT: Atraumatic, PERRLA, EOMI, Normocephalic Oral: Moist Mucosa Neck: Supple, No JVD Lungs: Diminished, Normal air movement, No rhonchi, No wheeze, No rales Cardiovascular: Regular rate, Regular Rhythm, Normal S1, Normal S2, No murmurs Abdomen: Soft, Non Tender, Non-Distended, No Hepato-splenomegaly Extremities: No edema, Capillary Refill Less than 3 Seconds, right knee is wrapped Skin: No rashes, No breakdown Musculoskeletal: No Tenderness to Palpation of Joints or Extremities Neurological: No focal neurological deficits, moves all extremities though right lower extremity limited due to recent surgery Psych/Mental Status: Normal Affect, Appropriate Assessment & Plan Assessment/Plan (1) Status post total right knee replacement: PLAN: Plan 1. Status post right total knee replacement for osteoarthritis on 12/25/2024 – Pain management per primary – PT/OT – Will recheck labs in the morning 2. Essential hypertension – Will hold her lisinopril secondary to her CKD pending recheck in the morning – Blood pressures are currently stable 3. Anxiety/depression – Stable – Can resume her home medications 4. Iron deficiency anemia – Stable – Continue with iron replacement DVT: Per primary Charges/Coding Visit Charges Office Visits / Consults: 98851 OV L3 New 30min
[2024-12-25] MEDS: 0.9% Saline Lock 10 ML Syringe IV (15:10)
--- NOTE | 2024-12-25 15:32 | CASEMGMT ---
RICHARDS Met with patient to complete RICHARDS form. RICHARDS form and its content were verbally explained and patient's questions were answered to the best of my ability. Patient voiced understanding and signed RICHARDS form. Patient provided a copy of signed RICHARDS form and original placed in patient's chart. Patient had no further questions. Nora Peters, Discharge Planning Asst
[2024-12-25] MEDS: Cefazolin 1 GM/50 ML BAG IV (17:23)
[2024-12-26] VITALS (8 sets, daily range): BP systolic 102–136; BP diastolic 43–86; PULSE 54–74; RESP 16–18; TEMP 36.2–37.6; O2SAT 90–97
[2024-12-26] MEDS: Cefazolin 1 GM/50 ML BAG IV (02:36)
[2024-12-26 06:51] LABS: Hematocrit 28.1 % (37-47); Hemoglobin 9.3 g/dL (12.0-15.0); Mean Corp Hgb Conc 33.1 g/dL (32-36); Mean Corpuscular Volume 92.1 fL (81-99); Mean Platelet Vol. 10.3 fl (6.2-12.0); Platelet Count 200 K/mm3 (150-450); RBC Distribution Width CV 12.5 % (11.6-14.6); RBC Distribution Width SD 42.0 fl (35.1-43.9); Red Blood Count 3.05 M/mm3 (4.2-5.4); White Blood Count 8.1 K/mm3 (4.4-11.0)
--- NOTE | 2024-12-26 07:09 | NURSING ---
Nurse came and got me when aid was ambulating patient to chair the patient got a little woozy and disoriented. Bp was taken and a little low but other vitals were stable. After a few minutes patient was back to normal. Pt stated the last time she had anesthesia she did not feel right for a few days.
[2024-12-26 07:14] LABS: Anion Gap 9 (5-15); BUN 27 mg/dL (4-19); BUN/Creat Ratio 15.3 RATIO (10-20); Calcium,Total 8.9 mg/dL (7.6-11.0); Carbon Dioxide 21.9 mmol/L (21.0-32.0); Chloride 105 mmol/L (98-108); Estimated Creatinine Clearance 26.88 ml/min (50-250); Glucose 107 mg/dL (70-99); Potassium 4.2 mmol/L (3.3-5.1)
--- NOTE | 2024-12-26 07:58 | PN.HOSP_ITS ---
Subjective Subjective Doing well, pain is controlled Objective Data Objective Data Vital Signs: Vital Signs Temp Pulse Resp BP Pulse Ox O2 Del Method O2 Flow Rate 97.5 F L 56 L 16 102/51 L 90 Room Air 3 12/26/24 06:24 12/26/24 06:24 12/26/24 06:24 12/26/24 06:24 12/26/24 07:44 12/26/24 07:44 12/25/24 14:30 Oxygen Flow Rate (L/min) 3 Oxygen Delivery Method Room Air Weight: 183 lb 3.266 oz Body Mass Index (BMI) 31.4 Intake & Output: Intake and Output for Last 24 Hours 12/25/24 12/26/24 12/27/24 03:59 03:59 03:59 Intake Total 3944 / 3944 300 / 300 Output Total 800 / 800 Balance 3144 / 3144 300 / 300 Lab / Micro Data 12/26/24 06:14 12/26/24 06:14 Labs: Laboratory Results - last 24 hr 12/25/24 08:24: POC Glucose 89 12/26/24 06:14: WBC 8.1, RBC 3.05 L, Hgb 9.3 L, Hct 28.1 L, MCV 92.1, MCH 30.5, MCHC 33.1, RDW Std Deviation 42.0, RDW Coeff of Catracho 12.5, Plt Count 200, MPV 10.3, Sodium 136, Potassium 4.2, Chloride 105, Carbon Dioxide 21.9, Anion Gap 9, BUN 27 H, Creatinine 1.77 H, Estim Creat Clear Calc 26.88 L, Est GFR (MDRD) Non- Af 29 L, BUN/Creatinine Ratio 15.3, Glucose 107 H, Calcium 8.9 Micro: Microbiology 11/30/24 11:48 Swab (Method) Nasal Screen MRSA/MSSA - Final Radiography Diagnostic Testing: Radiology Impression Knee X-Ray 12/25/24 12:00 IMPRESSION: Status post total knee replacement. There is good alignment. Postoperative soft tissue changes. Reading Location: [place] [id number] Physical Exam Narrative General: Alert, oriented x 3, Cooperative, No apparent distress HEENT: Atraumatic, PERRLA, EOMI, Normocephalic Oral: Moist Mucosa Neck: Supple, No JVD Lungs: Diminished, Normal air movement, No rhonchi, No wheeze, No rales Cardiovascular: Regular rate, Regular Rhythm, Normal S1, Normal S2, No murmurs Abdomen: Soft, Non Tender, Non-Distended, No Hepato-splenomegaly Extremities: No edema, Capillary Refill Less than 3 Seconds, right knee is wrapped Skin: No rashes, No breakdown Musculoskeletal: No Tenderness to Palpation of Joints or Extremities Neurological: No focal neurological deficits, moves all extremities though right lower extremity limited due to recent surgery Psych/Mental Status: Normal Affect, Appropriate Assessment & Plan Assessment/Plan (1) Status post total right knee replacement: PLAN: Plan 1. Status post right total knee replacement for osteoarthritis on 12/25/2024 – Pain management per primary – PT/OT – Labs this morning are stable she does have a little bit of a postop anemia which can be followed as an outpatient – Will sign off 2. Essential hypertension –Can restart her lisinopril on discharge kidney function is to her baseline – Blood pressures are currently stable 3. Anxiety/depression – Stable – Can resume her home medications 4. Iron deficiency anemia with anemia of chronic disease – Stable – Continue with iron replacement – She does have CKD 4 DVT: Per primary Charges/Coding Visit Charges Office Visits / Consults: [id number] OV L3 Est 20min
--- NOTE | 2024-12-26 08:41 | PN.ORTHO_ITS ---
Subjective Subjective Patient is sitting comfortably in bedside chair upon examination. Patient states when she just went to get the bedside chair she almost fell into the chair because of dizziness. Patient is eager to get home but was made aware if she does not do well with physical therapy she may have to stay. Patient denied any nausea or vomiting. Patient states that her pain is controlled. Patient denies any shortness of breath, chest pain, calf pain. Patient denies any new numbness or tingling at this time. Patient denies any adverse events overnight. Objective Data Objective Data Vital Signs: Vital Signs Temp Pulse Resp BP Pulse Ox O2 Del Method O2 Flow Rate 97.5 F L 56 L 16 102/51 L 90 Room Air 3 12/26/24 06:24 12/26/24 06:24 12/26/24 06:24 12/26/24 06:24 12/26/24 07:44 12/26/24 07:44 12/25/24 14:30 Oxygen Flow Rate (L/min) 3 Oxygen Delivery Method Room Air Weight: 83.1 kg Body Mass Index (BMI) 31.4 Intake & Output: Intake and Output for Last 24 Hours 12/24/24 12/25/24 12/26/24 23:59 23:59 23:59 Intake Total 2394 / 2394 1850 / 1850 Output Total 400 / 400 400 / 400 Balance 1993 1450 / 1450 Lab / Micro Data 12/26/24 06:14 12/26/24 06:14 Labs: Laboratory Results - last 24 hr 12/25/24 08:24: POC Glucose 89 12/26/24 06:14: WBC 8.1, RBC 3.05 L, Hgb 9.3 L, Hct 28.1 L, MCV 92.1, MCH 30.5, MCHC 33.1, RDW Std Deviation 42.0, RDW Coeff of Catracho 12.5, Plt Count 200, MPV 10.3, Sodium 136, Potassium 4.2, Chloride 105, Carbon Dioxide 21.9, Anion Gap 9, BUN 27 H, Creatinine 1.77 H, Estim Creat Clear Calc 26.88 L, Est GFR (MDRD) Non- Af 29 L, BUN/Creatinine Ratio 15.3, Glucose 107 H, Calcium 8.9 Micro: Microbiology 11/30/24 11:48 Swab (Method) Nasal Screen MRSA/MSSA - Final Radiography Diagnostic Testing: Radiology Impression Knee X-Ray 12/25/24 12:00 IMPRESSION: Status post total knee replacement. There is good alignment. Postoperative soft tissue changes. Reading Location: [facility] Physical Exam Narrative ROSA hose in place bilaterally SCDs in place bilaterally Mepilex dressing is clean, dry, intact. Distal dressing is with bloody drainage. Dorsiflexion and plantarflexion are performed actively without pain or restriction Sensation intact light touch. Neurovascularly intact overall. Negative Homans bilaterally. Const alert, oriented x3 and no apparent distress Assessment & Plan Assessment/Plan (1) Status post total right knee replacement: PLAN: Status post right knee robotic assisted total arthroplasty day 1. DVT prophylaxis: Patient will be on aspirin 81 mg twice daily for 4 weeks postoperatively as well as wearing ROSA hose for 2 weeks postoperatively. Patient was educated to remove ROSA hose for showering and at nighttime. Patient denies any history of DVT or PE. Pain medications: Patient will be on Tylenol 1000 mg every 8 hours, oxycodone as needed for postoperative pain. We will avoid any anti-inflammatory medications in this patient due to chronic kidney disease. OARRS report was reviewed and risk of narcotic pain medication was reviewed. Patient was educated not to operate motor ball or heavy machinery while taking narcotic pain medications. Patient voiced understanding. H&H: 9.3/28.1. Vital signs are stable patient is afebrile at this point. Patient is currently following anemia protocol. Will continue to follow anemia protocol at this time. Constipation: Patient was instructed to take senna until her first bowel movement and then can take as needed. Patient was educated if they have not had a bowel movement in 3 days to contact our office for reevaluation. Patient voiced understanding. Physical therapy: Patient will continue to be weightbearing as tolerated with walker with physical therapy. Patient does have outpatient physical therapy established. Incentive spirometry: Patient was encouraged to use incentive spirometer every hour that they are awake for the first week to exercise lungs and decrease risk postoperative lung infection. Dressings: Patient was educated can get dressing wet on postop day 1. Patient was educated to remove dressing on postop day 5. Patient was educated to avoid doing any soaking or submerging for 6 weeks. Patient was educated to avoid any lotions or oils directly on incision for 6 weeks. Patient is to follow-up for postoperative instructions. Hospitalist is involved in this patient and I will have hospitalist see patient today. Appreciate recommendations from hospitalist at this time. Patient will have a 2-week follow-up appointment with our office for wound care and staple removal. Disposition: At this point I do feel would be beneficial for patient to stay an additional night. Patient did not do well with physical therapy. Physical therapist was consulted who stated that patient was not very safe on her feet and they did not feel comfortable with patient going home at this time. Physical therapy will plan to work with patient 1 more time today. Patient was not able to ambulate far with physical therapy due to being unsafe and feeling dizzy. Patient would benefit from another night stay in the hospital. Medicine will see patient for evaluation and to monitor and manage chronic diseases. As long as patient does better with physical therapy we will plan for hopefully discharge tomorrow as patient is eager to get home. Patient was encouraged to call with any questions, concerns, new problems.
[2024-12-26] MEDS: buPROPion (XL) 300 MG TABLET.XL PO (09:02)
[2024-12-26] MEDS: Senna/Docusate Sodium 1 Tablet 2 TABLET PO ×2 (09:02→22:58)
--- NOTE | 2024-12-26 10:29 | CASEMGMT ---
Social Work SW created in [facility] a list of snf facilities in network w/pt's insurance, in pt's preferred geographic area, and complete w/quality and resource use data. CAMACHO Boyd
--- NOTE | 2024-12-26 10:48 | CASEMGMT ---
Social Work- SW met with pt to discuss discharge planning. SW introduced self and role; pt agreeable to meeting. SW reviewed therapy progress and recommendations. Pt reports that she would like to return home with [facility]. Pt reports that she has 4 stairs into home that she will need to practice navigating prior to d/c. Ortho reports that pt will remain in the hospital today. SW remains available to follow for discharge planning needs. NORBERT Hurtado
--- NOTE | 2024-12-26 11:23 | CASEMGMT ---
Discharge Planning A list of HH providers including quality and resource use data and consistent with the patient's preferred geographic region, medical needs, and insurance network was created in [employer]. This list was provided to the SW. Nora Peters Discharge Planning Asst.
[2024-12-27 02:36] VITALS: BP 140/67; PULSE 72; RESP 18; TEMP 36.4; O2SAT 94
[2024-12-27 07:00] LABS: Hematocrit 28.8 % (37-47); Hemoglobin 9.4 g/dL (12.0-15.0); Immature Granulocytes Count 0.030 X10^3/uL (0.0-0.0); Mean Corp Hgb Conc 32.6 g/dL (32-36); Mean Corpuscular Volume 92.9 fL (81-99); Mean Platelet Vol. 9.9 fl (6.2-12.0); NRBC Flagged by Analyzer 0 % (0-5); Platelet Count 191 K/mm3 (150-450); RBC Distribution Width CV 12.6 % (11.6-14.6); RBC Distribution Width SD 42.9 fl (35.1-43.9); Red Blood Count 3.10 M/mm3 (4.2-5.4); White Blood Count 8.6 K/mm3 (4.4-11.0)
[2024-12-27 07:30] LABS: Anion Gap 10 (5-15); BUN 35 mg/dL (4-19); BUN/Creat Ratio 18.1 RATIO (10-20); Calcium,Total 9.1 mg/dL (7.6-11.0); Carbon Dioxide 24.3 mmol/L (21.0-32.0); Chloride 104 mmol/L (98-108); Estimated Creatinine Clearance 24.91 ml/min (50-250); Glucose 101 mg/dL (70-99); Potassium 4.7 mmol/L (3.3-5.1)
[2024-12-27 07:48] VITALS: O2SAT 97
[2024-12-27 07:58] VITALS: BP 155/64; PULSE 71; RESP 17; TEMP 36.5; O2SAT 95
[2024-12-27] MEDS: Senna/Docusate Sodium 1 Tablet 2 TABLET PO (08:05)
[2024-12-27] MEDS: buPROPion (XL) 300 MG TABLET.XL PO (08:06)
--- NOTE | 2024-12-27 11:11 | CASEMGMT ---
Social Work SW met with pt to discuss discharge plans. Pt worked with therapy and was able to complete stairs and now states she feels she can return home. Pt states she has all needed DME. SW offered home health vs outpt therapy. Pt states she would like to go to [facility] for outpt PT. Pt states her dgt will schedule an appointment and pt's family can provide transportation. Pt denies any other dc needs. Phone call to [facility] and they do have a physicans order and an appointment is scheduled for 12/29 at 11:30. Disposition: Home with outpt PT at [facility] NORBERT Pearson
--- NOTE | 2024-12-27 11:19 | PN.ORTHO_ITS ---
Subjective Subjective The patient was sitting in bedside chair upon examination. Patient denies any chest pain, shortness of breath, dizziness, lightheadedness, nausea or vomiting, or calf pain. Pain is controlled on medications. No adverse overnight events. Patient has only been requiring the Tylenol. She was having some dizziness yesterday. She has not had any of the oxycodone today. Patient has tolerated oxycodone on previous surgery. She did much better today and physical therapy. Physical therapy is okay with discharge home and outpatient therapy. Patient does report having a bowel movement today. Objective Data Objective Data Vital Signs: Vital Signs Temp Pulse Resp BP Pulse Ox O2 Del Method O2 Flow Rate 97.7 F L 71 17 155/64 H 95 Room Air 3 12/27/24 07:58 12/27/24 07:58 12/27/24 07:58 12/27/24 07:58 12/27/24 07:58 12/27/24 07:58 12/25/24 14:30 Oxygen Flow Rate (L/min) 3 Oxygen Delivery Method Room Air Weight: 83.1 kg Body Mass Index (BMI) 31.4 Intake & Output: Intake and Output for Last 24 Hours 12/25/24 12/26/24 12/27/24 23:59 23:59 23:59 Intake Total 2394 / 2394 1850 / 1850 900 / 900 Output Total 400 / 400 400 / 400 1100 / 1100 Balance 1993 / 1993 1450 / 1450 -200 / -200 Lab / Micro Data 12/27/24 06:53 12/27/24 06:53 Labs: Laboratory Results - last 24 hr 12/27/24 06:53: WBC 8.6, RBC 3.10 L, Hgb 9.4 L, Hct 28.8 L, MCV 92.9, MCH 30.3, MCHC 32.6, RDW Std Deviation 42.9, RDW Coeff of Catracho 12.6, Plt Count 191, MPV 9.9, Immature Gran % (Auto) 0.300, Neut % (Auto) 70.7 H, Lymph % (Auto) 17.3 L, Coffey % (Auto) 10.5 H, Eos % (Auto) 0.7, Baso % (Auto) 0.5, Absolute Neuts (auto) 6.1, Absolute Lymphs (auto) 1.49, Nucleated RBC % 0, Sodium 138, Potassium 4.7, Chloride 104, Carbon Dioxide 24.3, Anion Gap 10, BUN 35 H, Creatinine 1.91 H, E stim Creat Clear Calc 24.91 L, Est GFR (MDRD) Non-Af 26 L, BUN/Creatinine Ratio 18.1, Glucose 101 H, Calcium 9.1 Micro: Microbiology 11/30/24 11:48 Swab (Method) Nasal Screen MRSA/MSSA - Final Physical Exam Narrative Vital signs stable and afebrile. Patient is able to plantarflex and dorsiflex actively. Sensation is intact to light touch to saphenous, sural, superficial and deep peroneal, and tibial distribution. Main Mepilex dressing has mild drainage over the distal one third. Distal pin site dressing moderately saturated. SCDs and ROSA hose are in place bilaterally Negative Homans bilaterally, negative signs and symptoms of DVT. Const alert, oriented x3 and no apparent distress Assessment & Plan Assessment/Plan (1) Status post total right knee replacement: PLAN: 1. S/P right robotic assisted total POD #1 2. Continue Pain Medications: Tylenol and oxycodone as needed for breakthrough pain. Patient is only required Tylenol today. I will give her a small prescription of the oxycodone on discharge. She will only use this for breakthrough pain. She has tolerated this in the past for previous surgery. If she has any complications with the medication she will contact our office. She has been advised to contact our office if refill is needed. We are avoiding nonsteroidal anti-inflammatories due to her chronic kidney disease. 3. DVT Prophylaxis: Take 81 mg aspirin twice daily for 4 weeks postoperatively for DVT prophylaxis. Patient denies past history of DVT or pulmonary embolism. Patient will continue with ROSA hose for 2 weeks postoperatively. 4. PT/OT: Weightbearing as tolerated with walker. Patient did much better today with physical therapy and they are okay with patient being discharged home with outpatient therapy. PT prescription has been signed and given to care management team 5. H & H: 9.4/28.8, asymptomatic. Acute on chronic anemia secondary to blood loss from surgery without intraoperative complications. Patient was placed on our anemia protocol preoperatively in which she has been using ferrous sulfate and folic acid. We will have her continue on this medication. I will also have the care management team schedule appointment with the primary care provider for repeat labs and continued management in approximately 3 weeks. Patient did voiced understanding. 6. Encouraged Incentive Spirometry 7. Patient has had a bowel movement and will now only use the stool softener at home on an as-needed basis. If she has any complications with constipation she will contact our office immediately. 8. Continue postoperative medical treatment per medicine 9. Disposition: Plan will be for discharge home today. Patient is adamant and ready to go today as soon as possible. She did well with physical therapy. She would like to proceed with outpatient physical therapy in the [place]. Physical therapy prescription has been placed on chart. I would like patient to follow- up with her primary care provider in approximately 3 weeks so that they can continue to follow her anemia. I would defer to the primary care provider for further management and treatment. I would also recommend primary care provider addressing and monitoring her chronic kidney disease. Upon discharge patient will contact our office with any concerns or questions. She will follow-up per our postoperative instructions. She would like her prescription sent to the pharmacy at [facility]. I have reviewed the [place] Automated Rx Reporting System (OARRS) report for this patient for refill pattern and other prescriber involvement as part of the appropriate surveillance for the provision of acute and chronic controlled medications. The report was requested and reviewed on the date of this entry and was considered in the prescribing process. This dictation was created using voice recognition software. Phonetic and/or grammatical errors may exist.
--- NOTE | 2024-12-27 11:25 | PCM.DC ---
Discharge Instructions DC O2, CPAP, BIPAP needs Home O2 Discharge instructions: No Dressing / Incision Discharge Activity: May Not Drive (No driving for 6 weeks postoperatively. Must also be off all narcotics and able to walk 100 feet without the use of cane or walker.) May shower in (days): 1 (Please turn dressing away from water. Okay to get wet as long as dressing is intact to skin.) Ice area for (Minutes): 20 (Every 1-2 hours while awake. Please place barrier between the skin and ice pack.) Weight Bearing Status: Weight bearing as tolerated (With walker) Keep extremity elevated above heart level: Operative Extremity Dressing / Incision Call your doctor if your incision/area has: Continuous Slow Oozing, Sudden Increased Bleeding, Increased Pain/ Swelling, Increased Redness and Foul Smelling Discharge Call your doctor if you observe: Fever of 101 or Higher, Coldness, Increased Pain, Numbness or Tingling, Change in Color, Shortness of breath, Chest pain, Calf discomfort and Uncontrolled pain Remove Dressing in: 3 days (Okay to remove dressing on December 30, 2024) Additional Dressing/Incision Instructions:: Follow [facility] Post-op Instructions. Once postoperative dressing has been removed only use gentle soap and water over the incision. Do not use any ointments, Neosporin, salves, alcohol pads over the incision for 6 weeks postoperatively. Do not submerge underwater for 6 weeks postoperatively. Continue with ROSA hose/elastic stockings for 2 weeks postoperatively. May remove at nighttime but needs to be placed back on the leg during the day. Do NOT use alcohol with narcotic pain medication. Do NOT make important decisions while taking narcotic medication. If you have problems with taking your medication (rash, itching, nausea, etc.) call the office at once. Follow Up Care Test Results: Test results from this visit will be discussed in further detail at your follow-up appointment, if applicable. Discharge Plan Admission Admit Date/Time: 12/25/24 07:04 Attending Provider: Kurt Rosenthal Primary Care Provider: Magdy Gibbs Consulting Providers: Mark Patrick Discharge Orders/Prescriptions Prescriptions: New aspirin 81 mg tablet 81 mg PO BID 30 Days Qty: 60 0RF Rx Instructions: Take 81 mg aspirin twice daily for 4 weeks postoperatively for DVT prophylaxis. oxycodone 5 mg Tablet 5 - 10 mg PO Q4H PRN PRN (Reason: as needed for pain) 7 Days Qty: 20 0RF Continued fluoxetine [Prozac] 20 mg capsule 20 mg PO BID bupropion HCl [Wellbutrin XL] 300 mg tablet extended release 24 hr 300 mg PO QAM lisinopril 20 mg tablet 20 mg PO DAILY oxybutynin chloride 5 mg tablet 5 mg PO BID loratadine [Allergy Relief (loratadine)] 10 mg tablet 10 mg PO DAILY ferrous sulfate [Feosol] 325 mg (65 mg iron) tablet 325 mg PO QODAY docusate sodium [Col-Rite] 100 mg capsule 100 mg PO DAILY calcium carbonate-vitamin D3 [Calcium 600 + D(3)] 600 mg-5 mcg (200 unit) tablet 1 tab PO DAILY famotidine 20 mg Tablet 20 mg PO DAILY PRN (Reason: acid reflux) Discontinued aspirin 81 mg Tablet,Chewable 81 mg PO DAILY Referrals / Follow Up: physical,therapy [Other] - 12/29/24 11:30 am Magdy Gibbs MD [Primary Care Provider, [facility]] - 01/18/25 8:30 am Referral Note: f/u in 3 weeks for labs and management of anemia and CKD Sara Gatica PA [Med Staff - [facility] Prof, Orthopedics] - 01/09/25 2:00 pm Disposition Disposition (needs filled in before D/C Order can be placed): Home, Self Care
--- NOTE | 2024-12-27 13:05 | PHA.DC_ITS ---
Pharmacy [facility] Counseling Pharmacy Service has performed discharge medication reconciliation and counseling for this patient. 1. ASPIRIN 81MG PO BID X 4 WEEKS, THEN RESUME DAILY 2. OXYCODONE 5-10MG -0 Q4H PRN PAIN The patient's discharge medication list was reviewed for discrepancies and discrepancies were resolved. The patient was counseled on the following discharge medications and changes in medications for homegoing were reviewed. The Reason for Use, instructions for use, and potential side effects were reviewed for all new medications. The patient's questions regarding all of their medications were answered. The patient was able to verbally demonstrate an understanding of their discharge medications. Patient counseled by pharmacy operations coordinatorEnoch. Medications at Discharge Home Medications bupropion HCl 300 mg 24 hr tablet, extended release (Wellbutrin XL) 300 mg PO QAM 07/22/18 fluoxetine 20 mg capsule (Prozac) 20 mg PO BID 07/22/18 lisinopril 20 mg tablet 20 mg PO DAILY 10/02/24 calcium 600 mg (as carbonate)-vitamin D3 5 mcg (200 unit) tablet (Calcium 600 + D(3)) 1 tab PO DAILY 11/28/24 docusate sodium 100 mg capsule (Col-Rite) 100 mg PO DAILY 11/28/24 famotidine 20 mg tablet 20 mg PO DAILY PRN acid reflux 11/28/24 ferrous sulfate 325 mg (65 mg iron) tablet (Feosol) 325 mg PO QODAY 11/28/24 loratadine 10 mg tablet (Allergy Relief (loratadine)) 10 mg PO DAILY 11/28/24 oxybutynin chloride 5 mg tablet 5 mg PO BID 11/28/24 aspirin 81 mg tablet 81 mg PO BID 30 days #60 tabs 12/27/24 oxycodone 5 mg tablet 5 - 10 mg (1 - 2 x 5 mg) PO Q4H PRN PRN as needed for pain 7 days #20 tabs 12/27/24
--- NOTE | 2025-01-03 23:06 | DS.PCM_ITS ---
Providers Date of Admission: 12/25/24 Date of Discharge: 12/27/24 Primary Care Physician: Dr. Magdy Gibbs MD Consultations 12/25/24 07:04 Consult: Hospitalist Routine Consulting Provider: June Dolan Reason for Consult: post op med management EMERGENT Consult: No MD Notified: Yes Date Notified: 12/25/24 Time Notified: 13:29 Method of Notification: Text Reason For Visit: TKA Diagnosis Discharge Diagnosis (1) Status post total right knee replacement: Status: Acute Code(s): Z96.651 - Presence of right artificial knee joint Plan: 1. S/P right robotic assisted total POD #2 2. Continue Pain Medications: Tylenol and oxycodone as needed for breakthrough pain. Patient is only required Tylenol today. I will give her a small prescription of the oxycodone on discharge. She will only use this for breakthrough pain. She has tolerated this in the past for previous surgery. If she has any complications with the medication she will contact our office. She has been advised to contact our office if refill is needed. We are avoiding nonsteroidal anti-inflammatories due to her chronic kidney disease. 3. DVT Prophylaxis: Take 81 mg aspirin twice daily for 4 weeks postoperatively for DVT prophylaxis. Patient denies past history of DVT or pulmonary embolism. Patient will continue with ROSA hose for 2 weeks postoperatively. 4. PT/OT: Weightbearing as tolerated with walker. Patient did much better today with physical therapy and they are okay with patient being discharged home with outpatient therapy. PT prescription has been signed and given to care management team 5. H & H: 9.4/28.8, asymptomatic. Acute on chronic anemia secondary to blood loss from surgery without intraoperative complications. Patient was placed on our anemia protocol preoperatively in which she has been using ferrous sulfate and folic acid. We will have her continue on this medication. I will also have the care management team schedule appointment with the primary care provider for repeat labs and continued management in approximately 3 weeks. Patient did voiced understanding. 6. Encouraged Incentive Spirometry 7. Patient has had a bowel movement and will now only use the stool softener at home on an as-needed basis. If she has any complications with constipation she will contact our office immediately. 8. Continue postoperative medical treatment per medicine 9. Disposition: Plan will be for discharge home today. Patient is adamant and ready to go today as soon as possible. She did well with physical therapy. She would like to proceed with outpatient physical therapy in the [place]. Physical therapy prescription has been placed on chart. I would like patient to follow- up with her primary care provider in approximately 3 weeks so that they can continue to follow her anemia. I would defer to the primary care provider for further management and treatment. I would also recommend primary care provider addressing and monitoring her chronic kidney disease. Upon discharge patient will contact our office with any concerns or questions. She will follow-up per our postoperative instructions. She would like her prescription sent to the pharmacy at [facility]. I have reviewed the [place] Automated Rx Reporting System (OARRS) report for this patient for refill pattern and other prescriber involvement as part of the appropriate surveillance for the provision of acute and chronic controlled medications. The report was requested and reviewed on the date of this entry and was considered in the prescribing process. This dictation was created using voice recognition software. Phonetic and/or grammatical errors may exist. Medications at Discharge Home Medications bupropion HCl 300 mg 24 hr tablet, extended release (Wellbutrin XL) 300 mg PO QAM 07/22/18 fluoxetine 20 mg capsule (Prozac) 20 mg PO BID 07/22/18 lisinopril 20 mg tablet 20 mg PO DAILY 10/02/24 calcium 600 mg (as carbonate)-vitamin D3 5 mcg (200 unit) tablet (Calcium 600 + D(3)) 1 tab PO DAILY 11/28/24 docusate sodium 100 mg capsule (Col-Rite) 100 mg PO DAILY 11/28/24 famotidine 20 mg tablet 20 mg PO DAILY PRN acid reflux 11/28/24 ferrous sulfate 325 mg (65 mg iron) tablet (Feosol) 325 mg PO QODAY 11/28/24 loratadine 10 mg tablet (Allergy Relief (loratadine)) 10 mg PO DAILY 11/28/24 oxybutynin chloride 5 mg tablet 5 mg PO BID 11/28/24 aspirin 81 mg tablet 81 mg PO BID 30 days #60 tabs 12/27/24 oxycodone 5 mg tablet 5 - 10 mg (1 - 2 x 5 mg) PO Q4H PRN PRN as needed for pain 7 days #20 tabs 12/27/24 Hospital Course Operations total knee replacement Summary of Care Provided Hospital Course: Patient is a 79-year-old female who has had ongoing pain in the right knee for over 3 years. After failing conservative measures, the patient opted to proceed with a right robotic-assisted total knee arthroplasty. The patient underwent the above-stated procedure on December 25, 2024. Patient did receive perioperative antibiotics. Intraoperatively was uneventful. For details please see dictated operative note. The patient was placed in thigh-high teds, bilateral SCDs, remained stable in recovery. Patient was admitted to the 3rd floor at [facility]. The patient's pain was managed with the use of IV and p.o. pain medications. Patient participated in physical therapy. Patient did require additional night's stay as she was having dizziness and struggling with physical therapy on postoperative day #1. On postoperative day #2 patient did much better with physical therapy and was ready for discharge home. Physical therapy stated patient did much better and felt outpatient physical therapy was appropriate. Patient was discharged on postoperative day 2 to home. Patient was given medications stated below. Patient was only using Tylenol on postoperative #2. She was given her description for oxycodone to take for breakthrough pain. DVT prophylaxis patient was placed on aspirin 81 mg twice daily for 4 weeks postoperatively. She has been dealing with acute on chronic anemia and which she has continued the anemia protocol with ferrous sulfate folic acid. She will be scheduled follow-up appointment with her primary care provider in approximately 3 weeks for repeat labs and continued management of the anemia. Patient will follow up with [facility] per postop instructions for reassessment. Patient will continue with out-patient physical therapy as scheduled. Weight / BMI Weight Weight: 83.1 kg Body Mass Index (BMI) 31.4 ABG / Lab / Microbiology Data 12/27/24 06:53 12/27/24 06:53 Microbiology: Microbiology 11/30/24 11:48 Swab (Method) Nasal Screen MRSA/MSSA - Final D/C Instructions May shower in (days): 1 (Please turn dressing away from water. Okay to get wet as long as dressing is intact to skin.) Ice area for (Minutes): 20 (Every 1-2 hours while awake[address] place barrier between the skin and ice pack.) Weight Bearing Status: Weight bearing as tolerated (With walker) Keep extremity elevated above heart level: Operative Extremity Call your doctor if your incision/area has: Continuous Slow Oozing, Sudden Increased Bleeding, Increased Pain/ Swelling, Increased Redness and Foul Smelling Discharge Call your doctor if you observe: Fever of 101 or Higher, Coldness, Increased Pain, Numbness or Tingling, Change in Color, Shortness of breath, Chest pain, Calf discomfort and Uncontrolled pain Additional Dressing/Incision Instructions: Follow [facility] Post-op Instructions. Once postoperative dressing has been removed only use gentle soap and water over the incision. Do not use any ointments, Neosporin, salves, alcohol pads over the incision for 6 weeks postoperatively. Do not submerge underwater for 6 weeks postoperatively. Continue with ROSA hose/elastic stockings for 2 weeks postoperatively. May remove at nighttime but needs to be placed back on the leg during the day. Do NOT use alcohol with narcotic pain medication. Do NOT make important decisions while taking narcotic medication. If you have problems with taking your medication (rash, itching, nausea, etc.) call the office at once. DC O2, CPAP, BIPAP Needs Home O2 Discharge instructions: No Meaningful Use Info Meaningful Use Meaningful Use Diagnoses (Choose all that apply): None applicable Discharge Plan Admission Admit Date/Time: 12/25/24 07:04 Attending Provider: Kurt Rosenthal Primary Care Provider: Magdy Gibbs Consulting Providers: Mark Patrick Discharge Orders/Prescriptions Prescriptions: New aspirin 81 mg tablet 81 mg PO BID 30 Days Qty: 60 0RF Rx Instructions: Take 81 mg aspirin twice daily for 4 weeks postoperatively for DVT prophylaxis. oxycodone 5 mg Tablet 5 - 10 mg PO Q4H PRN PRN (Reason: as needed for pain) 7 Days Qty: 20 0RF Continued fluoxetine [Prozac] 20 mg capsule 20 mg PO BID bupropion HCl [Wellbutrin XL] 300 mg tablet extended release 24 hr 300 mg PO QAM lisinopril 20 mg tablet 20 mg PO DAILY oxybutynin chloride 5 mg tablet 5 mg PO BID loratadine [Allergy Relief (loratadine)] 10 mg tablet 10 mg PO DAILY ferrous sulfate [Feosol] 325 mg (65 mg iron) tablet 325 mg PO QODAY docusate sodium [Col-Rite] 100 mg capsule 100 mg PO DAILY calcium carbonate-vitamin D3 [Calcium 600 + D(3)] 600 mg-5 mcg (200 unit) tablet 1 tab PO DAILY famotidine 20 mg Tablet 20 mg PO DAILY PRN (Reason: acid reflux) Discontinued aspirin 81 mg Tablet,Chewable 81 mg PO DAILY Referrals / Follow Up: physical,therapy [Other] - 12/29/24 11:30 am Magdy Gibbs MD [Primary Care Provider, [facility]] - 01/18/25 8:30 am Referral Note: f/u in 3 weeks for labs and management of anemia and CKD Sara Gatica PA [Med Staff - [facility], Orthopedics] - 01/09/25 2:00 pm Disposition Disposition (needs filled in before D/C Order can be placed): Home, Self Care
== END 2024-12-27 12:30 | disposition home or self-care (01) ==
LOC: MS3 12-26 08:15 → SDC 12-26 08:57 → AC 12-26 08:57 → SDC 12-26 08:58 → MS3 12-26 08:58
PROVIDERS: Anesthesiology; Admitting Provider Specialist; PCP Family Medicine; Referring Provider Specialist; Visit Provider Specialist
DX: M17.11 Unilateral primary osteoarthritis, right knee (principal); N18.4 Chronic kidney disease, stage 4 (severe); I12.9 Hypertensive chronic kidney disease with stage 1 through stage 4 chronic kidney disease, or unspecified chronic kidney disease; Z79.899 Other long term (current) drug therapy; D50.9 Iron deficiency anemia, unspecified; M21.061 Valgus deformity, not elsewhere classified, right knee; Z79.82 Long term (current) use of aspirin; E66.9 Obesity, unspecified; Z68.30 Body mass index [BMI] 30.0-30.9, adult; F41.9 Anxiety disorder, unspecified; F32.A Depression, unspecified; D63.1 Anemia in chronic kidney disease
CPT/HCPCS: 27447; S2900; 01402; 36415; 73560; 80048; 82040; 82962; 83735; 85025; 85027; 85610; 85730; 87081; 94668; 96361; 96365; 96366; 96375; 97116; 97162; 97166; 97530; 97535; 97802; 99221; 99252; C1776; A4216; G0378; G0463; J2405

== ENCOUNTER → 2025-01-18 | Outpatient (CLI) | payer MEDICARE, SELFPAY ==
[2018-09-19 13:59] VITALS: BMI 42.7
[2025-01-18 10:03] LABS: Hematocrit 30.8 % (37-47); Hemoglobin 10.1 g/dL (12.0-15.0); Immature Granulocytes Count 0.020 X10^3/uL (0.0-0.0); Mean Corp Hgb Conc 32.8 g/dL (32-36); Mean Corpuscular Volume 91.7 fL (81-99); Mean Platelet Vol. 10.0 fl (6.2-12.0); NRBC Flagged by Analyzer 0 % (0-5); Platelet Count 258 K/mm3 (150-450); RBC Distribution Width CV 12.9 % (11.6-14.6); RBC Distribution Width SD 42.7 fl (35.1-43.9); Red Blood Count 3.36 M/mm3 (4.2-5.4); White Blood Count 6.5 K/mm3 (4.4-11.0)
[2025-01-18 10:27] LABS: Anion Gap 12 (5-15); BUN 29 mg/dL (4-19); BUN/Creat Ratio 16.0 RATIO (10-20); Calcium,Total 9.6 mg/dL (7.6-11.0); Carbon Dioxide 24.3 mmol/L (21.0-32.0); Chloride 103 mmol/L (98-108); Glucose 93 mg/dL (70-99); Potassium 4.0 mmol/L (3.3-5.1)
== END | disposition home or self-care (01) ==
LOC: MFPLAB 08:59
PROVIDERS: PCP Family Medicine; Visit Provider Family Medicine
DX: D64.9 Anemia, unspecified (principal); N18.9 Chronic kidney disease, unspecified
CPT/HCPCS: 36415; 80048; 85025